=== PATIENT | female | born 1960 | race African-American/Black ===

== ENCOUNTER 2023-09-22 09:56 | Outpatient (OUT) | payer OTHER, SELFPAY ==
--- NOTE | 2023-09-22 09:58 | US_ITS ---
The [address] [address] Patient Name: AMOR TIMMONS MRN: [id number] date: 1960 Sex: F Assigned Patient Location: [facility] Current Patient Location: [facility] Accession/Order Number: [id number] Exam Date: 09/22/2023 09:59 Report Date: 09/22/2023 13:30 At the request of: ANTHONY ROCHE Procedure: US pelvis w/ transvaginal EXAMINATION: US pelvis w/ transvaginal HISTORY: POST MENOPAUSAL BLEEDING COMPARISON: No relevant comparison available. FINDINGS: Transabdominal and transvaginal images The uterus measures 9.7 x 4.2 x 5.4 cm, retroverted, retroflexed. Identified in the uterine fundus is a 3.6 x 2.9 x 2.8 cm area of heterogeneous hypoechogenicity with some likely acoustic shadowing and vascularity. The endometrium measures 12 mm, heterogeneous. The right ovary measures 2.3 x 1 0.5 to 2.0 cm. Normal color flow. The left ovary measures 2.9 x 1.9 x 1.8 cm. Normal color flow. No free fluid US/US pelvis w/ transvaginal IMPRESSION: 3.6 cm myometrial mass. A fibroid is statistically favored Thickened endometrium, in light of patient's postmenopausal bleeding, histopathologic diagnosis is recommended Electronically authenticated by: PRISCILLA ANDINO Date: 09/22/2023 13:30
== END 2023-09-22 09:57 | disposition home or self-care (01) ==
LOC: NOMS 09:56
PROVIDERS: Visit Provider Obstetrics & Gynecology
DX: N95.0 Postmenopausal bleeding (principal); N85.8 Other specified noninflammatory disorders of uterus
CPT/HCPCS: 76830; 76856

== ENCOUNTER 2023-11-05 12:35 | Outpatient (OUT) | payer OTHER, SELFPAY ==
--- NOTE | 2023-11-05 12:46 | ECG_ITS ---
The [facility] Test Date: 2023-11-05 Pat Name: AMOR TIMMONS Department: Room: - Gender: Female [employer]: : 1960 Requested By: ANTHONY ROCHE Order Number: [id number] Reading MD: DAVIDE HODGES Measurements Intervals [place] Rate: 68 P: 56 KS: 158 QRS: 33 QRSD: 148 T: 35 QT: 415 QTc: 443 Interpretive Statements SINUS RHYTHM INDETERMINATE AXIS RIGHT BUNDLE BRANCH BLOCK [120+ ms QRS DURATION, UPRIGHT V1, 40+ ms S IN I/aVL/V4/V5/V6] No previous ECG available for comparison Electronically Signed On 11-06-2023 14:23:52 EDT by DAVIDE HODGES
[2023-11-05 14:56] LABS: Anion Gap 13.9; BUN Creatinine Ratio 14.6; Calcium 9.3 mg/dL (8.5-10.1); Carbon Dioxide 27.7 mmol/L (21.0-32.0); Chloride 102 mmol/L (98-107); Estimated GFR (African America >60 (>=60); Estimated GFR (Non-African Ame 54 (>=60); Glucose 180 mg/dL (74-106); Potassium 3.6 mmol/L (3.5-5.1); Sodium 140 mmol/L (136-145)
== END 2023-11-05 12:36 | disposition home or self-care (01) ==
PROVIDERS: Visit Provider Obstetrics & Gynecology
DX: Z01.810 Encounter for preprocedural cardiovascular examination (principal); Z01.812 Encounter for preprocedural laboratory examination; N95.0 Postmenopausal bleeding; R93.89 Abnormal findings on diagnostic imaging of other specified body structures
CPT/HCPCS: 80048; 93005

== ENCOUNTER 2023-11-14 07:50 | Day surgery (SDC) | payer OTHER, SELFPAY ==
[2023-11-05 13:14] VITALS: BP 132/86; PULSE 76; TEMP 36.3; O2SAT 95; BMI 37.4
[2023-11-14] VITALS (11 sets, daily range): BP systolic 122–150; BP diastolic 68–88; PULSE 66–102; TEMP 36.2–36.5; O2SAT 95–98; BMI 37.4
--- OUTSIDE RECORDS SUMMARY | 2023-11-14 07:52 | XMS_ITS | CCD ---
Author Organization [facility] Care Team Providers Care Escrow Manager Name Role Phone Ligia Broderick MD Primary Care Provider LIGIA SINGH Attending Unavailable ANTHONY ROCHE Attending Unavailable MIKAEL, LIGIA Rice Attending Unavailable ANTHONY ROCHE Attending Unavailable ANTHONY ROCHE Attending Unavailable MIKAEL, LIGIA Rice Attending Unavailable LIGIA SINGH Attending Unavailable LIGIA SINGH Attending Unavailable LIGIA BRODERICK Referring Unavailable LIGIA BRODERICK Primary Care Unavailable LIGIA BRODERICK Referring Unavailable LIGIA BRODERICK Primary Care Unavailable LIGIA BRODERICK Referring Unavailable LIGIA BRODERICK Primary Care Unavailable LIGIA BRODERICK Referring Unavailable LIGIA BRODERICK Primary Care Unavailable LIGIA BRODERICK Referring Unavailable LIGIA BRODERICK Primary Care Unavailable LIGIA BRODERICK Referring Unavailable LIGIA BRODERICK Primary Care Unavailable Medications Current Medications Medication Drug Class(es) Dates Sig (Normalized) Sig (Original) hydroCHLOROthiazide 12.5 mg / lisinopril 10 mg oral tablet (1 source) Thiazide Diuretic, Angiotensin Converting Enzyme Inhibitor take 1 tablet by mouth in the morning lisinopril-hydro CHLOROthiazide 10-12.5 MG tablet Take 1 tablet by mouth in the morning. 0 Active metFORMIN hydrochloride 500 mg oral tablet (1 source) Biguanide metFORMIN (Glucophage) 500 MG tablet every 12 (twelve) hours. 0 Active Problems Problem Classification Problem Date Documented Da te Episodic/Chronic Other connective tissue disease (1 source) Adhesive capsulitis of left shoulder; Translations: [Adhesive capsulitis of left shoulder] 08-07-2023 Episodic Other connective tissue disease (1 source) Non-traumatic partial tear of left rotator cuff; Translations: [Incomplete rotator cuff tear or rupture of left shoulder, not specified as traumatic] 08-07-2023 Episodic Other connective tissue disease (1 source) Other shoulder lesions, unspecified shoulder; Translations: [Other shoulder lesions, unspecified shoulder] Onset: 09-05-2023 Episodic Other non-traumatic joint disorders (1 source) Chronic pain of right upper limb; Translations: [Pain in right shoulder] 08-07-2023 Episodic Encounters Encounter Date Encounter Type Care Provider Facility Start: 11-05-2023 ambulatory LIGIA BRODERICK [facility] Start: 10-23-2023 End: 10-23-2023 ambulatory LIGIA SINGH Not Available Start: 10-21-2023 End: 10-21-2023 ambulatory ANTHONY COUCHZIO Not Available Start: 10-13-2023 End: 11-05-2023 ambulatory LIGIA Silver [facility] Start: 09-22-2023 End: 09-22-2023 ambulatory ANTHONY COUCHZIO Not Available Start: 09-08-2023 End: 09-08-2023 ambulatory ANTHONY KALEY Not Available Start: 09-05-2023 End: 10-06-2023 ambulatory LIGIA BRODERICK [facility] Start: 08-07-2023 End: 09-05-2023 ambulatory LIGIA SINGH Not Available Start: 08-07-2023 End: 08-07-2023 Office outpatient visit 10 minutes Ligia Singh DO Work Phone: [facility] Comment on above: Adhesive capsulitis of left shoulder (Primary Dx); Partial nontraumatic tear of rotator cuff, left; Chronic right shoulder pain Start: 07-29-2023 End: 08-07-2023 ambulatory LIGIA BRODERICK [facility] Start: 06-16-2023 End: 07-07-2023 ambulatory LIGIA Silver [facility] Start: 06-12-2023 End: 06-12-2023 ambulatory LIGIA SINGH Not Available Start: 05-27-2023 End: 05-27-2023 ambulatory LIGIA SINGH Not Available Start: 05-20-2023 End: 05-20-2023 ambulatory LIGIA SINGH Not Available Procedures Date Procedure Procedure Detail Performing Clinician Start: 08-09-2022 Mammography Ligia lal DO Work Phone: Plan of Treatment Date Care Activity Detail Author Start: 10-02-2023 End: 10-02-2023 Patient encounter procedure 10/02/2023 9:00 AM EDT Office Visit [facility] [address] [place] [address] Ligia Singh, DO [address] [facility] [address] [place] [address] [facility] Start: 08-09-2023 Screening for malign ant neoplasm of breast Mammogram [facility] Start: 03-07-2023 Influenza vaccination Influenza Vacc ine (#1) [facility] Start: 1991 Screening for malign ant neoplasm of cervix [facility] Start: 1982 Screening for malign ant neoplasm of cervix Pap Smear [facility] Start: 1960 Screening for malign ant neoplasm of colon [facility] Healthcare Payers Date Payer Category Payer Medicaid [id number] 2016 Medicaid [employer] [place] [id number] 2016-Present [address] [place] [address] [id number] 2016 Medicaid [id number] 1960 Unknown [id number] 1960 Unknown [id number] [id number]58 1960 Unknown [id number] 2.16.840.1.174288.3.579.2.1258 1960 Unknown [id number] 2.16.840.1.131938.3.579.2.9 1960 Unknown [id number] 2.16.840.1.640386.3.579.2.9 1960 Unknown [id number] 2.16.840.1.490756.3.579.2.1258 1960 Unknown [id number] 2.16.840.1.025594.3.579.2.1259 1960 Unknown [id number] 2.16.840.1.800765.3.579.2.1259 1960 Unknown [id number] 2.16.840.1.678243.3.579.2.1286 1960 Unknown [id number] 2.16.840.1.704897.3.579.2.1286 1960 Unknown [id number] 2.16.840.1.424737.3.579.2.1286 1960 Unknown [id number] 2.16.840.1.090928.3.579.2.1286 1960 Unknown [id number] 2.16.840.1.012645.3.579.2.1286 1960 Unknown [id number] 2.16.840.1.337695.3.579.2.1286 Social History Date Type Detail Facility Start: 05-20-2023 Tobacco smoking stat [facility] Never smoked tobacco [facility] Start: 05-20-2023 Tobacco use and exposure Smokeless t obacco non-user [facility] Start: 05-20-2023 Alcohol intake Ex-drinker (finding) [facility] Start: 05-20-2023 History of Social function [facility] Start: 05-20-2023 Tobacco use panel [facility] Start: 1960 Sex Assigned At Not on file [facility] History of Present illness Narrative 08-07-2023 Ligia Singh DO - 08/07/2023 9:15 AM EST Note Date & Type Note Facility 08-07-2023 History of Presen t illness Narrative Images from the original note were not included. HISTORY OF PRESENT ILLNESS: Agnes Timmons is an 63 y.o. @ female. Chief complaint RT shoulder pain LT shoulder s/p PT at [facility] with 3 visits with 10% improvement. 2 1/2 months s/p subacromial depo injx 05/27/23, she still notes some relief. LT shoulder pain x Feb 2023 and has gradually worsened, denies injury. Saw Dr Broderick, went to PT, had MRI at [facility]. Pain is much improved, no longer waking at HS. Admits weakness but is improving. ROM is improving but still trouble with IR/ER rotation. Some discomfort in the upper arm. 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 Prior treatment: PCP, PT 6-7 visits, MRI [facility] 04/18/23, massage, ice, tried naproxen, taking TYL and motrin, Depo injx subacromial 05/27/23, PT MEDICATION: Current Outpatient Medications on File Prior to Visit Medication Sig Dispense Refill lisinopril-hydroCHLOROthiazide 10-12.5 MG tablet Take 1 tablet by mouth in the morning. metFORMIN (Glucophage) 500 MG tablet every 12 (twelve) hours. No current facility-administered medications on file prior to visit. MEDICAL HISTORY: Past Medical History: Diagnosis Date Arthritis Diabetes mellitus ([facility]) Heart murmur Hypertension ([facility]) Obesity ALLERGIES: No Known Allergies VITALS: Visit Vitals Smoking Status Never PHYSICAL EXAM: Ortho Exam LT shoulder ROM 150/150/20 IR 0 Exam consistent with adhesive capsulitis IMAGING: ASSESSMENT: ICD-10-CM 1. Adhesive capsulitis of left shoulder M75.02 2. Partial nontraumatic tear of rotator cuff, left M75.112 3. Chronic right shoulder pain M25.511 G89.29 PLAN: I explained the diagnosis and reviewed treatment options. I answered all of the patient's questions. I recommend she continue with HEP and PT. I will see her back in [address] Singh obtained history and examined the patient, I am acting as scribe for Dr. Singh/, RN Tara Singh D.O. documented in this encounter [facility] Evaluation note Note Date & Type Note Facility Evaluation note Diagnosis Adhesive capsulitis of left shoulder- Primary Partial nontraumatic tear of rotator cuff, left Chronic right shoulder pain Pain in joint, shoulder region documented in this encounter [facility] Summary Purpose Family History No Family History Records FoundNo Family History Records Found Advance Directives No Advanced Directives Records FoundNo Advanced Directives Records Found Additional Source Comments Reason for Visit (unrecogniz ed section and content) Reason Comments Follow-up Care Teams (unrecognized sec tion and content) Escrow Manager Relationship Specialty Start Date End Date Ligia Broderick MD [address] [place] [address] PCP - General Family Medicine 05/20/23 INFORMATION SOURCE (unrecogn ized section and content) DATE CREATED AUTHOR 10/24/2023 [facility] EPIC DATE CREATED AUTHOR AUTHOR'S ORGANIZ ATION 11/12/2023 [facility] FOR RECORDS PERTAINING TO PATIENTS WHO ARE OR HAVE BEEN ENROLLED IN A CHEMICAL DEPENDENCY/SUBSTANCEABUSE PROGRAM, SOME INFORMATION MAY BE OMITTED. This clinical summary was aggregated from multiple sources. Caution should be exercised in using it in the provision of clinical care. This summary normalizes information from multiple sources, and as a consequence, information in this document may materially change the coding, format and clinical context of patient data. In addition, data may be omitted in some cases. CLINICAL DECISIONS SHOULD BE BASED ON THE PRIMARY CLINICAL RECORDS. [facility]. provides no warranty or guarantee of the accuracy or completeness of information in this document.
[2023-11-14 07:57] LABS: Basophils Percent Auto 0.4 % (0.2-2.0); Eosinophils Absolute Auto 0.1 10^3/uL (0.0-0.7); Eosinophils Percent Auto 1.9 % (0.9-7.0); Hematocrit 37.2 % (36.0-48.0); Hemoglobin 11.8 g/dL (12.0-16.0); Immature Granulocytes Abs Auto 0.01 10^3/uL (0.00-0.03); Immature Granulocytes Pct Auto 0.1 % (0.0-0.5); Lymphocytes Absolute Auto 2.5 10^3/uL (1.2-3.8); Lymphocytes Percent Auto 36.4 % (20.5-60.0); Mean Corpuscular HGB Conc 31.7 g/dL (29.9-35.2); Mean Corpuscular Hemoglobin 26.5 pg (26.7-34.0); Mean Corpuscular Volume 83.6 fL (81.0-99.0); Mean Platelet Volume 8.9 fL (9.5-13.5); Monocytes Absolute Auto 0.7 10^3/uL (0.3-0.8); Monocytes Percent Auto 9.7 % (1.7-12.0); Neutrophils Absolute Auto 3.5 10^3/uL (1.4-6.5); Neutrophils Percent Auto 51.5 % (43.0-75.0); Platelet Count 262 10^3/uL (150-450); Red Blood Count 4.45 10^6/uL (4.20-5.40); Red Cell Distribution Width 12.9 % (11.0-15.0); White Blood Count 6.9 10^3/uL (4.0-11.0)
[2023-11-14] MEDS: LACTATED RINGER'S SOLUTION 1,000 ML 50 ML IV (08:31)
[2023-11-14 08:44] LABS: Glucometer 143 mg/dL (74-106)
--- NOTE | 2023-11-14 12:05 | PC.NURSE ---
1150: pt voids without difficulty.
--- NOTE | 2023-11-20 00:22 | P.ON_ITS ---
Brief Operative Note Date of procedure: 11/14/23 Pre-op diagnosis general: pmb, thickend endometrial lining Post-op diagnosis: same as pre-op Procedure: NAME OF PROCEDURE: [ D&c hysteroscopy with myosure with polypectomy] PROCEDURE: The patient was taken back to the Operating Room where she was prepped and draped in normal sterile fashion after being placed under general anesthesia without difficulty. She was also placed in the dorsal lithotomy position. A weighted speculum was placed in the patient?s vagina. The anterior lip of the cervix was identified and grasped with a single tooth tenaculum. The patient?s uterus was then sounded roughly to [? 8] cm. The patient was then gently dilated using Hegar dilators. The hysteroscope was passed through the patient?s cervix into the uterus. Both ostia were identified. fluffy appearing endometrium. No gross evidence of malignancy, no gross evidence of polyps or fibroids. The myosure apparatus was placed through the scope, The myosure was engaged and endometrial curretting were removed along with endometrial polyp, The hysteroscope was then removed from the uterus. The endometrial curettings were sent out to pathology. The single tooth te naculum was then removed from the patient's anterior lip of the cervix where excellent hemostasis was noted. All instruments were removed from the patient?s vagina. The patient tolerated the procedure well. Sponge, lap and needle counts were correct times two. The patient was taken to the Recovery Room in stable condition.Room in stable condition. Anesthesia: MAC Surgeon: Lamont Rao Estimated blood loss (mL): 5 Pathology: other (endometrial polyp and currettings) Condition: stable Disposition: PACU Urinary Catheter Management Urinary Catheter Management Straight: Cath placed during this visit: no
== END 2023-11-14 12:00 | disposition home or self-care (01) ==
PROVIDERS: Visit Provider Obstetrics & Gynecology
PROC: (CPT 952; principal; 2023-11-14 09:15)
DX: N95.0 Postmenopausal bleeding (principal); R93.89 Abnormal findings on diagnostic imaging of other specified body structures; E11.9 Type 2 diabetes mellitus without complications; N84.0 Polyp of corpus uteri; Z79.84 Long term (current) use of oral hypoglycemic drugs; I10 Essential (primary) hypertension; E66.9 Obesity, unspecified; M19.90 Unspecified osteoarthritis, unspecified site; Z86.010 Personal history of colon polyps; Z68.37 Body mass index [BMI] 37.0-37.9, adult
CPT/HCPCS: 58558; 36415; 82948; 85025; 88305; J1094; J2704

== ENCOUNTER 2024-03-02 19:24 | Outpatient (REF) | payer OTHER, SELFPAY ==
--- OUTSIDE RECORDS SUMMARY | 2024-03-02 19:46 | XMS_ITS | CCD ---
Author Organization [facility] Care Team Providers Care Engineering Patternmaker Name Role Phone Winston FIORE, Ligia Silver Primary Care Provider Anthony Rao Attending Provider Anthony Rao Attending Unavailable Anthony Rao Admitting Unavailable WINSTON, LIGIA Silver Referring Unavailable WINSTON, LIGIA Silver Primary Care Unavailable WINSTON, LIGIA Silver Referring Unavailable WINSTON, LIGIA Silver Primary Care Unavailable WINSTON, LIGIA Silver Referring Unavailable WINSTON, LIGIA Silver Primary Care Unavailable WINSTON, LIGIA Silver Referring Unavailable WINSTON, LIGIA Silver Primary Care Unavailable WINSTON, LIGIA Silver Referring Unavailable WINSTON, LIGIA Silver Primary Care Unavailable WINSTON, LIGIA Silver Referring Unavailable WINSTON, LIGIA Silver Primary Care Unavailable MIKAEL, LIGIA Rice Attending Unavailable ANTHONY RAO Attending Unavailable MIKAEL, LIGIA Rice Attending Unavailable MAIRA, ANTHONY Attending Unavailable ANTHONY RAO Attending Unavailable MIKAEL, LIGIA Rice Attending Unavailable REJISAURAV Attending Unavailable MIKAEL, LIGIA Rice Attending Unavailable MIKAEL, LIGIA Rice Attending Unavailable MIKAEL, LIGIA Rice Attending Unavailable MIKAEL, LIGIA Rice Referring Unavailable MIKAEL, LIGIA Rice Attending Unavailable Medications Current Medications Medication Drug Class(es) [...] every 12 (twelve) hours. 0 Active Problems Active Problems Problem Classification Problem Date Documented Da te Episodic/Chronic Other connective tissue disease (1 source) Adhesive capsulitis of left shoulder; Translations: [Adhesive capsulitis of left shoulder] 08-07-2023 Episodic Other connective tissue disease (1 source) Non-traumatic partial tear of left rotator cuff; Translations: [Incomplete rotator cuff tear or rupture of left shoulder, not specified as traumatic] 08-07-2023 Episodic Other non-traumatic joint disorders (1 source) Chronic pain of right upper limb; Translations: [Pain in right shoulder] 08-07-2023 Episodic Past or Other Problems Problem Classification Problem Date Documented Da te Episodic/Chronic Other connective tissue disease (1 source) Other shoulder lesions, unspecified shoulder; Translations: [Other shoulder lesions, unspecified shoulder] Onset: 09-05-2023 Episodic Results Test Name Value Interpretation Reference Range Facil ity Pancho 11-14-2023 L Specimen: [id number] Received: 11/14/23 Status: STEFANI Walker Num: [id number] Spec Type: Surgical Subm Dr: Anthony Rao Tissues: A Endometrium - Curettings (ENDOMETRIAL CUURETTINGS) Procedures: HE/4, Gross/Micro L4 Age/ Patient Sex Location Account Attending Physician Agnes Thapa 63/F LABELL [id number] Anthony Rao SPEC NUM: [id number] RECD: 11/14/23 STATUS: STEFANI WALKER NUM: [id number] [place]: 11/14/[address]: Anthony Rao ENTERED: 11/14/23 [facility] DR: Kalyn,Rene SPEC TYPE: Surgical DEPT: OSITO CHO ORDERED: HE/4, Gross/Micro L4 ORDERED: HE/4, Gross/Micro L4 Pathological Diagnosis Endometrial curettings: -Multiple strips of inactive to weakly proliferative type endometrial mucosa, including occasional small biopsy fragments of benign endometrial polyps with occasional minor associated simple and/or cystic hyperplasia, and the occasional cystic glandular atrophy also noted, without atypia identified Gross Description Received in formalin, labeled with the patient's name, date of and endometrial curettings are multiple horne-pink tissue fragments admixed with clotted blood measuring in aggregate 2.6 x 2.2 x 0.5 cm. Submitted entirely in A1?A2. Clinical history postmenopausal bleeding, thickened endometrium. CPT Codes 10912 Specimen: [id number] Received: 11/14/23 Status: STEFANI Walker Num: [id number] Spec Type: Surgical Subm Dr: Anthony Rao Tissues: A Endometrium - Curettings (ENDOMETRIAL CUURETTINGS) Procedures: Fred BECKWITH/Archie L4 Patient: Agnes Thapa [id number] (Continued) Signed (signature on file) Grabiel Torrez MD 11/18/231916 [place] [facility] Encounters Encounter Date Encounter Type Care Provider Facility Start: 02-05-2024 End: 02-05-2024 ambulatory LIGIA SINGH Not Available Start: 01-22-2024 End: 01-22-2024 ambulatory LIGIA SINGH Not Available Start: 11-27-2023 End: 11-27-2023 ambulatory SAURAV MENDOZA Not Available Start: 11-14-2023 End: 11-14-2023 ambulatory Anthony Maira Facility:[facility] Start: 11-14-2023 End: 11-14-2023 ambulatory Anthony Maira Work Phone: [facility] Work Phone: Start: 11-14-2023 End: 11-14-2023 Departed Referred Anthony Maira Work Phone: [facility] Start: 11-05-2023 End: 12-06-2023 ambulatory [facility] Start: 10-23-2023 End: 10-23-2023 ambulatory LIGIA SINGH Not Available Start: 10-21-2023 End: 10-21-2023 ambulatory ANTHONY MAIRA Not Available Start: 10-13-2023 End: 11-05-2023 ambulatory [facility] Start: 09-22-2023 End: 09-22-2023 ambulatory ANTHONY MAIRA Not Available Start: 09-08-2023 End: 09-08-2023 ambulatory ANTHONY MAIRA Not Available Start: 09-05-2023 End: 10-06-2023 ambulatory [facility] Start: 08-07-2023 End: 09-05-2023 ambulatory [facility] Start: 08-07-2023 End: 08-07-2023 Office outpatient visit 10 minutes Ligia Singh DO Work Phone: [facility] Comment on above: Adhesive capsulitis of left shoulder (Primary Dx); Partial nontraumatic tear of rotator cuff, left; Chronic right shoulder pain Start: 07-29-2023 End: 08-07-2023 ambulatory [facility] Start: 06-16-2023 End: 07-07-2023 ambulatory [facility] Start: 06-12-2023 End: 06-12-2023 ambulatory LIGIA SINGH [...] Office Visit [facility] [address] [place] [address] Ligia Singh, DO [address] [facility] [address] [place] [address] [facility] Start: 08-09-2023 Screening for malign ant neoplasm of breast Mammogram [facility] Start: 03-07-2023 Influenza vaccination Influenza Vacc ine (#1) [facility] Start: 1991 Screening for malign ant neoplasm of cervix [facility] Start: 1982 Screening for malign ant neoplasm of cervix Pap Smear [facility] Start: 1961 Screening for malign ant neoplasm of colon [facility] Payers Date Payer Category Payer Self-pay [id number] 2023 Medicaid [id number] 2016 Medicaid [facility] [employer] MEDICA[employer] [place] [id number] 2016-Present [address] [place] [address] [id number] 2016 Medicaid [id number] 1961 Unknown [id number] 2.16.840.1.201436.3.579.2.1286 1961 Unknown [id number] .16.840.1.287260.3.579.2.1286 1961 Unknown [id number] 2.16.840.1.052591.3.579.2.1286 1961 Unknown [id number] 2.16.840.1.935777.3.579.2.1286 1961 Unknown [id number] 2.16.840.1.476369.3.579.2.1286 1961 Unknown [id number] 2.16.840.1.551687.3.579.2.1286 1961 Unknown [id number] 2.16.840.1.243828.3.579.2.125 1961 Unknown [id number] 2.16.840.1.485435.3.579.2.1258 1961 Unknown [id number] 2.16.840.1.066300.3.579.2.125 1961 Unknown [id number] 2.16.840.1.398670.3.579.2.125 1961 Unknown [id number] 2.16.840.1.059876.3.579.2.125 1961 Unknown [id number] 2.16.840.1.381666.3.579.2.125 1961 Unknown [id number] 2.16.840.1.670574.3.579.2.125 1961 Unknown [id number] 2.16.840.1.844322.3.579.2.125 1961 Unknown [id number] 2.16.840.1.758041.3.579.2.125 1961 Unknown [id number] 2.16.840.1.721820.3.579.2.125 1961 Unknown [id number] 2.16.840.1.455649.3.579.2.125 1961 Unknown [id number] 2.16.840.1.642761.3.579.2.1259 Unknown [id number] 2.16.840.1.954262.3.579.2.531 Social History Date Type Detail Facility Start: [facility]20-[facility]23 [facility] Start: 05-20-2023 Tobacco use and exposure Smokeless tobacco non-user [facility] Start: 05-20-2023 Alcohol intake Ex-drinker (finding) [facility] Start: 05-20-2023 History of Social function [facility] Start: 05-20-2023 Tobacco use panel [facility] Start: 1960 Sex Assigned At Not on file [facility] Start: 1960 Sex Assigned At Female F [facility] History of Present illness Narrative 08-07-2023 Ligia Singh, DO - 08/07/2023 9:15 AM EST Note Date & Type Note Facility 08-07-2023 History of Presen t illness Narrative Images from the original note were not included. HISTORY OF PRESENT ILLNESS: Agnes Thapa is an 63 y.o. @ female. Chief complaint RT shoulder pain LT shoulder s/p PT at [facility] with 3 visits with 10% improvement. 2 1/2 months s/p subacromial depo injx 05/27/23, she still notes some relief. LT shoulder pain x Feb 2023 and has gradually worsened, denies injury. Saw Dr Montero, went to PT, had MRI at [facility]. Pain is much improved, no longer waking at HS. Admits weakness but is improving. ROM is improving but still trouble with IR/ER rotation. Some discomfort in the upper arm. 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 Prior treatment: PCP, PT 6-7 visits, MRI [facility] 04/18/23, massage, ice, tried naproxen, taking TYL [...] Medical History: Diagnosis Date Arthritis Diabetes mellitus (CMS/HCC) Heart murmur Hypertension (CMS/[facility]) Obesity ALLERGIES: No Known Allergies VITALS: [...] I am acting as scribe for Dr. Singh/JACKSON KOCH D.O. documented in this encounter [facility] Evaluation note Note Date & Type Note Facility Evaluation note Diagnosis Adhesive capsulitis of left shoulder- Primary Partial nontraumatic tear of rotator cuff, left Chronic right shoulder pain Pain in joint, shoulder region documented in this encounter [facility] Evaluation note Note Date & Type Note Facility Evaluation note No assessment information availa [facility] Work Phone: Summary Purpose Family History No Family History Records FoundNo Family History Records FoundNo Family History Records Found Advance Directives No Advanced Directives Records FoundNo Advanced Directives Records FoundNo Advanced Directives Records Found Additional Source Comments Reason for Visit (unrecogniz ed section and content) Reason Comments Follow-up Care Teams (unrecognized sec tion and content) Engineering Patternmaker Relationship Specialty Start Date End Date Ligia Montero MD [address] [place] [address] PCP - General Family Medicine 05/20/23 Team Status: Inactive Member Role Status Dates Anthony Rao Attending Provider Active Start: Francoise meza 2023 End: November 14, 2023 Goals (unrecognized section and content) Goals may be documented in a n alternate section INFORMATION SOURCE (unrecogn ized section and content) DATE CREATED AUTHOR 11/20/2023 [facility] DATE CREATED AUTHOR AUTHOR'S KARINA ATION 12/07/2023 [facility] DATE CREATED AUTHOR AUTHOR'S ORGANIZ ATION 02/10/2024 [facility] dical Specialists [facility] FOR RECORDS PERTAINING TO PATIENTS WHO ARE [...] BE BASED ON THE PRIMARY CLINICAL RECORDS. [facility] M[facility]. provides no warranty or guarantee of the accuracy or completeness of information in this document.
== END 2024-03-02 19:25 | disposition home or self-care (01) ==
LOC: LAB 19:24
PROVIDERS: Visit Provider Physician Assistant
DX: Z01.419 Encounter for gynecological examination (general) (routine) without abnormal findings (principal)
CPT/HCPCS: 87624; 88175

== ENCOUNTER 2024-04-05 09:50 | Outpatient (OUT) | payer OTHER, SELFPAY ==
--- NOTE | 2024-04-05 09:57 | XR_ITS ---
The [address] [address] Patient Name: AMOR TIMMONS MRN: [id number] date: 1960 Sex: F Assigned Patient Location: [facility] Current Patient Location: [facility] Accession/Order Number: [id number] Exam Date: 04/05/2024 10:02 Report Date: 04/05/2024 13:10 At the request of: SAURAV MENDOZA Procedure: XR DEXA axial skeleton EXAMINATION: XR DEXA axial skeleton HISTORY: Postmenopausal State Z78.0 COMPARISON: No relevant comparison available. TECHNIQUE: Dual-energy X-ray absorptiometry (DXA) was performed. FINDINGS: SPINE ANALYSIS: Average bone mineral density is 1.247 g/cm2. T-score (standard deviation relative to young adult mean): 0.6 . HIP ANALYSIS: Lowest bone mineral density is within the left femoral neck, 0.854 g/cm2. T-score (standard deviation relative to young adult mean): -1.3 . XR/XR DEXA axial skeleton IMPRESSION: World Health Organization Classification: Osteopenia - Moderate Fracture Risk FRAX: Cannot calculate. Pharmacologic treatment recommendations * No uniform recommendation applies to all patients. Management plans must be individualized. * Consider initiating pharmacologic treatment in postmenopausal women and men >= 50 years of age who have the following: Primary fracture prevention: * T-score <= - 2.5 at the femoral neck, total hip, lumbar spine, 33% radius (some uncertainty with existing data) by DXA. * Low bone mass (osteopenia: T-score between - 1.0 and - 2.5) at the femoral neck or total hip by DXA with a 10-year hip fracture risk >= 3% or a 10-year major osteoporosis-related fracture risk >= 20% (i.e., clinical vertebral, hip, forearm, or proximal humerus) based on the US-adapted FRAXregistered model. Secondary fracture prevention: * Fracture of the hip or vertebra regardless of BMD [4, 5]. * Fracture of proximal humerus, pelvis, or distal forearm in persons with low bone mass (osteopenia: T-score between - 1.0 and - 2.5). The decision to treat should be individualized in persons with a fracture of the proximal humerus, pelvis, or distal forearm who do not have osteopenia or low BMD [12, 13]. Hetal MS, Jaime SL, Shaunna KL, Tristen EM, Ganesh KG, AJ, Geraldine ES. The clinician's guide to prevention and treatment of osteoporosis. Osteoporos Int. 2021;33(10):6954-1008. doi: 10.1007/s40028-804-18567-s. Epub 2021Nov 01. Erratum in: Osteoporos Int. 2021Jan 31;: PMID: 15100467; PMCID: [id number]. Electronically authenticated by: MORALES RAND Date: 04/05/2024 13:10
--- OUTSIDE RECORDS SUMMARY | 2024-04-05 09:58 | XMS_ITS | CCD ---
Author Organization [facility] Care Team Providers Care Shipping Point Inspector Name Role Phone Winston FIORE, Ligia Silver [...] Rice Attending Unavailable MAIRA, ANTHONY Attending Unavailable MAIRA, ANTHONY Attending Unavailable MIKAEL, LIGIA Rice Attending Unavailable SAURAV MENDOZA Attending Unavailable MIKAEL, LIGIA Rice Attending Unavailable MIKAEL, LIGIA Rice Attending Unavailable MIKAEL, LIGIA Rice Attending Unavailable MIKAEL, LIGIA Rice Referring Unavailable REJISAURAV HODGSON Attending Unavailable MIKAEL, LIGIA Rice Attending Unavailable Medications [...] Range Facil ity Pancho 11-14-2023 L Specimen: [id number] Received: 11/14/23 Status: STEFANI Walker Num: [id number] Spec Type: Surgical Subm Dr: Anthony Rao Tissues: A Endometrium - Curettings (ENDOMETRIAL CUURETTINGS) Procedures: HE/4, Gross/Micro L4 Age/ Patient Sex Location Account Attending Physician Agnes Thapa 63/F LABELL [id number] Anthony Rao SPEC NUM: [id number] RECD: 11/14/23 STATUS: STEFANI WALKER NUM: [id number] [place]: 11/14/[address]: Anthony Rao ENTERED: 11/14/23 [facility] DR: [facility],Lab SPEC TYPE: Surgical DEPT: OSITO CHO ORDERED: [...] history postmenopausal bleeding, thickened endometrium. CPT Codes 70982 Specimen: [id number] Received: 11/14/23 Status: STEFANI Walker Num: [id number] Spec Type: Surgical Subm Dr: Anthony Rao Tissues: A Endometrium - Curettings (ENDOMETRIAL CUURETTINGS) Procedures: Fred BECKWITH/Archie L4 Patient: Agnes Thapa [id number] (Continued) Signed (signature on file) Grabiel Torrez MD 11/18/231916 [facility] Encounters Encounter Date Encounter Type Care Provider Facility Start: 03-02-2024 End: 03-02-2024 ambulatory SAURAV MENDOZA Not Available Start: 02-05-2024 End: 02-05-2024 ambulatory LIGIA SINGH Not Available Start: 01-22-2024 End: 01-22-2024 ambulatory LIGIA SINGH Not Available Start: 11-27-2023 End: 11-27-2023 ambulatory SAURAV MENDOZA Not Available Start: 11-14-2023 End: 11-14-2023 ambulatory Anthony Maira Facility:[facility] Start: 11-14-2023 End: 11-14-2023 ambulatory Anthony Maira Work Phone: [facility] Work Phone: Start: 11-14-2023 End: 11-14-2023 Departed Referred Anthony Maira Work Phone: [facility] Path [facility] Start: 11-05-2023 End: 12-06-2023 ambulatory [facility] Start: 10-23-2023 End: 10-23-2023 ambulatory LIGIA SINGH Not Available Start: 10-21-2023 End: 10-21-2023 ambulatory ANTHONY MAIRA Not Available Start: 10-13-2023 End: 11-05-2023 ambulatory [facility] Start: 09-22-2023 End: 09-22-2023 ambulatory ANTHONY MAIRA Not Available Start: 09-08-2023 End: 09-08-2023 ambulatory ANTHONY MAIRA Not Available Start: 09-05-2023 End: 10-06-2023 ambulatory [facility] Start: 08-07-2023 End: 09-05-2023 ambulatory [facility] Start: 08-07-2023 End: 08-07-2023 Office outpatient visit 10 minutes Ligia Singh DO Work Phone: [facility] Comment on above: Adhesive capsulitis of left shoulder (Primary Dx); Partial nontraumatic tear of rotator cuff, left; Chronic right shoulder pain Start: 07-29-2023 End: 08-07-2023 ambulatory [facility] Start: 06-16-2023 End: 07-07-2023 ambulatory LIGIA Khaneugenie [facility] Start: 06-12-2023 End: 06-12-2023 ambulatory LIGIA SINGH Not Available Start: 05-27-2023 End: 05-27-2023 ambulatory LIGIA Krystal MIKAEL Not Available Start: 05-20-2023 End: 05-20-2023 ambulatory LIGIA SINGH Not Available Procedures Date Procedure Procedure Detail Performing Clinician Start: 08-09-2022 Mammography Ligia lal DO Work Phone: Plan of Treatment Date Care Activity Detail Author Start: 10-02-2023 End: 10-02-2023 Patient encounter procedure 10/02/2023 9:00 AM EDT Office Visit [facility] [address] [place] [id number] Ligia Singh DO [address] [address] [facility] Start: 08-09-2023 Screening for malign ant neoplasm of breast Mammogram [facility] Start: 03-07-2023 Influenza vaccination Influenza Vacc ine (#1) [facility] Start: 1991 Screening for malign ant neoplasm of cervix [facility] Start: 1982 Screening for malign ant neoplasm of cervix Pap Smear [facility] Start: 1961 Screening for malign ant neoplasm of colon [facility] Payers Date Payer Category Payer Self-pay [id number] 2023 Medicaid [id number] 2016 Medicaid [employer]ICA[employer] [place] [id number] 2016-Present [address] [place] [address] [id number] 2016 Medicaid [id number] 1961 Unknown [id number] 2.16.840.1.119595.3.579.2.1286 1961 Unknown [id number] 2.16.840.1.128391.3.579.2.1286 1961 Unknown [id number] 2.16.840.1.506788.3.579.2.1286 1961 Unknown [id number] 2.16.840.1.984458.3.579.2.1286 1961 Unknown [id number] 2.16.840.1.062326.3.579.2.1286 1961 Unknown [id number] 2.16.840.1.648859.3.579.2.1286 1961 Unknown [id number] 2.16.840.1.584012.3.579.2.1259 1961 Unknown [id number] 2.16.840.1.722494.3.579.2.1258 1961 Unknown [id number] 2.16.840.1.783036.3.579.2.1259 1961 Unknown [id number] 2.16.840.1.210645.3.579.2.1259 1961 Unknown [id number] 2.16.840.1.438387.3.579.2.1259 1961 Unknown [id number] 2.16.840.1.352052.3.579.2.1259 1961 Unknown [id number] 2.16.840.1.799503.3.579.2.1259 1961 Unknown [id number] 2.16.840.1.121224.3.579.2.1259 1961 Unknown [id number] 2.16.840.1.692946.3.579.2.1259 1961 Unknown [id number] 2.16.840.1.188709.3.579.2.1259 1961 Unknown [id number] 2.16.840.1.657185.3.579.2.1259 1961 Unknown [id number] 2.16.840.1.634642.3.579.2.1259 1961 Unknown [id number] 2.16.840.1.624819.3.579.2.1259 Unknown [id number] 2.16.840.1.267148.3.579.2.531 Social History Date Type Detail Facility Start: 05-20-2023 Tobacco smoking stat [facility] Never smoked tobacco [facility] Start: 05-20-2023 Tobacco use and exposure Smokeless tobacco non-user [facility] Start: 05-20-2023 Alcohol intake Ex-drinker (finding) [facility] Start: 05-20-2023 History of Social function [facility] Start: 05-20-2023 Tobacco use panel [facility] Start: 1960 Sex Assigned At Not on file [facility] Start: 1960 Sex Assigned At Female F [facility] History of Present illness Narrative 08-07-2023 Ligia Singh, DO - 08/07/2023 9:15 AM EST Note Date & Type Note Facility 08-07-2023 History of Presen t illness Narrative Images from the original note were not included. HISTORY OF PRESENT ILLNESS: Agnes Thapa is an 63 y.o. @ female. Chief complaint RT shoulder pain LT shoulder s/p PT at [facility] with 3 visits with 10% improvement. 2 1/2 months s/p subacromial depo injx 05/27/23, she still notes some relief. LT shoulder pain x Feb 2023 and has gradually worsened, denies injury. Saw Dr Montero, went to PT, had MRI at [facility]. Pain is much improved, no longer waking at HS. Admits weakness but is improving. ROM is improving but still trouble with IR/ER rotation. Some discomfort in the upper arm. 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 Prior treatment: PCP, PT 6-7 visits, MRI [facility] 04/18/23, massage, ice, tried naproxen, taking [...] Medical History: Diagnosis Date Arthritis Diabetes mellitus ([facility]) Heart murmur Hypertension ([facility]) Obesity ALLERGIES: No Known Allergies VITALS: Visit [...] Tara Singh D.O. documented in this encounter [facility] Evaluation note Note Date & Type Note Facility Evaluation note Diagnosis Adhesive capsulitis of left shoulder- Primary Partial nontraumatic tear of rotator cuff, left Chronic right shoulder pain Pain in joint, shoulder region documented in this encounter [facility] Evaluation note Note Date & Type Note Facility Evaluation note No assessment information availa [facility] Work Phone: Summary Purpose Family History No Family History Records FoundNo Family History Records FoundNo Family History Records Found Advance Directives No Advanced Directives Records FoundNo Advanced Directives Records FoundNo Advanced Directives Records Found Additional Source Comments Reason for Visit (unrecogniz ed section and content) Reason Comments Follow-up Care Teams (unrecognized sec tion and content) Shipping Point Inspector Relationship Specialty Start Date End Date Ligia Montero MD [address] [place] [address] PCP - General Family Medicine 05/20/23 Team Status: Inactive Member Role Status Dates Anthony Rao Attending Provider Active Start: Francoise meza 2023 End: November 14, 2023 Goals (unrecognized section and content) Goals may be documented in a n alternate section INFORMATION SOURCE (unrecogn ized section and content) DATE CREATED AUTHOR 11/20/2023 [facility] DATE CREATED AUTHOR AUTHOR'S ORGANIZ ATION 12/07/2023 [facility] DATE CREATED AUTHOR AUTHOR'S ORGANIZ ATION 03/03/2024 [facility] dical Specialists [facility] FOR RECORDS PERTAINING TO PATIENTS WHO ARE [...] BE BASED ON THE PRIMARY CLINICAL RECORDS. [facility] [employer] [facility]. provides no warranty or guarantee of the accuracy or completeness of information in this document.
== END 2024-04-05 09:51 | disposition home or self-care (01) ==
LOC: RAD 09:50
PROVIDERS: Visit Provider Physician Assistant
DX: M85.80 Other specified disorders of bone density and structure, unspecified site (principal); Z78.0 Asymptomatic menopausal state
CPT/HCPCS: 77080

== ENCOUNTER 2024-05-11 18:27 | Outpatient (OUT) | payer OTHER, SELFPAY ==
--- NOTE | 2024-05-11 | MM_ITS ---
Patient Name: AMOR TIMMONS MR#: [id number] : 1960 Exam Date: 05/11/2024 Ordering Doctor: JARRED Coyle . RADIOLOGY REPORT PROCEDURE: MM TOMOSYNTHESIS SCREENING BI COMPARISON: MG MAMM SCREEN ELANA W CAD, 08/09/2022. MG MAMM SCREEN ELANA W CAD, 12/18/2018. INDICATIONS: Screening Mammogram Calculator Name NCI Breast Cancer Risk Assessment Tool 5 Year Breast Cancer Risk 1.60% Lifetime Breast Cancer Risk 6.30% Personal Breast Cancer No Personal Ovarian Cancer No Treatments None Family Cancers Mother with lung cancer at age 71; Father with prostate cancer at age 86. LOCATION: [facility] BREAST COMPOSITION: There are scattered areas of fibroglandular density. FINDINGS: DIAGNOSTIC CATEGORY 1--NEGATIVE. RIGHT BREAST: No significant suspicious finding. No significant change has occurred. LEFT BREAST: No significant suspicious finding. No significant change has occurred. RECOMMENDATIONS: ROUTINE MAMMOGRAM AND CLINICAL EVALUATION IN 12 MONTHS. PLEASE NOTE: A NORMAL MAMMOGRAM DOES NOT EXCLUDE THE POSSIBILITY OF BREAST CANCER. A CLINICALLY SUSPICIOUS PALPABLE LUMP SHOULD BE BIOPSIED. Dictated by: Jon Moss M.D. on 05/25/2024 at 09:26 Approved by: Jon Moss M.D. on 05/25/2024 at 09:32
--- OUTSIDE RECORDS SUMMARY | 2024-05-11 18:31 | XMS_ITS | CCD ---
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 Name Role Phone Ligia Montero MD Primary Care Provider Anthony Rao Attending Provider Anthony Rao Attending Unavailable Anthony Rao Admitting Unavailable MEGGAN, LIGIA Silver Referring Unavailable MEGGAN, LIGIA Silver Primary Care Unavailable MEGGAN, LIGIA Silver Referring Unavailable MEGGAN, LIGIA Silver Primary Care Unavailable MEGGAN, LIGIA Silver Referring Unavailable MEGGAN, LIGIA Silver Primary Care Unavailable MEGGAN, LIGIA Silver Referring Unavailable MEGGAN, LIGIA Silver Primary Care Unavailable MEGGAN, LIGIA Silver Referring Unavailable MEGGAN, LIGIA Silver Primary Care Unavailable MEGGAN, LIGIA Silver Referring Unavailable MEGGAN, LIGIA Silver Primary Care Unavailable MIKAEL, LIGIA Rice Attending Unavailable ANTHONY RAO Attending Unavailable MIKAEL, LIGIA Rice Attending Unavailable ANTHONY ARO Attending Unavailable ANTHONY RAO Attending Unavailable MIKAEL, LIGIA Rice Attending Unavailable JOHANNY MENDOZA Attending Unavailable MIKAEL, LIGIA Rice Attending Unavailable MIKAEL, LIGIA Rice Attending Unavailable MIKAEL, LIGIA Rice Attending Unavailable MIKAEL, LIGIA Rice Referring Unavailable JOHANNY MENDOZA Attending Unavailable MIKAEL, LIGIA Rice Attending Unavailable Medications Current Medications Medication Drug Class(es) Dates Sig (Normalized) Sig (Original) hydroCHLOROthiazide 12.5 mg / lisinopril 10 mg oral tablet (2 sources) Thiazide Diuretic, Angiotensin Converting Enzyme Inhibitor take 1 tablet by mouth in the morning lisinopril-hydro CHLOROthiazide 10-12.5 MG tablet Take 1 tablet by mouth in the morning. Active metFORMIN hydrochloride 500 mg oral tablet (2 sources) Biguanide metFORMIN (Glucophage) 500 MG tablet every 12 (twelve) hours. Active Problems Active Problems Problem Classification Problem Date Documented Date Episodic/Chronic Menopausal disorders (1 source) Postmenopausal bleeding; Translations: [Postmenopausal bleeding] Onset: 09-22-2023 4 Chronic Other connective tissue disease (1 source) Adhesive [...] Classification Problem Date Documented Da te Episodic/Chronic Administrative/social admission (1 source) Patient encounter status; Translations: [Person consulting for explanation of examination or test findings] Onset: 09-18-2023 09-18-2023 Episodic Other connective tissue disease (1 source) Other shoulder lesions, unspecified shoulder; Translations: [Other shoulder lesions, unspecified shoulder] Onset: 09-05-2023 Episodic Results Test Name Value Interpretation Reference Range Facil ity Pancho 11-14-2023 L Specimen: [id number] Received: 11/14/23 Status: STEFANI Walker Num: [id number] Spec Type: Surgical Subm Dr: Anthony Rao Tissues: A Endometrium - Curettings (ENDOMETRIAL CUURETTINGS) Procedures: HE/4, Gross/Micro L4 Age/ Patient Sex Location Account Attending Physician Agnes Thapa 63/F [place] [id number] Anthony Rao SPEC NUM: [id number] RECD: 11/14/23 STATUS: STEFANI WALKER NUM: [id number] [place]: 11/14/[address]: Anthony Rao ENTERED: 11/14/[address] [facility] [address]: Kalyn,Lab SPEC TYPE: Surgical DEPT: OSITO [...] history postmenopausal bleeding, thickened endometrium. CPT Codes 99606 Specimen: [id number] Received: 11/14/23 Status: STEFANI Walker Num: [id number] Spec Type: Surgical Subm Dr: Anthony Rao Tissues: A Endometrium - Curettings (ENDOMETRIAL CUURETTINGS) Procedures: Fred BECKWITH/Archie L4 Patient: Agnes Thapa [id number] (Continued) Signed (signature on file) Grabiel Torrez MD 11/18/231916 Normal [facility] Encounters Encounter Date Encounter Type Care Provider Facility Start: 04-12-2024 End: 04-12-2024 Telephone encounter Johanny STERN Work Phone: [facility] Start: 03-02-2024 End: 03-02-2024 ambulatory JOHANNY MENDOZA Not Available Start: 02-05-2024 End: 02-05-2024 ambulatory LIGIA SINGH Not Available Start: 01-22-2024 End: 01-22-2024 ambulatory LIGIA SINGH Not Available Start: 11-27-2023 End: 11-27-2023 ambulatory JOHANNY MENDOZA Not Available Start: 11-14-2023 End: 11-14-2023 ambulatory Anthony Maira Facility:[facility] Start: 11-14-2023 End: 11-14-2023 ambulatory Anthony Maira Work Phone: [facility] Work Phone: Start: 11-14-2023 End: 11-14-2023 Departed Referred Anthony Maira Work Phone: [facility] Start: 11-05-2023 End: 12-06-2023 ambulatory [facility] Start: 10-23-2023 End: 10-23-2023 ambulatory LIGIA SINGH Not Available Start: 10-21-2023 End: 10-21-2023 ambulatory ANTHONY MAIRA Not Available Start: 10-13-2023 End: 11-05-2023 ambulatory [facility] Start: 09-22-2023 End: 09-22-2023 ambulatory ANTHONY MAIRA Not Available Start: 09-08-2023 End: 09-08-2023 ambulatory ANTHONY MAIRA Not Available Start: 09-05-2023 End: 10-06-2023 ambulatory [facility] Start: 08-07-2023 End: 09-05-2023 ambulatory LIGIA Silver [facility] Start: 08-07-2023 End: 08-07-2023 Office outpatient visit 10 minutes Ligia Singh DO Work Phone: [facility] Comment on above: Adhesive capsulitis of left shoulder (Primary Dx); Partial nontraumatic tear of rotator cuff, left; Chronic right shoulder pain Start: 07-29-2023 End: 08-07-2023 ambulatory LIGIA MONTERO [facility] Start: 06-16-2023 End: 07-07-2023 ambulatory [facility] Start: 06-12-2023 End: 06-12-2023 ambulatory LIGIA SINGH Not Available Start: 05-27-2023 End: 05-27-2023 ambulatory LIGIA SINGH Not Available Start: 05-20-2023 End: 05-20-2023 ambulatory LIGIA SINGH Not Available Procedures Date Procedure Procedure Detail Performing Clinician Start: 03-02-2024 Microscopic observat ion [Identifier] in Cervix by Cyto stain Johanny STERN Work Phone: Start: 08-09-2022 Mammography Ligia lal DO Work Phone: Plan of Treatment Date Care Activity Detail Author Start: 11-29-2027 Screening for malign ant neoplasm of cervix [facility] Start: 03-02-2027 Screening for malign ant neoplasm of cervix Pap Smear [facility] Start: 03-07-2024 Influenza vaccination Influenza Vacc ine (#1) [facility] Start: 10-02-2023 End: 10-02-2023 Patient encounter procedure 10/02/2023 9:00 AM EDT Office Visit [facility] [address] [place] [address] Ligia Singh DO [address] [address] [facility] Start: 08-09-2023 Screening for malign ant neoplasm of breast Mammogram [facility] Start: 03-07-2023 Influenza vaccination Influenza Vacc ine (#1) [facility] Start: 1991 Screening for malign ant neoplasm of cervix [facility] Start: 1982 Screening for malign ant neoplasm of cervix Pap Smear [facility] Start: 1960 Screening for malign ant neoplasm of colon [facility] Payers Date Payer Category Payer Self-pay [id number] 2023 Medicaid [id number] 2016 Medicaid [employer] [place] [id number] 2016-Present [address] [place] [address] [id number] 2016 Medicaid [id number] 1960 Unknown [id number] 2.16.840.1.775232.3.579.2.1286 1960 Unknown [id number] 2.16.840.1.266632.3.579.2.1286 1960 Unknown [id number] 2.16.840.1.502571.3.579.2.1286 1960 Unknown [id number] 2.16.840.1.849561.3.579.2.1286 1960 Unknown [id number] 2.16.840.1.506572.3.579.2.1286 1961 Unknown [id number] 2.16.840.1.383487.3.579.2.1286 1960 Unknown [id number] 2.16.840.1.062078.3.579.2.1259 1960 Unknown [id number] 2.16.840.1.348478.3.579.2.1259 1961 Unknown [id number] 2.16.840.1.397181.3.579.2.1259 1960 Unknown [id number] 2.16.840.1.771787.3.579.2.1259 1960 Unknown [id number] 2.16.840.1.749844.3.579.2.1259 1961 Unknown [id number] 2.16.840.1.598659.3.579.2.1259 1961 Unknown [id number] 2.16.840.1.272753.3.579.2.1259 1961 Unknown [id number] 2.16.840.1.052334.3.579.2.1259 1961 Unknown [id number] 2.16.840.1.715434.3.579.2.1259 1960 Unknown [id number] 2.16.840.1.152029.3.579.2.1259 1961 Unknown [id number] 2.16.840.1.677945.3.579.2.1259 1960 Unknown [id number] 2.16.840.1.478016.3.579.2.1259 1960 Unknown [id number] 2.16.840.1.932608.3.579.2.1259 Unknown [id number] 2.16.840.1.833594.3.579.2.531 Social History Date Type Detail Facility Start: 05-20-2023 Tobacco smoking stat [facility] Never smoked tobacco [facility] Start: 05-20-2023 Tobacco use and exposure Smokeless tobacco non-user [facility] Start: 05-20-2023 End: 03-02-2024 Alcohol intake Ex-drinker (finding) [facility] Start: 05-20-2023 End: 02-05-2024 History of Social function [facility] Start: 05-20-2023 End: 02-05-2024 Tobacco use panel [facility] Start: 1960 Sex Assigned At Not on file [facility] Start: 1960 Sex Assigned At Female F [facility] Telephone encounter Note 04-12-2024 Telephone Encounter - JARRED Basurto - 04/12/2024 3:59 PM EDT Note Date & Type Note Facility 04-12-2024 Telephone encounter Note Spoke to pt in regards to Dexa results. Patient wishes to do more conservative treatment at this time including vitamin D3 of 800 international units and 1200mg of calcium daily. Patient did not wish to start fusomax. We will readdress in future [facility] Work Phone: Note 04-12-2024 Telephone Encounter - JARRED Basurto - 04/12/2024 3:59 PM EDT Note Date & Type Note Facility 04-12-2024 Miscellaneous Notes Formattin g of this note might be different from the original. Spoke to pt in regards to Dexa results. Patient wishes to do more conservative treatment at this time including vitamin D3 of 800 international units and 1200mg of calcium daily. Patient did not wish to start fusomax. We will readdress in future documented in this encounter [facility] History of Present illness Narrative 08-07-2023 Ligia Singh DO - 08/07/2023 9:15 AM EST Note Date & Type Note Facility 08-07-2023 History of Presen t illness Narrative Images from the original note were not included. HISTORY OF PRESENT ILLNESS: Agnes Thapa is an 63 y.o. @ female. Chief complaint RT shoulder pain LT shoulder s/p PT at [facility] with 3 visits with 10% improvement. 2 1/2 months s/p subacromial depo injx 05/27/23, she still notes some relief. LT shoulder pain x Feb 2023 and has gradually worsened, denies injury. Saw Dr Montero, went to PT, had MRI at [facility]. Pain is much improved, no longer waking at HS. Admits weakness but is improving. ROM is improving but still trouble with IR/ER rotation. Some discomfort in the upper arm. 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 Prior treatment: PCP, PT 6-7 visits, MRI [facility] 04/18/23, massage, ice, tried naproxen, taking TYL [...] Arthritis Diabetes mellitus (CMS/HCC) Heart murmur Hypertension (CMS/[facility]) Obesity ALLERGIES: No Known Allergies [...] Singh/JACKSON KOCH D.O. documented in this encounter [facility] Evaluation note Note Date & Type Note Facility Evaluation note Diagnosis Adhesive capsulitis of left shoulder- Primary Partial nontraumatic tear of rotator cuff, left Chronic right shoulder pain Pain in joint, shoulder region documented in this encounter [facility] Evaluation note Note Date & Type Note Facility Evaluation note No assessment information availa [facility] Work Phone: Summary Purpose Family History No Family History Records FoundNo Family History Records FoundNo Family History Records Found Advance Directives No Advanced Directives Records FoundNo Advanced Directives Records FoundNo Advanced Directives Records Found Additional Source Comments Reason for Visit (unrecogniz ed section and content) Reason Comments Follow-up Care Teams (unrecognized sec tion and content) [employer] Vehicle Driver Relationship Specialty Start Date End Date Ligia Montero MD [address] [place] [address] PCP - General Family Medicine 05/20/23 Team Status: Inactive Member Role Status Dates Anthony Hathawayo Attending Provider Active Start: Francoise meza 2023 End: November 14, 2023 [employer]connaissance Vehicle Driver Relationship Specialty Start Date End Date Ligia Montero MD [address] [place] [address] PCP - General Family Medicine 05/20/23 Goals (unrecognized section and content) Goals may be documented in a n alternate section INFORMATION SOURCE (unrecogn ized section and content) DATE CREATED AUTHOR 11/20/2023 [facility] DATE CREATED AUTHOR AUTHOR'S ORGANIZ ATION 12/07/2023 [facility] DATE CREATED AUTHOR AUTHOR'S ORGANIZ ATION 03/03/2024 [facility] FOR RECORDS PERTAINING TO PATIENTS WHO ARE [...] BE BASED ON THE PRIMARY CLINICAL RECORDS. [facility] [employer] provides no warranty or guarantee of the accuracy or completeness of information in this document.
== END 2024-05-11 18:28 | disposition home or self-care (01) ==
LOC: MAMMO 18:28
PROVIDERS: Visit Provider Physician Assistant
DX: Z12.31 Encounter for screening mammogram for malignant neoplasm of breast (principal); Z80.1 Family history of malignant neoplasm of trachea, bronchus and lung; Z80.42 Family history of malignant neoplasm of prostate
CPT/HCPCS: 77063; 77067

== ENCOUNTER 2024-08-04 15:48 | Outpatient (OUT) | payer OTHER, SELFPAY ==
--- OUTSIDE RECORDS SUMMARY | 2024-08-04 16:08 | XMS_ITS | CCD ---
Author Organization [facility] Care Team Providers Care Heel Stainer Name Role Phone Ligia Montero MD Primary [...] Rice Attending Unavailable ANTHONY RAO Attending Unavailable ANTHONY RAO Attending Unavailable MIKAEL, LIGIA Rice Attending Unavailable JOHANNY MNEDOZA Attending Unavailable MIKAEL, LIGIA Rice Attending Unavailable MIKAEL, LIGIA Rice Attending Unavailable MIKAEL, LIGIA Rice Attending Unavailable MIKAEL, LIGIA Rice Referring Unavailable JOHANNY MENDOZA Attending Unavailable MIKAEL, LIGIA Rice Attending Unavailable Medications Current Medications Medication Drug Class(es) Dates Sig (Normalized) Sig (Original) hydroCHLOROthiazide 12.5 mg / lisinopril 10 mg oral tablet (6 sources) Thiazide Diuretic, Angiotensin Converting Enzyme Inhibitor take 1 tablet by mouth in the morning lisinopril-hydro CHLOROthiazide 10-12.5 MG tablet Take 1 tablet by mouth in the morning. Active metFORMIN hydrochloride 500 mg oral tablet (6 sources) Biguanide metFORMIN (Glucophage) 500 MG tablet every 12 (twelve) hours. Active Problems Active Problems Problem Classification Problem Date Documented Date Episodic/Chronic Menopausal disorders (5 sources) Postmenopausal bleeding; Translations: [Postmenopausal bleeding] Onset: 09-22-2023 [...] Other Problems Problem Classification Problem Date Documented Date Episodic/Chronic Administrative/social admission (7 sources) Patient encounter status; Translations: [Person consulting for explanation of examination or test findings] Onset: 09-18-2023 09-18-2023 Episodic Other connective tissue disease (1 source) Other shoulder lesions, unspecified shoulder; Translations: [Other shoulder lesions, unspecified shoulder] Onset: 09-05-2023 Episodic Residual codes; unclassified (2 sources) Postmenopausal state; Translations: [Asymptomatic menopausal state] 03-02-2024 Episodic Results Test Name Value Interpretation Reference Range Facil ity IGP,APTIMA HPV,AGE GDLNon AGE GDLN ACOG TESTING Note . [facility] Comment on above: TESTS RESULT FLAG UNITS REF RANGE LAB Clinician Provided Cytology Information Source.............Cervix;Endocervix No. of containers..01 ThinPrep Vial Age Algo ACOG Amry... 30-65 01 FLAG LEGEND: L-Low Normal,H-High Normal,LL-Alert Low,HH-Alert High <-Panic Low,>-Panic High,A-Abnormal,AA-Critical Abnormal Performed at: 01 =G [address] [address] Megan Ariza MD, HPV APTIMA Negative Negative [facility] Comment on above: This nucleic acid amplification test det ects fourteen high- risk HPV types (16,18,31,33,35,39,45,51,52,56,58,59,66,68) without differentiation. Performed at: = - [facility] [id number] Heel Coverer Machine Operator: Megan Ariza MD, Phone: [phone] Performed at: [facility] [id number] [place] [id number] Heel Coverer Machine Operator: Les Lemos MD, Phone: [phone] IGP, APTIMA HPV, RFX 16/18,45 Note . [facility] Comment on above: TESTS RESULT FLAG UNITS REF RANGE LAB DIAGNOSIS: 02 NEGATIVE FOR INTRAEPITHELIAL LESION OR MALIGNANCY. CELLULAR CHANGES ASSOCIATED WITH ATROPHY ARE PRESENT. Specimen adequacy: 02 Satisfactory for evaluation. Endocervical component may not be distinguished in cases of atrophy. Performed by: 02 Nicolasa Linares, Laundry Technician (ASCP) . 02 Note: Note 03 The Pap smear is a screening test designed to aid in the detection of premalignant and malignant conditions of the uterine cervix. It is not a diagnostic procedure and should not be used as the sole means of detecting cervical cancer. Both false-positive and false-negative reports do occur. Test Methodology: Note 03 This liquid based ThinPrep(R) pap test was screened with the use of an image guided system. HPV Genotype Reflex Note 02 Criteria not met, HPV Genotype not performed. FLAG LEGEND: L-Low Normal,H-High Normal,LL-Alert Low,HH-Alert High <-Panic Low,>-Panic High,A-Abnormal,AA-Critical Abnormal Performed at: 02 [facility] [address] [place] [address] Les Lemos MD, 03 WB [facility] [address] [address] Megan Ariza MD, BRUSH-SPATULA CERVIX ENDOCERVIX [facility] 11-14-2023 L Specimen: [id number] Received: 11/14/23 Status: STEFANI Walker Num: [id number] Spec Type: Surgical Subm Dr: Anthony Rao Tissues: A Endometrium - Curettings (ENDOMETRIAL CUURETTINGS) Procedures: HE/4, Gross/Micro L4 Age/ Patient Sex Location Account Attending Physician Agnes Thapa 63/F [facility] [id number] Anthony Rao SPEC NUM: [id number] RECD: 11/14/23 STATUS: STEFANI WALKER NUM: [id number] [place]: 11/14/[address]: Anthony Rao ENTERED: 11/14/23 [facility] DR: Kalyn,Lab SPEC TYPE: Surgical DEPT: [...] history postmenopausal bleeding, thickened endometrium. CPT Codes 37137 Specimen: [id number] Received: 11/14/23 Status: STEFANI Walker Num: [id number] Spec Type: Surgical Subm Dr: Anthony Rao Tissues: A Endometrium - Curettings (ENDOMETRIAL CUURETTINGS) Procedures: Fred BECKWITH/Micro L4 Patient: Agnes Thapa [id number] (Continued) Signed (signature on file) Grabiel Torrez MD 11/18/23 1917 Normal [facility] Vital Signs Date Time Vital Sign Value Performing Clinician Madelyn smith 03-02-2024 09:19-0400 Body mass index (BMI) [Ratio] 37.51 kg/m2 Johanny STERN Work Phone: [facility] 03-02-2024 09:19-0400 Body weight 102.24 kg Johanny STERN Work Phone: [facility] 03-02-2024 09:19-0400 Diastolic blood pressure 84 mm[Hg] Johanny STERN Work Phone: [facility] 03-02-2024 09:19-0400 Systolic blood pressure 122 mm[Hg] Johanny STERN Work Phone: [facility] Healthcare Encounters Encounter Date Encounter Type Care Provider Facility Start: 04-12-2024 End: 04-12-2024 Telephone encounter Johanny STERN Work Phone: [facility] Start: 03-02-2024 End: 03-02-2024 Bamboo flowsheet Johanny STERN Work Phone: [facility] Start: 03-02-2024 End: 03-09-2024 Bamboo flowsheet Johanny STERN Work Phone: [facility] Start: 03-02-2024 End: 03-09-2024 Clinisync Result Encounter Johanny STERN Work Phone: [facility] External Department Unsolicited Start: 03-02-2024 End: 03-02-2024 Patient encounter procedure Johanny STERN Work Phone: [facility] Healthcare Work Phone: Start: 03-02-2024 End: 03-02-2024 Periodic preventive med est patient 40-64yrs Johanny [place] PA Work Phone: [facility] Comment on above: Well woman exam with routine gynecological exam; Breast cancer screening by mammogram; Postmenopausal state Start: 03-02-2024 End: 03-02-2024 ambulatory JOHANNY REJI Not Available Start: 02-05-2024 End: 02-05-2024 ambulatory LIGIA SINGH Not Available Start: 01-22-2024 End: 01-22-2024 ambulatory LIGIA SINGH Not Available Start: 11-27-2023 End: 11-27-2023 ambulatory JOHANNY REJI Not Available Start: 11-14-2023 End: 11-14-2023 ambulatory Anthony Maira Facility:[facility] Start: 11-14-2023 End: 11-14-2023 ambulatory Anthony Maira Work Phone: [facility] Work Phone: Start: 11-14-2023 End: 11-14-2023 Departed Referred Anthony Maira Work Phone: [facility] Path [facility] Start: 11-05-2023 End: 12-06-2023 ambulatory [facility] Start: 10-23-2023 End: 10-23-2023 ambulatory LIGIA SINGH Not Available Start: 10-21-2023 End: 10-21-2023 ambulatory ANTHONY MAIRA Not Available Start: 10-13-2023 End: 11-05-2023 ambulatory [facility] Start: 09-22-2023 End: 09-22-2023 ambulatory ANTHONY MAIRA Not Available Start: 09-08-2023 End: 09-08-2023 ambulatory ANTHONY MAIRA Not Available Start: 09-05-2023 End: 10-06-2023 ambulatory [facility] Start: 08-07-2023 End: 09-05-2023 ambulatory [facility] Start: 08-07-2023 End: 08-07-2023 Office outpatient visit 10 minutes Ligia Singh DO Work Phone: [facility] Comment on above: Adhesive capsulitis of left shoulder (Primary Dx); Partial nontraumatic tear of rotator cuff, left; Chronic right shoulder pain Start: 07-29-2023 End: 08-07-2023 ambulatory LIGIA MONTERO [facility] Start: 06-16-2023 End: 07-07-2023 ambulatory [facility] Adrianne [facility] Start: 06-12-2023 End: 06-12-2023 ambulatory LIGIA SINGH Not Available Start: 05-27-2023 End: 05-27-2023 ambulatory LIGIA SINGH Not Available Start: 05-20-2023 End: 05-20-2023 ambulatory LIGIA SINGH Not Available Procedures Date Procedure Procedure Detail Performing Clinician Start: 03-02-2024 IGP,APTIMA HPV,AGE GDLN Johanny STERN Work Phone: Start: 03-02-2024 Microscopic observat ion [Identifier] in Cervix by Cyto stain Johanny STERN Work Phone: Start: 08-09-2022 Mammography Ligia lal DO Work Phone: Plan of Treatment Date Care Activity Detail Author Start: 11-29-2027 Screening for malignant neoplasm of cervix [facility] Start: 03-02-2027 Screening for malignant neoplasm of cervix Pap Smear [facility] Start: 03-07-2024 Influenza vaccination Influenza Vacc ine (#1) [facility] Start: 03-02-2024 End: 03-02-2025 DXA Skeletal system Views for bone density DEXA bone density Imaging Routine Postmenopausal state Expected: 03/02/2024 (Approximate), Expires: 03/02/2025 [facility] Comment on above: Expected: 03/02/2024 (Approximate), Expires: 03/02/2025 Start: 03-02-2024 End: 05-02-2025 MG Breast - bilateral Screening Bilateral screening mammogram Imaging Routine Breast cancer screening by mammogram Expected: 03/02/2024, Expires: 05/02/2025 [facility] Work Phone: Comment on above: Expected: 03/02/2024 , Expires: 05/02/2025 Start: 03-02-2024 End: 03-02-2024 Patient encounter procedure 03/02/2024 9:00 AM EDT Office Visit [facility] [address] [id number] Johanny Mendoza PA [address] [place] [address] Arrived [facility] Comment on above: Arrived Start: 10-02-2023 End: 10-02-2023 Patient encounter procedure 10/02/2023 9:00 AM EDT Office Visit [facility] [address] [place] [address] Ligia Singh, [address] [address] [facility] Start: 08-09-2023 Screening for malignant neoplasm of breast Mammogram [facility] Start: 03-07-2023 Influenza vaccination Influenza Vacc ine (#1) [facility] Start: 1991 Screening for malignant neoplasm of cervix [facility] Start: 1982 Screening for malignant neoplasm of cervix Pap Smear [facility] Start: 1961 Screening for malignant neoplasm of colon [facility] THIN PREP TIS PAP AN D HR HPV DNA THIN PREP TIS PAP AND HR HPV DNA Pathology and Cytology Routine Well woman exam with routine gynecological exam Ordered: 03/02/2024 [facility] Comment on above: Ordered: 03/02/2024 Payers Date Payer Category Payer Self-pay [id number] 2023 Medicaid [id number] 2016 Medicaid [employer] [place] [id number] 2016-Present [address] [place] [address] [id number] 2016 Medicaid [id number] 1961 Unknown [id number] 2.16.840.1.488943.3.579.2.1286 1961 Unknown [id number] 2.16.840.1.887259.3.579.2.1286 1961 Unknown [id number] 2.16.840.1.675690.3.579.2.1286 1961 Unknown [id number] 2.16.840.1.294386.3.579.2.1286 1961 Unknown [id number] 2.16.840.1.599326.3.579.2.1286 1961 Unknown [id number] 2.16.840.1.514892.3.579.2.1286 1961 Unknown [id number] 2.16.840.1.376631.3.579.2.1258 1961 Unknown [id number] 2.16.840.1.930432.3.579.2.125 1961 Unknown [id number] 2.16.840.1.019337.3.579.2.125 1961 Unknown [id number] 2.16.840.1.705994.3.579.2.1259 1961 Unknown [id number] 2.16.840.1.526424.3.579.2.1259 1961 Unknown [id number] 2.16.840.1.609425.3.579.2.1259 1961 Unknown [id number] 2.16.840.1.490093.3.579.2.125 1961 Unknown [id number] 2.16.840.1.132206.3.579.2.1259 1961 Unknown [id number] 2.16.840.1.909394.3.579.2.125 1961 Unknown [id number] 2.16.840.1.277386.3.579.2.1259 1961 Unknown [id number] 2.16.840.1.228413.3.579.2.1259 1961 Unknown [id number] 2.16.840.1.167727.3.579.2.1259 1961 Unknown [id number] 2.16.840.1.005473.3.579.2.1259 Unknown [id number] 2.16.840.1.870527.3.579.2.531 Social History Date Type Detail Facility Start: 05-20-2023 Tobacco smoking stat [facility] Never smoked tobacco [facility] Start: [...] Sex Assigned At Female F [facility] Telephone encounter Note 04-12-2024 Telephone Encounter - [...] start fusomax. We will readdress in future [facility] Work Phone: Note 04-12-2024 Telephone Encounter [...] readdress in future documented in this encounter [facility] History of Present illness Narrative 03-02-2024 JARRED Basurto - 03/02/2024 9:00 AM EDT Note Date & Type Note Facility 03-02-2024 History of Presen t illness Narrative Reason for Appointment: Patient ID: Agnes Thapa is a 63 y.o. female who presents for Well Women Visit Patient presents today for Annual Exam. MEDICATIONS Current Outpatient Medications Medication Instructions lisinopril-hydroCHLOROthiazide 10-12.5 MG tablet 1 tablet, Oral, Daily metFORMIN (Glucophage) 500 MG tablet Every 12 hours ALLERGIES No Known Allergies PROBLEMS Active Ambulatory Problems Diagnosis Date Noted Encounter to discuss test results 09/18/2023 Post-menopausal bleeding 09/22/2023 Resolved Ambulatory Problems Diagnosis Date Noted No Resolved Ambulatory Problems Past Medical History: Diagnosis Date Arthritis Back pain Colon polyp 2013 Diabetes mellitus (CMS/HCC) Heart murmur Hypertension (CMS/HCC) Obesity HISTORY PAST MEDICAL HISTORY SOCIAL HISTORY Past Medical History: Diagnosis Date Arthritis Back pain Colon polyp 2013 Diabetes mellitus (CMS/HCC) Heart murmur Hypertension (CMS/HCC) Obesity Social History Tobacco Use Smoking status: Never Smokeless tobacco: Never Substance Use Topics Alcohol use: Not Currently Drug use: Not on file FAMILY HISTORY Family History Problem Relation Name Age of Onset Hypertension Mother Lung cancer Mother SURGICAL HISTORY Past Surgical History: Procedure Laterality Date COLONOSCOPY 2012 colon polyp DILATION AND CURETTAGE OF UTERUS 11/14/2023 OTHER SURGICAL HISTORY cone biopsy TONSILLECTOMY REVIEW OF SYSTEMS Review of Systems: Review of Systems Constitutional: Negative. HENT: Negative. Eyes: Negative. Respiratory: Negative. Cardiovascular: Negative. Gastrointestinal: Negative. Genitourinary: Negative. Musculoskeletal: Negative. Skin: Negative. Neurological: Negative. All other systems reviewed and are negative. Hematological: Negative. Endocrine: Negative. Allergic/Immunologic: Negative. OBJECTIVE Objective: Physical Exam Constitutional: Appearance: Normal appearance. Genitourinary: Right Adnexa: not tender and no mass present. Left Adnexa: not tender and no mass present. No cervical discharge. Breasts: Breasts are soft. Right: Normal. Left: Normal. HENT: Head: Normocephalic. Nose: Nose normal. Mouth/Throat: Mouth: Mucous membranes are moist. Cardiovascular: Rate and Rhythm: Normal rate. Pulmonary: Effort: Pulmonary effort is normal. Abdominal: General: Bowel sounds are normal. Palpations: Abdomen is soft. Musculoskeletal: General: Normal range of motion. Cervical back: Normal range of motion. Neurological: General: No focal deficit present. Mental Status: She is alert. Skin: General: Skin is warm and dry. Psychiatric: Mood and Affect: Mood normal. Vitals and nursing note reviewed. Exam conducted with a field artillery fire control man present. Vitals: Estimated body mass index is 37.51 kg/m as calculated from the following: Height as of 09/08/23: 5' 5 . Weight as of this encounter: 225 lb 6.4 oz. BP: 122/84 No LMP recorded (lmp unknown). Patient is postmenopausal. ASSESSMENT & PLAN ICD-10-CM 1. Well woman exam with routine gynecological exam Z01.419 THIN PREP TIS PAP AND HR HPV DNA 2. Breast cancer screening by mammogram Z12.31 Bilateral screening mammogram Bilateral screening mammogram 3. Postmenopausal state Z78.0 DEXA bone density Annual Exam: Patient presents today for an annual exam. Patient states she is doing well and has no complaints. Pap was obtained without difficulty. Orders Placed This Encounter Procedures Bilateral screening mammogram DEXA bone density Follow Up: Patient is to return in one year for annual unless needed otherwise. Documented by Lilly Pratt LPN on behalf of: JARRED Basurto documented in this encounter [facility] History of Present illness Narrative 08-07-2023 Ligia Singh DO - 08/07/2023 9:15 AM EST Note Date & Type Note Facility 08-07-2023 History of Presen t illness Narrative Images from the original note were not included. HISTORY OF PRESENT ILLNESS: Agnes Thapa is an 63 y.o. @ female. Chief complaint RT shoulder pain LT shoulder s/p PT at [facility] with 3 visits with 10% improvement. 2 1/2 months s/p subacromial depo injx 05/27/23, she still notes some relief. LT shoulder pain x Feb 2023 and has gradually worsened, denies injury. Saw Dr Montero, went to PT, had MRI at [facility]. Pain is much improved, no longer waking at HS. Admits weakness but is improving. ROM is improving but still trouble with IR/ER rotation. Some discomfort in the upper arm. 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 Prior treatment: PCP, PT 6-7 visits, MRI [facility] 04/18/23, massage, ice, tried naproxen, taking TYL [...] Medical History: Diagnosis Date Arthritis Diabetes mellitus ([facility]) Heart murmur Hypertension ([facility]) Obesity ALLERGIES: No Known Allergies VITALS: Visit [...] I am acting as scribe for Dr. Singh/BG RN Tara Singh D.O. documented in this encounter [facility] Evaluation note Note Date & Type Note Facility Evaluation note Diagnosis Adhesive capsulitis of left shoulder- Primary Partial nontraumatic tear of rotator cuff, left Chronic right shoulder pain Pain in joint, shoulder region documented in this encounter [facility] Evaluation note Note Date & Type Note Facility Evaluation note No assessment information [facility] Work Phone: Evaluation note Note Date & Type Note Facility Evaluation note Diagnosis Well woman exam with routine gynecological exam Routine gynecological examination Breast cancer screening by mammogram Postmenopausal state Asymptomatic postmenopausal status (age-related) (natural) documented in this encounter [facility] Summary Purpose Family History No Family History Records FoundNo Family History Records FoundNo Family History Records Found Advance Directives No Advanced Directives Records FoundNo Advanced Directives Records FoundNo Advanced Directives Records Found Additional Source Comments Reason for Visit (unrecogniz ed section and content) Reason Comments Follow-up Reason Comments Well Women Visit Care Teams (unrecognized sec tion and content) Heel Stainer Relationship Specialty Start Date End Date Ligia Montero MD [address] [place], [place] [id number] PCP - General Family Medicine 05/20/23 Team Status: Inactive Member Role Status Dates Anthony Rao Attending Provider Active Start: Francoise meza 2023 End: November 14, 2023 Heel Stainer Relationship Specialty Start Date End Date Ligia Montero MD [address] [place] [address] PCP - General Family Medicine 05/20/23 Heel Stainer Relationship Specialty Start Date End Date Ligia Montero MD [address] [place] [address] PCP - General Family Medicine 05/20/23 Heel Stainer Relationship Specialty Start Date End Date Ligia Montero MD [address] [place] [address] PCP - General Family Medicine 05/20/23 Goals (unrecognized section and content) Goals may be documented in a n alternate section INFORMATION SOURCE (unrecogn ized section and content) DATE CREATED AUTHOR 11/20/2023 [facility] DATE CREATED AUTHOR AUTHOR'S ORGANIZ ATION 12/07/2023 [facility] DATE CREATED AUTHOR AUTHOR'S ORGANIZ ATION 03/03/2024 [facility] d[facility] Specialists EPIC FOR RECORDS PERTAINING TO [...] BE BASED ON THE PRIMARY CLINICAL RECORDS. [facility] [employer] [facility]. provides no warranty or guarantee of the accuracy or completeness of information in this document.
[2024-08-04 16:16] LABS: Basophils Percent Auto 0.4 % (0.2-2.0); Eosinophils Absolute Auto 0.1 10^3/uL (0.0-0.7); Eosinophils Percent Auto 1.7 % (0.9-7.0); Hematocrit 38.2 % (36.0-48.0); Hemoglobin 12.4 g/dL (12.0-16.0); Immature Granulocytes Abs Auto 0.01 10^3/uL (0.00-0.03); Immature Granulocytes Pct Auto 0.1 % (0.0-0.5); Lymphocytes Absolute Auto 2.7 10^3/uL (1.2-3.8); Lymphocytes Percent Auto 37.7 % (20.5-60.0); Mean Corpuscular HGB Conc 32.5 g/dL (29.9-35.2); Mean Corpuscular Hemoglobin 27.1 pg (26.7-34.0); Mean Corpuscular Volume 83.4 fL (81.0-99.0); Mean Platelet Volume 9.6 fL (9.5-13.5); Monocytes Absolute Auto 0.5 10^3/uL (0.3-0.8); Monocytes Percent Auto 6.8 % (1.7-12.0); Neutrophils Absolute Auto 3.8 10^3/uL (1.4-6.5); Neutrophils Percent Auto 53.3 % (43.0-75.0); Platelet Count 267 10^3/uL (150-450); Red Blood Count 4.58 10^6/uL (4.20-5.40); White Blood Count 7.1 10^3/uL (4.0-11.0)
[2024-08-04 17:23] LABS: Free T4 0.96 ng/dL (0.76-1.46)
[2024-08-04 17:27] LABS: Alanine Aminotransferase 39 U/L (14-59); Albumin Globulin Ratio 0.9; Albumin Level 3.8 g/dL (3.4-5.0); Alkaline Phosphatase 72 U/L (46-116); Anion Gap 11.5; Aspartate Amino Transferase 20 U/L (15-37); BUN Creatinine Ratio 14.9; Bilirubin Total 0.2 mg/dL (0.2-1.0); Calcium 9.4 mg/dL (8.5-10.1); Carbon Dioxide 31.6 mmol/L (21.0-32.0); Chloride 102 mmol/L (98-107); Estimated GFR (African America 58 (>=60 mL/min/1.73m^2); Estimated GFR (Non-African Ame 48 (>=60 mL/min/1.73m^2); Globulin 4.3 g/dL; Glucose 152 mg/dL (74-106); Magnesium 1.7 mg/dL (1.8-2.4); Potassium 4.1 mmol/L (3.5-5.1); Sodium 141 mmol/L (136-145); Thyroid Stimulating Hormone 0.926 uIU/mL (0.358-3.740); Total Protein 8.1 g/dL (6.4-8.2)
== END 2024-08-04 15:49 | disposition home or self-care (01) ==
LOC: LAB 15:49
PROVIDERS: PCP Family Medicine; Visit Provider Family Medicine
DX: R25.2 Cramp and spasm (principal)
CPT/HCPCS: 36415; 80053; 83735; 84439; 84443; 85025

== ENCOUNTER 2025-04-06 17:15 | Outpatient (OUT) | payer OTHER, SELFPAY ==
--- OUTSIDE RECORDS SUMMARY | 2025-01-14 11:13 | XMS_ITS ---
Author Organization [facility] Care Team Providers Care Press Tender Incendiary Grenade Name Role Phone SUSYBENNETT Harvey Lolita Referring Unavailable LIGIA BRODERICK Primary Care Unavailable Purpose PROBLEMS DATE TYPE CONDITION / CODE [facility] Unknown Encounter for sc reening mammogram for malignant neoplasm of breast / Z12.31(ICD-10) NA Active [facility] PROCEDURES No Procedure Records Found VITAL SIGNS No Vital Signs Records Found RESULTS MAMM SCREENING BILATERAL W CAD Observed: 01/14/2025 11:14 AM Status: COMPLETED Source: [facility] MAMM SCREENING BILATERAL W C AD AMOR TIMMONS 1960 [id number] EXAM: MAMM SCREENING BILATERAL W CAD, 01/14/2025 11:14 AM CLINICAL INDICATIONS: Screening, Visit for screening mammogram COMPARISON: Multiple prior mammograms were viewed for comparison dating back to 03/07/2017 TECHNIQUE: Bilateral digital tomosynthesis MLO and CC views of the breasts were obtained, with creation of synthetic 2D views. Computer aided detection was utilized. FINDINGS: There are scattered areas of fibroglandular density. There are no suspicious masses, calcifications, or areas of architectural distortion. IMPRESSION: No mammographic evidence of malignancy. BI-RADS: BI-RADS 1 - Negative RECOMMENDATION: Routine screening mammogram in 1 year. RISK ASSESSMENT: TC Lifetime risk: 8.8%. The patient's reported personal and family medical history was used calculate their Tyrer-Cuzick lifetime risk of malignancy. Scores less than 20% are not considered high risk per ACR guidelines and patient should continue with the above recommendation. Finalized by Frida Swift MD on 01/17/2025 1:18 PM 1 b MAMM 1 YR ALLERGIES DATE TYPE / CODE NAME / CODE REACTION SEVERITY SOURCE Drug Class/[id number](SNO MED CT) NO KNOWN ALLERGIES [facility] ENCOUNTERS ADMIT/DISCHARGE ACCOUNT NUMBER ADMITTING ENCOUNTER CLASS LOC ATION SOURCE 01/14/2025/ [id number] Ambulatory Building:[facility] FUNCTIONAL STATUS No Functional Status Records Found EQUIPMENT No Equipment Records Found PAYERS ENCOUNTER GUARANTOR PAYER SUBSCRIBER SOURCE 01/14/2025 AMOR BRITT: [address] [place], [place] [address]Bdw: (HP) Primary Insurance:[facility] MEDICAID [facility] Number: [id number] alethea Date:2022-08-07 AMOR BRITT: [id number] [place], [place] [address]Iif: (HP) [facility] SOCIAL HISTORY No Social History Records Found FAMILY HISTORY No Family History Records Found ADVANCE DIRECTIVES No Advanced Directives Records Found INFORMATION SOURCE DATE CREATED AUTHOR AUTHOR'S ORGANIZ ATION 04/06/2025 [facility]
--- NOTE | 2025-04-06 | XR_ITS ---
The [place] [id number] Patient Name: AMOR TIMMONS MRN: [id number] date: 1960 Sex: F Assigned Patient Location: [facility] Current Patient Location: [facility] Accession/Order Number: [id number] Exam Date: 04/06/2025 17:39 Report Date: 04/06/2025 23:18 At the request of: BENNETT COLINDRES MD Procedure: XR knee LT 3V 3 views left knee plain film COMPARISON: None HISTORY: Left knee pain/cramping. ACUTE FINDINGS: No acute findings DEGENERATIVE CHANGE: Mild degeneration. Superior patellar enthesophyte. SOFT TISSUE FINDINGS: Unremarkable JOINT EFFUSION: None POSTOP CHANGES: None BONE MINERALIZATION: Adequate XR/XR knee LT 3V IMPRESSION: Mild degenerative changes Impression dictated by: Peter Lindsay M.D. 04/06/2025 11:18 PM Dictation Location: [place] [address] Electronically authenticated by: [id number] Y Date: 04/06/2025 23:18
--- NOTE | 2025-04-06 | XR_ITS ---
The [address] [address] Patient Name: AMOR TIMMONS MRN: [id number] date: 1960 Sex: F Assigned Patient Location: [facility] Current Patient Location: [facility] Accession/Order Number: [id number] Exam Date: 04/06/2025 17:39 Report Date: 04/06/2025 23:17 At the request of: BENNETT COLINDRES MD Procedure: XR hip LT 2V w/ pelvis Single view pelvis HISTORY: Low back pain and left leg pain. No injury Extensive left hip degeneration. Superior joint space narrowing. Subarticular sclerotic and cystic change. No acute displaced fracture. Adequate alignment. No protrusion of the left hip. Mild SI joint degeneration. No AVN. No articular collapse. 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 Impression dictated by: Peter Lindsay M.D. 04/06/2025 11:17 PM Dictation Location: [facility] Electronically authenticated by: [id number] Y Date: 04/06/2025 23:17
--- NOTE | 2025-04-06 | XR_ITS ---
[place] [id number] Patient Name: AMOR TIMMONS MRN: [id number] date: 1960 Sex: F Assigned Patient Location: [facility] Current Patient Location: [facility] Accession/Order Number: [id number] Exam Date: 04/06/2025 17:39 Report Date: 04/06/2025 23:19 At the request of: BENNETT COLINDRES MD Procedure: XR lumbar spine min 4V 4 views Lumbar Spine HISTORY: Leg cramping COMPARISON: None POSTSURGICAL CHANGES: None BONY ALIGNMENT: Adequate HYPERMOBILITY:No bending imaging. LISTHESIS:None FRACTURE: None DEGENERATIVE CHANGES: Mild spondylosis. Extensive lower lumbar facet degeneration. SOFT TISSUES: Unremarkable BONY MINERALIZATION:Adequate XR/XR lumbar spine min 4V IMPRESSION: Degenerative change greatest in the lower lumbar facets. Impression dictated by: Peter Lindsay M.D. 04/06/2025 11:19 PM Dictation Location: [facility] Electronically authenticated by: [id number] Y Date: 04/06/2025 23:19
== END 2025-04-06 17:16 | disposition home or self-care (01) ==
LOC: RAD 17:17
PROVIDERS: PCP Family Medicine; Visit Provider Family Medicine
DX: M17.2 Bilateral post-traumatic osteoarthritis of knee (principal); R25.2 Cramp and spasm
CPT/HCPCS: 72110; 73502; 73562

== ENCOUNTER 2025-05-02 10:22 | Outpatient (OUT) | payer OTHER, SELFPAY ==
--- OUTSIDE RECORDS SUMMARY | 2025-04-25 14:20 | XMS_ITS | Encounter Summary ---
Author Organization [facility] Address [address] [place] [address] Care Team Providers Care Coffee Brewer Name Role Phone Narayan Montero MD Primary Care Provider [phone] Reason for Visit * ReasonCommentspost menopausal bleeding Encounter Details DateTypeDepartmentCare Team (Latest Contact Info)Tkyvibllves02/20/2025 2:20 PM EDTOffice Visit [facility] [place] [facility] [address] [place] [phone] Johanny Coyle PA [address] [facility] [place] [address] Menorrhagia with regular cycle (Primary Dx); PMB (postmenopausal bleeding) Social History Tobacco UseTypesPacks/DayYears UsedDateSmoking Tobacco: NeverSmokeless Tobacco: NeverAlcohol UseStandard Drinks/WeekCommentsNot Currently0 (1 standard drink = 0.6 oz pure alcohol)CommentsNoSex and Gender InformationValueDate RecordedSex Assigned at BirthNot on fileLegal JzpBytsme31/15/2023 6:51 PM EDT Gender IdentityNot on fileSexual OrientationNot on filedocumented as of this encounter Last Filed Vital Signs Vital SignReadingTime TakenCommentsBlood Yjfmyjpu403/8010/ 2:42 PM EDT Pulse--Temperature--Respiratory Rate--Oxygen Saturation--Inhaled Oxygen Concentration--Ydqwgh02 kg (216 lb)04/25/2025 2:42 PM EDTHeight--Body Mass Index 35.9403/10/2023 2:07 PM ESTdocumented in this encounter Progress Notes * JARRED Basurto - 04/25/2025 2:20 PM EDT Reason for Appointment: Patient ID: Agnes Thapa is a 64 y.o. female who presents for post menopausal bleeding Patient presents today for Acute Visit. MEDICATIONS Current Outpatient Medications Medication Instructions lisinopril-hydroCHLOROthiazide 10-12.5 MG tablet 1 tablet, Daily meloxicam (MOBIC) 15 mg, Oral, Daily metFORMIN (Glucophage) 500 MG tablet Every 12 hours ALLERGIES Allergies[1] PROBLEMS Active Ambulatory Problems Diagnosis Date Noted Encounter to discuss test results 09/18/2023 Post-menopausal bleeding 09/22/2023 Resolved Ambulatory Problems Diagnosis Date Noted No Resolved Ambulatory Problems Past Medical History: Diagnosis Date Arthritis Back pain Colon polyp 2012 Diabetes mellitus (HCC) Heart murmur Hypertension Obesity HISTORY PAST MEDICAL HISTORY SOCIAL HISTORY Medical History[2] Social History Tobacco Use Smoking status: Never Smokeless tobacco: Never Substance Use Topics Alcohol use: Not Currently Drug use: Not on file FAMILY HISTORY Family History[3] SURGICAL HISTORY Surgical History[4] REVIEW OF SYSTEMS Review of Systems: Review of Systems Constitutional: Negative. HENT: Negative. Eyes: Negative. Respiratory: Negative. Cardiovascular: Negative. Gastrointestinal: Negative. Genitourinary: Negative. Musculoskeletal: Negative. Skin: Negative. Neurological: Negative. All other systems reviewed and are negative. Hematological: Negative. Endocrine: Negative. Allergic/Immunologic: Negative. OBJECTIVE Objective: Physical Exam Constitutional: Appearance: Normal appearance. She is well-developed. Cardiovascular: Rate and Rhythm: Normal rate and regular rhythm. Pulmonary: Effort: Pulmonary effort is normal. Breath sounds: Normal breath sounds. Abdominal: General: Bowel sounds are normal. There is no distension. Palpations: Abdomen is soft. Tenderness: There is no abdominal tenderness. There is no guarding or rebound. Musculoskeletal: General: No swelling. Normal range of motion. Right lower leg: No edema. Left lower leg: No edema. Neurological: Mental Status: She is alert and oriented to person, place, and time. Skin: General: Skin is warm and dry. Psychiatric: Mood and Affect: Mood normal. Behavior: Behavior normal. Vitals and nursing note reviewed. Exam conducted with a oncology rn present. Vitals: Estimated body mass index is 35.94 kg/m?? as calculated from the following: Height as of 09/08/23: 5' 5 . Weight as of this encounter: 216 lb. BP: 124/80 No LMP recorded (lmp unknown). Patient is postmenopausal. Assessment/Plan ICD-10-CM 1. PMB (postmenopausal bleeding) N95.0 Patient report postmenopausal bleeding on April 17 with heavy bright red bleeding noted with urination and wiping and abdominal cramping. Will schedule for ultrasound and schedule for dilation and curettage. Documented by Hortencia Ash NP on behalf of: JARRED Basurto [1] No Known Allergies [2] Past Medical History: Diagnosis Date Arthritis Back pain Colon polyp 2012 Diabetes mellitus (HCC) Heart murmur Hypertension Obesity [3] Family History Problem Relation Name Age of Onset Hypertension Mother Lung cancer Mother [4] Past Surgical History: Procedure Laterality Date COLONOSCOPY 2012 colon polyp DILATION AND CURETTAGE OF UTERUS 11/14/2023 OTHER SURGICAL HISTORY cone biopsy TONSILLECTOMY documented in this encounter Plan of Treatment DateTypeDepartmentCare Team (Latest Contact Info)Gkrbmfjstdn77/28/2025 1:00 PM EDTAncillary Procedure [facility] [place] [facility] [address] [facility] [place] [address] 05/30/2025 9:20 AM ESTProcedure Visit [facility] [place] [facility] [address] [facility] [place] [address] Lamont Rao, [address] [facility] [place] [address] NameTypePriorityAssociated DiagnosesOrder ScheduleUS Pelvis w/ TVImagingRoutine PMB (postmenopausal bleeding) Expected: 04/25/2025, Expires: 10/24/2025BC and differentialLabRoutine Menorrhagia with regular cycle Ordered: 04/25/2025TSHLabRoutine Menorrhagia with regular cycle Ordered: 04/25/2025hCG, quantitative, pregnancyLabRoutine Menorrhagia with regular cycle Ordered: 04/25/2025Protime-INRLabRoutine Menorrhagia with regular cycle Ordered: 04/25/2025T4, freeLabRoutine Menorrhagia with regular cycle Ordered: 04/25/2025PTTLabRoutine Menorrhagia with regular cycle Expected: 04/25/2025 (Approximate), Expires: 04/25/2026Hemoglobin V7oKxaAsgvdyn Menorrhagia with regular cycle Ordered: 04/25/2025documented as of this encounter Visit Diagnoses Diagnosis Menorrhagia with regular cycle- Primary PMB (postmenopausal bleeding) Postmenopausal bleeding documented in this encounter Care Teams Team MemberRelationshipSpecialtyStart DateEnd Date Narayan Montero MD [address] [place] [address] PCP - GeneralFamily Uvjfahgh71/14/23documented as of this encounter
--- NOTE | 2025-05-02 | XR_ITS ---
The [place] [id number] Patient Name: AMOR TIMMONS MRN: [id number] date: 1960 Sex: F Assigned Patient Location: [facility] Current Patient Location: [facility] Accession/Order Number: [id number] Exam Date: 05/02/2025 10:40 Report Date: 05/02/2025 11:08 At the request of: ZAKIYA RESTREPO DO Procedure: XR knee ELA[place] 3V BILATERAL KNEES - 3 views each COMPARISON: Left knee 04/06/2025 CLINICAL DATA: Chronic bilateral knee pain. No recent injury. Standing AP, lateral and tunnel views were obtained. No acute fractures or dislocation are visualized. There is moderate left and severe right medial tibiofemoral joint compartment narrowing. There is subchondral sclerosis at the medial tibial plateau on the right. Bilateral marginal spurring is seen, greatest medially on the right. Enthesophytes are present at the insertion of the quadriceps tendons bilaterally and at the origin of the patellar tendon on the right. There is no significant knee effusion or soft tissue swelling. XR/XR knee E[place] 3V IMPRESSION: DEGENERATIVE CHANGES, RIGHT SIDE WORSE THAN LEFT. Impression dictated by: Promise Funk M.D. 05/02/2025 11:08 AM Dictation Location: [place] [address] Electronically authenticated by: [id number] Y Date: 05/02/2025 11:08
--- OUTSIDE RECORDS SUMMARY | 2025-05-02 10:26 | XMS_ITS | Clinical Summary ---
Author Organization [facility] Address [address] [place] [address] Care Team Providers Care Bacteriology Technician Name Role Phone Narayan Montero MD Primary Care Provider [phone] Allergies No known active allergies Medications MedicationSigDispense QuantityRefillsLast FilledStart DateEnd DateStatus metFORMIN (Glucophage) 500 MG tablet every 12 (twelve) hours.Active lisinopril-hydroCHLOROthiazide 10-12.5 MG tablet Take 1 tablet by mouth in the morning.Active meloxicam (Mobic) 15 MG tablet Take 15 mg by mouth DailyActive Active Problems ProblemNoted DateDiagnosed DatePost-menopausal smnxucxf30/18/2024Encounter to discuss test pcxxgqt6509/18/2023 Encounters DateTypeDepartmentCare XwzlXfvuqgvrmck50/20/2025 2:20 PM EDTOffice Visit [facility] [place] [facility] [address] [place] [address] Johanny Coyle PA Menorrhagia with regular cycle (Primary Dx); PMB (postmenopausal bleeding)04/25/2025amboo flowsheet [facility] [place] [facility] [address] [place] [address] Johanny Coyle PA 04/25/2025Travelfrom Last 3 Months Family History Medical HistoryRelationNameCommentsHypertensionMotherLung cancerMotherRelation NameStatusCommentsFatherAliveMotherDeceased Social History Tobacco UseTypesPacks/DayYears UsedDateSmoking Tobacco: NeverSmokeless Tobacco: Never Tobacco Cessation:Counseling Given: Not Answered Alcohol UseStandard Drinks/WeekCommentsNot Currently0 (1 standard drink = 0.6 oz pure alcohol)CommentsNoSex and Gender InformationValueDate RecordedSex Assigned at BirthNot on fileLegal AevWinpia34/15/2023 6:51 PM EDTGender Identity Not on fileSexual OrientationNot on file Last Filed Vital Signs Vital SignReadingTime TakenCommentsBlood Tyhxhiii569/8010 2:42 PM EDT Pulse--Temperature--Respiratory Rate--Oxygen Saturation--Inhaled Oxygen Concentration--Ebcbmk24 kg (216 lb)04/25/2025 2:42 PM XIMYutujt484.1 cm (5' 5 ) 09/08/2023 2:07 PM ESTBody Mass Index35.9409/08/2023 2:07 PM EST Plan of Treatment DateTypeDepartmentCare Team (Latest Contact Info)Pzrhjkfypxu56/28/2025 1:00 PM EDTAncillary Procedure [facility] [place] [facility] [address] [place] [address] 05/30/2025 9:20 AM ESTProcedure Visit [facility] [address] [place] [address] [place] [address] Lamont Rao DO [address] [facility] [place] [address] Health MaintenanceDue DateLast DoneCommentsCT Nhplomkodagc1960Colonoscopy 1Colorectal Cancer Yxvlkrvfa1960FIT-DNA1960FIT1960 FOBT05/23/19611160Inrcgsabwiism1961Influenza Vaccine (#1)2025Mammogram 607, 05/25/2024, 08/09/2022, Additional history existsPap Smear 7003/02/2024, 11/28/2022ervical Cancer Ekbouhhnj63/25/2028HPV/Cotest 8011/28/2022 Procedures Procedure NamePriorityDate/TimeAssociated DiagnosisCommentsMM TOMOSYNTHESIS SCREENING BI05/25/2024 9:32 AM EST PAP QDJTXHhhmcbs62/27/2024 12:00 AM EDTfrom Last 3 Months or Most Recently Relevant to Health Maintenance Results * MM TOMOSYNTHESIS SCREENING BI (05/25/2024 9:32 AM EST)Anatomical Region LateralityModalityOtherSpecimen (Source)Anatomical Location / Laterality Collection Method / VolumeCollection TimeReceived Time05/25/2024 9:32 AM EST Narrative 05/25/2024 9:33 AM EST [facility] ?[address] ? [place] [address] ? Mammography Report ? Signed ? Patient: AGNES TIMMONS ?MR#: [id number] ?? : 1960 ?Acct:[id number] ?? Age/Sex: 63 / F ?ADM Date: 05/11/24 ?? Loc: MAMMO ? Attending Dr: Johanny Coyle ? Ordering Physician: Johnany Coyle ?Results: ? Date of Service: 05/11/24 ?Follow Up: ? Procedure(s): MM tomosynthesis screening BI ?? Accession Number(s): [id number] ? cc: Johanny Coyle; Physician,Non-Staff M.D. ? Patient Name: ? AGNES TIMMONS ? MR#: [id number] ? : 1960 ? Exam Date: 05/11/2024 ?? Ordering Doctor: JARRED Coyle . ? RADIOLOGY REPORT ? PROCEDURE: ? MM TOMOSYNTHESIS SCREENING BI ? COMPARISON: ? MG MAMM SCREEN ELANA W CAD, 08/09/2022. ??MG MAMM SCREEN ELANA W ?? CAD, 12/18/2018. ? INDICATIONS: ? Screening Mammogram ? Calculator Name ? NCI Breast Cancer Risk Assessment Tool ?? 5 Year Breast Cancer Risk ? 1.60% ?? Lifetime Breast Cancer Risk ? 6.30% ?? Personal Breast Cancer ?No ?? Personal Ovarian Cancer ? No ?? Treatments ? None ?? Family Cancers ? Mother with lung cancer at age 71; Father with prostate ?? cancer at age 86. ? LOCATION: ? [facility] ? BREAST COMPOSITION: ? There are scattered areas of fibroglandular density. ? FINDINGS: ? DIAGNOSTIC CATEGORY 1--NEGATIVE. ? RIGHT BREAST: ??No significant suspicious finding. ??No significant change has ?? occurred. ? LEFT BREAST: ??No significant suspicious finding. ??No significant change has ?? occurred. ? RECOMMENDATIONS: ? ROUTINE MAMMOGRAM AND CLINICAL EVALUATION IN 12 MONTHS. ? PLEASE NOTE: ??A NORMAL MAMMOGRAM DOES NOT EXCLUDE THE POSSIBILITY OF BREAST ?? CANCER. ??A CLINICALLY SUSPICIOUS PALPABLE LUMP SHOULD BE BIOPSIED. ? Dictated by: Jon Moss M.D. on 05/25/2024 at 09:26 ? Approved by: Jon Moss M.D. on 05/25/2024 at 09:32 ? Dictated By: ?Jon Moss M.D. ? Signed By: ?05/25/24 0933 ? DD/ 0932 ? TD/TT: ? Herbologist: Procedure Note Radiology, Radiologist, MD - 05/25/2024 [place] [address] Mammography Report Signed Patient: AGNES TIMMONS CMR#: [id number] : 1Acct:[id number] Age/Sex: 63 / FADM Date: 05/11/24 Loc: MAMMO Attending Dr: Johanny Coyle Ordering Physician: Johanny CoyleResults: Date of Service: 05/11/24Follow Up: Procedure(s): MM tomosynthesis screening BI Accession Number(s): [id number] cc: Johanny Coyle; Physician,Non-Staff MMateoDMateo Patient Name: AGNES TIMMONS MR#: [id number] : 1960 Exam Date: 05/11/2024 Ordering Doctor: JARRED Coyle . RADIOLOGY REPORT PROCEDURE: MM TOMOSYNTHESIS SCREENING BI COMPARISON: MG MAMM SCREEN ELANA W CAD, 08/09/2022. MG MAMM SCREEN ELANA W CAD, 12/18/2018. INDICATIONS: Screening Mammogram Calculator Name NCI Breast Cancer Risk Assessment Tool 5 Year Breast Cancer Risk 1.60% Lifetime Breast Cancer Risk 6.30% Personal Breast Cancer No Personal Ovarian Cancer No Treatments None Family Cancers Mother with lung cancer at age 71; Father with prostate cancer at age 86. LOCATION: [facility] BREAST COMPOSITION: There are scattered areas of fibroglandulardensity. FINDINGS: DIAGNOSTIC CATEGORY 1--NEGATIVE. RIGHT BREAST: No significant suspicious finding. No significant changehas occurred. LEFT BREAST: No significant suspicious finding. No significant changehas occurred. RECOMMENDATIONS: ROUTINE MAMMOGRAM AND CLINICAL EVALUATION IN 12 MONTHS. PLEASE NOTE: A NORMAL MAMMOGRAM DOES NOT EXCLUDE THE POSSIBILITY OFBREAST CANCER. A CLINICALLY SUSPICIOUS PALPABLE LUMP SHOULD BE BIOPSIED. Dictated by: Jon Moss M.D. on 05/25/2024 at 09:26 Approved by: Jon Moss M.D. on 05/25/2024 at 09:32 Dictated By: Jon Moss M.D. Signed By:05/25/2433 DD/ 1 TD/TT: Herbologist: Authorizing ProviderResult TypeResult StatusJohanny Coyle PACLCLINCH VALLEY [facility] IMAGINGFinal Result * Pap Smear (03/02/2024 12:00 AM EDT)Specimen (Source)Anatomical Location / LateralityCollection Method / VolumeCollection TimeReceived TimeSwabCervical swab / Unknown Narrative Authorizing ProviderResult TypeResult StatusFazio Nurse Noms [facility]cp ObLAB CYTOLOGY ORDERABLESFinal ResultPerforming OrganizationAddressCity/State/ZIP CodePhone Number EXTERNAL LAB from Last 3 Months or Most Recently Relevant to Health Maintenance Insurance Care Teams Team MemberRelationshipSpecialtyStart DateEnd Date Narayan Montero MD [address] [place] [phone] PCP - GeneralFamily Ensaymjg89/14/23
--- OUTSIDE RECORDS SUMMARY | 2025-05-02 10:26 | XMS_ITS | Encounter Summary ---
Author Organization [facility] Address [address] [place] [address] Care Team Providers Care Risk Investigator Name Role Phone Narayan Montero MD Primary Care Provider [phone] Encounter Details DateTypeDepartmentCare Team (Latest Contact Info)Irqwjycvhpw59/20/2025Travel Social History Tobacco UseTypesPacks/DayYears UsedDateSmoking Tobacco: NeverSmokeless Tobacco: NeverAlcohol UseStandard Drinks/WeekCommentsNot Currently0 (1 standard drink = 0.6 oz pure alcohol)CommentsNoSex and Gender InformationValueDate RecordedSex Assigned at BirthNot on fileLegal MvbYqtnuw33/15/2023 6:51 PM EDT Gender IdentityNot on fileSexual OrientationNot on filedocumented as of this encounter Plan of Treatment DateTypeDepartmentCare Team (Latest Contact Info)Riusvofncdf40/28/2025 1:00 PM EDTAncillary Procedure [facility] [place] [facility] [address] [place] [phone] 05/30/2025 9:20 AM ESTProcedure Visit [facility] [place] [facility] [address] [facility] [place] [address] Lamont Rao DO [address] [place] [place], [place] [phone] documented as of this encounter Visit Diagnoses Not on filedocumented in this encounter Care Teams Team MemberRelationshipSpecialtyStart DateEnd Date Winston, Narayan R, MD [facility] [place] [address] PCP - GeneralFamily Pnnzczcv09/14/23documented as of this encounter
--- OUTSIDE RECORDS SUMMARY | 2025-05-02 10:26 | XMS_ITS | Encounter Summary ---
Author Organization [facility] Address [address] [place] [address] Care Team Providers Care Credit Administrator Name Role Phone Narayan Montero MD Primary Care Provider [phone] Encounter Details DateTypeDepartmentCare Team (Latest Contact Info)Fakndaiuqse43/20/2025amboo flowsheet [facility] [address] [place] [address] [place] [address] Johanny Coyle PA [address] [facility] [address] [place], [facility] Social History Tobacco UseTypesPacks/DayYears UsedDateSmoking Tobacco: NeverSmokeless Tobacco: NeverAlcohol UseStandard Drinks/WeekCommentsNot Currently0 (1 standard drink = 0.6 oz pure alcohol)CommentsNoSex and Gender InformationValueDate RecordedSex Assigned at BirthNot on fileLegal QtkSsyjif66/15/2023 6:51 PM EDT Gender IdentityNot on fileSexual OrientationNot on filedocumented as of this encounter Plan of Treatment DateTypeDepartmentCare Team (Latest Contact Info)Tejthndksxi25/28/2025 1:00 PM EDTAncillary Procedure [facility] [address] [place] [address] [place] [address] 05/30/2025 9:20 AM ESTProcedure Visit [facility] [address] [place], [place] [address] [address] Lamont Rao DO [address] [place] [address] [place] [address] documented as of this encounter Visit Diagnoses Not on filedocumented in this encounter Care Teams Team MemberRelationshipSpecialtyStart DateEnd Date Narayan Montero MD [address] [place] [address] PCP - GeneralFamily Idfankhe91/14/23documented as of this encounter
--- OUTSIDE RECORDS SUMMARY | 2025-05-02 10:27 | XMS_ITS | Clinical Summary ---
Author Organization [facility] tem Address [id number] [address] [place] [address] Care Team Providers Care Laborer Cheesemaking Name Role Phone Narayan Montero MD Primary Care Provider [phone] Allergies No known active allergies Medications MedicationSigDispense QuantityRefillsLast FilledStart DateEnd DateStatus lisinopril-hydroCHLOROthiazide (PRINZIDE,ZESTORETIC) 10-12.5 mg per tablet Take 1 tablet by mouth daily.Active metFORMIN (GLUCOPHAGE) 500 mg tablet Take 1 tablet by mouth 2 (two) times a day.Active Family History Medical HistoryRelationNameCommentsProstate cancerFatherBreast cancerNeg Hx RelationNameStatusCommentsFather Social History Tobacco UseTypesPacks/DayYears UsedDateSmoking Tobacco: NeverSmokeless Tobacco: NeverChildcareAnswerDate KsspkoeiAguyakgujZxwumrz55/11/2019EmploymentAnswerDate EdhdreyjBnptrfpdqdAksqzta53/11/2019Purpose - LifeAnswerDate RecordedPurpose and direction in ycmwTygrpmv37/11/2021CommentsNoSex and Gender Information ValueDate RecordedSex Assigned at ZtjgbBjakfu50/15/2023 10:58 AM EDTLegal Sex Fdgrfi8302/09/2015 11:21 AM EDTGender DvzrknqvFhzyrt74/15/2023 10:58 AM EDTSexual OrientationDon't know02/18/2023 10:58 AM EDT Last Filed Vital Signs Vital SignReadingTime TakenCommentsBlood Ypgxpxta225/8906/20/2018 5:39 PM EST Fubzn98912/15/2018 5:39 PM OFFBpuuyqgocxb85.3 ??C (100.9 ??F)06/20/2018 5:39 PM ESTRespiratory Zfsg037708/21/2017 5:39 PM ESTOxygen Wybldnvcqr75%06/20/2018 5:39 PM ESTInhaled Oxygen Concentration--Aqsqki08.8 kg (220 lb)01/14/2025 11:19 AM FGPGruuoa085.1 cm (5' 5 )01/14/2025 11:19 AM EDTBody Mass Index36.6107 11:19 AM EDT Plan of Treatment Health MaintenanceDue DateLast DoneCommentsDepression Abzypustz91/17/1973Tobacco Rabdsxfpp63/17/1973Adult BMI Follow Up Plan1979Zoster (Shingles) Vaccine (1 of 2)2011COVID-19 Vaccine (3 - season)/, 03/20/2021Influenza Duhbqak2903/07/2025dult BMI Rxszvnzth88 DTaP,Tdap and Td Vaccines (2 - Td or Tdap)/Pap Smear , 11/28/2022, 11/28/2022 Medical Devices Not on file Procedures Procedure NamePriorityDate/TimeAssociated DiagnosisCommentsHIGH RISK HPV W/CONNOR Kogappo0411/28/2022 5:03 AM EDT Encounter for screening for human papillomavirus (HPV) Encounter for screening for malignant neoplasm of cervix from Last 3 Months or Most Recently Relevant to Health Maintenance Results * High risk HPV w/connor (11/28/2022 5:03 AM EDT)ComponentValueRef RangeTest MethodAnalysis TimePerformed AtPathologist SignatureHpv specimen typeThinPrep 11/29/2022 5:[address] [facility] 16NegativeNegative^Negative 11/30/2022 2:53 PM [facility] 18Negative Negative^Nyrxlzpv82/27/2023 2:53 PM [facility] LABOther high risk hpvNegativeNegative^Aiewtsbf73/27/2023 2:53 PM [facility] LABComment: HPV types 31,33,35,39,45,52,56,58,59,66 and 68 DNA were undetectable. Specimen (Source)Anatomical Location / LateralityCollection Method / Volume Collection TimeReceived LfayWVJUB53/25/2023 5:03 AM EDT11/29/2022 5:04 AM EDT Narrative Authorizing ProviderResult TypeResult StatusAmy Mercedez Jimenes [employer] DEVELOPER-CNPLAB BLOOD ORDERABLESFinal ResultPerforming OrganizationAddressCity/State/ZIP CodePhone Number [facility] [address] [place] [address], [place] [address] [facility] [address] [place] [address], [address] [place] [address] from Last 3 Months or Most Recently Relevant to Health Maintenance Insurance Care Teams Team MemberRelationshipSpecialtyStart DateEnd Narayan Montero MD PCP - GeneralFamily Uywejikv33/15/18
--- OUTSIDE RECORDS SUMMARY | 2025-05-02 10:41 | XMS_ITS | CCD ---
Author Organization [facility] Inform ion Partnership [facility] Care Team Providers Care Welcome Desk Agent Name Role Phone Ligia Montero MD Primary Care Provider Lamont Rao Attending Provider Lamont Rao Attending Unavailable Lamont Rao Admitting Unavailable BENNETT COLINDRES Referring Unavailable LIGIA MONTERO Primary Care Unavailable Ligia Montero MD Primary Care Provider JOHANNY MENDOZA Attending Unavailable Medications Current Medications MedicationDrug Class(es)DatesSig (Normalized)Sig (Original)hydroCHLOROthiazide 12.5 mg / lisinopril 10 mg oral tablet (9 sources)Thiazide Diuretic, Angiotensin Converting Enzyme Inhibitortake 1 tablet by mouth in the morninglisinopril-hydroCHLOROthiazide 10-12.5 MG tablet Take 1 tablet by mouth in the morning. Activemeloxicam 15 mg oral tablet (2 sources)Nonsteroidal Anti-inflammatory Drugtake 1 tablet by mouth once daily meloxicam (Mobic) 15 MG tablet Take 15 mg by mouth Daily ActivemetFORMIN hydrochloride 500 mg oral tablet (9 sources)BiguanidemetFORMIN (Glucophage) 500 MG tablet every 12 (twelve) hours. Active Problems Active Problems Problem ClassificationProblemDateDocumented DateEpisodic/ChronicMenopausal disorders (10 sources)Postmenopausal bleeding; Translations: [Postmenopausal bleeding] Onset: 530795-94-8935HkgbtlgHrnywgozl disorders (2 sources)Menorrhagia; Translations: [Excessive and frequent menstruation with regular cycle]96-96-6694TovnvaaZpdgj connective tissue disease (1 source)Adhesive capsulitis of left shoulder; Translations: [Adhesive capsulitis of left shoulder]41-33-4118MgvjbhcrRkroz connective tissue disease (1 source)Non-traumatic partial tear of left rotator cuff; Translations: [Incomplete rotator cuff tear or rupture of left shoulder, not specified as traumatic]49-55-2900OvymaovpJyvyy non-traumatic joint disorders (1 source)Chronic pain of right upper limb; Translations: [Pain in right shoulder]86-73-5715MdcamtjqOltud screening for suspected conditions (not mental disorders or infectious disease) (1 source)Encounter for screening mammogram for malignant neoplasm of breast; Translations: [Encounter for screening mammogram for malignant neoplasm of breast]Onset: 29-90-1060Ohlhnqgd Past or Other Problems Problem ClassificationProblemDateDocumented DateEpisodic/Chronic Administrative/social admission (10 sources)Patient encounter status; Translations: [Person consulting for explanation of examination or test findings]Onset: 517439-31-4528Yzyswssv Residual codes; unclassified (2 sources)Postmenopausal state; Translations: [Asymptomatic menopausal state] 58-35-5075Omkfztpj Results Test NameValueInterpretationReference RangeFacilityMAMM SCREENING BILATERAL W CADon 64-72-8480EZOT SCREENING BILATERAL W CADMAMM SCREENING BILATERAL W CAD AGNES FRANZCKER 1960 [id number] EXAM: MAMM SCREENING BILATERAL W CAD, 01/14/2025 [...] 01/17/2025 1:18 PM 1 b MAMM 1 YRNormalProMedica Emanate Health/Foothill Presbyterian HospitalIGP,APTIMA HPV,AGE GDLNon 43-98-0459UDN GDLN ACOG TESTINGNoteÁLVAROS HealthcareComment on above:TESTS RESULT FLAG UNITS REF RANGE LAB Clinician Provided Cytology Information Source.............Cervix;Endocervix No. of containers..01 ThinPrep Vial Age Algo ACOG Mary... 31 FLAG LEGEND: L-Low Normal,H-High Normal,LL-Alert Low,HH-Alert High <-Panic Low,>-Panic High,A-Abnormal,AA-Critical Abnormal Performed at: 01 =G [address] [place] [address] Megan Ariza MD, HPV APTIMANegativeNegativeNOMS HealthcareComment on above:This nucleic acid amplification test detects fourteen high- risk HPV types (16,18,31,33,35,39,45,51,52,56,58,59,66,68) without differentiation. Performed at: =[address], [place] [id number] Simonizer: Megan Ariza MD, Phone: [phone] Performed at: [facility] [address] [place] [id number] Simonizer: Les Lemos MD, Phone: [phone] IGP, APTIMA HPV, RFX 16/18,45Note.NOMS HealthcareComment on above:TESTS RESULT FLAG UNITS REF RANGE LAB DIAGNOSIS: 02 NEGATIVE FOR INTRAEPITHELIAL LESION OR MALIGNANCY. CELLULAR CHANGES ASSOCIATED WITH ATROPHY ARE PRESENT. Specimen adequacy: 02 Satisfactory for evaluation. Endocervical component may not be distinguished in cases of atrophy. Performed by: 02 Nicolasa Linares, Branch Associate ([facility]) . 02 Note: Note 03 The Pap [...] High,A-Abnormal,AA-Critical Abnormal Performed at: 02 K[facility] [address] [place] [address] Les Lemos MD, 03 WB [facility] [address] [address] Megan Ariza MD, BRUSH-SPATULA CERVIX ENDOCERVIX CLINISYNCNOMS [facility] 30-04-6122BUzuoluet: [id number] Received: 11/14/231354 Status: STEFANI Walker Num: [id number] Spec Type: Surgical Subm Dr: Lamont Rao Tissues: A Endometrium - Curettings (ENDOMETRIAL CUURETTINGS) Procedures: HE/4, Gross/Micro L4 Age/ Patient Sex Location Account Attending Physician Agnes Thapa 63/F [place] [id number] Lamont Rao SPEC NUM: [id number] RECD: 11/14/23 STATUS: STEFANI WALKER NUM: [id number] [place]: 11/14/[address]: Lamont Rao ENTERED: 11/14/[address] [facility] [address]: Kalyn,Rene SPEC TYPE: Surgical DEPT: [...] history postmenopausal bleeding, thickened endometrium. CPT Codes 61002 Specimen: [id number] Received: 11/14/23 Status: STEFANI Walker Num: [id number] Spec Type: Surgical Subm Dr: Lamont Rao Tissues: A Endometrium - Curettings (ENDOMETRIAL CUURETTINGS) Procedures: HE/Caro, Gross/Archie L4 Patient: Agnes Thapa [id number] (Continued) Signed (signature on file) Grabiel Torrez MD 11/18/[address] [place] [address] Physician Group Vital Signs Date TimeVital SignValuePerforming OhxchdvvsPgsaljxh43-84-4614 14:42-0400Body mass index (BMI) [Ratio]35.94 kg/m2Johanny STERN Work Phone: Vascular PathwaysEllis Fischel Cancer CenterRnnejgeefn61-21-8065 14:42-0400Body yqnfad05.98 kgJohanny STERN Work Phone: noEllis Fischel Cancer CenterWplozprmcf58-95-8470 14:42-0400Diastolic blood hrydqpjh42 mm[Hg]Johanny STERN Work Phone: noEllis Fischel Cancer CenterQtzodetmad45-76-6204 14:42-0400Systolic blood kvasrttw311 mm[Hg]Johanny SETRN Work Phone: NOEllis Fischel Cancer CenterYmbltvfect44-45-5831 09:19-0400Body mass index (BMI) [Ratio]37.51 kg/m2Johanny STERN Work Phone: NO Vlhukcqxah28-83-4263 09:19-0400Body .24 kgJohanny STERN Work Phone: NOEllis Fischel Cancer CenterJtknohwitj70-86-8684 09:19-0400Diastolic blood tdhajrqi21 mm[Hg]Johanny STERN Work Phone: NOEllis Fischel Cancer CenterCfyozjqcjs35-15-6179 09:19-0400Systolic blood mm[Hg]Johanny STERN Work Phone: [facility] Encounters Encounter DateEncounter TypeCare ProviderFacilityStart: 04-25-2025 End: 04-21-0239llkijtoxyzKCQ RAMEYNot AvailableStart: 04-25-2025 End: 43-95-6070Iisllb outpatient visit 15 minutesJohanny STERN Work Phone: [facility] [place] OBGYNComment on above:Menorrhagia with regular cycle (Primary Dx); PMB (postmenopausal bleeding)Start: 04-25-2025 End: 14-76-6334Finogq flowsYari STERN Work Phone: [facility] [place] OBGYNStart: 04-25-2025 End: 84-36-7686Dhampy flowsheetJohanny STERN Work Phone: [facility] [place] OBGYNStart: 01-14-2025 End: 61-35-3449pvpyyhzufpLZQLZYO M HOYProMedica Stoddard HospitalStart: 04-12-2024 End: 89-16-4194Fuwqkxutn encounterJohanny STERN Work Phone: [facility] OBStart: 03-02-2024 End: 44-49-0410Jfkrid flowsheetJohanny STERN Work Phone: [facility] OBStart: 03-02-2024 End: 78-69-3130Glcbal flowsheetJohanny STERN Work Phone: noms BCP OBStart: 03-02-2024 End: 86-60-4406Aprnyjrvw Result EncounterJohanny STERN Work Phone: noms External Department UnsolicitedStart: 03-02-2024 End: 88-87-5417Pbbucmw encounter procedureJohanny STERN Work Phone: [facility] Work Phone: Start: 03-02-2024 End: 51-65-0586Njwsrybx preventive med est patient 40-64yrsAmy Leonides STERN Work Phone: noms BCP OBComment on above:Well woman exam with routine gynecological exam; Breast cancer screening by mammogram; Postmenopausal stateStart: 11-14-2023 End: 72-68-3410tnavgfgsawTywgv FazioFacility:[facility] Start: 11-14-2023 End: 89-55-2553pdkciugitmAunya Maira Work Phone: [facility] Work Phone: Start: 11-14-2023 End: 37-15-6416Noczlzqx ReferredCorey Maira Work Phone: [facility]-LAB Path Spec Kalyn HospStart: 08-07-2023 End: 96-31-3075Jwzftw outpatient visit 10 minutesJames Krystal Singh DO Work Phone: noms FB ORTHOPAEDICSComment on above:Adhesive capsulitis of left shoulder (Primary Dx); Partial nontraumatic tear of rotator cuff, left; Chronic right shoulder pain Procedures DateProcedureProcedure DetailPerforming ClinicianStart: 59-72-6787SscebxcprmrCus Ramey PA Work Phone: Start: 38-68-6142YRC,APTIMA HPV,AGE GDLNJohanny STERN Work Phone: Start: 29-08-3208Qveovcklxxg observation [Identifier] in Cervix by Cyto stainJohanny STERN Work Phone: Start: 54-38-1717ZnrvhftbrzhMilzd Huddleston DO Work Phone: Plan of Treatment DateCare ActivityDetailAuthorStart: 42-68-9721Jphnyprfg for malignant neoplasm of cervixNOMS HealthcareStart: 61-33-4489Bptcqohhz for malignant neoplasm of cervixPap SmearNOMS HealthcareStart: 36-11-0629Wbksanlhh for malignant neoplasm of breastMammogramNOMS HealthcareStart: 05-30-2025 End: 66-99-7724Wwqoqme encounter owcwwskqn41/24/2025 9:20 AM EST Procedure Visit NOM[facility] WARNER [address] [place] [address] Lamont Rao DO [address] [place], [place] [address] NOMF[facility] [place] OBGYNStart: 05-03-2025 End: 09-00-8031Xoerumuifjjt / ancillary services nqkifpcxqw76/28/2025 1:00 PM EDT Ancillary Procedure [facility]OM[facility]ord WARNER [address] [place] [address] NOMS [facility] OBGYNStart: 04-25-2025 End: 31-66-7313uTTK in Blood by Coagulation assayAPTT Lab Routine Menorrhagia with regular cycle Expected: 04/25/2025 (Approximate), Expires: 04/25/2026NOSD HealthcareComment on above:Expected: 04/25/2025 (Approximate), Expires: 04/25/2026Start: 04-25-2025 End: 70-99-5100LL PelvisUS Pelvis w/ TV Imaging Routine PMB (postmenopausal bleeding) Expected: 04/25/2025, Expires: 10/24/2025[facility] Work Phone: comment on above:Expected: 04/25/2025, Expires: 10/24/2025Start: 02-06-6966Qrpmmbehz vaccinationInfluenza Vaccine (#1)[facility] HealthcareStart: 92-95-6541Gehwhsbpn vaccinationInfluenza Vaccine (#1)[facility] HealthcareStart: 03-02-2024 End: 56-86-7181YMA Skeletal system Views for bone densityDEXA bone density Imaging Routine Postmenopausal state Expected: 03/02/2024 (Approximate), Expires:03/02/2025NOMS HealthcareComment on above:Expected: 03/02/2024 (Approximate), Expires: 03/02/2025Start: 03-02-2024 End: 76-01-2587PE Breast - bilateral ScreeningBilateral screening mammogram Imaging Routine Breast cancer screening by mammogram Expected: 03/02/2024, Expires: 05/02/2025[facility] Work Phone: comment on above:Expected: 03/02/2024, Expires: 05/02/2025Start: 03-02-2024 End: 01-68-9848Mytsljz encounter xxaefljdz39/27/2024 9:00 AM EDT Office Visit [facility] [address] [place] [address] Johanny Mendoza PA [address] [place], [facility] ArrivedCACHE VALLEY [facility]ITAL BCP OBComment on above:ArrivedStart: 10-02-2023 End: 45-02-0253Rqcmhit encounter qgwpogzsi01/28/2024 9:00 AM EDT Office Visit [facility] [address] [place] [address] Ligia Singh, DO [address] [address] N[facility] FB ORTHOPAEDICSStart: 08-09-2023 Screening for malignant neoplasm of breastMammogramNOMS HealthcareStart: 74-16-5849Ybgtzrchb vaccinationInfluenza Vaccine (#1)[facility] HealthcareStart: 10-87-7126Cidmyemwm for malignant neoplasm of cervixNOMS HealthcareStart: 07-74-0825Jlaeoikif for malignant neoplasm of cervixPap SmearEllis Fischel Cancer Center Start: 59-40-7006Egnltwzha for malignant neoplasm of colonNOSD HealthcareCBC W Auto Differential panel - BloodCBC and differential Lab Routine Menorrhagia with regular cycle Ordered: 04/25/2025[facility] Work Phone: comment on above:Ordered: 04/25/2025hCG, quantitative, pregnancyhCG, quantitative, Lab Routine Menorrhagia with regular cycle Ordered: 04/25/2025[facility] HealthcareComment on above:Ordered: 04/25/2025 Hemoglobin A1c/Hemoglobin.total in BloodHemoglobin A1c Lab Routine Menorrhagia with regular cycle Ordered: 04/25/2025[facility] HealthcareComment on above:Ordered: 04/25/2025Prothrombin time (PT) in Blood by Coagulation assayProtime-INR Lab Routine Menorrhagia with regular cycle Ordered: 04/25/2025[facility] HealthcareComment on above:Ordered: 04/25/2025THIN PREP TIS PAP AND HR HPV DNATHIN PREP TIS PAP AND HR HPV DNA Pathology and Cytology Routine Well woman exam with routine gynecological exam Ordered: 03/02/2024[facility] HealthcareComment on above:Ordered: 03/02/2024Thyrotropin [Units/volume] in Serum or PlasmaTSH Lab Routine Menorrhagia with regular cycle Ordered: 04/25/2025[facility] HealthcareComment on above:Ordered: 04/25/2025Thyroxine (T4) free [Mass/volume] in Serum or PlasmaT4, free Lab Routine Menorrhagia with regular cycle Ordered: 04/25/2025[facility] HealthcareComment on above:Ordered: 04/25/2025 Payers DatePayer CategoryPayerPolicy [id number]-jfx [id number] 2017MedicaidCARESOURCE MEDICAID [employer] [place]ICAID [place] [id number] 2016-Present [address] [place], [place] [id number] Health InsuranceM[facility] Member Subscriber Plan / Payer (Effective 2016-Present) Name: Agnes Thapa Relation to Subscriber: Self Name: Agnes Thapa Payer ID: Not on file Group ID: [id number] Type: Not on file Address: [address] [id number] 2017Medicaid [id number] Social History DateTypeDetailFacilityStart: 38-02-2026Bzngdln smoking status NHISNever smoked tobaccoNOMS HealthcareStart: 47-82-7387Irylkup use and exposureSmokeless tobacco non-userNOMS HealthcareStart: 05-20-2023 End: 52-93-3397Gbxzcut intakeEx-drinker (finding)[facility] HealthcareStart: 05-20-2023 End: 03-73-5527Akyuezx of Social functionNOMS HealthcareStart: 05-20-2023 End: 27-76-6860Ygsjkpr use panelNOMS HealthcareStart: 77-96-4669Uvn Assigned At BirthNot on fileNOMS HealthcareStart: 04-78-2556Zas Assigned At BirthKindred Hospital Daytontart: 17-41-5606NmnTdoabpCTFZ Healthcare History of Present illness Narrative 04-25-2025 Note Date & PlxdOdpcTlelkfmz45-78-5985 History of Present illness Narrative* JARRED Basurto - 04/25/2025 2:20 PM EDT [...] nursing note reviewed. Exam conducted with a associate store leader present. Vitals: Estimated body mass index is 35.94 kg/m as calculated from the following: Height [...] HISTORY cone biopsy TONSILLECTOMY documented in this encounterNOMS Healthcare Telephone encounter Note 04-12-2024 Note Date & CjzlHksrKqljfxun44-06-0813 Telephone encounter Note* Telephone Encounter - JARRED Basurto - 04/12/2024 3:59 PM EDT Spoke to pt in regards to Dexa results. Patient wishes to do more conservative treatment at this time including vitamin D3 of 800 international units and 1200mg of calcium daily. Patient did not wishto start fusomax. We will readdress in future [facility] Healthcare Work Phone: Note 04-12-2024 Note Date & ZyhdHiuzRnqvrjxq67-91-5443 Miscellaneous Notes* Telephone Encounter - JARRED Basurto - 04/12/2024 3:59 PM EDT Spoke to pt in regards to Dexa results. Patient wishes to do more conservative treatment at this time including vitamin D3 of 800 international units and 1200mg of calcium daily. Patient did not wishto start fusomax. We will readdress in future documented in this encounterNOSD Healthcare History of Present illness Narrative 03-02-2024 Note Date & KgvyCgmmDbzthhww86-89-8352 History of Present illness Narrative* JARRED Basurto - 03/02/2024 9:00 AM EDT Reason for Appointment: Patient ID: Agnes [...] Back pain Colon polyp 2012 Diabetes mellitus (CMS/HCC) Heart murmur Hypertension (CMS/HCC) Obesity HISTORY PAST MEDICAL HISTORY SOCIAL HISTORY Past Medical History: Diagnosis Date Arthritis Back pain Colon polyp 2012 Diabetes mellitus (CMS/HCC) Heart murmur Hypertension (CMS/HCC) [...] nursing note reviewed. Exam conducted with a associate store leader present. Vitals: Estimated body mass index is [...] behalf of: JARRED Basurto documented in this encounterNOMS Healthcare History of Present illness Narrative 08-07-2023 Note Date & VrvrYykiNcuwijqb53-33-8340 History of Present illness Narrative* Ligia Singh, - 08/07/2023 9:15 AM EST Images from the original note were not included. HISTORY OF PRESENT ILLNESS: Agnes Thapa is an 63 y.o. @ female. Chief complaint RT shoulder pain LT shoulder s/p PT at [facility] with 3 visits with 10% improvement. 2 1/2 months s/p subacromial depo injx 05/27/23, she still notes some relief. LT shoulder pain x Feb 2023 and has gradually worsened, denies injury. Saw Dr Montero, went to PT, had MRI at [facility]. Pain is much improved, no longer waking at HS. Admits weakness but is improving. ROM is improving but still trouble with IR/ER rotation. Some discomfort in the upper arm. 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 Prior treatment: PCP, PT 6-7 visits, MRI [facility] 04/18/23, massage, ice, tried naproxen, taking TYL andmotrin, Depo injx subacromial 05/27/23, PT MEDICATION: Current Outpatient Medications on File Prior to Visit Medication Sig Dispense Refill lisinopril-hydroCHLOROthiazide 10-12.5 MG tablet Take 1 tablet by mouth in the morning. metFORMIN (Glucophage) 500 MG tablet every 12 (twelve) hours. No current facility-administered medications on file prior to visit. MEDICAL HISTORY: Past Medical History: Diagnosis Date Arthritis Diabetes mellitus ([facility]) Heart murmur Hypertension ([facility]) Obesity ALLERGIES: No Known Allergies VITALS: [...] her back in [address] Singh obtainedhistory and examined the patient, I am acting as scribe for Dr. Singh/, RN Tara Singh D.O. documented in this encounterCACHE VALLEY [facility] Evaluation note Note Date & TypeNoteFacilityEvaluation note* Diagnosis Adhesive capsulitis of left shoulder- Primary Partial nontraumatic tear of rotator cuff, left Chronic right shoulder pain Pain in joint, shoulder region documented in this encounter [facility] Evaluation note Note Date & TypeNoteFacilityEvaluation noteNo assessment information available [facility] Work Phone: Evaluation note Note Date & TypeNoteFacilityEvaluation note* Diagnosis Well woman exam with routine gynecological exam Routine gynecological examination Breast cancer screening by mammogram Postmenopausal state Asymptomatic postmenopausal status (age-related) (natural) documented in this encounter [facility] Evaluation note Note Date & TypeNoteFacilityEvaluation note* Diagnosis Menorrhagia with regular cycle- Primary PMB (postmenopausal bleeding) Postmenopausal bleeding documented in this encounter [facility] Summary Purpose Family History No Family History Records FoundNo Family History Records FoundNo Family History Records Found Advance Directives No Advanced Directives Records FoundNo Advanced Directives Records FoundNo Advanced Directives Records Found Additional Source Comments Reason for Visit (unrecogniz ed section and content) ReasonCommentsFollow-upReasonCommentsWell Women VisitReasonCommentspost menopausal bleeding Care Teams (unrecognized sec tion and content) Team MemberRelationshipSpecialtyStart DateEnd Date Ligia Montero MD [address] [place] [address] PCP - GeneralFamily Ezjqumfn32/14/23 Team Status: Inactive Member Role Status Dates Lamont Rao Attending Provider Active Start: Ma y 2023 End: November 14, 2023Team MemberRelationshipSpecialtyStart DateEnd Date Ligia Montero MD [address] [place] [address] PCP - GeneralFamily Bofofksc62/14/23Team MemberRelationshipSpecialtyStart Date End Date Ligia Montero MD [address] [place] [address] PCP - GeneralFamily Nokswqkx41/14/23Team MemberRelationshipSpecialtyStart Date End Date Ligia Montero MD [address] [place] [address] PCP - GeneralFamily Rmzjmaxn33/14/23Team MemberRelationshipSpecialtyStart Date End Date Ligia Montero MD [address] [place] [address] PCP - GeneralFamily Gvequill87/14/23 Goals (unrecognized section and content) Goals may be documented in a n alternate section INFORMATION SOURCE (unrecogn ized section and content) DATE CREATED AUTHOR 11/20/2023 [facility] DATE CREATED AUTHOR AUTHOR'S ORGANIZ ATION 01/19/2025 [facility] DATE CREATED AUTHOR AUTHOR'S ORGANIZ ATION 04/26/2025 [facility] FOR RECORDS PERTAINING TO PATIENTS WHO [...] BE BASED ON THE PRIMARY CLINICAL RECORDS. [employer] provides no warranty or guarantee of the accuracy or completeness of information in this document.
== END 2025-05-02 10:23 | disposition home or self-care (01) ==
LOC: RAD 10:22
PROVIDERS: PCP Family Medicine; Visit Provider Orthopaedic Surgery Orthopaedic Trauma
DX: M25.561 Pain in right knee (principal); M25.562 Pain in left knee; M16.12 Unilateral primary osteoarthritis, left hip
CPT/HCPCS: 73562

== ENCOUNTER 2025-05-30 20:28 | Outpatient (REF) | payer OTHER, SELFPAY ==
--- OUTSIDE RECORDS SUMMARY | 2025-05-30 09:20 | XMS_ITS | Encounter Summary ---
Author Organization [facility] Address [address] [place] [address] Care Team Providers Care Silver Designer Name Role Phone Narayan Montero MD Primary Care Provider [phone] Reason for Visit * ReasonCommentsWell Women VisitPre-op Visit Encounter Details DateTypeDepartmentCare Team (Latest Contact Info)Rcnoarvtexq09/24/2025 9:20 AM ESTProcedure Visit [facility] [place] [facility] [address] [place] [address] Lamont Rao DO [address] [place], [id number] Well woman exam with routine gynecological exam; Pre-op examination; PMB (postmenopausal bleeding); Uterine leiomyoma, unspecified location Social History Tobacco UseTypesPacks/DayYears UsedDateSmoking Tobacco: NeverSmokeless Tobacco: NeverAlcohol UseStandard Drinks/WeekCommentsNot Currently0 (1 standard drink = 0.6 oz pure alcohol)CommentsNoSex and Gender InformationValueDate RecordedSex Assigned at BirthNot on fileLegal HwmNjclnq54/15/2023 6:51 PM EDT Gender IdentityNot on fileSexual OrientationNot on filedocumented as of this encounter Last Filed Vital Signs Vital SignReadingTime TakenCommentsBlood Mtyirqye652/801/ 9:59 AM EST Pulse--Temperature--Respiratory Rate--Oxygen Saturation--Inhaled Oxygen Concentration--Nbiixl04.3 kg (219 lb)05/30/2025 9:59 AM ESTHeight--Body Mass Index36.4403 2:07 PM ESTdocumented in this encounter Plan of Treatment NameTypePriorityAssociated DiagnosesOrder ScheduleTHIN PREP TIS PAP AND HR HPV DNAPathology and CytologyRoutine Well woman exam with routine gynecological exam Ordered: 05/30/2025documented as of this encounter Visit Diagnoses Diagnosis Well woman exam with routine gynecological exam Routine gynecological examination Pre-op examination PMB (postmenopausal bleeding) Postmenopausal bleeding Uterine leiomyoma, unspecified location documented in this encounter Care Teams Team MemberRelationshipSpecialtyStart DateEnd Date Narayan Montero MD [address] [place] [address] PCP - GeneralFamily Fzkxswlf53/14/23documented as of this encounter
--- OUTSIDE RECORDS SUMMARY | 2025-05-30 20:32 | XMS_ITS | Clinical Summary ---
Author Organization [facility] Address [address] [place] [address], [address] [place] [address] Care Team Providers Care Director Business Systems Name Role Phone Unavailable Primary Care Provider Unavailabl e Social History Tobacco UseTypesPacks/DayYears UsedDateSmoking Tobacco: Never Assessed CommentsUnknownSex and Gender InformationValueDate RecordedSex Assigned at Not on fileLegal GwjQrmzyj69/10/2013 11:29 AM ESTGender IdentityNot on file Sexual OrientationNot on file Plan of Treatment Not on file
--- OUTSIDE RECORDS SUMMARY | 2025-05-30 20:32 | XMS_ITS | Clinical Summary ---
Author Organization [employer] Address [id number] [address] [place] [address] Care Team Providers Care Aluminum Boats Assembler Name Role Phone Narayan Montero MD Primary Care Provider [phone] Allergies No known active allergies Medications MedicationSigDispense QuantityRefillsLast FilledStart DateEnd DateStatus lisinopril-hydroCHLOROthiazide (PRINZIDE,ZESTORETIC) 10-12.5 mg per tablet Take 1 tablet by mouth daily.Active metFORMIN (GLUCOPHAGE) 500 mg tablet Take 1 tablet by mouth 2 (two) times a day.Active Family History Medical HistoryRelationNameCommentsProstate cancerFatherBreast cancerNeg Hx RelationNameStatusCommentsFather Social History Tobacco UseTypesPacks/DayYears UsedDateSmoking Tobacco: NeverSmokeless Tobacco: NeverChildcareAnswerDate OboinprgBtpsxpjddWstenkt42/11/2019EmploymentAnswerDate ZmpxqrjnIdovbgippfDybfuye47/11/2019Purpose - LifeAnswerDate RecordedPurpose and direction in xasuUhatyqf73/11/2021CommentsNoSex and Gender Information ValueDate RecordedSex Assigned at ZnirtCvuuow31/15/2023 10:58 AM EDTLegal Sex Ogqjrs8002/09/2015 11:21 AM EDTGender YjplcydaTjvxsh53/15/2023 10:58 AM EDTSexual OrientationDon't know02/18/2023 10:58 AM EDT Last Filed Vital Signs Vital SignReadingTime TakenCommentsBlood Zbutnaig952/8906/20/2018 5:39 PM EST Zyowy77081/15/2018 5:39 PM MHCJvlnpnnbknq33.3 ??C (100.9 ??F)06/20/2018 5:39 PM ESTRespiratory Ptlc826408/21/2017 5:39 PM ESTOxygen Tblzccjwyq73%06/20/2018 5:39 PM ESTInhaled Oxygen Concentration--Bmnksf22.8 kg (220 lb)01/14/2025 11:19 AM YMXGdpwpw458.1 cm (5' 5 )01/14/2025 11:19 AM EDTBody Mass Index36.6107 11:19 AM EDT Plan of Treatment Health MaintenanceDue DateLast DoneCommentsDepression Ykwbmlxmq96/17/1973Tobacco Gffkxccfl64/17/1973Adult BMI Follow Up Plan1979Zoster (Shingles) Vaccine (1 of 2)2011COVID-19 Vaccine (3 - season), 03/20/2021Influenza Ijvalnm2803/07/2025dult BMI Mbjrmlzec19 DTaP,Tdap and Td Vaccines (2 - Td or Tdap)/Pap Smear , 11/28/2022, 11/28/2022RSV ( or age 60+ yrs) (1 - 1-dose 75+ series)2036 Medical Devices Not on file Procedures Procedure NamePriorityDate/TimeAssociated DiagnosisCommentsHIGH RISK HPV W/CONNOR Leomqtd2411/28/2022 5:03 AM EDT Encounter for screening for human papillomavirus (HPV) Encounter for screening for malignant neoplasm of cervix from Last 3 Months or Most Recently Relevant to Health Maintenance Results * High risk HPV w/connor (11/28/2022 5:03 AM EDT)ComponentValueRef RangeTest MethodAnalysis TimePerformed AtPathologist SignatureHpv specimen typeThinPrep 11/29/2022 5:03 AM [facility] 16NegativeNegative^Negative 11/30/2022 2:53 PM [facility] 18Negative Negative^Magoouch21/27/2023 2:53 PM [facility] LABOther high risk hpvNegativeNegative^Ruydlhtk47/27/2023 2:53 PM [facility] LABComment: HPV types 31,33,35,39,45,52,56,58,59,66 and 68 DNA were undetectable. Specimen (Source)Anatomical Location / LateralityCollection Method / Volume Collection TimeReceived WpssQAPMU33/25/2023 5:03 AM EDT11/29/2022 5:04 AM EDT Narrative Authorizing ProviderResult TypeResult StatusAmy Mercedez Jimenes APRN-[facility] BLOOD ORDERABLESFinal ResultPerforming OrganizationAddressCity/State/ZIP CodePhone Number [facility] [address] [facility] [place] [address] [facility] [address] [place] [address], [address] [place] [address] from Last 3 Months or Most Recently Relevant to Health Maintenance Insurance Care Teams Team MemberRelationshipSpecialtyStart DateEnd Narayan Montero MD PCP - GeneralFamily Jmcwebmi67/15/18
--- OUTSIDE RECORDS SUMMARY | 2025-05-30 20:32 | XMS_ITS | Encounter Summary ---
Author Organization [facility] Address [address] [place] [address] Care Team Providers Care Assistant Case Manager Name Role Phone Narayan Montero MD Primary Care Provider [phone] Encounter Details DateTypeDepartmentCare Team (Latest Contact Info)Dgpqdmcttzx61/24/2025amboo flowsheet [facility] [place] [facility] [address] [place] [id number] Lamont Rao DO [address] [facility] [address] Pancho Mccain, [facility] Social History Tobacco UseTypesPacks/DayYears UsedDateSmoking Tobacco: NeverSmokeless Tobacco: NeverAlcohol UseStandard Drinks/WeekCommentsNot Currently0 (1 standard drink = 0.6 oz pure alcohol)CommentsNoSex and Gender InformationValueDate RecordedSex Assigned at BirthNot on fileLegal KsrKyclqs44/15/2023 6:51 PM EDT Gender IdentityNot on fileSexual OrientationNot on filedocumented as of this encounter Plan of Treatment Not on file documented as of this encounter Visit Diagnoses Not on filedocumented in this encounter Care Teams Team MemberRelationshipSpecialtyStart DateEnd Date Narayan Montero MD [address] [place] [address] PCP - GeneralFamily Rcxuefsi81/14/23documented as of this encounter
--- OUTSIDE RECORDS SUMMARY | 2025-05-30 20:32 | XMS_ITS | Clinical Summary ---
Author Organization [facility] Address [address] [place] [address] Care Team Providers Care Drying Machine Operator Name Role Phone Narayan Montero MD Primary Care Provider [phone] Allergies No known active allergies Medications MedicationSigDispense QuantityRefillsLast FilledStart DateEnd DateStatus metFORMIN (Glucophage) 500 MG tablet every 12 (twelve) hours.Active lisinopril-hydroCHLOROthiazide 10-12.5 MG tablet Take 1 tablet by mouth in the morning.Active meloxicam (Mobic) 15 MG tablet Take 15 mg by mouth DailyActive Active Problems ProblemNoted DateDiagnosed DatePost-menopausal /18/2024Encounter to discuss test oxqwuos3409/18/2023 Encounters DateTypeDepartmentCare NjsrHogddmegdym25/24/2025 9:20 AM ESTPro[place] [address] Lamont Rao, Well woman exam with routine gynecological exam; Pre-op examination; PMB (postmenopausal bleeding); Uterine leiomyoma, unspecified /24/2025[place] [address] Lamont Rao DO 05/09/2025 2:40 [place] [address] Lamont Rao, DO PMB (postmenopausal bleeding); Uterine leiomyoma, unspecified unyriqmo93/03/2025amboo flowsheet [facility] [place] [facility] [address] [place] [phone] Lamont Rao DO 05/03/2025 1:00 PM EDTAncillary Procedure [facility] [place] [facility] [address] [place] [address] PMB (postmenopausal bleeding)04/25/2025 2:20 PM EDTOffice Visit [facility] [place] [address] [place] [address] Johanny Coyle PA Menorrhagia with regular cycle (Primary Dx); PMB (postmenopausal bleeding)04/25/2025amboo flowsheet [facility] [place] [facility] [address] [place] [address] Johanny Coyle PA 04/25/2025Travelfrom Last 3 Months Family History Medical HistoryRelationNameCommentsHypertensionMotherLung cancerMotherRelation NameStatusCommentsFatherAliveMotherDeceased Social History Tobacco UseTypesPacks/DayYears UsedDateSmoking Tobacco: NeverSmokeless Tobacco: Never Tobacco Cessation:Counseling Given: Not Answered Alcohol UseStandard Drinks/WeekCommentsNot Currently0 (1 standard drink = 0.6 oz pure alcohol)CommentsNoSex and Gender InformationValueDate RecordedSex Assigned at BirthNot on fileLegal YlsXiesxf24/15/2023 6:51 PM EDTGender Identity Not on fileSexual OrientationNot on file Last Filed Vital Signs Vital SignReadingTime TakenCommentsBlood Aetpopwq552/80107/30/2024 9:59 AM EST Pulse--Temperature--Respiratory Rate--Oxygen Saturation--Inhaled Oxygen Concentration--Opnbuq22.3 kg (219 lb)05/30/2025 9:59 AM GKBGpzpny556.1 cm (5' 5 )09/08/2023 2:07 PM ESTBody Mass Index36.44009/08/2023 2:07 PM EST Plan of Treatment Health MaintenanceDue DateLast DoneCommentsCT Aziwmdsitzih1961olonoscopy 1961olorectal Cancer Efeniimpe1961FIT-DNA1961FIT1960 FOBT05/23/19618165Kdxohlvrpaizy1961OVID-19 Vaccine ( season) /, 03/20/2021Influenza Vaccine (#1)2025Mammogram /05/2025, 05/25/2024, 08/09/2022, Additional history existsPap Smear /, 11/28/2022ervical Cancer Gguxqzljh33/25/2028HPV/Cotest neumococcal Vaccine: Pediatrics (0 to 5 Years) and At-Risk Patients (6 to 64 Years)Aged OutNo longer eligible based on patient's age to complete this topic Procedures Procedure NamePriorityDate/TimeAssociated DiagnosisCommentsUS PELVIC COMPLETE W/ LWJxipucp14/28/2025 1:40 PM EDT PMB (postmenopausal bleeding) MM TOMOSYNTHESIS SCREENING BI05/25/2024 9:32 AM EST PAP RTOIEHtfxohd97/27/2024 12:00 AM EDTfrom Last 3 Months or Most Recently Relevant to Health Maintenance Results * US Pelvis w/ TV (05/03/2025 1:40 PM EDT)Anatomical RegionLateralityModality PelvisUltrasoundSpecimen (Source)Anatomical Location / LateralityCollection Method / VolumeCollection TimeReceived Time05/03/2025 2:17 PM EDT Impressions 05/03/2025 2:32 PM EDT Uterine findings consistent with an anterior intramural fibroid extrinsically displacing, not invading the otherwise normal appearing endometrium, 6 mm diameter upper limits of normal given this history. TRANSCRIBED BY: ? ELECTRONICALLY SIGNED BY: Santi Irwin MD Narrative 05/03/2025 2:32 PM EDT FINDINGS: Uterus ?8.6 x 5.1 x 5.3 cm Endometrium ? 6 mm Right ovary ?2.6 x 1.4 x 1.3 cm Left ovary ? 2.7 x 1.6 x 2.0 cm Mild retroflexion/retroversion of the uterine upper body and fundus. Anterior uterine body 4.0 x 3.3 x 3.2 cm heterogeneous, hyperechogenic, nonshadowing mass results in posterior displacement without encroachment into the otherwise normal appearing endometrium. No endometrial cystic changes or focal mass. No pelvic fluid. Normal ovaries. Procedure Note Santi Irwin MD - 05/03/2025 FINDINGS: Uterus 8.6 x 5.1 x 5.3 cm Endometrium 6 mm Right ovary 2.6 x 1.4 x 1.3 cm Left ovary 2.7 x 1.6 x 2.0 cm Mild retroflexion/retroversion of the uterine upper body and fundus.Anterior uterine body 4.0 x 3.3 x 3.2 cm heterogeneous, hyperechogenic,nonshadowing mass results in posterior displacement without encroachmentinto the otherwise normal appearing endometrium. No endometrial cysticchanges or focal mass. No pelvic fluid. Normal ovaries. IMPRESSION: Uterine findings consistent with an anterior intramural fibroidextrinsically displacing, not invading the otherwise normal appearingendometrium, 6 mm diameter upper limits of normal given this history. TRANSCRIBED BY: ELECTRONICALLY SIGNED BY: Santi Irwin MD Authorizing ProviderResult TypeResult StatusHortencia [facility] US PROCEDURES Final Result * MM TOMOSYNTHESIS SCREENING BI (05/25/2024 9:32 AM EST)Anatomical Region LateralityModalityOtherSpecimen (Source)Anatomical Location / Laterality Collection Method / VolumeCollection TimeReceived Time05/25/2024 9:32 AM EST Narrative 05/25/2024 9:33 AM EST [facility] ?[address] ? [place] [address] ? Mammography Report ? Signed ? Patient: IAIN,AGNES C ?MR#: [id number] ?? : 1960 ?Acct:[id number] ?? Age/Sex: 63 / F ?ADM Date: 11/05/24 ?? Loc: MAMMO ? Attending Dr: Johanny Coyle ? Ordering Physician: Johanny Coyle ?Results: ? Date of Service: 05/11/24 ?Follow Up: ? Procedure(s): MM tomosynthesis screening BI ?? Accession Number(s): [id number] ? cc: Johanny Coyle; Physician,Non-Staff M.D. ? Patient Name: ? AGNES IAIN ? MR#: [id number] ? : 1960 ? Exam Date: 05/11/2024 [...] at age 87. ? LOCATION: ? [facility] ? BREAST COMPOSITION: ? There are [...] 0933 ? DD/ 0932 ? TD/TT: ? Managed Services Sales Consultant: Procedure Note Radiology, Radiologist, MD - 05/25/2024 [place] [address] Mammography Report Signed Patient: AGNES TIMMONS CMR#: [id number] : 1960cct:[id number] Age/Sex: 63 / FADM Date: 05/11/24 Loc: MAMMO Attending Dr: Johanny Coyle Ordering Physician: Johanny Acostaults: Date of Service: 05/11/24Follow Up: Procedure(s): MM tomosynthesis screening BI Accession Number(s): [id number] cc: Johanny Coyle; Physician,Non-Staff M.D. Patient Name: AGNES TIMMONS MR#: [id number] : 1960 Exam Date: 05/11/2024 Ordering Doctor: [...] prostate cancer at age 87. LOCATION: [facility] BREAST COMPOSITION: There are scattered areas [...] 09:32 Dictated By: Jon Moss M.D. Signed By:05/25/24932 DD/ 1 TD/TT: Managed Services Sales Consultant: Authorizing ProviderResult TypeResult StatusAmy [facility] IMAGINGFinal Result * Pap Smear (03/02/2024 12:00 AM EDT)Specimen (Source)Anatomical Location / LateralityCollection Method / VolumeCollection TimeReceived TimeSwabCervical swab / Unknown Narrative Authorizing ProviderResult TypeResult StatusFazio Nurse [facility] CYTOLOGY ORDERABLESFinal ResultPerforming OrganizationAddressCity/State/ZIP CodePhone Number EXTERNAL LAB from Last 3 Months or Most Recently Relevant to Health Maintenance Insurance Care Teams Team MemberRelationshipSpecialtyStart DateEnd Date Narayan Montero MD [address] [place] [address] PCP - GeneralFamily Ksfdbiih76/14/23
--- OUTSIDE RECORDS SUMMARY | 2025-05-30 20:32 | XMS_ITS | CCD ---
Author Organization [facility] Inform ion Partnership [facility] Care Team Providers Care Aqueduct And Reservoir Keeper Name Role Phone Ligia Montero MD Primary Care Provider Anthony Rao Attending Provider [phone] Anthony Rao Attending Unavailable Anthony Rao Admitting Unavailable BENNETT GAMEZ Referring Unavailable LIGIA MONTERO Primary Care Unavailable Ligia Montero MD Primary Care Provider Mauri Gasca DO Attending Provider Bennett Gamez MD Primary Care Provider [phone] JOHANNY MENDOZA Attending Unavailable HORTENCIA ASH Referring Unavailable ANTHONY RAO Attending Unavailable Medications Current Medications MedicationDrug Class(es)DatesSig (Normalized)Sig (Original)cholecalciferol 0.325 mg oral capsule (1 source)Vitamin DStart: 54-84-3865yjex 1 capsule by mouth every week Cholecalciferol (Vitamin D3) 325 mcg (13,000 unit) capsule Active 325 MCG PO every week April 29, 2025 12:00am Complies with drug therapy hydroCHLOROthiazide 12.5 mg / lisinopril 10 mg oral tablet (17 sources)Thiazide Diuretic, Angiotensin Converting Enzyme InhibitorStart: 68-97-7326dlcd 1 tablet by mouth once dailyLisinopril-Hydrochlorothiazide 10- 12.5 mg tablet Active 1 TAB PO Daily April 29, 2025 12:00am Complies with drug therapytake 1 tablet by mouth in the morninglisinopril-hydroCHLOROthiazide 10-12.5 MG tablet Take 1 tablet by mouth in the morning. Activemeloxicam 15 mg oral tablet (6 sources)Nonsteroidal Anti-inflammatory DrugStart: 52-07-6097Embrpnohu 15 mg tablet Active MG PO April 29, 2025 12:00am Complies with drug therapy metFORMIN hydrochloride 500 mg oral tablet (17 sources)BiguanideStart: 76-55-0189hrko 1 tablet by mouth twice daily at mealtimeMetformin 500 mg tablet Active 500 MG PO Twice daily with meals April 29, 2025 12:00am Complieswith drug therapymetFORMIN (Glucophage) 500 MG tablet every 12 (twelve) hours. Active Completed/Discontinued Medications MedicationDrug Class(es)DatesSig (Normalized)Sig (Original)levoFLOXacin 750 mg oral tablet (1 source)Quinolone AntimicrobialStart: 04-29-2025 End: 96-31-2265qqls 1 tablet by mouth once dailyLevofloxacin 750 mg tablet Discontinued 750 MG PO Daily April 29, 2025 12:00am May 02, 2025 10:10am Problems Active Problems Problem ClassificationProblemDateDocumented DateEpisodic/ChronicBenign neoplasm of uterus (2 sources)Uterine leiomyoma; Translations: [Leiomyoma of uterus, unspecified] 30-29-9218SpuzyxpiZlyzhvie mellitus without complication (1 source)Diabetes mellitus; Translations: [Type 2 diabetes mellitus without complications]56-04-2978JvhejwzZqukynjjs hypertension (1 source)Hypertensive disorder; Translations: [Essential (primary) hypertension]14-83-8120VriqppsZyotopkmar disorders (19 sources)Postmenopausal bleeding; Translations: [Postmenopausal bleeding] Onset: 594495-13-9648XtwsysbXvcxynyli disorders (2 sources)Menorrhagia; Translations: [Excessive and frequent menstruation with regular cycle]66-45-6330LyshlfxQfwpssfopuovlb (4 sources)Osteoarthritis of left hip joint; Translations: [Unilateral primary osteoarthritis, left hip]34-49-1903NprfcukMpaev connective tissue disease (1 source)Adhesive capsulitis of left shoulder; Translations: [Adhesive capsulitis of left shoulder]59-12-4729NpzpmguxDmutq connective tissue disease (1 source)Non-traumatic partial tear of left rotator cuff; Translations: [Incomplete rotator cuff tear or rupture of left shoulder, not specified as traumatic]68-92-7669CplifyowZomyx non-traumatic joint disorders (1 source)Chronic pain of right upper limb; Translations: [Pain in right shoulder]94-74-7128WaufgowaEztka non-traumatic joint disorders (1 source)Pain in right knee; Translations: [Pain in both knees]05-02-2025 EpisodicOther screening for suspected conditions (not mental disorders or infectious disease) (1 source)Encounter for screening mammogram for malignant neoplasm of breast; Translations: [Encounter for screening mammogram for malignant neoplasm of breast]Onset: 82-42-0784Fqhojjhc Past or Other Problems Problem ClassificationProblemDateDocumented DateEpisodic/Chronic Administrative/social admission (17 sources)Patient encounter status; Translations: [Person consulting for explanation of examination or test findings]Onset: 760210-62-7563Byqlxogs Residual codes; unclassified (2 sources)Postmenopausal state; Translations: [Asymptomatic menopausal state] 09-98-0064Ypihzojh Results Test NameValueInterpretationReference RangeFacilityUS PELVIC COMPLETE W/ TVon 98-22-4239YR PELVIC COMPLETE W/ TVFINDINGS: Uterus 8.6 x 5.1 x 5.3 cm [...] TRANSCRIBED BY: ELECTRONICALLY SIGNED BY: Santi Irwin MDNojuanchoalNot AvailableComment on above:Order Comment: US PELVIS-TRANSVAG IF INDICATED No LMP recorded (lmp unknown). Patient is postmenopausal.MAMM SCREENING BILATERAL W CADon 00-78-4996HTDQ SCREENING BILATERAL W CADMAMM SCREENING BILATERAL W CAD AGNES Maria ELIER 1960 [id number] EXAM: MAMM SCREENING BILATERAL W CAD, 01/14/2025 [...] family medical history was used calculate their [facility] lifetime risk of malignancy. Scores less than 20% are not considered high risk per ACR guidelines and patient should continue with the above recommendation. Finalized by Frida Swift MD on 01/17/2025 1:18 PM 1 b MAMM 1 [facility] TOMOSYNTHESIS SCREENING BIon 67-69-3507[place], [place] [address] Mammography Report Signed Patient: AGNES THAPA MR#: [id number] : 1960 Acct:[id number] Age/Sex: 63 / F ADM Date: 05/11/24 Loc: MAMMO Attending Dr: Johanny Mendoza Ordering Physician: Johanny Mendoza Results: Date of Service: 05/11/24 Follow Up: Procedure(s): MM tomosynthesis screening BI Accession Number(s): [id number] cc: Johanny Mendoza; Physician,Non-Staff M.D. Patient Name: AGNES THAPA MR#: [id number] : 1960 Exam Date: 05/11/2024 Ordering Doctor: JARRED Mendoza . RADIOLOGY REPORT PROCEDURE: MM TOMOSYNTHESIS SCREENING [...] age 87. LOCATION: [facility] BREAST COMPOSITION: There are scattered areas of fibroglandular density. FINDINGS: DIAGNOSTIC CATEGORY 1--NEGATIVE. RIGHT BREAST: No significant suspicious finding. No significant change has occurred. LEFT BREAST: No significant suspicious finding. No significant change has occurred. RECOMMENDATIONS: ROUTINE MAMMOGRAM AND CLINICAL EVALUATION IN 12 MONTHS. PLEASE NOTE: A NORMAL MAMMOGRAM DOES NOT EXCLUDE THE POSSIBILITY OF BREAST CANCER. A CLINICALLY SUSPICIOUS PALPABLE LUMP SHOULD BE BIOPSIED. Dictated by: Jon Moss M.D. on 05/25/2024 at 09:26 Approved by: Jon Moss M.D. on 05/25/2024 at 09:32 Dictated By: Jon Moss M.D. Signed By: 05/25/24932 DD/ 1 TD/TT: Plant Buyer:TBHRadiology, Radiologist, - 05/25/2024 [place] [address] Mammography Report Signed Patient: AGNES THAPA MR#: [id number] : 1960 Acct:[id number] Age/Sex: 63 / F ADM Date: 05/11/24 Loc: MAMMO Attending Dr: Johanny Mendoza Ordering Physician: Johanny Mendoza Results: Date of Service: 05/11/24 Follow Up: Procedure(s): MM tomosynthesis screening BI Accession Number(s): [id number] cc: Johanny Mendoza; Physician,Non-Staff M.Ketan Patient Name: AGNES THAPA MR#: [id number] : 1960 Exam Date: 05/11/2024 Ordering Doctor: JARRED Mendoza . RADIOLOGY REPORT PROCEDURE: MM TOMOSYNTHESIS SCREENING [...] age 87. LOCATION: [facility] BREAST COMPOSITION: There are scattered areas of fibroglandular density. FINDINGS: DIAGNOSTIC CATEGORY 1--NEGATIVE. RIGHT BREAST: No significant suspicious finding. No significant change has occurred. LEFT BREAST: No significant suspicious finding. No significant change has occurred. RECOMMENDATIONS: ROUTINE MAMMOGRAM AND CLINICAL EVALUATION IN 12 MONTHS. PLEASE NOTE: A NORMAL MAMMOGRAM DOES NOT EXCLUDE THE POSSIBILITY OF BREAST CANCER. A CLINICALLY SUSPICIOUS PALPABLE LUMP SHOULD BE BIOPSIED. Dictated by: Jon Moss M.D. on 05/25/2024 at 09:26 Approved by: Jon Moss M.D. on 05/25/2024 at 09:32 Dictated By: Jon Moss M.D. Signed By: 05/25/24932 DD/ 1 TD/TT: Plant Buyer: [facility] HealthRadiology Study observation (narrative)[facility] TOMOSYNTHESIS SCREENING BIOrdered By: Radiologist Radiology on 60-41-7155WXYJ Kerecis Work Phone: XR DEXA AXIAL SKELETONon [phone] [address] XRay Report Signed Patient: AGNES THAPA MR#: [id number] : 1960 Acct:[id number] Age/Sex: 63 / F ADM Date: 04/05/24 Loc: RAD Attending Dr: Johanny Mendoza Ordering Physician: Johanny Mendoza Date of Service: 04/05/24 Procedure(s): XR DEXA axial skeleton Accession Number(s): [id number] cc: Johanny Mendoza; Physician,Non-Staff M.Ketan The [address] [address] Patient Name: AGNES THAPA MRN: [id number] date: 1960 Sex: F Assigned Patient Location: [facility] Current Patient Location: RAD Accession/Order Number: [id number] Exam Date: 04/05/2024 10:02 Report Date: 04/05/2024 13:10 At the request of: JOHANNY MENDOZA Procedure: XR DEXA axial skeleton EXAMINATION: XR DEXA axial skeleton HISTORY: Postmenopausal State Z78.0 COMPARISON: No relevant comparison available. TECHNIQUE: Dual-energy X-ray absorptiometry (DXA) was performed. FINDINGS: SPINE ANALYSIS: Average bone mineral density is 1.247 g/cm2. T-score (standard deviation relative to young adult mean): 0.6 . HIP ANALYSIS: Lowest bone mineral density is within the left femoral neck, 0.854 g/cm2. T-score (standard deviation relative to young adult mean): -1.3 . XR/XR DEXA axial skeleton IMPRESSION: World Health Organization Classification: Osteopenia - Moderate Fracture Risk FRAX: Cannot calculate. Pharmacologic treatment recommendations * No uniform recommendation applies to all patients. Management plans must be individualized. * Consider initiating pharmacologic treatment in postmenopausal women and men >= 50 years of age who have the following: Primary fracture prevention: * T-score <= - 2.5 at the femoral neck, total hip, lumbar spine, 33% radius (some uncertainty with existing data) by DXA. * Low bone mass (osteopenia: T-score between - 1.0 and - 2.5) at the femoral neck or total hip by DXA with a 10-year hip fracture risk >= 3% or a 10-year major osteoporosis-related fracture risk >= 20% (i.e., clinical vertebral, hip, forearm, or proximal humerus) based on the US-adapted FRAXregistered model. Secondary fracture prevention: * Fracture of the hip or vertebra regardless of BMD [4, 5]. * Fracture of proximal humerus, pelvis, or distal forearm in persons with low bone mass (osteopenia: T-score between - 1.0 and - 2.5). The decision to treat should be individualized in persons with a fracture of the proximal humerus, pelvis, or distal forearm who do not have osteopenia or low BMD [12, 13]. Hetal MS, Jaime SL, Shaunna KL, Tristen EM, Ganesh KG, AJ, Geraldine ES. The clinician's guide to prevention and treatment of osteoporosis. Osteoporos Int. 2021;33(10):1676-7404. doi: 10.1007/w65264-417-38699-s. Epub 2021Nov 01. Erratum in: Osteoporos Int. 2021Jan 31;: PMID: 10158477; PMCID: [id number]. Electronically authenticated by: JON MOSS Date: 04/05/2024 13:10 Dictated By: Jon Moss M.D. Signed By: 04/05/24 1312 DD/ 1310 TD/TT: Plant Buyer:CHARHRadiology, Radiologist, - 04/05/2024 [place] [address] XRay Report Signed Patient: AGNES THAPA MR#: [id number] : 1960 Acct:[id number] Age/Sex: 63 / F ADM Date: 04/05/24 Loc: AYE Attending Dr: Johanny Mendoza Ordering Physician: Johanny Mendoza Date of Service: 04/05/24 Procedure(s): XR DEXA axial skeleton Accession Number(s): [id number] cc: Johanny Mendoza; Physician,Non-Staff M.Ketan The [place] [address] Patient Name: AGNES THAPA MRN: [id number] date: 1960 Sex: F Assigned Patient Location: [facility] Current Patient Location: [facility] Accession/Order Number: [id number] Exam Date: 04/05/2024 10:02 Report Date: 04/05/2024 13:10 At the request of: JOHANNY MENDOZA Procedure: XR DEXA axial skeleton EXAMINATION: XR DEXA axial skeleton HISTORY: Postmenopausal State Z78.0 COMPARISON: No relevant comparison available. TECHNIQUE: Dual-energy X-ray absorptiometry (DXA) was performed. FINDINGS: SPINE ANALYSIS: Average bone mineral density is 1.247 g/cm2. T-score (standard deviation relative to young adult mean): 0.6 . HIP ANALYSIS: Lowest bone mineral density is within the left femoral neck, 0.854 g/cm2. T-score (standard deviation relative to young adult mean): -1.3 . XR/XR DEXA axial skeleton IMPRESSION: World Health Organization Classification: Osteopenia - Moderate Fracture Risk FRAX: Cannot calculate. Pharmacologic treatment recommendations * No uniform recommendation applies to all patients. Management plans must be individualized. * Consider initiating pharmacologic treatment in postmenopausal women and men >= 50 years of age who have the following: Primary fracture prevention: * T-score <= - 2.5 at the femoral neck, total hip, lumbar spine, 33% radius (some uncertainty with existing data) by DXA. * Low bone mass (osteopenia: T-score between - 1.0 and - 2.5) at the femoral neck or total hip by DXA with a 10-year hip fracture risk >= 3% or a 10-year major osteoporosis-related fracture risk >= 20% (i.e., clinical vertebral, hip, forearm, or proximal humerus) based on the US-adapted FRAXregistered model. Secondary fracture prevention: * Fracture of the hip or vertebra regardless of BMD [4, 5]. * Fracture of proximal humerus, pelvis, or distal forearm in persons with low bone mass (osteopenia: T-score between - 1.0 and - 2.5). The decision to treat should be individualized in persons with a fracture of the proximal humerus, pelvis, or distal forearm who do not have osteopenia or low BMD [12, 13]. Hetal MS, Jaime SL, Shaunna KL, Tristen EM, Ganesh KG, AJ, Geraldine ES. The clinician's guide to prevention and treatment of osteoporosis. Osteoporos Int. 2021;33(10):2987-7024. doi: 10.1007/v92317-521-69661-i. Epub 2021Nov 01. Erratum in: Osteoporos Int. 2021Jan 31;: PMID: 42226492; PMCID: [id number]. Electronically authenticated by: JON MOSS Date: 04/05/2024 13:10 Dictated By: Jon Moss M.D. Signed By: 04/05/24 131 DD/ 131 TD/TT: Plant Buyer: NAA HealthcareRadiology Study observation (narrative)[facility] HealthcareXR DEXA AXIAL SKELETONOrdered By: Radiologist Radiology on 76-50-6826[facility] Work Phone: IGP,APTIMA HPV,AGE GDLNon 84-97-1367JZZ GDLN ACOG TESTINGNote.[facility] HealthcareComment on above:TESTS RESULT FLAG UNITS REF RANGE LAB Clinician Provided Cytology Information Source.............Cervix;Endocervix No. of containers..01 ThinPrep Vial Age Algo ACOG Mary... 31 FLAG LEGEND: L-Low Normal,H-High Normal,LL-Alert Low,HH-Alert High <-Panic Low,>-Panic High,A-Abnormal,AA-Critical Abnormal Performed at: 01 =[address] [address] Megan Ariza MD, HPV APTIMANegativeNegativeNOMS HealthcareComment on above:This nucleic acid amplification test detects fourteen high- risk HPV types (16,18,31,33,35,39,45,51,52,56,58,59,66,68) without differentiation. Performed at: =[address] [id number] Tentmaker: Megan Ariza MD, Phone: [phone] Performed at: [facility] [address] [address] [place], [place] [address] Tentmaker: Les Lemos MD, Phone: [phone] IGP, APTIMA HPV, RFX 16/18,45Note.NOMS HealthcareComment on above:TESTS RESULT FLAG UNITS REF RANGE LAB DIAGNOSIS: 02 NEGATIVE FOR INTRAEPITHELIAL LESION OR MALIGNANCY. CELLULAR CHANGES ASSOCIATED WITH ATROPHY ARE PRESENT. Specimen adequacy: 02 Satisfactory for evaluation. Endocervical component may not be distinguished in cases of atrophy. Performed by: 02 Nicolasa Linares Rollout Manager (ASCP) . 02 Note: Note 03 The [...] High,A-Abnormal,AA-Critical Abnormal Performed at: 02 KWCYT [facility] [address] [address] [place] [address] Les Lemos MD, 03 WB [facility] [address] [address] Megan Ariza MD, BRUSH-SPATULA CERVIX ENDOCERVIX CLINISYNCNOMercy [facility] 91-66-2795EQlaosjdu: [id number] Received: 11/14/231354 Status: STEFANI Walker Num: [id number] Spec Type: Surgical Subm Dr: Anthony Rao Tissues: A Endometrium - Curettings (ENDOMETRIAL CUURETTINGS) Procedures: HE/4, Gross/Micro L4 Age/ Patient Sex Location Account Attending Physician ElierAgnes Crow 63/F LABELL [id number] Anthony Rao SPEC NUM: [id number] RECD: 11/14/23 STATUS: STEFANI WALKER NUM: [id number] [place]: 11/14/[address]: Anthony Rao ENTERED: 11/14/[address]: Kalyn,Lab SPEC TYPE: Surgical DEPT: OSITO [...] history postmenopausal bleeding, thickened endometrium. CPT Codes 36898 Specimen: [id number] Received: 11/14/23 Status: STEFANI Walker Num: [id number] Spec Type: Surgical Subm Dr: Anthony Rao Tissues: A Endometrium - Curettings (ENDOMETRIAL CUURETTINGS) Procedures: /Caro, Gross/Micro L4 Patient: Agnes Thapa [id number] (Continued) Signed (signature on file) Grabiel Torrez MD 11/18/[address] [place] [address] Physician GroupECG 12-LEADon 31-23-[place], [place] [address] Electrocardiograph Report Signed Patient: AGNES THAPA MR#: [id number] : 1960 Acct:[id number] Age/Sex: 63 / F ADM Date: 11/05/23 Loc: [facility] Attending Dr: Anthony Rao D.O. Ordering Physician: Anthony Rao D.O. Date of Service: 11/05/23 Procedure(s): ECG 12 lead Accession Number(s): [id number] cc: [facility] Test Date: 2023-11-05 Pat Name: AGNES THAPA Department: Room: - Gender: Female Medical Center Director: : 1960 Requested By: ANTHONY RAO Order Number: [id number] Reading MD: TORIBIO DOWLING Measurements Intervals [place] Rate: 68 P: 56 GA: 158 QRS: 33 QRSD: 148 T: 35 QT: 415 QTc: 443 Interpretive Statements SINUS RHYTHM INDETERMINATE AXIS RIGHT BUNDLE BRANCH BLOCK [120+ ms QRS DURATION, UPRIGHT V1, 40+ ms S IN I/aVL/V4/V5/V6] No previous ECG available for comparison Electronically Signed On 11-06-2023 14:23:52 EDT by TORIBIO DOWLING Dictated By: Toribio Dowling D.O. Signed By: 11/06/23 1424 DD/ 1316 TD/TT: Plant Buyer:TBHRadiology, Radiologist, - 11/06/2023 [place] [address] Electrocardiograph Report Signed Patient: AGNES THAPA MR#: [id number] : 1960 Acct:[id number] Age/Sex: 63 / F ADM Date: 11/05/23 Loc: [facility] Attending Dr: Anthony Rao D.O. Ordering Physician: Anthony Rao D.O. Date of Service: 11/05/23 Procedure(s): ECG 12 lead Accession Number(s): [id number] cc: [facility] Test Date: 2023-11-05 Pat Name: AGNES THAPA Department: Room: - Gender: Female Medical Center Director: : 1960 Requested By: ANTHONY RAO Order Number: [id number] Reading MD: TORIBIO DOWLING Measurements Intervals [place] Rate: 68 P: 56 GA: 158 QRS: 33 QRSD: 148 T: 35 QT: 415 QTc: 443 Interpretive Statements SINUS RHYTHM INDETERMINATE AXIS RIGHT BUNDLE BRANCH BLOCK [120+ ms QRS DURATION, UPRIGHT V1, 40+ ms S IN I/aVL/V4/V5/V6] No previous ECG available for comparison Electronically Signed On 11-06-2023 14:23:52 EDT by TORIBIO DOWLING Dictated By: Toribio Dowling D.O. Signed By: 11/06/23 1424 DD/ 1316 TD/TT: Plant Buyer: NAA Banks 12-LEADOrdered By: Radiologist Radiology on 10-28-7195RGZR Kerecis Work Phone: ECG 12-LEADon 36-61-7808Nssybznmr Study observation (narrative)NAA MurilloUS PELVIS W/ TRANSVAGINALon 52-27-9848V[place]Amb[place], [place] [address] Ultrasound Report Signed Patient: AGNES THAPA MR#: [id number] : 1960 Acct:[id number] Age/Sex: 63 / F ADM Date: 09/22/23 [facility] Anthony R[facility] D.O. Ordering Physician: Anthony Rao D.O. Date of Service: 09/22/23 Procedure(s): US pelvis w/ transvaginal Accession Number(s): [id number] cc: Anthony Rao D.O.; Physician,Non-Staff M.Ketan [place] [id number] Patient Name: AGNES THAPA MRN: [id number] date: 1960 Sex: F Assigned Patient Location: [facility] Current Patient Location: [facility] Accession/Order Number: [id number] Exam Date: 09/22/2023 09:59 Report Date: 09/22/2023 13:30 At the request of: ANTHONY RAO Procedure: US pelvis w/ transvaginal EXAMINATION: US pelvis w/ transvaginal HISTORY: POST MENOPAUSAL BLEEDING COMPARISON: No relevant comparison available. FINDINGS: Transabdominal and transvaginal images The uterus measures 9.7 x 4.2 x 5.4 cm, retroverted, retroflexed. Identified in the uterine fundus is a 3.6 x 2.9 x 2.8 cm area of heterogeneous hypoechogenicity with some likely acoustic shadowing and vascularity. The endometrium measures 12 mm, heterogeneous. The right ovary measures 2.3 x 1 0.5 to 2.0 cm. Normal color flow. The left ovary measures 2.9 x 1.9 x 1.8 cm. Normal color flow. No free fluid US/US pelvis w/ transvaginal IMPRESSION: 3.6 cm myometrial mass. A fibroid is statistically favored Thickened endometrium, in light of patient's postmenopausal bleeding, histopathologic diagnosis is recommended Electronically authenticated by: PRISCILLA ANDINO Date: 09/22/2023 13:30 Dictated By: Priscilla Andino M.D. Signed By: 09/22/23 1333 DD/ 1330 TD/TT: Plant Buyer:TBHRadiology, Radiologist, MD - 09/23/2023 [place] [address] Ultrasound Report Signed Patient: AGNES THAPA MR#: [id number] : 1960 Acct:[id number] Age/Sex: 63 / F ADM Date: 09/22/23 Loc: [facility] Attending Dr: Anthony Rao D.O. Ordering Physician: Anthony Rao D.O. Date of Service: 09/22/23 Procedure(s): US pelvis w/ transvaginal Accession Number(s): [id number] cc: Anthony Rao D.O.; Physician,Non-Staff Georgie The [place] [id number] Patient Name: AGNES THAPA MRN: [facility]:[id number] date: 1960 Sex: F Assigned Patient Location: [facility] Current Patient Location: [facility] Accession/Order Number: [id number] Exam Date: 09/22/2023 09:59 Report Date: 09/22/2023 13:30 At the request of: ANTHONY RAO Procedure: US pelvis w/ transvaginal EXAMINATION: US pelvis w/ transvaginal HISTORY: POST MENOPAUSAL BLEEDING COMPARISON: No relevant comparison available. FINDINGS: Transabdominal and transvaginal images The uterus measures 9.7 x 4.2 x 5.4 cm, retroverted, retroflexed. Identified in the uterine fundus is a 3.6 x 2.9 x 2.8 cm area of heterogeneous hypoechogenicity with some likely acoustic shadowing and vascularity. The endometrium measures 12 mm, heterogeneous. The right ovary measures 2.3 x 1 0.5 to 2.0 cm. Normal color flow. The left ovary measures 2.9 x 1.9 x 1.8 cm. Normal color flow. No free fluid US/US pelvis w/ transvaginal IMPRESSION: 3.6 cm myometrial mass. A fibroid is statistically favored Thickened endometrium, in light of patient's postmenopausal bleeding, histopathologic diagnosis is recommended Electronically authenticated by: PRISCILLA ANDINO Date: 09/22/2023 13:30 Dictated By: Priscilla Andino M.D. Signed By: 09/22/23 1330 DD/ 1330 TD/TT: Plant Buyer: NAA [facility] DaytonRadiology Study observation (narrative)[facility] HealthcareUS PELVIS W/ TRANSVAGINALOrdered By: Radiologist Radiology on 36-44-5904KJUR Kerecis Work Phone: Vital Signs Date TimeVital SignValuePerforming VckizolcrCdboljbl22-43-1257 14:45-0500Body mass index (BMI) [Ratio]35.24 kg/y2Phbqm [employer] Work Phone: [facility] HealthJiqgrmwewm27-20-5647 14:45-0500Body qszkky85.05 kgCorey [employer] Work Phone: [facility] HealthWqqhpcelxg20-20-2970 14:45-0500Diastolic blood mm[Hg]Anthony Maira [employer] Work Phone: [phone] HealthMgwhhlflqg89-30-4323 14:45-0500Systolic blood oyscoghj997 mm[Hg]Anthony [employer] Work Phone: [phone] HealthXdboezaznt69-05-0984 10:09-0400Body urcsxp243.1 cmBennett Gamez MD Work Phone: [facility]10-27-2025 10:09-0400 Body mass index (BMI) [Ratio]35.9 kg/r7JvvipaeBennett Gamez MD Work Phone: [facility]10-27-2025 10:09-0400 Body lnzdfi08.97 kgBennett Gamez MD Work Phone: [facility]10-20-2025 14:42-0400 Body mass index (BMI) [Ratio]35.94 kg/m2Amy Leonides STERN Work Phone: [phone] [place], [place] [address]Blvzvmcuwd32-08-2241 14:42-0400Body .98 kgJohanny STERN Work Phone: [phone] [place], [place] [address]Hlryfddgph35-76-4793 14:42-0400Diastolic blood rybvetzy87 mm[Hg]Johanny STERN Work Phone: [phone] [place], [place] [address]Pbcoxjjnuc59-79-5499 14:42-0400Systolic blood okkfnwmo330 mm[Hg]Johanny STERN Work Phone: [phone] [place], [place] [address]Wpamsyvjrs60-16-6307 09:19-0400Body mass index (BMI) [Ratio]37.51 kg/m2Amy Leonides STERN Work Phone: [phone] [place], [place] [address]Vnbaifnjpo21-32-3671 09:19-0400Body gsftvi387.24 kgAmy Leonides STERN Work Phone: [phone]08-27-2024 09:19-0400Diastolic blood wmzljpie20 mm[Hg]Johanny STERN Work Phone: [phone] [place], [place] [address]Wpnpxsdpyy41-00-0794 09:19-0400Systolic blood mm[Hg]Johanny STERN Work Phone: [facility] Healthcare Encounters Encounter DateEncounter TypeCare ProviderFacilityStart: 05-09-2025 End: 42-86-5997sdzefaieswFSGEF FAZIONot AvailableStart: 05-09-2025 End: 51-74-1117Uasmcl outpatient visit 15 minutesCorey Maira DO Work Phone: [facility] Kalyn OBGYNComment on above:PMB (postmenopausal bleeding); Uterine leiomyoma, unspecified locationStart: 05-09-2025 End: 92-78-0444Lahrgd flowsheetCorey Maira DO Work Phone: noMS [facility] OBGYNStart: 05-09-2025 End: 10-51-4255Ikzugo flowsheetAnthony Rao DO Work Phone: [facility] OBGYNStart: 05-03-2025 End: 27-88-3448xmmvrbbmpiNPXASTHJ EBERLYNot AvailableStart: 05-02-2025 End: 77-71-7544eizcznxrifMveuatv M Hoy MD Work Phone: -[facility] BellevueStart: 05-02-2025 End: 74-56-4514Pacmfsj encounter procedureReannayari Gasca DO-[facility] Work Phone: Start: 04-25-2025 End: 80-81-1187rhfidkiusvLMY RAMEYNot AvailableStart: 04-25-2025 End: 36-59-1681Xnwfzn outpatient visit 15 minutesJohanny STERN Work Phone: [facility] OBGYNComment on above:Menorrhagia with regular cycle (Primary Dx); PMB (postmenopausal bleeding)Start: 04-25-2025 End: 94-36-6914Olchba flowsYari STERN Work Phone: noMS [facility] OBGYNStart: 04-25-2025 End: 77-87-7866Cehpmv flowsheetJohanny STERN Work Phone: [facility] OBGYNStart: 01-14-2025 End: 81-12-1340buojupdmeoLKIMBZGDayanara Estes Thornton HospitalStart: 05-25-2024 End: 59-75-8982Iqfsswqhy Result EncounterJohanny STERN Work Phone: noMS External Department UnsolicitedStart: 05-25-2024 End: 65-81-3839Fjyobmmlo Result EncounterJohanny STERN Work Phone: noms External Department UnsolicitedStart: 04-12-2024 End: 54-42-1680Njnmyymfx encounterAmy Leonides STERN Work Phone: [facility] OBStart: 04-05-2024 End: 13-32-8791Rubpamiqm Result EncounterJohanny STERN Work Phone: noMS External Department UnsolicitedStart: 04-05-2024 End: 75-62-8812Vokdgotwh Result EncounterJohanny STERN Work Phone: noMS External Department UnsolicitedStart: 03-02-2024 End: 75-23-2156Hmwehz flowsheetJohanny STERN Work Phone: [facility] OBStart: 03-02-2024 End: 32-20-5050Huiukl flowsheetJohanny STERN Work Phone: [facility] OBStart: 03-02-2024 End: 34-37-8670Gabqgipif Result EncounterJohanny STERN Work Phone: noMS External Department UnsolicitedStart: 03-02-2024 End: 98-03-7127Achvqng encounter procedureJohanny Leonides STERN Work Phone: [facility] Work Phone: Start: 03-02-2024 End: 64-60-9455Ogfjpsbm preventive med est patient 40-64yrsAmy Leonides STERN Work Phone: [facility] OBComment on above:Well woman exam with routine gynecological exam; Breast cancer screening by mammogram; Postmenopausal stateStart: 11-14-2023 End: 26-81-9297ryibbvftztPwxmp FazioFacility:[facility] Start: 11-14-2023 End: 60-09-1029fixvwwtvhqBveue Maira Work Phone: [facility] Work Phone: Start: 11-14-2023 End: 60-15-1783Jgeurrzg ReferredCorey Maira Work Phone: [facility]-LAB Path Spec [facility] HospStart: 11-05-2023 End: 12-36-8514Uviclkajx Result EncounterCorey Maira DO Work Phone: noms External Department UnsolicitedStart: 11-05-2023 End: 86-27-3953Spxnfawuy Result EncounterCorey Maira DO Work Phone: noms External Department UnsolicitedStart: 09-22-2023 End: 75-37-0938Vabibtuxm Result EncounterCorey Maira DO Work Phone: noms External Department UnsolicitedStart: 09-22-2023 End: 58-37-0076Pzzuevple Result EncounterCorey Maira DO Work Phone: [facility] External Department UnsolicitedStart: 08-07-2023 End: 76-45-4810Irluvh outpatient visit 10 minutesJavinh Kangston DO Work Phone: [facility] FB ORTHOPAEDICSComment on above:Adhesive capsulitis of left shoulder (Primary Dx); Partial nontraumatic tear of rotator cuff, left; Chronic right shoulder pain Procedures DateProcedureProcedure DetailPerforming ClinicianStart: 36-62-9190BncykigpmajEmt Ramey PA Work Phone: Start: 19-09-0464DU TOMOSYNTHESIS SCREENING BIJohanny STERN Work Phone: Start: 38-72-0872FS DEXA AXIAL SKELETONJohanny STERN Work Phone: Start: 75-38-1381EBE,APTIMA HPV,AGE GDLNJohanny STERN Work Phone: Start: 68-66-5418Qrrjszvmryz observation [Identifier] in Cervix by Cyto stainJohanny STERN Work Phone: Start: 18-22-2414AXE 12-LEADCorey Maira DO Work Phone: Start: 38-54-1253RP PELVIS W/ TRANSVAGINALCorey Maira DO Work Phone: Start: 33-29-1139XadlkujbrlcWkvvc Huddleston DO Work Phone: History of tonsillectomyHistory of tonsillectomy Bennett Gamez MD Work Phone: Plan of Treatment DateCare ActivityDetailAuthorStart: 25-06-2637Ycsrinrgv for malignant neoplasm of cervixNOMS HealthcareStart: 76-54-5620Jfippamfq for malignant neoplasm of cervixPap SmearNOMS HealthcareStart: 75-88-7963Mibvmwogc for malignant neoplasm of breastMammogramNOMS HealthcareStart: 05-30-2025 End: 17-84-3972Ydnwhfj encounter /24/2025 9:20 AM EST Procedure Visit NOMFord WARNER [address] [place] [phone] Anthony Rao, DO [address] [place] [address] NOMFord [place] OBGYNStart: 05-09-2025 End: 18-57-6428Lhfzrme encounter tutyqpcul12/03/2025 2:40 PM EST Office Visit [facility] [address] [facility] [place] [phone] Anthony Rao, DO [address] [place] [address] NOMFord [place] OBGYNStart: 05-03-2025 End: 82-67-6275Aqsixwmzvgul / ancillary services uarnqsnhwf24/28/2025 1:00 PM EDT Ancillary Procedure [facility] [address] [place] [phone] [facility] OBGYNStart: 04-25-2025 End: 11-92-7028kCHF in Blood by Coagulation assayAPTT Lab Routine Menorrhagia with regular cycle Expected: 04/25/2025 (Approximate), Expires: 04/25/2026N[facility]S HealthcareComment on above:Expected: 04/25/2025 (Approximate), Expires: 04/25/2026Start: 04-25-2025 End: 39-77-1640CD PelvisUS Pelvis w/ TV Imaging Routine PMB (postmenopausal bleeding) Expected: 04/25/2025, Expires: 10/24/2025[facility] Work Phone: comment on above:Expected: 04/25/2025, Expires: 10/24/2025Start: 51-11-7482FPVQU-19 Vaccine ()COVID-19 Vaccine ()[facility]OM[facility] HealthcareStart: 24-44-9391Ocsjgdcro vaccination Influenza Vaccine (#1)[facility] HealthcareStart: 71-32-5832Cqoklyelb vaccination Influenza Vaccine (#1)[facility] HealthcareStart: 03-02-2024 End: 82-66-9666FMN Skeletal system Views for bone densityDEXA bone density Imaging Routine Postmenopausal state Expected: 03/02/2024 (Approximate), Expires:03/02/2025[facility] HealthcareComment on above:Expected: 03/02/2024 (Approximate), Expires: 03/02/2025Start: 03-02-2024 End: 99-38-0382ZD Breast - bilateral ScreeningBilateral screening mammogram Imaging Routine Breast cancer screening by mammogram Expected: 03/02/2024, Expires: 05/02/2025[facility] Work Phone: comment on above:Expected: 03/02/2024, Expires: 05/02/2025Start: 03-02-2024 End: 90-18-0173Atvxhez encounter upolpolvu62/27/2024 9:00 AM EDT Office Visit [facility] [address] [place] [address] Johanny Mendoza PA [address] [place], [place] [id number] ArrivedNOOH BCP OBComment on above:ArrivedStart: 10-02-2023 End: 04-67-1307Iqmtrsd encounter /28/2024 9:00 AM EDT Office Visit [facility] [address] [place] [phone] Ligia Singh, DO [address] [facility] [address] [place] [address] NOMS ORTHOPAEDICSStart: 08-09-2023 Screening for malignant neoplasm of breastMammogramNOMS HealthcareStart: 42-83-5296Prgitpgyb vaccinationInfluenza Vaccine (#1)NOM HealthcareStart: 40-35-8004Rqfxuxahi for malignant neoplasm of cervixNOMS HealthcareStart: 84-66-9739Quwphldbn for malignant neoplasm of cervixPap SmearNOMS Healthcare Start: 85-99-3421KWzZ/Tdap/Td Vaccines (1 - Tdap)DTaP/Tdap/Td Vaccines (1 - Tdap)[facility] HealthcareStart: 07-86-2749DHN Vaccines (1 of 1 - Standard series)MMR Vaccines (1 of 1 - Standard series)[facility] HealthcareStart: 04-22-7079Zqyfjqnmc for malignant neoplasm of colonNOMS HealthcareCB W Auto Differential panel - Blood CBC and differential Lab Routine Menorrhagia with regular cycle Ordered: 04/25/2025[facility] Work Phone: comment on above:Ordered: 04/25/2025hCG, quantitative, pregnancyhCG, quantitative, Lab Routine Menorrhagia with regular cycle Ordered: 04/25/2025[facility] HealthcareComment on above:Ordered: 04/25/2025 Hemoglobin A1c/Hemoglobin.total in BloodHemoglobin A1c Lab Routine Menorrhagia with regular cycle Ordered: 04/25/2025[facility] HealthcareComment on above:Ordered: 04/25/2025Prothrombin time (PT) in Blood by Coagulation assayProtime-INR Lab Routine Menorrhagia with regular cycle Ordered: 04/25/2025[facility] HealthcareComment on above:Ordered: 04/25/2025THIN PREP TIS PAP AND HR HPV DNATHIN PREP TIS PAP AND HR HPV DNA Pathology and Cytology Routine Well woman exam with routine gynecological exam Ordered: 03/02/2024[facility] HealthcareComment on above:Ordered: 03/02/2024Thyrotropin [Units/volume] in Serum or PlasmaTSH Lab Routine Menorrhagia with regular cycle Ordered: 04/25/2025[facility] HealthcareComment on above:Ordered: 04/25/2025Thyroxine (T4) free [Mass/volume] in Serum or PlasmaT4, free Lab Routine Menorrhagia with regular cycle Ordered: 04/25/2025[facility] HealthcareComment on above:Ordered: 04/25/2025XR Knee - bilateral 3 Views [facility] Payers DatePayer CategoryPayerPolicy [id number] 2017MedicaidCARESOURCE MEDICAID [employer] MEDICAID [place] [id number] 2016-Present [address] [place] [address] [id number] Health InsuranceCARESOURCE MEDICAID [id number] 2017Medicaid [id number] [id number] [id number] 2..[id number] Social History DateTypeDetailFacilityStart: 01-35-3497Snlegvr smoking status NHISNever smoked tobaccoNOMS HealthcareStart: 05-37-0721Quaqjtd use and exposureSmokeless tobacco non-userNOMS HealthcareStart: 05-20-2023 End: 27-33-3422Gqiezcl intakeEx-drinker (finding)[facility] HealthcareStart: 05-20-2023 End: 60-05-1249Bnkohri of Social functionNOMS HealthcareStart: 05-20-2023 End: 45-56-1367Hqqaugk use panelNOMS HealthcareStart: 65-88-6408Xak Assigned At BirthNot on fileMCKAY-DEE HOSPITAL CENTER HealthcareStart: 48-05-1149Mkp Assigned At BirthBrown Memorial Hospitaltart: 85-95-4076IhlVuoabyEUOY Healthcare Tobacco smoking status NHISUnknown if ever smokedMercy Health St. [facility] Work Phone: SexFeupstate university hospitale (finding)[facility] Clinical Notes 08-07-2023 to 05-09-2025 Note Date & BtvqScmmLuywqjhv83-87-1982 History of Present illness Narrative* Erika Blunt, QUALITY ASSURANCE NURSE - 05/09/2025 2:40 PM EST Reason for Appointment: Patient ID: Agnes Thapa is a 64 y.o. female who presents for Follow-up Patient presents today for Consult appointment. MEDICATIONS Current Outpatient Medications Medication Instructions lisinopril-hydroCHLOROthiazide [...] Diabetes mellitus (HCC) Heart murmur Hypertension Obesity Social History Tobacco Use Smoking status: [...] Respiratory: Negative. Cardiovascular: Negative. Gastrointestinal: Negative. Genitourinary: Positive for vaginal bleeding. Musculoskeletal: Negative. Skin: Negative. Neurological: Negative. All [...] nursing note reviewed. Exam conducted with a nutrition aide present. Vitals: Estimated body mass index is 35.24 kg/m as calculated from the following: Height as of 09/08/23: 5' 5 . Weight as of this encounter: 211 lb 12 oz. BP: 126/72 No LMP recorded (lmp unknown). Patient is postmenopausal. Assessment/Plan ICD-10-CM 1. PMB (postmenopausal bleeding) N95.0 2. Uterine leiomyoma, unspecified location D25.9 Patient presents to discuss upcoming procedure to D&C. Patient is scheduled for 06/24/25. Patient to return for annual/ pre-op appointment. Patient will return to clinic on 05/30/25. Documented by Erika Blunt LPN on behalf of: Anthony Rao DO documented in this encounterCrittenton Behavioral HealthPqqunznxpq38-57-2358 History of Present illness Narrative* JARRED Basurto [...] nursing note reviewed. Exam conducted with a nutrition aide present. Vitals: Estimated body mass index is [...] HISTORY cone biopsy TONSILLECTOMY documented in this encounterCrittenton Behavioral HealthUasqmphblt56-30-0497 Telephone encounter Note* Telephone Encounter - JARRED Basurto - 04/12/2024 3:59 PM EDT Spoke to pt in regards to Dexa results. Patient wishes to do more conservative treatment at this time including vitamin D3 of 800 international units and 1200mg of calcium daily. Patient did not wishto start fusomax. We will readdress in future [facility] Work Phone: [phone] 861-791610-07-2024 Miscellaneous Notes* Telephone Encounter - JARRED Basurto - 04/12/2024 3:59 PM EDT Spoke to pt in regards to Dexa results. Patient wishes to do more conservative treatment at this time including vitamin D3 of 800 international units and 1200mg of calcium daily. Patient did not wishto start fusomax. We will readdress in future documented in this encounterCrittenton Behavioral HealthQaujxizswm01-35-8981 History of Present illness Narrative* JARRED Basurto - 03/02/2024 9:00 AM EDT Reason for Appointment: Patient ID: Agnes Thapa is a 63 y.o. female who presents for [facility] Women Visit Patient presents today for Annual [...] nursing note reviewed. Exam conducted with a nutrition aide present. Vitals: Estimated body mass index is [...] behalf of: JARRED Basurto documented in this encounterCrittenton Behavioral HealthEzqicslhbc94-43-2515 History of Present illness Narrative* Ligia Singh, - 08/07/2023 9:15 AM EST Images from the original note were not included. HISTORY OF PRESENT ILLNESS: Agnes Thapa is an 63 y.o. @ female. Chief complaint RT shoulder pain LT shoulder s/p PT at [facility] with 3 visits with 10% improvement. 2 1/2 months s/p subacromial depo injx 05/27/23, she still notes some relief. LT shoulder pain x Feb 2023 and has gradually worsened, denies injury. Saw Dr Montero, went to PT, had MRI at [facility]. Pain is much improved, no longer waking at HS. Admits weakness but is improving. ROM is improving but still trouble with IR/ER rotation. Some discomfort in the upper arm. 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 Prior treatment: PCP, PT 6-7 visits, MRI [facility] 04/18/23, massage, ice, tried naproxen, [...] Medical History: Diagnosis Date Arthritis Diabetes mellitus ([facility]) Heart murmur Hypertension ([facility]) Obesity ALLERGIES: No Known Allergies VITALS: Visit [...] Dr. Singh/JACKSON KOCH D.O. documented in this encounterMCKAY[facility] HealthcareEvaluation note* Diagnosis Adhesive capsulitis of left shoulder- Primary Partial nontraumatic tear of rotator cuff, left Chronic right shoulder pain Pain in joint, shoulder region documented in this encounter [facility] HealthcareEvaluation noteNo assessment information availableTrinity Health System Work Phone: Evaluation note* Diagnosis Well woman exam with routine gynecological exam Routine gynecological examination Breast cancer screening by mammogram Postmenopausal state Asymptomatic postmenopausal status (age-related) (natural) documented in this encounter [facility] HealthcareEvaluation note* Diagnosis Menorrhagia with regular cycle- Primary PMB (postmenopausal bleeding) Postmenopausal bleeding documented in this encounter [facility] HealthcareEvaluation note* Diagnosis Onset Date Resolution Status Admit Date Degenerative joint disease of knee acuteOctober 2024 10:07amPrimary osteoarthritis of left hipacuteOctober 2024 10:07am [facility] Work Phone: Evaluation note* Diagnosis PMB (postmenopausal bleeding) Postmenopausal bleeding Uterine leiomyoma, unspecified location documented in this encounter [facility] HealthcareReason for referral (narrative)No reason for referral information availableMercy Health St. [facility]'S [facility] Work Phone: Summary Purpose Family History No Family History Records FoundNo Family History Records FoundNo Family History Records Found Advance Directives Advance Directive Response Recorded Date/ Time Advance Directives No April 11, 2025 8:48am Chief Complaint and Reason for Visit Chief Complaint Admit Date [facility] CONSULT DR GAMEZ LT HIP PAIN WX [facility] Oc tober 2024 10:07am Reason for Visit Admit Date Degenerative joint disease of knee Octob er 2024 10:07am Primary osteoarthritis of left hip Octob er 2024 10:07am Additional Source Comments Reason for Visit (unrecogniz ed section and content) ReasonCommentsFollow-upReasonCommentsWell Women VisitReasonCommentspost menopausal bleeding Care Teams (unrecognized sec tion and content) Team MemberRelationshipSpecialtyStart DateEnd Date Ligia Montero MD [address] [place] [address] PCP - GeneralFamily Ynthupnp50/14/23 Team Status: Inactive Member Role Status Dates Anthony Rao Attending Provider Active Start: Francoise meza 2023 End: November 14, 2023Team MemberRelationshipSpecialtyStart DateEnd Date Ligia Montero MD [address] [place] [address] PCP - GeneralFamily Yznunogg76/14/23Team MemberRelationshipSpecialtyStart Date End Date Ligia Montero MD [address] [place] [address] PCP - GeneralFamily Lemgtjon54/14/23Team MemberRelationshipSpecialtyStart Date End Date Ligia Montero MD [address] [place] [address] PCP - Generalmily Vgftnzeo62/14/23Team MemberRelationshipSpecialtyStart Date End Date Ligia Montero MD [address] [place] [address] [facility] Jjtlqsha75/14/23 Team Status: Active Member Role/Relationship Status Dates Bennett Gamez MD Primary Care Provider Active Team Status: Inactive Member Role/Relationship Status Dates Mauri Gasca DO Attending Provider Active S tart: May 02, 2025 End: May 02, 2025DoJEFFREY [facility] Care ProviderActiveStart: May 02, 2025 End: May 02, 2025Team MemberRelationshipSpecialtyStart DateEnd Date Ligia Montero MD [address] [place] [address] PCP - Generalmily Mvgkpddp07/14/23Te MemberRelationshipSpecialtyStart Date End Date Ligia Montero MD [address] [place] [address] PCP - GeneralFamily Zgdeycmi89/14/23 Goals (unrecognized section and content) Goals may be documented in a n alternate sectionGoals may be documented in an alternate section INFORMATION SOURCE (unrecogn ized section and content) DATE CREATED AUTHOR 11/20/2023 [facility] DATE CREATED AUTHOR AUTHOR'S ORGANIZ ATION 01/19/2025 [facility] DATE CREATED AUTHOR AUTHOR'S ORGANIZ ATION 05/10/2025 [facility] FOR RECORDS PERTAINING TO PATIENTS WHO [...] BE BASED ON THE PRIMARY CLINICAL RECORDS. [facility] [employer] provides no warranty or guarantee of the accuracy or completeness of information in this document.
[2025-06-01 20:09] LABS: Age Gdln ACOG Testing Note (.); IGP, Aptima HPV, rfx 16/18,45 Note (.)
== END 2025-05-30 20:29 | disposition home or self-care (01) ==
LOC: LAB 20:28
PROVIDERS: PCP Family Medicine; Visit Provider Obstetrics & Gynecology
DX: Z01.419 Encounter for gynecological examination (general) (routine) without abnormal findings (principal)
CPT/HCPCS: 88175

== ENCOUNTER 2025-06-10 10:59 | Outpatient (OUT) | payer OTHER, SELFPAY ==
--- OUTSIDE RECORDS SUMMARY | 2025-06-10 11:03 | XMS_ITS | CCD ---
Author Organization [facility] Inform ion Partnership [facility] Care Team Providers Care Service Establishment Attendant Name Role Phone Ligia Montero MD Primary Care Provider Anthony Rao Attending Provider Anthony Rao Attending Unavailable Anthony Rao Admitting Unavailable BENNETT GAMEZ Referring Unavailable LIGIA MONTERO Primary Care Unavailable Ligia Montero MD Primary Care Provider Mauri Gasca DO Attending Provider [phone] Bennett Gamez MD Primary Care Provider [phone] JOHANNY MENDOZA Attending Unavailable HORTENCIA ASH Referring Unavailable ANTHONY RAO Attending Unavailable Medications Current Medications MedicationDrug Class(es)DatesSig (Normalized)Sig (Original)cholecalciferol 0.325 mg oral capsule (1 source)Vitamin DStart: 76-17-4394pxlh 1 capsule by mouth every week Cholecalciferol (Vitamin D3) 325 mcg (13,000 unit) capsule Active 325 MCG PO every week April 29, 2025 12:00am Complies with drug therapy hydroCHLOROthiazide 12.5 mg / lisinopril 10 mg oral tablet (17 sources)Thiazide Diuretic, Angiotensin Converting Enzyme InhibitorStart: 46-69-5191vctv 1 tablet by mouth once dailyLisinopril-Hydrochlorothiazide 10- 12.5 mg tablet Active 1 TAB PO Daily April 29, 2025 12:00am Complies with drug therapytake 1 tablet by mouth in the morninglisinopril-hydroCHLOROthiazide 10-12.5 MG tablet Take 1 tablet by mouth in the morning. Activemeloxicam 15 mg oral tablet (6 sources)Nonsteroidal Anti-inflammatory DrugStart: 87-69-1316Rdbxstrai 15 mg tablet Active MG PO April 29, 2025 12:00am Complies with drug therapy metFORMIN hydrochloride 500 mg oral tablet (17 sources)BiguanideStart: 37-71-7840izgt 1 tablet by mouth twice daily at mealtimeMetformin 500 mg tablet Active 500 MG PO Twice daily with meals April 29, 2025 12:00am Complieswith drug therapymetFORMIN (Glucophage) 500 MG tablet every 12 (twelve) hours. Active Completed/Discontinued Medications MedicationDrug Class(es)DatesSig (Normalized)Sig (Original)levoFLOXacin 750 mg oral tablet (1 source)Quinolone AntimicrobialStart: 04-29-2025 End: 17-02-7138kamy 1 tablet by mouth once dailyLevofloxacin 750 mg tablet Discontinued 750 MG PO Daily April 29, 2025 12:00am May 02, 2025 10:10am Problems Active Problems Problem ClassificationProblemDateDocumented DateEpisodic/ChronicBenign neoplasm of uterus (2 sources)Uterine leiomyoma; Translations: [Leiomyoma of uterus, unspecified] 47-72-4388IfrkfuwzFeyeacru mellitus without complication (1 source)Diabetes mellitus; Translations: [Type 2 diabetes mellitus without complications]42-47-4290AapmjmqRkyxstuto hypertension (1 source)Hypertensive disorder; Translations: [Essential (primary) hypertension]22-06-1964FqftbgiEpzewwlqkh disorders (19 sources)Postmenopausal bleeding; Translations: [Postmenopausal bleeding] Onset: 491240-62-0754AghjkzhYymdrjdmm disorders (2 sources)Menorrhagia; Translations: [Excessive and frequent menstruation with regular cycle]24-63-7926ErwxxhcSncxisdaaphngg (4 sources)Osteoarthritis of left hip joint; Translations: [Unilateral primary osteoarthritis, left hip]22-21-4016XwbaeryHsorq connective tissue disease (1 source)Adhesive capsulitis of left shoulder; Translations: [Adhesive capsulitis of left shoulder]00-50-7415CcnwtsrkKgbgc connective tissue disease (1 source)Non-traumatic partial tear of left rotator cuff; Translations: [Incomplete rotator cuff tear or rupture of left shoulder, not specified as traumatic]71-34-5292GpmzcngmNrwkr non-traumatic joint disorders (1 source)Chronic pain of right upper limb; Translations: [Pain in right shoulder]79-28-5380GrppsvayDruzp non-traumatic joint disorders (1 source)Pain in right knee; Translations: [Pain in both knees]05-02-2025 EpisodicOther screening for suspected conditions (not mental disorders or infectious disease) (1 source)Encounter for screening mammogram for malignant neoplasm of breast; Translations: [Encounter for screening mammogram for malignant neoplasm of breast]Onset: 38-11-2484Rglgqokr Past or Other Problems Problem ClassificationProblemDateDocumented DateEpisodic/Chronic Administrative/social admission (17 sources)Patient encounter status; Translations: [Person consulting for explanation of examination or test findings]Onset: 581991-89-4830Lactrbxb Residual codes; unclassified (2 sources)Postmenopausal state; Translations: [Asymptomatic menopausal state] 73-92-7182Kkeofdox Results Test NameValueInterpretationReference RangeFacilityUS PELVIC COMPLETE W/ TVon 00-84-9254MT PELVIC COMPLETE W/ TVFINDINGS: Uterus 8.6 x [...] Patient is postmenopausal.MAMM SCREENING BILATERAL W CADon 98-56-3768QKEN SCREENING BILATERAL W CADMAMM SCREENING BILATERAL W CAD AGNES Maria ELIER 1960 [id number] EXAM: MAMM SCREENING BILATERAL W CAD, 01/14/2025 [...] family medical history was used calculate [facility] of malignancy. Scores less than 20% are not considered high risk per ACR guidelines and patient should continue with the above recommendation. Finalized by Frida Swift MD on 01/17/2025 1:18 PM 1 b MAMM 1 [facility] TOMOSYNTHESIS SCREENING BIon 85-17-5238[place]ma[place] [address] Mammography Report Signed Patient: AGNES THAPA MR#: [id number] : 1960 Acct:[id number] Age/Sex: 63 / F ADM Date: 05/11/24 Loc: MAMMO Attending Dr: Johanny Mendoza Ordering Physician: Johanny Mendoza Results: Date of Service: 05/11/24 Follow Up: Procedure(s): MM tomosynthesis screening BI Accession Number(s): [id number] cc: Johanny Mendoza; Physician,Non-Staff M.D. Patient Name: AGNES THAPA MR#: [id number] : 1960 Exam Date: 05/11/2024 Ordering Doctor: [...] prostate cancer at age 87. LOCATION: [facility] BREAST COMPOSITION: There are scattered areas [...] M.D. Signed By: 05/25/24932 DD/ 1 TD/TT: Community Service Organization Director:TBHRadiology, Radiologist, - 05/25/2024 [place] [address] Mammography Report Signed Patient: AGNES THAPA MR#: [id number] : 1960 Acct:[id number] Age/Sex: 63 / F ADM Date: 05/11/24 Loc: MAMMO Attending Dr: Johanny Mendoza Ordering Physician: Johanny Mendoza Results: Date of Service: 05/11/24 Follow Up: Procedure(s): MM tomosynthesis screening BI Accession Number(s): [id number] cc: Johanny Mendoza; Physician,Non-Staff M.Ketan Patient Name: AGNES THAPA MR#: [id number] : 1960 Exam Date: 05/11/2024 Ordering Doctor: [...] prostate cancer at age 87. LOCATION: [facility] BREAST COMPOSITION: There are scattered areas [...] M.D. Signed By: 05/25/24932 DD/ 1 TD/TT: Community Service Organization Director: [facility] RoadRadiology Study observation (narrative)[facility] TOMOSYNTHESIS SCREENING BIOrdered By: Radiologist Radiology on 81-41-8286FRDU [employer] Work Phone: XR DEXA AXIAL SKELETONon 61-58-3953[address] [address] XRay Report Signed Patient: AGNES THAPA MR#: [id number] : 1960 Acct:[id number] Age/Sex: 63 / F ADM Date: 04/05/24 Loc: RAD Attending Dr: Johanny Mendoza Ordering Physician: Johanny Mendoza Date of Service: 04/05/24 Procedure(s): XR DEXA axial skeleton Accession Number(s): [id number] cc: Johanny Mendoza; Physician,Non-Staff M.Ketan The [address] [address] Patient Name: AGNES THAPA MRN: [id number] date: 1960 Sex: F Assigned Patient Location: [facility] Current Patient Location: RAD Accession/Order Number: [id number] Exam Date: 04/05/2024 10:02 Report Date: 04/05/2024 [...] prevention and treatment of osteoporosis. Osteoporos Int. 2021;33(10):4972-7821. doi: 10.1007/y02667-933-59796-t. Epub 2021Nov 01. Erratum in: Osteoporos Int. 2021Jan 31;: PMID: 81642775; PMCID: [id number]. Electronically authenticated by: JON MOSS Date: 04/05/2024 13:10 Dictated By: Jon Moss M.D. Signed By: 04/05/24 1312 DD/ 1310 TD/TT: Community Service Organization Director:CHARHRadiology, Radiologist, - 04/05/2024 [place] [address] XRay Report Signed Patient: AGNES THAPA MR#: [id number] : 1960 Acct:[id number] Age/Sex: 63 / F ADM Date: 04/05/24 Loc: AYE Attending Dr: Johanny Mendoza Ordering Physician: Johanny Mendoza Date of Service: 04/05/24 Procedure(s): XR DEXA axial skeleton Accession Number(s): [id number] cc: Johanny Mendoza; Physician,Non-Staff M.Ketan The [place] [address] Patient Name: AGNES THAPA MRN: [id number] date: 1960 Sex: F Assigned Patient Location: [facility] Current Patient Location: [facility] Accession/Order Number: [id number] Exam Date: 04/05/2024 10:02 Report Date: 04/05/2024 [...] prevention and treatment of osteoporosis. Osteoporos Int. 2021;33(10):9501-3568. doi: 10.1007/q88420-165-47443-o. Epub 2021Nov 01. Erratum in: Osteoporos Int. 2021Jan 31;: PMID: 94537213; PMCID: [id number]. Electronically authenticated by: JON MOSS Date: 04/05/2024 13:10 Dictated By: Jon oMss M.D. Signed By: 04/05/24 131 DD/ 131 TD/TT: Community Service Organization Director: [facility] HealthcareRadiology Study observation (narrative)[facility] HealthcareXR DEXA AXIAL SKELETONOrdered By: Radiologist Radiology on 93-81-7387FKQG Healthcare Work Phone: IGP,APTIMA HPV,AGE GDLNon 96-12-6428NNJ GDLN ACOG TESTINGNote.[facility] HealthcareComment on above:TESTS RESULT FLAG UNITS REF RANGE LAB Clinician Provided Cytology Information Source.............Cervix;Endocervix No. of containers..01 ThinPrep Vial Age Algo ACOG Mary... 30 FLAG LEGEND: L-Low Normal,H-High Normal,LL-Alert Low,HH-Alert High <-Panic Low,>-Panic High,A-Abnormal,AA-Critical Abnormal Performed at: 01 =[address] [address] Megan Ariza MD, HPV APTIMANegativeNegativeNOMS HealthcareComment on above:This nucleic acid amplification test detects fourteen high- risk HPV types (16,18,31,33,35,39,45,51,52,56,58,59,66,68) without differentiation. Performed at: =[address] [id number] Photograph Retoucher: Megan Ariza MD, Phone: [phone] Performed at: [facility] Cyto Histo [address] [place], [place] [id number] Photograph Retoucher: Les Lemos MD, Phone: [phone] IGP, APTIMA HPV, RFX 16/18,45Note.NOMS HealthcareComment on above:TESTS RESULT FLAG UNITS REF RANGE LAB DIAGNOSIS: 02 NEGATIVE FOR INTRAEPITHELIAL LESION OR MALIGNANCY. CELLULAR CHANGES ASSOCIATED WITH ATROPHY ARE PRESENT. Specimen adequacy: 02 Satisfactory for evaluation. Endocervical component may not be distinguished in cases of atrophy. Performed by: 02 Nicolasa Linares Glass Cleaning Machine Tender (ASCP) . 02 Note: Note 03 The [...] High,A-Abnormal,AA-Critical Abnormal Performed at: 02 KWCYT [facility] Cyto Hist[address] [address] [place] [address] Les Lemos MD, 03 WB [facility] [address] [address] Megan Ariza MD, BRUSH-SPATULA CERVIX ENDOCERVIX CLINISYNCNOChildren's Mercy Hospital 62-15-0658GJoaexlsw: [id number] Received: 11/14/231354 Status: STEFANI Walker Num: [id number] Spec Type: Surgical Subm Dr: Anthony Rao Tissues: A Endometrium - Curettings (ENDOMETRIAL CUURETTINGS) Procedures: HE/4, Gross/Micro L4 Age/ Patient Sex Location Account Attending Physician ElierAgnes Crow 63/F LABELL [id number] Anthony Rao SPEC NUM: [id number] RECD: 11/14/23 STATUS: STEFANI WALKER NUM: [id number] [place]: 11/14/[address]: Anthony Rao ENTERED: [...] history postmenopausal bleeding, thickened endometrium. CPT Codes 76801 Specimen: [id number] Received: 11/14/23 Status: STEFANI Walker Num: [id number] Spec Type: Surgical Subm Dr: Anthony Rao Tissues: A Endometrium - Curettings (ENDOMETRIAL CUURETTINGS) Procedures: /Caro, Gross/Micro L4 Patient: Agnes Thapa [id number] (Continued) Signed (signature on file) Grabiel Torrez MD 11/18/[address] [place] [address] Physician GroupECG 12-LEADon 15-91-5836[place]og[place] [address] Electrocardiograph Report Signed Patient: AGNES THAPA MR#: [id number] : 1960 Acct:[id number] Age/Sex: 63 / F ADM Date: 11/05/23 Loc: [facility] Attending Dr: Anthony Rao D.O. Ordering Physician: Anthony Rao D.O. Date of Service: 11/05/23 Procedure(s): ECG 12 lead Accession Number(s): [id number] cc: [facility] Test Date: 2023-11-05 Pat Name: AGNES THAPA Department: Room: - Gender: Female Student Assistant: : 1960 Requested By: ANTHONY RAO Order Number: [id number] Reading MD: TORIBIO DOWLING Measurements Intervals [place] Rate: 68 P: 56 NC: 158 QRS: 33 QRSD: 148 T: 35 QT: 415 QTc: 443 Interpretive Statements SINUS RHYTHM INDETERMINATE AXIS RIGHT BUNDLE BRANCH BLOCK [120+ ms QRS DURATION, UPRIGHT V1, 40+ ms S IN I/aVL/V4/V5/V6] No previous ECG available for comparison Electronically Signed On 11-06-2023 14:23:52 EDT by TORIBIO DOWLING Dictated By: Toribio Dowling D.O. Signed By: 11/06/23 1424 DD/ 1316 TD/TT: Community Service Organization Director:TBHRadiology, Radiologist, - 11/06/2023 [place] [address] Electrocardiograph Report Signed Patient: AGNES THAPA MR#: [id number] : 1960 Acct:[id number] Age/Sex: 63 / F ADM Date: 11/05/23 Loc: [facility] Attending Dr: Anthony Rao D.O. Ordering Physician: Anthony Rao D.O. Date of Service: 11/05/23 Procedure(s): ECG 12 lead Accession Number(s): [id number] cc: [facility] Test Date: 2023-11-05 Pat Name: AGNES THAPA Department: Room: - Gender: Female Student Assistant: : 1960 Requested By: ANTHONY RAO Order Number: [id number] Reading MD: TORIBIO DWOLING Measurements Intervals [place] Rate: 68 P: 56 NC: 158 QRS: 33 QRSD: 148 T: 35 QT: 415 QTc: 443 Interpretive Statements SINUS RHYTHM INDETERMINATE AXIS RIGHT BUNDLE BRANCH BLOCK [120+ ms QRS DURATION, UPRIGHT V1, 40+ ms S IN I/aVL/V4/V5/V6] No previous ECG available for comparison Electronically Signed On 11-06-2023 14:23:52 EDT by TORIBIO DOWLING Dictated By: Toribio Dowling D.O. Signed By: 11/06/23 1424 DD/ 1316 TD/TT: Community Service Organization Director: [facility] 12-LEADOrdered By: Radiologist Radiology on 11-36-5339VEVV [employer] Work Phone: ECG 12-LEADon 59-40-7392Ukjezrkwj Study observation (narrative)NAA MurilloUS PELVIS W/ TRANSVAGINALon 87-41-3733Vic[place] [address] Ultrasound Report Signed Patient: AGNES THAPA MR#: [id number] : 1960 Acct:[id number] Age/Sex: 63 / F ADM Date: 09/22/23 [facility]: Anthony Rao D.O. Ordering Physician: Anthony Rao D.O. Date of Service: 09/22/23 Procedure(s): US pelvis w/ transvaginal Accession Number(s): [id number] cc: Anthony Rao D.O.; Physician,Non-Staff M.Ketan [place] [id number] Patient Name: AGNES THAPA MRN: [id number] date: 1960 Sex: F Assigned Patient Location: [facility] Current Patient Location: [facility] Accession/Order Number: [id number] Exam Date: 09/22/2023 09:59 Report Date: 09/22/2023 [...] Signed By: 09/22/23 1333 DD/ 1330 TD/TT: Community Service Organization Director:TBHRadiology, Radiologist, MD - 09/23/2023 [place] [address] Ultrasound Report Signed Patient: AGNES THAPA MR#: [id number] : 1960 Acct:[id number] Age/Sex: 63 / F ADM Date: 09/22/23 Loc: [facility] Attending Dr: Anthony Rao D.O. Ordering Physician: Anthony Rao D.O. Date of Service: 09/22/23 Procedure(s): US pelvis w/ transvaginal Accession Number(s): [id number] cc: Anthony Rao D.O.; Physician,Non-Staff Georgie The [place] [id number] Patient Name: AGNES THAPA MRN: [facility]:[id number] date: 1960 Sex: F Assigned Patient Location: [facility] Current Patient Location: [facility] Accession/Order Number: [id number] Exam Date: 09/22/2023 09:59 Report Date: 09/22/2023 [...] By: Priscilla Andino M.D. Signed By: 09/22/23 1339 DD/ 1330 TD/TT: Community Service Organization Director: [facility] HospitalRadiology Study observation (narrative)[facility] HealthcareUS PELVIS W/ TRANSVAGINALOrdered By: Radiologist Radiology on 64-02-8052IAPJ [employer] Work Phone: Vital Signs Date TimeVital SignValuePerforming LsjapaquaSdpqsmgo16-52-6117 14:45-0500Body mass index (BMI) [Ratio]35.24 kg/b8Zpswf [employer] Work Phone: [facility] RoadWlcykowewq34-53-8210 14:45-0500Body vinozf32.05 kgCorey [employer] Work Phone: [facility] RoadJfrmacgnxt05-45-6057 14:45-0500Diastolic blood tlxxmcox44 mm[Hg]Anthony Maira [employer] Work Phone: [phone]ry RoadPmygsamazt80-67-5853 14:45-0500Systolic blood wouzbsdx616 mm[Hg]Anthony [employer] Work Phone: [phone]Barry RoadUpomfruykg41-78-5215 10:09-0400Body jfbona261.1 cmBennett Gamez MD Work Phone: [facility]10-27-2025 10:09-0400 Body mass index (BMI) [Ratio]35.9 kg/o7NgjhmgkBennett Gamez MD Work Phone: [facility]10-27-2025 10:09-0400 Body lmeahl66.97 kgBennett Gamez MD Work Phone: [facility]10-20-2025 14:42-0400 Body mass index (BMI) [Ratio]35.94 kg/m2Amy Leonides STERN Work Phone: [phone] [place], [place] [address]Yxnfhcvywm59-67-2914 14:42-0400Body zodafn54.98 kgJohanny STERN Work Phone: [phone] [place], [place] [address]Ybiwhdoqyi76-39-4169 14:42-0400Diastolic blood zmyohvbc07 mm[Hg]Johanny STERN Work Phone: [phone] [place], [place] [address]Vqqyxksroy37-16-6801 14:42-0400Systolic blood nasjjtkb842 mm[Hg]Johanny STERN Work Phone: [phone] [place], [place] [address]Zouvdbyvkl38-45-3203 09:19-0400Body mass index (BMI) [Ratio]37.51 kg/m2Amy Leonides STERN Work Phone: [phone] [place], [place] [address]Gbetcuksxq42-73-2938 09:19-0400Body wvrwbu377.24 kgAmy Leonides STERN Work Phone: [phone]08-27-2024 09:19-0400Diastolic blood qkbdkyem36 mm[Hg]Johanny STERN Work Phone: [phone] [place], [place] [address]Frzlxpuhjc83-73-7015 09:19-0400Systolic blood ulcjegat705 mm[Hg]Johanny STERN Work Phone: [facility] Healthcare Encounters Encounter DateEncounter TypeCare ProviderFacilityStart: 05-09-2025 End: 60-43-4372hicgbjqdkiQOHKD FAZIONot AvailableStart: 05-09-2025 End: 36-13-1810Vjkiqj outpatient visit 15 minutesCorey Maira DO Work Phone: [facility] Kalyn OBGYNComment on above:PMB (postmenopausal bleeding); Uterine leiomyoma, unspecified locationStart: 05-09-2025 End: 31-81-4365Ihvhhh flowsheetCorey Maira DO Work Phone: noMS Kalyn OBGYNStart: 05-09-2025 End: 95-49-7066Faopnd flowsheetAnthony Rao DO Work Phone: [facility] [place] OBGYNStart: 05-03-2025 End: 21-14-3142mmybribeqoDZKYNIBF EBERLYNot AvailableStart: 05-02-2025 End: 78-61-0659fyyypsnajcSwfwoyc M Hoy MD Work Phone: -[facility] BellevueStart: 05-02-2025 End: 02-34-8849Siqytad encounter procedureReannayari Gasca DO-[facility] Work Phone: Start: 04-25-2025 End: 05-94-2253jeniezadrhJDJ RAMEYNot AvailableStart: 04-25-2025 End: 25-37-6270Ebrjlv outpatient visit 15 minutesJohanny STERN Work Phone: [facility] [place] OBGYNComment on above:Menorrhagia with regular cycle (Primary Dx); PMB (postmenopausal bleeding)Start: 04-25-2025 End: 20-48-6488Vkoivx flowsYari STERN Work Phone: [facility] [place] OBGYNStart: 04-25-2025 End: 81-28-8891Lxeglc flowsheetJohanny STERN Work Phone: [facility] OBGYNStart: 01-14-2025 End: 09-52-0075tycsvlobfdBMYMKJEDayanara Estes Harvey HospitalStart: 05-25-2024 End: 96-34-4201Mogvssewh Result EncounterJohanny STERN Work Phone: noMS External Department UnsolicitedStart: 05-25-2024 End: 52-14-6847Wlufamdqt Result EncounterJohanny STERN Work Phone: [facility] External Department UnsolicitedStart: 04-12-2024 End: 53-49-1261Mmrmmcjwm encounterAmy Leonides TSERN Work Phone: [facility] OBStart: 04-05-2024 End: 46-72-4974Hxeltvwfo Result EncounterJohanny STERN Work Phone: noMS External Department UnsolicitedStart: 04-05-2024 End: 35-03-6082Kdlhwybxi Result EncounterJohanny STERN Work Phone: noMS External Department UnsolicitedStart: 03-02-2024 End: 33-46-8544Oqguvo flowsheetJohanny STERN Work Phone: [facility] OBStart: 03-02-2024 End: 81-56-9888Bnspiw flowsheetJohanny STERN Work Phone: [facility] OBStart: 03-02-2024 End: 06-63-4666Otpfrmggj Result EncounterJohanny STERN Work Phone: noMS External Department UnsolicitedStart: 03-02-2024 End: 61-34-7144Pbrclzy encounter procedureJohanny Leonides STERN Work Phone: [facility] Work Phone: Start: 03-02-2024 End: 20-83-4084Kznyygdb preventive med est patient 40-64yrsAmy Leonides STERN Work Phone: [facility] OBComment on above:Well woman exam with routine gynecological exam; Breast cancer screening by mammogram; Postmenopausal stateStart: 11-14-2023 End: 85-79-7599ptllscrytzZdysb FazioFacility:[facility] Start: 11-14-2023 End: 06-02-6831wukwrkmahgCktov Maira Work Phone: [facility] Work Phone: Start: 11-14-2023 End: 23-00-8195Qyfxmqak ReferredCorey Maira Work Phone: [facility]-LAB Path Spec [place] HospStart: 11-05-2023 End: 99-06-1272Mucdxewdf Result EncounterCorey Maira DO Work Phone: noms External Department UnsolicitedStart: 11-05-2023 End: 01-29-3502Asuyoobiv Result EncounterCorey Maira DO Work Phone: noms External Department UnsolicitedStart: 09-22-2023 End: 54-06-4999Lmceuwofo Result EncounterCorey Maira DO Work Phone: noms External Department UnsolicitedStart: 09-22-2023 End: 18-18-0484Aqmrqfpaq Result EncounterCorey Maira DO Work Phone: noms External Department UnsolicitedStart: 08-07-2023 End: 23-82-9383Vtabdg outpatient visit 10 minutesJavinh Kangston DO Work Phone: [facility]oms FB ORTHOPAEDICSComment on above:Adhesive capsulitis of left shoulder (Primary Dx); Partial nontraumatic tear of rotator cuff, left; Chronic right shoulder pain Procedures DateProcedureProcedure DetailPerforming ClinicianStart: 02-57-1450MspstsztytaYvg Ramey PA Work Phone: Start: 07-37-2376EN TOMOSYNTHESIS SCREENING BIJohanny STERN Work Phone: Start: 01-49-4321XH DEXA AXIAL SKELETONJohanny STERN Work Phone: Start: 09-98-7996QKM,APTIMA HPV,AGE GDLNJohanny STERN Work Phone: Start: 34-74-1071Furbrppwsli observation [Identifier] in Cervix by Cyto stainJohanny STERN Work Phone: Start: 82-24-5435ZDQ 12-LEADCorey Maira DO Work Phone: Start: 13-21-9511GH PELVIS W/ TRANSVAGINALCorey Maira DO Work Phone: Start: 18-21-4823RfgpoqxkclgSqxjb Huddleston DO Work Phone: History of tonsillectomyHistory of tonsillectomy Bennett Gamez MD Work Phone: Plan of Treatment DateCare ActivityDetailAuthorStart: 93-31-4488Wtzvwfiql for malignant neoplasm of cervixNOMS HealthcareStart: 32-10-9312Lbmkbcpar for malignant neoplasm of cervixPap SmearNOMS HealthcareStart: 83-08-8850Gotniqbzq for malignant neoplasm of breastMammogramNOMS HealthcareStart: 05-30-2025 End: 33-83-3078Rlbpnxq encounter kjhibyydw47/24/2025 9:20 AM EST Procedure Visit NOMFord [facility]ER [address] [place] [phone] Anthony Rao, DO [address] [place] [address] NOMFord [place] OBGYNStart: 05-09-2025 End: 85-41-8645Wyszvsv encounter kdcrilklr21/03/2025 2:40 PM EST Office Visit [facility] [address] [place] [phone] Anthony Rao, DO [address] [place] [address] NOMFord [place] OBGYNStart: 05-03-2025 End: 97-48-7229Upofjtewjoxp / ancillary services cfefzpqoqc92/28/2025 1:00 PM EDT Ancillary Procedure [facility] [address] [place] [phone] [facility] OBGYNStart: 04-25-2025 End: 41-70-1423hUES in Blood by Coagulation assayAPTT Lab Routine Menorrhagia with regular cycle Expected: 04/25/2025 (Approximate), Expires: 04/25/2026N[facility] HealthcareComment on above:Expected: 04/25/2025 (Approximate), Expires: 04/25/2026Start: 04-25-2025 End: 37-67-8223VF PelvisUS Pelvis w/ TV Imaging Routine PMB (postmenopausal bleeding) Expected: 04/25/2025, Expires: 10/24/2025[facility] Work Phone: comment on above:Expected: 04/25/2025, Expires: 10/24/2025Start: 48-73-3260AIAXZ-19 Vaccine ()COVID-19 Vaccine ()[facility] HealthcareStart: 91-18-0332Esnpgbzzo vaccination Influenza Vaccine (#1)[facility] HealthcareStart: 49-79-1235Wpmohrmil vaccination Influenza Vaccine (#1)[facility] HealthcareStart: 03-02-2024 End: 68-97-8823DLC Skeletal system Views for bone densityDEXA bone density Imaging Routine Postmenopausal state Expected: 03/02/2024 (Approximate), Expires:03/02/2025[facility] HealthcareComment on above:Expected: 03/02/2024 (Approximate), Expires: 03/02/2025Start: 03-02-2024 End: 41-64-5895BC Breast - bilateral ScreeningBilateral screening mammogram Imaging Routine Breast cancer screening by mammogram Expected: 03/02/2024, Expires: 05/02/2025[facility] Work Phone: comment on above:Expected: 03/02/2024, Expires: 05/02/2025Start: 03-02-2024 End: 50-82-5790Ytgdqur encounter wwmizitmm29/27/2024 9:00 AM EDT Office Visit [facility] [address] [place] [place] [address] Johanny Mendoza PA [address] [place], [place] [id number] ArrivedNOND BCP OBComment on above:ArrivedStart: 10-02-2023 End: 09-99-7117Khbdmip encounter qkkffnbuo38/28/2024 9:00 AM EDT Office Visit [facility] [address] [place] [id number] Ligia Singh, DO [address] [facility] [address] [place] [address] [facility] ORTHOPAEDICSStart: 08-09-2023 Screening for malignant neoplasm of breastMammogramNOMS HealthcareStart: 90-53-6446Qumfdhzrx vaccinationInfluenza Vaccine (#1)NOM HealthcareStart: 58-90-1212Lqijocswv for malignant neoplasm of cervixNOMS HealthcareStart: 61-42-3381Zqgdqetxz for malignant neoplasm of cervixPap SmearNOMS Healthcare Start: 74-28-4935FYlI/Tdap/Td Vaccines (1 - Tdap)DTaP/Tdap/Td Vaccines (1 - Tdap)[facility] HealthcareStart: 60-19-3471HAJ Vaccines (1 of 1 - Standard series)MMR Vaccines (1 of 1 - Standard series)[facility] HealthcareStart: 34-22-0674Rzndgepqx for malignant neoplasm of colonNOMS HealthcareCB W Auto Differential panel - Blood CBC and differential Lab Routine Menorrhagia with regular cycle Ordered: 04/25/2025[facility] Work Phone: comment on above:Ordered: 04/25/2025hCG, quantitative, pregnancyhCG, quantitative, Lab Routine Menorrhagia with regular cycle Ordered: 04/25/2025[facility] HealthcareComment on above:Ordered: 04/25/2025 Hemoglobin A1c/Hemoglobin.total in BloodHemoglobin A1c Lab Routine Menorrhagia with regular cycle Ordered: 04/25/2025[facility] HealthcareComment on above:Ordered: 04/25/2025Prothrombin time (PT) in Blood by Coagulation assayProtime-INR Lab Routine Menorrhagia with regular cycle Ordered: 04/25/2025[facility] HealthcareComment on above:Ordered: 04/25/2025THIN PREP TIS PAP AND HR HPV DNATHIN PREP TIS PAP AND HR HPV DNA Pathology and Cytology Routine Well woman exam with routine gynecological exam Ordered: 03/02/2024[facility] HealthcareComment on above:Ordered: 03/02/2024Thyrotropin [Units/volume] in Serum or PlasmaTSH Lab Routine Menorrhagia with regular cycle Ordered: 04/25/2025[facility] HealthcareComment on above:Ordered: 04/25/2025Thyroxine (T4) free [Mass/volume] in Serum or PlasmaT4, free Lab Routine Menorrhagia with regular cycle Ordered: 04/25/2025[facility] HealthcareComment on above:Ordered: 04/25/2025XR Knee - bilateral 3 Views [facility] Payers DatePayer CategoryPayerPolicy [id number] 2017MedicaidCARESOURCE MEDICAID [employer] MEDICAID [place] [id number] 2016-Present [address] [place] [address] [id number] Health InsuranceCARESOURCE MEDICAID [id number] 2017Medicaid [id number] [id number] [id number] 2..[id number] [id number] Social History DateTypeDetailFacilityStart: 37-42-0005Egsbspa smoking status NHISNever smoked tobaccoNOMS HealthcareStart: 02-10-6638Jlmziaw use and exposureSmokeless tobacco non-userNOMS HealthcareStart: 05-20-2023 End: 19-78-1833Mjibplg intakeEx-drinker (finding)[facility] HealthcareStart: 05-20-2023 End: 24-39-9045Scrqeop of Social functionNOMS HealthcareStart: 05-20-2023 End: 80-58-7687Rpotapj use panelNOMS HealthcareStart: 11-29-9089Aud Assigned At BirthNot on fileAMERICAN FORK HOSPITAL HealthcareStart: 13-31-0614Ybg Assigned At BirthLakeHealth TriPoint Medical Centertart: 63-12-5586ZovFqnguuZDIN Healthcare Tobacco smoking status NHISUnknown if ever smokedBrown Memorial Hospital Work Phone: SexF[facility] (finding)[facility] Clinical Notes 08-07-2023 to 05-09-2025 Note Date & VhtgQpylGaoqmeol22-86-2301 History of Present illness Narrative* Erika Blunt, CAMPAIGN MANAGEMENT SENIOR MANAGER - 05/09/2025 2:40 PM EST Reason for [...] nursing note reviewed. Exam conducted with a academy education director present. Vitals: Estimated body mass index is [...] of: Anthony Rao DO documented in this encounterSaint [facility] Hospital[facility] RoadGxfbrkrwru85-82-4383 History of Present illness Narrative* JARRED Basurto [...] nursing note reviewed. Exam conducted with a academy education director present. Vitals: Estimated body mass index is [...] HISTORY cone biopsy TONSILLECTOMY documented in this encounterSaint Luke's North Hospital–Barry RoadNmftfgmcjs18-91-1905 Telephone encounter Note* Telephone Encounter - JARRED Basurto - 04/12/2024 3:59 PM EDT Spoke to pt in regards to Dexa results. Patient wishes to do more conservative treatment at this time including vitamin D3 of 800 international units and 1200mg of calcium daily. Patient did not wishto start fusomax. We will readdress in future [facility] Work Phone: [phone] 133-166110-07-2024 Miscellaneous Notes* Telephone Encounter - JARRED Basurto - 04/12/2024 3:59 PM EDT Spoke to pt in regards to Dexa results. Patient wishes to do more conservative treatment at this time including vitamin D3 of 800 international units and 1200mg of calcium daily. Patient did not wishto start fusomax. We will readdress in future documented in this encounterSaint Luke's North Hospital–Barry RoadAeocbiwwsr35-44-4766 History of Present illness Narrative* JARRED Basurto - 03/02/2024 9:00 AM EDT Reason for Appointment: Patient ID: Agnes Thapa is a 63 y.o. female who presents for [facility] Women Visit Patient presents today for Annual [...] nursing note reviewed. Exam conducted with a academy education director present. Vitals: Estimated body mass index is [...] behalf of: JARRED Basurto documented in this encounterSaint Luke's North Hospital–Barry RoadYaytvdarqo41-49-3017 History of Present illness Narrative* Ligia Singh, - 08/07/2023 9:15 AM EST Images from the original note were not included. HISTORY OF PRESENT ILLNESS: Agnes Thapa is an 63 y.o. @ female. Chief complaint RT shoulder pain LT shoulder s/p PT at [facility] with 3 visits with 10% improvement. 2 1/2 months s/p subacromial depo injx 05/27/23, she still notes some relief. LT shoulder pain x Feb 2023 and has gradually worsened, denies injury. Saw Dr Montero, went to PT, had MRI at [facility]. Pain is much improved, no longer waking at HS. Admits weakness but is improving. ROM is improving but still trouble with IR/ER rotation. Some discomfort in the upper arm. 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 Prior treatment: PCP, PT 6-7 visits, MRI [facility] 04/18/23, massage, ice, tried naproxen, taking [...] Medical History: Diagnosis Date Arthritis Diabetes mellitus ([facility]) Heart murmur Hypertension ([facility]) Obesity ALLERGIES: No Known Allergies [...] Dr. Singh/JACKSON KOCH D.O. documented in this encounterAMERICAN FORK HOSPITAL HealthcareEvaluation note* Diagnosis Adhesive capsulitis of left shoulder- Primary Partial nontraumatic tear of rotator cuff, left Chronic right shoulder pain Pain in joint, shoulder region documented in this encounter [facility] HealthcareEvaluation noteNo assessment information availableFirelands Regional Medical Center [facility] Work Phone: Evaluation note* Diagnosis Well woman exam with routine gynecological exam Routine gynecological examination Breast cancer screening by mammogram Postmenopausal state Asymptomatic postmenopausal status (age-related) (natural) documented in this encounter [facility] HealthcareEvaluation note* Diagnosis Menorrhagia with regular cycle- Primary PMB (postmenopausal bleeding) Postmenopausal bleeding documented in this encounter [facility] HealthcareEvaluation note* Diagnosis Onset Date Resolution Status Admit Date Degenerative joint disease of knee acuteOctober 2024 10:07amPrimary osteoarthritis of left hipacuteOctober 2024 10:07am [facility] Work Phone: Evaluation note* Diagnosis PMB (postmenopausal bleeding) Postmenopausal bleeding Uterine leiomyoma, unspecified location documented in this encounter [facility] HealthcareReason for referral (narrative)No reason for referral information availableBrown Memorial Hospital Work Phone: Summary Purpose Family History [...] MemberRelationshipSpecialtyStart DateEnd Date Ligia Montero MD [address] [place] [address] PCP - GeneralFamily Iqsneybe77/14/23 Team Status: Inactive Member Role Status Dates Anthony Rao Attending Provider Active Start: Francoise meza 2023 End: November 14, 2023Team MemberRelationshipSpecialtyStart DateEnd Date Ligia Montero MD [address] [place] [address] PCP - GeneralFamily Mdsshqxj05/14/23Team MemberRelationshipSpecialtyStart Date End Date Ligia Montero MD [address] [place] [address] PCP - GeneralFamily Wxgsvzjc30/14/23Team MemberRelationshipSpecialtyStart Date End Date Ligia Montero MD [address] [place] [address] PCP - Generalmily Qsfnruli03/14/23Team MemberRelationshipSpecialtyStart Date End Date Ligia Montero MD [address] [place] [address] [facility] Zcafiffx41/14/23 Team Status: Active Member Role/Relationship Status Dates Bennett Gamez MD Primary Care Provider Active Team Status: Inactive Member Role/Relationship Status Dates Mauri Gasca DO Attending Provider Active S tart: May 02, 2025 End: May 02, 2025DoJEFFREY [facility] Care ProviderActiveStart: May 02, 2025 End: May 02, 2025Team MemberRelationshipSpecialtyStart DateEnd Date Ligia Montero MD [address] [place] [address] PCP - Generalmily Rfvpvuvd91/14/23Te MemberRelationshipSpecialtyStart Date End Date Ligia Montero MD [address] [place] [address] PCP - GeneralFamily Koyzzety62/14/23 Goals (unrecognized section and content) Goals may be documented in a n alternate sectionGoals may be documented in an alternate section INFORMATION SOURCE (unrecogn ized section and content) DATE CREATED AUTHOR 11/20/2023 [facility] DATE CREATED AUTHOR AUTHOR'S ORGANIZ ATION 01/19/2025 [facility] DATE CREATED AUTHOR AUTHOR'S ORGANIZ ATION 05/10/2025 [facility] FOR RECORDS PERTAINING TO PATIENTS WHO [...] BE BASED ON THE PRIMARY CLINICAL RECORDS. [facility] [employer] provides no warranty or guarantee of the accuracy or completeness of information in this document.
--- NOTE | 2025-06-10 11:04 | ECG_ITS ---
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 Measurements Intervals [place] Rate: 70 P: 52 TN: 146 QRS: -4 QRSD: 146 T: 29 QT: 399 QTc: 431 Interpretive Statements SINUS RHYTHM RIGHT BUNDLE BRANCH BLOCK [120+ ms QRS DURATION, UPRIGHT V1, 40+ ms S IN I/aVL/V4/V5/V6] Abnormal ECG Compared to ECG 11/05/2023 13:16:05 Indeterminate axis no longer present Electronically Signed On 06-10-2025 21:54:32 EST by DHRUV LANDERS M.D.
[2025-06-10 12:14] LABS: Anion Gap 11.7; Blood Urea Nitrogen 20.0 mg/dL (7.0-18.0); Calcium 9.4 mg/dL (8.5-10.1); Carbon Dioxide 29.0 mmol/L (21.0-32.0); Chloride 103 mmol/L (98-107); Estimated GFR (African America 56 (>=60 mL/min/1.73m^2); Estimated GFR (Non-African Ame 46 (>=60 mL/min/1.73m^2); Glucose 130 mg/dL (74-106); Potassium 3.7 mmol/L (3.5-5.1); Sodium 140 mmol/L (136-145)
== END 2025-06-10 11:00 | disposition home or self-care (01) ==
PROVIDERS: PCP Family Medicine; Visit Provider Obstetrics & Gynecology
DX: Z01.810 Encounter for preprocedural cardiovascular examination (principal); Z01.812 Encounter for preprocedural laboratory examination; N95.0 Postmenopausal bleeding; D25.9 Leiomyoma of uterus, unspecified; R94.31 Abnormal electrocardiogram [ECG] [EKG]
CPT/HCPCS: 36415; 80048; 93005

== ENCOUNTER 2025-06-24 06:51 | Day surgery (SDC) | payer OTHER, SELFPAY ==
[2025-06-10 11:23] VITALS: BP 148/87; PULSE 84; TEMP 36.2; O2SAT 98; BMI 36.2
--- OUTSIDE RECORDS SUMMARY | 2025-06-20 10:00 | XMS_ITS | Encounter Summary ---
Author Organization [facility] tem Address [id number] [place] [address] Care Team Providers Care Case Making Machine Operator Name Role Phone Js Gamez MD Primary Care Provider [phone] Reason for Referral * Medication Prior Authorization - ClosedSpecialtyDiagnoses / ProceduresReferred By ContactReferred To Contact Diagnoses Encounter for screening colonoscopy Ama Nieves APRN-CNP [address] [place] [address] Phone: tel: fax: Referral IDStatusReasonStart DateExpiration DateVisits RequestedVisits [id number] Reason for Visit * ReasonCommentsColon Cancer Screening Encounter Details DateTypeDepartmentCare Team (Latest Contact Info)Apttsoelqvf19/15/2025 10:00 AM ESTOffice Visit [facility] [address] [place] [id number] Ama Nieves APRN-CNP [address] [place], [place] [id number] Encounter for screening colonoscopy (Primary Dx) Social History Tobacco UseTypesPacks/DayYears UsedDateSmoking Tobacco: NeverSmokeless Tobacco: NeverAUDIT-CAnswerDate RecordedFrequency of Alcohol ConsumptionNot on file 06/20/2025Q2: How many drinks containing alcohol do you have on a typical day when you are drinking?Patient does not drink06/20/2025Frequency of Binge DrinkingNot on file5ChildcareAnswerDate RecordedChildcareUnknown 12/15/2018EmploymentAnswerDate YndtnrzbTqlsfgnjuyVjsleiv76/11/2019Purpose - Life AnswerDate RecordedPurpose and direction in pvmiAlmwjoc17/11/2021 CommentsNoSex and Gender InformationValueDate RecordedSex Assigned at Uiwape4502/18/2023 10:58 AM EDTLegal QkbWgqgtq22/06/2015 11:21 AM EDTGender ZwbthogdXrzjpu99/15/2023 10:58 AM EDTSexual OrientationDon't know02/18/2023 10:58 AM EDTdocumented as of this encounter Last Filed Vital Signs Vital SignReadingTime TakenCommentsBlood Znqvehwf998/7906/20/2025 10:04 AM EST Zwkuh616506/20/2025 10:04 AM ESTTemperature--Respiratory Rate--Oxygen Saturation-- Inhaled Oxygen Concentration--Aznngp09.7 kg (219 lb 12.8 oz)06/20/2025 10:04 AM ESTHeight--Body Mass Index36.5807 11:19 AM EDTdocumented in this encounter Functional Status * BPAnswerDate of MedrrktnlgEzvdpz462/7906/20/2025 10:04 AM Ama Sommer APRN-CNP * PulseAnswerDate of LapfqbtgghEwfdng9101/15/2025 10:04 AM Ama Sommer APRN-CNP * WeightAnswerDate of YoahpnfqrdOqlzej2598.8108/21/2024 10:04 AM Ama Sommer APRN-CNP * Alcohol UseQuestionAnswerDate of AssessmentAuthorQ2: How many drinks containing alcohol do you have on a typical day when you are drinking?Patient does not drink06/20/2025 10:06 AM ESTAma Nieves APRN-CNP * BPAnswerDate of EjyuxwqphkSvnarn355/7906/20/2025 10:04 AM Ama Sommer APRN-CNP * PulseAnswerDate of QtmdnxtklgKqrxnu9333/15/2025 10:04 AM ESTAma Nieves APRN-CNP * WeightAnswerDate of RjvsbgcwfqGskeot2589.8108/21/2024 10:04 AM Ama Sommer APRN-CNP documented as of this encounter Mental Status * BPAnswerEntry PgjqNaizcp768/7906/20/2025 10:04 AM ESTAma Nieves APRN-CNP * PulseAnswerEntry DwhbTbcpas5995/15/2025 10:04 AM Ama Sommer APRN-CNP documented in [...] confusion. Past Medical History: Diagnosis Date Diabetes ([facility]) Hypertension Past Surgical History: Procedure Laterality Date [...] Sour Sop, Disp: , Rfl: peg 3350-sod sulf,ipxn-rpy-qvm 178.7-7.3-0.5 gram recon soln, Take 1 kit [...] patient/family/caregiver Referring and communicating with other health manager managed care Encounter for screening colonoscopy [Z12.11] JANA MARSHALL [facility] General Surgery [place] This note was created with the assistance [...] Plan of Treatment DateTypeDepartmentCare Team (Latest Contact Info)Ututnsekliy19/05/2026 3:30 PM ESTSupport Visit [facility] - Pre [facility] [address] [place] [address] 07/18/2025 8:00 AM ESTHospital Encounter [facility] - Surgery [address] [place] [address] Nicolas Carreon, DO [address] [place] [address] 07/18/2025 8:00 AM EST - 07/18/2025 8:30 AM ESTSurgery [facility] [address] [place] [address] Nicolas Carreon, DO [address] [place] [address] COLONOSCOPY DIAGNOSTIC / SCREENING [G0121 +1 more]NameTypePriorityAssociated [...] Additional Health Concerns Active ProblemsNoted DateDiagnosed DateAutogenerated Rljrirh1206/20/2025documented as of this encounter Care Teams Team MemberRelationshipSpecialtyStart DateEnd Date Js Gamez MD [address] [place] [address] PCP - GeneralFamily Ntbnvecx12/1/25documented as of this encounter
--- OUTSIDE RECORDS SUMMARY | 2025-06-22 03:45 | XMS_ITS ---
Author Organization The [facility] in [place] Address [address] [place] [address] Care Team Providers Care Digital Asset Manager Name Role Phone Collins Gamez Primary Care [...] End Date Status Oregano ActivePumpkin Seed OilActiveVitamin P5WdeqabBrzeypf KActivemetFORMIN HCl 500 MG1 tablet with a meal Orally BID; Duration: 90 daysActiveLisinopril- hydroCHLOROthiazide 10-12.5 MG1 tablet Orally Once a day; Duration: 30 days ActiveMeloxicam 15 MG1 tablet Orally Once a day; Duration: 30 qumdFNF6401/19/2025 ActiveGlucagonActive Social History Tobacco Use: Social History Observation Description Date Details (start date - stop date) Never Smoker NA - NA Tobacco Control (Standard) Question Answer Notes Tobacco use: Nonsmoker Problems Problem Type SNOMED Code ICD Code Onset Dates Problem Status W/U Status Risk Notes Problem Vaginal bleeding (134119567) Vaginal blee ding (N93.9) Activeconfirmed Vital Signs Weight 220.8 lbs 06/22/2025 Height 65 in 06/22/2025 Blood pressure systolic 132 mm Hg 06/22/20 25 Blood pressure diastolic 80 mm Hg 025 BMI 36.74 kg/m2 06/22/2025 Procedures Procedure Date Ordered Date Performed Result Body Sit e LEVI Segmental Pressure Study of Lower Extremity 06/22/2025 N/A Encounters Encounter Location Date Provider Diagnosis [facility] [address] [place] [address] 06/22/2025 Collins Gamez Leg cramp R25.2 and [...] Notes * Agnes TIMMONSDOB:1960 (65 yo F)Acc No.[id number]:06/22/2025 Progress Note Patient: Agnes MCCARTHY :?Js Gamez ([facility]), MDDOB:1960???Age: 65 Y???Sex:FemaleDate:06/22/2025Phone:[phone]:[address], [place], [place]Ldaxr In:08:54 AM ESTCheck Out:09:28 AM EST Subjective: [...] Active Problem List I10 Hypertension Modified On:12/11/2023 Status:uenqvkeewO60.9Diabetes Modified On:12/11/2023 Status:kqsryftqnQ10.90Unspecified osteoarthritis, unspecified site Modified On:12/11/2023 Status:zbyjnejjtQ69.9Knee osteoarthritis Modified On:04/14/2024 Status:xluqcqlozJ63.2Leg cramp Modified On:08/04/2024U Status:bbdrdhgvtT14.81Nasal congestion Modified On:12/10/2024 Status:mcyrvyawpK97.00Well adult Modified On:12/10/2024 Status:cfobdrmqdL75.90Acute non-recurrent sinusitis, unspecified location Modified On:12/10/2024 Status:tntcwosjdQ54.9Vaginal bleeding Modified On:06/22/2025 Status:confirmed * Medical History: [...] (Check Out) true * Provider: Laz Gamez ([facility])MD Date: 1 08/23/2024 Generated for Printing/Faxing/eTransmitting on:?06/24/2025 06:55 AM EST History and Physical Notes * HPI (History of Present Illness) CategorySub-CategoryDetailNotesCategory NotesGeneralDisucsed Creatinien elevatd - not bad - 1.14 - Cleared for OR _ no cad -n o strokes Examination CategorySub-CategoryDetailNotesCategory NotesGeneral ExaminationGENERAL APPEARANCE:in no acute distress, well developed, well nourishedCARDIO:regular rate and rhythm, S1, S2 normal, no murmursLUNGS:clear to auscultation bilaterally
--- OUTSIDE RECORDS SUMMARY | 2025-06-22 04:24 | XMS_ITS ---
Author Organization The [facility] in [place] Address [address] [place] [address] Care Team Providers Care High School Coordinator Name Role Phone Vera Collins Primary Care Provider [phone] Reason For Referral Diagnosis 1 Left hip pain (M25.5 52) Referral Organization [facility] Referring Provider First Name Collins Referring Provider Last Name Vera Referring Provider Speciality Family Med icine Referred Provider [facility], Physical Therap y Referred Provider Specialty Physical The rapist Referral Priority Routine REASON FOR VISIT pt Encounters Encounter Location Date Provider Diagnosis [facility] [address] [place] [address] 06/22/2025 Collins Gamez Left hip pain M25.55 2 Assessments Encounter Date Diagnosis (ICD Code) Assessment Notes Treatment Notes Treatment Clinical Notes Section Notes 06/22/2025 Left hip pain (ICD-10 - M25.552) Plan Of Treatment Referrals Referral Date Details 06/22/2025 06/22/2025, Physical Therapy [facility] Progress Notes * IAINAgnes AMEZCUADOB:1960 (65 yo F)Acc No.[id number]:06/22/2025 Patient:?Agnes TIMMONS :1960???Age:65 Y???Sex:FemalePhone:[phone] Address:[address] [place], [address] Subjective: * Chief Complaints: * P t * Medical History: * Surgical History: * Hospitalization/Major Diagno stic Procedure: * Medications: Objective: * Vitals: * Physical Examination: ??? Assessment: * Assessment: 1.?Left hip pain - M25.552 (Primary)??? Plan: * Treatment: ? Referral To:Physical Therapy TB??Physical Therapist ?Reason: * Procedure Codes: * true * Date:?Generated for Printing/Faxing/eTransmitting on:?06/24/2025 06:54 AM EST Consultation Request Notes Referral Date Referring Provider Referred Provider Not es 06/22/2025 Collins Gamez, Physical Therapy
--- OUTSIDE RECORDS SUMMARY | 2025-06-24 06:54 | XMS_ITS | Clinical Summary ---
Author Organization [facility] Address [address] [place] [address] Care Team Providers Care Airbrush Artist Technical Name Role Phone Narayan Montero MD Primary Care Provider Allergies No known active allergies Medications MedicationSigDispense QuantityRefillsLast FilledStart DateEnd DateStatus metFORMIN (Glucophage) 500 MG tablet every 12 (twelve) hours.Active lisinopril-hydroCHLOROthiazide 10-12.5 MG tablet Take 1 tablet by mouth in the morning.Active meloxicam (Mobic) 15 MG tablet Take 15 mg by mouth DailyActive Active Problems ProblemNoted DateDiagnosed DatePost-menopausal /18/2024Encounter to discuss test qbfjypz8109/18/2023 Encounters DateTypeDepartmentCare EvhaHlhjecmmcdv98/11/2025Orders Only [facility] [place] [address] [place] [address] Jen Mello MA 06/13/2025bstract [facility] [address] [place] [address] Anthony Rao, DO 5Clinisync Result Encounter [facility] External Department Unsolicited Anthony Rao, DO 5Clinisync Result Encounter [facility] External Department Unsolicited Anthony Rao, DO 05/30/2025 9:20 AM ESTProcedure Visit [facility] [address] [place] [address] Anthony Rao, DO Well woman exam with routine gynecological exam; Pre-op examination; PMB (postmenopausal bleeding); Uterine leiomyoma, unspecified wfgwpysf22/24/2025linisync Result Encounter [facility] External Department Unsolicited Anthony Rao, 05/30/2025amboo flowsheet [facility] [address] [place] [address] Anthony Rao, 05/09/2025 2:40 PM ESTOffice Visit [facility] [address] [facility] [address] Anthony Rao, PMB (postmenopausal bleeding); Uterine leiomyoma, unspecified xcqcwheh12/03/2025amboo flowsheet [facility] [address] [place] [address] Anthony Rao, 05/03/2025 1:00 PM EDTAncillary Procedure [facility] [address] [place] [address] PMB (postmenopausal bleeding)04/25/2025 2:20 PM EDTOffice Visit [facility] [address] [facility] [address] Johanny Coyle PA Menorrhagia with regular cycle (Primary Dx); PMB (postmenopausal bleeding)04/25/2025amboo flowsheet [facility] [place] [facility] [address] [place] [address] Johanny Coyle PA 04/25/2025Travelfrom Last 3 Months Family History Medical HistoryRelationNameCommentsHypertensionMotherLung cancerMotherRelation NameStatusCommentsFatherAliveMotherDeceased Social History Tobacco UseTypesPacks/DayYears UsedDateSmoking Tobacco: NeverSmokeless Tobacco: Never Tobacco Cessation:Counseling Given: Not Answered Alcohol UseStandard Drinks/WeekCommentsNot Currently0 (1 standard drink = 0.6 oz pure alcohol)CommentsNoSex and Gender InformationValueDate RecordedSex Assigned at BirthNot on fileLegal BesSudvem88/15/2023 6:51 PM EDTGender Identity Not on fileSexual OrientationNot on file Last Filed Vital Signs Vital SignReadingTime TakenCommentsBlood Mdnmszqr022/80107/30/2024 9:59 AM EST Pulse--Temperature--Respiratory Rate--Oxygen Saturation--Inhaled Oxygen Concentration--Yuealf65.3 kg (219 lb)05/30/2025 9:59 AM TGKBejvhi969.1 cm (5' 5 )09/08/2023 2:07 PM ESTBody Mass Index36.44009/08/2023 2:07 PM EST Plan of Treatment Health MaintenanceDue DateLast DoneCommentsCT Wllrakshomri1961olonoscopy 1960olorectal Cancer Jqpdkhcdf1960FIT-DNA1960FIT1960 FOBT05/23/19615524Ioltqdeanvvpg1961OVID-19 Vaccine ( season) /, 03/20/2021Influenza Vaccine (#1)2025Mammogram /05/2025, 05/25/2024, 08/09/2022, Additional history existsPap Smear /, 11/28/2022ervical Cancer Fhocverzv24/25/2028HPV/Cotest neumococcal Vaccine: Pediatrics (0 to 5 Years) and At-Risk Patients (6 to 64 Years)Aged OutNo longer eligible based on patient's age to complete this topic Procedures Procedure NamePriorityDate/TimeAssociated DiagnosisCommentsALL BASIC METABOLIC GRLFNOeodfkr58/05/2025 11:26 AM EST ECG 12-LEAD06/10/2025 10:23 AM EST IGP,APTIMA HPV,AGE DFVFVpdcghr34/24/2025 9:43 AM EST HPV/PAP COTEST, AJWNLCCYYdwvrqe14/24/2025 12:00 AM ESTUS PELVIC COMPLETE W/ TV Zmfexwv4305/03/2025 1:40 PM EDT PMB (postmenopausal bleeding) MM TOMOSYNTHESIS SCREENING BI05/25/2024 9:32 AM EST PAP PBHNOIvblwjf34/27/2024 12:00 AM EDTfrom Last 3 Months or Most Recently Relevant to Health Maintenance Results * (ABNORMAL) ALL BASIC METABOLIC PANEL (06/10/2025 11:26 AM EST)ComponentValue Ref RangeTest MethodAnalysis TimePerformed AtPathologist LswtvbioqDVTSXB209290 - 145 mmol/LTBHPOTASSIUM3.73.5 - 5.1 mmol/POOSMPIACKXD67872 - 107 mmol/LTBH CARBON YHPGNYF40.021.0 - 32.0 mmol/LTBHANION GAP11.9DAJPFYEQMS269(H)74 - 106 mg/dLTBHBLOOD UREA JTFXRHKL49.0(H)7.0 - 18.0 mg/dLTBHCREATININE1.18(H)0.55 - 1.02 mg/dLTBHTBH EGFR-AF AOXFCDZI74(L)>=60 mL/min/1.73m 2TBHTBH EGFR-NON AF HBFCNZAS62(L)>=60 mL/min/1.73m 2TBHBUN CREATININE RATIO16.9BGIHGCLELM4.48.5 - 10.1 mg/dLTBHSpecimen (Source)Anatomical Location / LateralityCollection Method / VolumeCollection TimeReceived Time06/10/2025 11:26 AM EST06/10/2025 11:28 AM EST Narrative [facility] - 06/10/2025 12:18 PM EST Authorizing ProviderResult TypeResult StatusCorey Maira DOCLINISYNCFinal Result Performing OrganizationAddressCity/State/ZIP CodePhone Number [facility] * ECG 12-LEAD (06/10/2025 10:23 AM EST)Anatomical RegionLateralityModalityOther Specimen (Source)Anatomical Location / LateralityCollection Method / Volume Collection TimeReceived Time06/10/2025 10:23 AM EST Narrative 06/10/2025 9:54 PM EST [facility] ?[address] ? [place], [facility] ? Electrocardiograph Report ? Signed ? Patient: AGNES THAPA ?MR#: [id number] ?? : 1960 ?Acct:[id number] ?? Age/Sex: 65 / F ?ADM Date: 06/10/25 ?? Loc: PST ? Attending Dr: Anthony Rao D.O. ? Ordering Physician: Anthony Rao D.O. ?? Date of Service: 06/10/25 ?? Procedure(s): ECG 12 lead ?? Accession Number(s): [id number] ? cc: ?[facility] ? Test Date: ?2025-06-10 ?? Pat Name: ? AGNES THAPA ? Department: ? Room: ? - ?? Gender: ? Female ? Director Of Distribution: ? : ?1960 ? Requested By: ANTHONY RAO ?? Order Number: [id number] ?Reading MD: ?? DHRUV ??Georgie LANDERS ? Measurements ?? Intervals ?[place] ? Rate: ? 70 ? P: ?52 ?? OR: ? 146 ?QRS: ?-4 ?? QRSD: ? 146 ?T: ?29 ?? QT: ? 399 ? QTc: ?431 ? Interpretive Statements ?? SINUS RHYTHM ?? RIGHT BUNDLE BRANCH BLOCK [120+ ms QRS DURATION, UPRIGHT V1, 40+ ms S IN ?? I/aVL/V4/V5/V6] ?? Abnormal ECG ?? Compared to ECG 11/05/2023 13:16:05 ?? Indeterminate axis no longer present ?? Electronically Signed On 06-10-2025 21:54:32 EST by DHRUV ??Georgie LANDERS ? Dictated By: ?DHRUV LANDERS ? Signed By: ?06/10/25 2154 ? DD/ 1023 ? TD/TT: ? Sander Wooden Pencils: Procedure Note Radiology, Radiologist, - 06/10/2025 [place] [address] Electrocardiograph Report Signed Patient: AGNES THAPA CMR#: [id number] : 1960cct:[id number] Age/Sex: 65 / FADM Date: 06/10/25 Loc: PST Attending Dr: Anthony Rao D.O. Ordering Physician: Anthony Rao D.O. Date of Service: 06/10/25 Procedure(s): ECG 12 lead Accession Number(s): [id number] cc: [facility] Test Date: 2025-06-10 Pat Name: AGNES THAPA Department: Room: - Gender: Female Director Of Distribution: : 1960 Requested By: ANTHONY RAO Order Number: [id number] Teodora MD: DHRUV LANDERS M.D. Measurements Intervals [place] Rate: 70 P: 52 OR: 146 QRS: -4 QRSD: 146 T: 29 QT: 399 QTc: 431 Interpretive Statements SINUS RHYTHM RIGHT BUNDLE BRANCH BLOCK [120+ ms QRS DURATION, UPRIGHT V1, 40+ ms S IN I/aVL/V4/V5/V6] Abnormal ECG Compared to ECG 11/05/2023 13:16:05 Indeterminate axis no longer present Electronically Signed On 06-10-2025 21:54:32 EST by DHRUV LANDERS M.D. Dictated By: DHRUV LANDERS Signed By:06/10/252 DD/ 1023 TD/TT: Sander Wooden Pencils: Authorizing ProviderResult TypeResult StatusCorey Maira DOCLINISYNC IMAGINGFinal Result * IGP,APTIMA HPV,AGE GDLN (05/30/2025 9:43 AM EST)ComponentValueRef RangeTest MethodAnalysis TimePerformed AtPathologist SignatureAGE GDLN ACOG TESTINGNote. TBHComment: ?? TESTS ? RESULT ??FLAG ??UNITS ?REF RANGE ??LAB ?? Clinician Provided Cytology Information ?? Source.............Cervix;Endocervix ?? No. of containers..01 ThinPrep Vial Age Algo ACOG Mary... ??30-65 ? 01 ?FLAG LEGEND: ?L-Low Normal,H-High Normal,LL-Alert Low,HH-Alert High <-Panic Low,>-Panic High,A-Abnormal,AA-Critical Abnormal Performed at: 01 =G ?[facility] ?? [address] [place] ??[phone] ?? Megan Ariza MD, IGP, APTIMA HPV, RFX 16/18,45Note.TBHComment: ?? TESTS ? RESULT ??FLAG ??UNITS ?REF RANGE ??LAB DIAGNOSIS: ?02 ?? NEGATIVE FOR INTRAEPITHELIAL LESION OR MALIGNANCY. Specimen adequacy: ?02 ?? Satisfactory for evaluation. ??Endocervical and/or squamous metaplastic ?? cells (endocervical component) are present. Performed by: ? 02 ?? Jazz Triplett, Frame Feeder (ASCP) . ? 02 Note: ? Note ?02 ?? The Pap smear is a screening test designed to aid in the ?? detection of premalignant and malignant conditions of the ?? uterine cervix. ??It is not a diagnostic procedure and ?? should not be used as the sole means of detecting cervical ?? cancer. ??Both false-positive and false-negative reports do ?? occur. Test Methodology: ? Note ?02 ?? This liquid based ThinPrep(R) pap test was interpreted ?? using the Kommerstate.ru(R) Genius(TM) Cervical Algorithm whole ?? slide imaging system. HPV Genotype Reflex ?? Note ?02 ?? Criteria not met, HPV Genotype not performed. ?FLAG LEGEND: ?L-Low Normal,H-High Normal,LL-Alert Low,HH-Alert High <-Panic Low,>-Panic High,A-Abnormal,AA-Critical Abnormal Performed at: 02 WB ?[facility] ?? [address] [facility], [place] ??[address] ?? Megan Ariza MD, HPV APTIMANegativeNegativeTBHComment: This nucleic acid amplification test detects fourteen high- risk HPV types (16,18,31,33,35,39,45,51,52,56,58,59,66,68) without differentiation. Performed at: ??=G - [facility] [address] [facility], [place] ??[id number] Survey Research Professor: Megan Ariza MD, Phone: ??[phone] Performed at: ??WB - [facility] ??[id number] Survey Research Professor: Megan Ariza MD, Phone: ??[phone] Specimen (Source)Anatomical Location / LateralityCollection Method / Volume Collection TimeReceived Time05/30/2025 9:43 AM EST05/30/2025 9:05 PM EST Narrative [facility] - 06/01/2025 8:09 PM EST BRUSH-SPATULA CERVIX ENDOCERVIX Authorizing ProviderResult TypeResult StatusCorey Maira DOLAB BLOOD ORDERABLES Final ResultPerforming OrganizationAddressCity/State/ZIP CodePhone Number [facility] * HPV/PAP COTEST, EXTERNAL (05/30/2025 12:00 AM EST) Narrative Authorizing ProviderResult TypeResult StatusCorey Maira DOLAB CYTOLOGY ORDERABLESFinal ResultPerforming OrganizationAddressCity/State/ZIP CodePhone Number EXTERNAL LAB * US Pelvis w/ TV (05/03/2025 1:40 [...] Irwin MD Authorizing ProviderResult TypeResult StatusHortencia Ash [facility] US PROCEDURES Final Result * MM TOMOSYNTHESIS SCREENING BI (05/25/2024 9:32 AM EST)Anatomical Region LateralityModalityOtherSpecimen (Source)Anatomical Location / Laterality Collection Method / VolumeCollection TimeReceived Time05/25/2024 9:32 AM EST Narrative 05/25/2024 9:33 AM EST [facility] ?[address] ? [place] [address] ? Mammography Report ? Signed ? Patient: IAIN,AGNES C ?MR#: [id number] ?? : 1960 ?Acct:[id number] ?? Age/Sex: 63 / F ?ADM Date: 11/05/24 ?? Loc: MAMMO ? Attending Dr: Johanny Coyle ? Ordering Physician: Johanny Coyle ?Results: ? Date of Service: 05/11/24 ?Follow Up: ? Procedure(s): MM tomosynthesis screening BI ?? Accession Number(s): [id number] ? cc: Johanny Coyle; Physician,Non-Staff M.D. ? Patient Name: ? AGNES THAPA ? MR#: [id number] ? : 1960 ? Exam Date: 05/11/2024 [...] at age 87. ? LOCATION: ? [facility] ? BREAST COMPOSITION: ? There are [...] 0933 ? DD/ 0932 ? TD/TT: ? Sander Wooden Pencils: Procedure Note Radiology, Radiologist, MD - 05/25/2024 [place] [address] Mammography Report Signed Patient: AGNES THAPA CMR#: [id number] : 1960cct:[id number] Age/Sex: 63 / FADM Date: 05/11/24 Loc: MAMMO Attending Dr: Johanny Coyle Ordering Physician: Johanny Acostaults: Date of Service: 05/11/24Follow Up: Procedure(s): MM tomosynthesis screening BI Accession Number(s): [id number] cc: Johanny Coyle; Physician,Non-Staff M.D. Patient Name: AGNES THAPA MR#: [id number] : 1960 Exam Date: 05/11/2024 Ordering Doctor: [...] prostate cancer at age 87. LOCATION: [facility] BREAST COMPOSITION: There are scattered areas [...] Moss M.D. Signed By:05/25/2433 DD/ 1 TD/TT: Sander Wooden Pencils: Authorizing ProviderResult TypeResult StatusA[facility] IMAGINGFinal Result * Pap Smear (03/02/2024 12:00 AM EDT)Specimen (Source)Anatomical Location / LateralityCollection Method / VolumeCollection TimeReceived TimeSwabCervical swab / Unknown Narrative Authorizing ProviderResult TypeResult StatusFazio Nurse [facility] Ob[facility] CYTOLOGY ORDERABLESFinal ResultPerforming OrganizationAddressCity/State/ZIP CodePhone Number EXTERNAL LAB from Last 3 Months or Most Recently Relevant to Health Maintenance Insurance Care Teams Team MemberRelationshipSpecialtyStart DateEnd Date Narayan Montero MD [address] [place] [address] PCP - GeneralFamily Tgdkbqtn07/14/23
--- OUTSIDE RECORDS SUMMARY | 2025-06-24 06:54 | XMS_ITS | Encounter Summary ---
Author Organization [facility] Address [address] [place] [address] Care Team Providers Care Accessories Repairer Name Role Phone Narayan Montero MD Primary Care Provider [phone] Encounter Details DateTypeDepartmentCare Team (Latest Contact Info)Pbrmvjixvid32/08/2025bstract [facility] [address] [place] [address] Lamont Rao DO [address] [facility] [place] [address] Social History Tobacco UseTypesPacks/DayYears UsedDateSmoking Tobacco: NeverSmokeless Tobacco: NeverAlcohol UseStandard Drinks/WeekCommentsNot Currently0 (1 standard drink = 0.6 oz pure alcohol)CommentsNoSex and Gender InformationValueDate RecordedSex Assigned at BirthNot on fileLegal PabNjtnso96/15/2023 6:51 PM EDT Gender IdentityNot on fileSexual OrientationNot on filedocumented as of this encounter Plan of Treatment Not on file documented as of this encounter Visit Diagnoses Not on filedocumented in this encounter Care Teams Team MemberRelationshipSpecialtyStart DateEnd Date Narayan Montero MD [address] [place] [address] PCP - GeneralFamily Fpsczoyy31/14/23documented as of this encounter
--- OUTSIDE RECORDS SUMMARY | 2025-06-24 06:54 | XMS_ITS | Encounter Summary ---
Author Organization [facility] Address [address] [place] [address] Care Team Providers Care Microeconomics Professor Name Role Phone Narayan Montero MD Primary Care Provider [phone] Encounter Details DateTypeDepartmentCare Team (Latest Contact Info)Zkdpogewasa20/05/2025Clinisync Result Encounter [facility] External Department Unsolicited Lamont Rao, DO [address] [place], [place] [id number] Social History Tobacco UseTypesPacks/DayYears UsedDateSmoking Tobacco: NeverSmokeless Tobacco: NeverAlcohol UseStandard Drinks/WeekCommentsNot Currently0 (1 standard drink = 0.6 oz pure alcohol)CommentsNoSex and Gender InformationValueDate RecordedSex Assigned at BirthNot on fileLegal MkqUbqxze67/15/2023 6:51 PM EDT Gender IdentityNot on fileSexual OrientationNot on filedocumented as of this encounter Plan of Treatment Not on file documented as of this encounter Procedures Procedure NamePriorityDate/TimeAssociated DiagnosisCommentsALL BASIC METABOLIC OCXOEEeqafnk18/05/2025 11:26 AM EST documented in this encounter Results * (ABNORMAL) ALL BASIC METABOLIC PANEL (06/10/2025 11:26 AM EST)ComponentValue Ref RangeTest MethodAnalysis TimePerformed AtPathologist BfwbyqmlsTWVNIY460314 - 145 mmol/LTBHPOTASSIUM3.73.5 - 5.1 mmol/TSHTNMJDHIJS80733 - 107 mmol/LTBH CARBON TLDCMRO11.021.0 - 32.0 mmol/LTBHANION GAP11.0DXDBUIKSHG391(H)74 - 106 mg/dLTBHBLOOD UREA GOQEATUT35.0(H)7.0 - 18.0 mg/dLTBHCREATININE1.18(H)0.55 - 1.02 mg/dLTBHTBH EGFR-AF WIUQTCGH40(L)>=60 mL/min/1.73m 2TBHTBH EGFR-NON AF TJFGVOQZ45(L)>=60 mL/min/1.73m 2TBHBUN CREATININE RATIO16.3NMKPKPNBMA2.48.5 - 10.1 mg/dLTBHSpecimen (Source)Anatomical Location / LateralityCollection Method / VolumeCollection TimeReceived Time06/10/2025 11:26 AM EST06/10/2025 11:28 AM EST Narrative [facility] - 06/10/2025 12:18 PM EST Authorizing ProviderResult TypeResult StatusCorey Maira DOCLINISYNCFinal Result Performing OrganizationAddressCity/State/ZIP CodePhone Number [facility] documented in this encounter Visit Diagnoses Not on filedocumented in this encounter Care Teams Team MemberRelationshipSpecialtyStart DateEnd Narayan Montero MD [address] [place] [address] PCP - GeneralFamily Pgnevvax52/14/23documented as of this encounter
--- OUTSIDE RECORDS SUMMARY | 2025-06-24 06:54 | XMS_ITS | Encounter Summary ---
Author Organization [facility] Address [address] [place] [address] Care Team Providers Care Softball Player Name Role Phone Narayan Montero MD Primary Care Provider [phone] Encounter Details DateTypeDepartmentCare Team (Latest Contact Info)Zenagoreiyj66/05/2025linisync Result Encounter [facility] External Department Unsolicited Lamont Rao, DO [address] [place], [place] [address] Social History Tobacco UseTypesPacks/DayYears UsedDateSmoking Tobacco: NeverSmokeless Tobacco: NeverAlcohol UseStandard Drinks/WeekCommentsNot Currently0 (1 standard drink = 0.6 oz pure alcohol)CommentsNoSex and Gender InformationValueDate RecordedSex Assigned at BirthNot on fileLegal UxbNjyzom35/15/2023 6:51 PM EDT Gender IdentityNot on fileSexual OrientationNot on filedocumented as of this encounter Plan of Treatment Not on file documented as of this encounter Procedures Procedure NamePriorityDate/TimeAssociated DiagnosisCommentsECG 12-LEAD06/10/2025 10:23 AM EST documented in this encounter Results * ECG 12-LEAD (06/10/2025 10:23 AM EST)Anatomical RegionLateralityModalityOther Specimen (Source)Anatomical Location / LateralityCollection Method / Volume Collection TimeReceived Time06/10/2025 10:23 AM EST Narrative 06/10/2025 9:54 PM EST [facility] ?[address] ? [place] [address] ? Electrocardiograph Report ? Signed ? Patient: IAIN,AGNES C ?MR#: [id number] ?? : 1960 ?Acct:[id number] ?? Age/Sex: 65 / F ?ADM Date: 12/05/25 ?? Loc: PST ? Attending Dr: Lamont Rao D.O. ? Ordering Physician: Lamont Rao D.O. ?? Date of Service: 06/10/25 ?? Procedure(s): ECG 12 lead ?? Accession Number(s): [id number] ? cc: ?[facility] ? Test Date: ?2025-06-10 ?? Pat Name: ? AGNES TIMMONS ? Department: ? Room: ? - ?? Gender: ? Female ? Measuring Machine Tender: ? : ?1960 ? Requested By: LAMONT RAO ?? Order Number: [id number] ?Reading MD: ?? DHRUV ??Georgie LANDERS ? Measurements ?? Intervals ?[place] ? Rate: ? 70 ? P: ?52 ?? MT: ? 146 ?QRS: ?-4 ?? QRSD: ? [...] Dictated By: ?DHRUV LANDERS ? Signed By: ?06/10/254 ? DD/ 1023 ? TD/TT: ? Deckhand Tuna Boat: Procedure Note Radiology, Radiologist, MD - 06/10/2025 [place] [address] Electrocardiograph Report Signed Patient: AGNES TIMMONS CMR#: [id number] : 1Acct:[id number] Age/Sex: 65 / FADM Date: 06/10/25 Loc: [facility] Attending Dr: Lamont Rao D.O. Ordering Physician: Lamont Rao D.O. Date of Service: 06/10/25 Procedure(s): ECG 12 lead Accession Number(s): [id number] cc: [facility] Test Date: 2025-06-10 Pat Name: AGNES TIMMONS Department: Room: - Gender: Female Measuring Machine Tender: : 1960 Requested By: LAMONT RAO Order Number: [id number] Reading MD: DHRUV LANDERS M.D. Measurements Intervals [place] Rate: 70 P: 52 MT: 146 QRS: -4 QRSD: 146 T: 29 QT: 399 QTc: 431 Interpretive Statements SINUS RHYTHM RIGHT BUNDLE BRANCH BLOCK [120+ ms QRS DURATION, UPRIGHT V1, 40+ ms S IN I/aVL/V4/V5/V6] Abnormal ECG Compared to ECG 11/05/2023 13:16:05 Indeterminate axis no longer present Electronically Signed On 06-10-2025 21:54:32 EST by DHRUV LANDERS M.D. Dictated By: DHRUV LANDERS Signed By:06/10/254 DD/ 1023 TD/TT: Deckhand Tuna Boat: Authorizing ProviderResult TypeResult StatusCorey Maira DOCLINISYNC IMAGINGFinal Result documented in this encounter Visit Diagnoses Not on filedocumented in this encounter Care Teams Team MemberRelationshipSpecialtyStart DateEnd Date Narayan Montero MD [address] [place] [address] PCP - GeneralFamily Gkypwysm89/14/23documented as of this encounter
--- OUTSIDE RECORDS SUMMARY | 2025-06-24 06:54 | XMS_ITS | Patient Health Record ---
Author Organization [facility] vices Address [address] [place], [place] [id number] Care Team Providers Care Electrical Tester Battery Name Role Phone Stephenie Pierre Unavailable [phone] Allergies No Known Allergies Reason For Referral No Information Medications Medication SIG (Take, Route, Frequency, Duration) Notes Start Date End Date Status Amoxicillin-Pot Clavulanate 875-125 MG T ablet 1 tablet Orally every 12 hrs; Duration: 7 days 07/08/2023Not-Taking/PRNVitamin L4TghdvuDxrdwrozwd-gknziLKHIVGuimtkqgj 10-12.5 MG Tablet1 tablet Orally Once a day; Duration: 90 days09/18/2021ctivemetFORMIN HCl 500 MG TabletTAKE 1 TABLET BY MOUTH TWICE DAILY WITH MEALS Orally twice a day; Duration: 90 daysActive Social History Tobacco Use: Social History Observation Description Date Details (start date - stop date) Never Smoker NA - NA Sex Assigned At : Social History Observation Description Sex Assigned At Female Social History Social DeterminantsSocial InfoQuestionAnswerNotesPRAPAREDate Completed/Updated: 08/15/2023patient entered dataWhat is your current housing situation?I have housingpatient entered dataAre you worried about losing your housing?No patient entered dataWhat is the highest level of school that you have finished?More than high schoolpatient entered dataWhat 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 Check all that applyI do not have problems meeting my needsHas lack of transportation kept you from medical appointments, meetings, work or from getting things needed for daily living?NoHow often do you see or talk to people that you care about and feel close to? (For example: talkingto friends on the phone, visiting friends or family, going to buddhism or club meetings)More than 5 times a weekpatient entered dataHow stressed are you? Stress is when someone feels tense, nervous, anxious, or can't sleep at nightbecause their mind is troubledQuite a bitpatient entered dataIn the past year have you spent more than 2 nights in a row in a longterm, chcf, mcfp center, orjuvenile correctional facility?Nopatient entered dataAre you a refugee?Nopatient entered dataWhat country are you from?[place]patient entered dataDo you feel physically and emotionally safe where you currently live?Yespatient entered dataIn the past year, have you been afraid of your partner or ex-partner?I have not had a partner in the past yearpatient entered data PRAPARE Score:5Limited Patient AuthorizationSocial InfoQuestionAnswerNotes Limited Patient AuthorizationI authorize [facility] to disclose or provide protected health information about me.Yespatient entered data? I authorize the following person to receive messages and/or paperwork for me to make inquiries concerning my healthcare. (Enter Name)Andrew Thapapatient entered data? Enter the phone number of the individual to whom the doctor and staff have permission to release information.[phone] entered data ? Select the Patient's relationship to the individual to whom the doctor and staff have permission to release information.Childpatient entered dataPCMH and UDS DemographicsSocial InfoQuestionAnswerNotesPrimary Care Medical Home QuestionsDo you have any barriers to learning?Visually impairedpatient entered dataHow often do you need to have someone help you read instructions? Neverpatient entered dataHousehold:Social InfoQuestionAnswerNotesHousehold Number of adults in household:1Number of children in household:0 Drugs/Alcohol/Caffeine:Social InfoQuestionAnswerNotesDrugsHave you used drugs other than those for medical reasons in the past 12 months?NoCAGE-AID Questionnaire (2018 Edition)Have you ever felt that you ought to cut down on your drinking or drug use?Nopatient entered dataHave people annoyed you by criticizing your drinking or drug use?Nopatient entered dataHave you ever felt bad or guilty about your drinking or drug use?Nopatient entered dataHave you ever had a drink or used drugs first thing in the morning to steady your nerves or to get rid of a hangover?Nopatient entered dataCAGE-AID Score0 InterpretationNegativeCaffeineIntake:noneTobacco Use:Social InfoQuestionAnswer NotesTobacco Use/SmokingTobacco use:nonsmokerpatient entered dataAdditional DetailsCategorySocial InfoOptionsDetailsMiscellaneous:Occupation:works full-time Culture/Language BarrierNoEducation LevelCollegeBarriers to LearningNoneLearning PreferenceDoing or practicingHow often do you need to have someone help you read instructionsNeverSafetyPatient feels safe in relationshipsYes Drugs/Alcohol/Caffeine:Do you drink alcohol?NoSection Notes: Nutrition counseling focusin g on a low sodium and low sugar diet discussed with the patient, as well as appropriate weekly exercise and increased activity as tolerated to work towards a more optimal body mass index for improved overall health. Problems Problem Type SNOMED Code ICD Code Onset Dates Problem Status W/U Status Risk Notes Problem Postmenopausal bleeding (29335106) Postme nopausal bleeding (N95.0) ActiveconfirmedREFER to SERVICE STATION ATTENDANT for endometrial sampling and workup as appropriate. ProblemOsteoarthritis of knee (713801846)Knee arthropathy (M17.10)Active confirmedRECOMMEND QUAD SETTING EXERCISES, 20 REPS X 5, 3 TIMES A DAY, AND KNEE BRACE.ProblemAsthma without status asthmaticus (94721416)Acute asthmatic bronchitis (J45.909)Activeconfirmedkpred for 5 days, and amox for 10 daysProblem Rotator cuff tear arthropathy (962241549)Rotator cuff tear arthropathy (M12.819) Activeconfirmedfer to orthodr tuttle. INCREASE tylenol to 1300mg BID and 650 mid day.ProblemEssential hypertension (46530285)HTN (hypertension), benign (I10)Activeconfirmedgood controlProblemObese class II (591801399959455)BMI 37.0- 37.9, adult (Z68.37)ActiveconfirmedProblemType II diabetes mellitus without complication (353529105)Controlled diabetes mellitus (E11.9)Activeconfirmed ProblemType II diabetes mellitus without complication (908332389)Controlled type 2 diabetes mellitus without complication, without long-term current use of insulin (E11.9)Activeconfirmedcode 52632 applies POCT A1C TODAY = 6.9, CONTINUE CURRENT DOSE. EYE EXAM RECOMMENDED.ProblemStatin declined (situation) (899992999)Refusal of statin medication by patient (Z53.20)ActiveconfirmedLDL is good, 100; she'd prefer NOT to take a statin.ProblemCOVID-19 (579957925)COVID-19 (U07.1)ActiveconfirmedComment:with an irritant cough, doesn't really sound like bronchospasm, so NO inhaler for now, and will go with tessalon perles.,Problem Acute sinusitis (95041424)Sinusitis, acute (J01.90)Activeconfirmed Comment:-pt having sinus sx -only been going on for 3-4 days, but will treat as bacterial as the pt seems miserable -Augmentin BID for 10 days -also given Claritin and cough suppressant - Can also take vitamin C, Claritin, Mucinex, cough drops, and honey as needed for sx relief -f/u in 2 weeks if not feeling better, ProblemHordeolum (771064854)Hordeolum (H00.019)ActiveconfirmedComment:Left lower eyelid. Will refer to Ophtamology for further evaluation and tx.,Problem Depression screening (734132367)Screening for depression (Z13.31)Activeconfirmed Description:Depression screeningProblemConjunctivitis (8278235)Conjunctivitis (H10.9)ActiveconfirmedComment:RTO if sxs. persist or worsen.,ProblemStatin declined (situation) (361171862)Refusal of statin medication by patient (Z53.29) ActiveconfirmedComment:i ENCOURAGED HER TO START ONE, SHE DOESNT WANT TO AT THE PRESENT TIME. (LDL = 100, BUT WITHD.M.),ProblemDepressed mood (908891915) Depressed mood (R45.89)Activeconfirmed Comment:SITUATIONAL, CIRCUMSTANTIAL, WITHOUT DIAGNOSIS OF ANXIETY/DEPRESSION. DECLINES OFFER FOR BEHAVIOURAL HEALTH COUNSELING, DOESN'T NEED MEDICATON., ProblemGynecological examination normal (029143084960985)Well woman exam with routine gynecological exam (Z01.419)Activeconfirmed Comment:did have recent blood work done. definitive hemoglobin A1c of 6.4. We'll make a followup appointment to address this specifically. Otherwise preventative screening tests ordered. Followup as needed., ProblemObesity (215820661)Obesity (E66.9)Activeconfirmed Comment:has lost 11lb since last visit 6w back noted to have elevated glucose on lab, hold off on further labs as of now as she is self pay, ProblemBump (R22.9)Activeconfirmed Comment:self resolving likely bruise enc ice prn monitor, ProblemOtitis media (62703656)Otitis, left (H66.92)Activeconfirmed Comment:Increase fluids and rest as able If no better in a week, call office for further evaluation Can use Tylenol or Motrin as needed for pain and fever, ProblemBreast cancer screening (876766394)Encounter for screening mammogram for breast cancer (Z12.31)ActiveconfirmedProblemHyperglycemia (19445568)Elevated glucose (R73.09)ActiveconfirmedProblemArthropathy (672374252)Arthropathia (M12.9)10/29/2006ctiveconfirmedDescription:ArthropathyProblemHeart murmur (53829735)Heart murmur (R01.1)Activeconfirmed Comment:asymptomatic ECHO reviewed- did not show any significant abnormalities rec if she develops chest pain/ SOB/ dizziness/ any other cocnerns, then call back, ProblemAcute bronchitis (65364723)Acute bronchitis (J20.9)Activeconfirmed Comment:abx as prescribed maintain adeq hydration rec honey/ cough drops for cough, ProblemHyperglycemia (63778068)Hyperglycemia (R73.9)Activeconfirmed Comment:noted on labs done back in sept was not able to have repeat labs at the time, ProblemScreening for malignant neoplasm of breast (937795365)Encounter for mammogram to establish baseline mammogram (Z12.31)ActiveconfirmedComment:ROUTINE SCREENING MAMMOGRAM, NO SYMPTOMS.,ProblemSty (6302139)Sty (H00.019)Active confirmedComment:Left upper eyelid. Recommend warm compress application to affected eye bid. Rec. cleansiingbilateral eyelids with q-tips and baby shampoo in water q week. Will refer to Opthamology for possible I and D of sty. RTO in 3 months or sooner if needed.,ProblemPharyngitis (675107947)Pharyngitis (J02.9) Activeconfirmed Comment:-Sore throat for a good week -Red, swollen and painful -Strep swab checked -Has fever, symptoms for a week, ProblemSinusitis (38393779)Sinusitis (J32.9)Activeconfirmed Comment:-Congested sinuses -Fever for two days, not going below 100 F -Blowing out bloody, thick, purulent mucous -Has had severe symptoms the last three days; general sinusitis for at least week prior, ProblemSpasm (68651673)Spasm, muscle (728.85) (728.85)04/14/2007Problem resolved confirmedProblemJoint pain (87274130)Pain in joint, unspecified site (719.40) (719.40)10/29/2006Problem resolvedconfirmed Vital Signs Heart Rate 87 /min 09/22/2024 Blood pressure okhgfubhs06 mm Hg09/22/2024Height-cm163.83 cm09/22/2024Weight-kg 99.79 kg09/22/20242446Byacag72.5 in09/22/2024lood pressure zfwlogeh359 mm Hg 09/22/20245811Oqsqcu733 lbs09/22/2024BMI37.18 kg/m209/22/2024 Encounters Encounter Location Date Provider Diagnosis [facility] [address] [place] [phone] 09/22/2024 Stephenie Pierre Encounter for dent al examination and cleaning with abnormal findings Z01.21 ; Dental caries into dentine K02.62 ; Necrosis of pulp K04.1 ; Partial loss of teeth, unspecified cause, class I K08.401 ; Dental baptist status Z98.811 ; 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 and Encounter for screening for dental disorders Z13.84 Assessments Encounter Date Diagnosis (ICD Code) Assessment Notes Treatment Notes Treatment Clinical Notes Section Notes 09/22/2024 Encounter for dental examination and cleaning with abnormal findings (ICD-10 - Z01.21) 09/22/2024Dental caries into dentine (ICD-10 - K02.62)09/22/2024Necrosis of pulp (ICD-10 - K04.1)09/22/2024Partial loss of teeth, unspecified cause, class I (ICD-10 - K08.401)09/22/2024Dental baptist status (ICD-10 - Z98.811) 09/22/2024Irreversible pulpitis (ICD-10 - K04.02)09/22/2024Encounter for screening for dental disorders (ICD-10 - Z13.84) Plan Of Treatment No Information Insurance Providers Payer Name Payer Address Payer Phone Subscriber Number Group Number Insured Name Patient Relationship to Insured Coverage Start Date [place]age End Date [facility] [facility] [place] [facility] [address] [place], [place] [id number] Agnes Epstein Self - patient is the insured 2 [employer] MCD[address] [place] [phone] [id number], TonjaSelf - patient is the [id number]/07/2021 Medicaid [facility] after [address] [place] [id number], TonjaSelf - patient is the /01/2022DMedicaid [facility] after CaresourceDentaquestPO [address] [place], [place] [id number], TonjaSelf - patient is the [id number]/07/2021 Medical (General) History Medical History History ICD Code Arthropathia, DESCRIPTION: Arthropathy CHILDHOOD DISEASES: Positive history for chicken poxCHILDHOOD DISEASES: Positive history for measlesCHILDHOOD DISEASES: Positive history for mumpsDiabetes type 2, controlledHeart murmurHypertensionObesityRefusal of statin medication by patientSurgical History Surgery Date(Month/Year) [facility] Biopsy 1985 Tonsillectomy D & C011/2023
--- OUTSIDE RECORDS SUMMARY | 2025-06-24 06:54 | XMS_ITS | Encounter Summary ---
Author Organization [facility] Address [address] [place] [address] Care Team Providers Care Relay Tester Helper Name Role Phone Narayan Montero MD Primary Care Provider [phone] Encounter Details DateTypeDepartmentCare Team (Latest Contact Info)Oehillomjae64/11/2025Orders Only [facility] [address] [place] [phone] Jen Mello MA Social History Tobacco UseTypesPacks/DayYears UsedDateSmoking Tobacco: NeverSmokeless Tobacco: NeverAlcohol UseStandard Drinks/WeekCommentsNot Currently0 (1 standard drink = 0.6 oz pure alcohol)CommentsNoSex and Gender InformationValueDate RecordedSex Assigned at BirthNot on fileLegal TgsBfuwnb42/15/2023 6:51 PM EDT Gender IdentityNot on fileSexual OrientationNot on filedocumented as of this encounter Plan of Treatment Not on file documented as of this encounter Procedures Procedure NamePriorityDate/TimeAssociated DiagnosisCommentsHPV/PAP COTEST, UGYDPYIILpfjgxd71/24/2025 12:00 AM ESTdocumented in this encounter Results * HPV/PAP COTEST, EXTERNAL (05/30/2025 12:00 AM EST) Narrative Authorizing ProviderResult TypeResult StatusCorey Maira DOLAB CYTOLOGY ORDERABLESFinal ResultPerforming OrganizationAddressCity/State/ZIP CodePhone Number EXTERNAL LAB documented in this encounter Visit Diagnoses Not on filedocumented in this encounter Care Teams Team MemberRelationshipSpecialtyStart DateEnd Date Narayan Montero MD [address] [place] [address] PCP - GeneralFamily Xnrdwkrt07/14/23documented as of this encounter
--- OUTSIDE RECORDS SUMMARY | 2025-06-24 06:55 | XMS_ITS | Patient Health Record ---
Author Organization [facility] in [place] Address [address] [place] [address] Care Team Providers Care Wallpaperer Helper Name Role Phone Collins Colindres Primary Care Provider Allergies No Known Allergies Results Component Value Reference Range Notes IGP,Aptima HPV,Age Gdln Reviewed date:06/03/2025 12:14:07 PM Interpretation: Performing Lab: Notes/Report: BRUSH-SPATULA CERVIX ENDOCERVIX [facility] , Age Gdln ACOG Testing Note . TESTS RESULT FLAG UNITS REF RANGE LAB Performed at: 01 =[facility].....Cervix;Endocer vix [address] [place] [address] FLAG LEGEND: <-Panic Low,>-Panic High,A-Abnormal,AA-Critical Abnormal No. of containers..01 ThinPrep Vial Age Algo ACOG Mary... 30-65 01 Clinician Provided Cytology Information Megan Ariza MD, L-Low Normal,H-High Normal,LL-Alert Low,HH-Alert High IGP, Aptima HPV, rfx 16/18,45 Note . L-Low Normal,H-High Normal,LL-Alert Low,HH-Alert High Specimen adequacy: 02 The Pap smear is a screening test designed to aid in the using the [employer](R) Genius(TM) Cervical Algorithm whole [address] [place] [address], [place] [address] Satisfactory for evaluation. Endocervical and/or squamous metaplastic FLAG LEGEND: Note: Note 02 detection of premalignant and malignant conditions of the cells (endocervical component) are present. uterine cervix. It is not a diagnostic procedure and Performed by: 02 This liquid based ThinPrep(R) pap test was interpreted <-Panic Low,>-Panic High,A-Abnormal,AA-Critical Abnormal . 02 slide imaging system. should not be used as the sole means of detecting cervical HPV Genotype Reflex Note [address] [facility] TESTS RESULT FLAG UNITS REF RANGE LAB Megan Ariza MD, cancer. Both false-positive and false-negative reports do Test Methodology: Note 02 Performed at: NEGATIVE FOR INTRAEPITHELIAL LESION OR MALIGNANCY. Criteria not met, HPV Genotype not performed. Jazz Triplett, Educational Guidance Counselor (ASCP) occur. DIAGNOSIS: 02 HPV Aptima Negative Negative Performed at: WB [facility] This nucleic acid amplification test detects fourteen high- Performed at: =G - [facility] without differentiation. [address] [place], [place] [id number] Him Assistant: Megan Ariza MD, Phone: [phone] [address] [facility] [place] [id number] risk HPV types (16,18,31,33,35,39,45,51,52,56,58 ,59,66,68) Him Assistant: Megan Ariza MD, Phone: [phone] Performing Lab: see note - [facility] LBPROF CHEM 8 (BAS METB) Reviewed date:06/10/2025 12:56:47 PM Interpretation: Performing Lab: Notes/Report: [facility] ,Bauplv349617-518 mmol/LPotassium3.73.5-5.1 mmol/TLbnnjntc91287-532 mmol/LCarbon Wcwhkzd51.021.0-32.0 mmol/LAnion Gap11.3Jpwizfw12186-213 mg/dLBlood Urea Qjzmqhlh49.07.0-18.0 mg/dLCreatinine1.180.55-1.02 mg/dLEstimated GFR ( Deceljr86>=60 mL/min/1.73m 2Estimated GFR (Non- Ame46>=60 mL/min/1.73m 2 BUN Creatinine Ratio16.1Jguabnt0.48.5-10.1 mg/dLPerforming Lab:see noteML - [facility] LBTSH Reviewed date:08/04/2024 09:03:24 PM Interpretation: Performing Lab: Notes/Report: [facility] ,Thyroid Stimulating Hormone0.9260.358-3.740 uIU/mLPerforming Lab:see noteML - [facility] LBFREE T4 Reviewed date:08/04/2024 09:03:24 PM Interpretation: Performing Lab: Notes/Report: [facility] ,Free T40.960.76-1.46 ng/dLPerforming Lab:see noteML - [facility] LB XR KNEE LT 3V Reviewed date:04/07/2025 01:28:18 PM Interpretation: Performing Lab: Notes/Report: Source Facility: [place] [address] [place] [address] XRay Report Signed Patient: AGNES TIMMONS MR#: [id number] : 1960 Acct:[id number] Age/Sex: 64 / F ADM Date: 04/06/25 Loc: RAD Attending Dr: Bennett Colindres M.D. Ordering Physician: Bennett Colindres M.D. Date of Service: 04/06/25 Procedure(s): XR knee LT 3V Accession Number(s): [id number] cc: Bennett Colindres M.D. [place] [address] Patient Name: AGNES TIMMONS MRN: [id number] date: 1960 Sex: F Assigned Patient Location: [facility] Current Patient Location: [facility] Accession/Order Number: [id number] Exam Date: 04/06/2025 17:39 Report Date: 04/06/2025 23:18 At the request of: BENNETT COLINDRES MD Procedure: XR knee LT 3V 3 views left knee plain film COMPARISON: None HISTORY: Left knee pain/cramping. ACUTE FINDINGS: No acute findings DEGENERATIVE CHANGE: Mild degeneration. Superior patellar enthesophyte. SOFT TISSUE FINDINGS: Unremarkable JOINT EFFUSION: None POSTOP CHANGES: None BONE MINERALIZATION: Adequate XR/XR knee LT 3V IMPRESSION: Mild degenerative changes Impression dictated by: Peter Lindsay M.D. 04/06/2025 11:18 PM Dictation Location: [place] [address] Electronically authenticated by: [id number] Date: 04/06/2025 23:18 Dictated By: Peter Lindsay D.O. Signed By: 04/06/252319 DD/ 17 TD/TT: Data Warehouse Administrator:PROF Alvarado(COMP METB) Reviewed date:08/04/2024 09:03:24 PM Interpretation: Performing Lab: Notes/Report: [facility] ,Gaurlk303462-907 mmol/LPotassium4.13.5-5.1 mmol/NUignmlej92045-372 mmol/LCarbon Ygyggyj05.621.0-32.0 mmol/LAnion Gap11.8Dfgezon02243-389 mg/dLBlood Urea Afeynuat52.07.0-18.0 mg/dLCreatinine1.140.55-1.02 mg/dLEstimated GFR ( Flltqlo31>=60 mL/min/1.73m 2Estimated GFR (Non- Ame48>=60 mL/min/1.73m 2 BUN Creatinine Ratio14.4Zujfmcs7.48.5-10.1 mg/dLBilirubin Total0.20.2-1.0 mg/dL Aspartate Amino Psuocaacxrs1699-05 U/LAlanine Aijgbspvuweczrpp8293-49 U/L Alkaline Cuounitkliy1014-347 U/LTotal Protein8.16.4-8.2 g/dLAlbumin Level3.83.4- 5.0 g/dLGlobulin4.3Albumin Globulin Ratio0.9Performing Lab:see noteML - [facility] LBMAGNESIUM Reviewed date:08/04/2024 09:03:24 PM Interpretation: Performing Lab: Notes/Report: [facility] ,Magnesium1.71.8-2.4 mg/dLPerforming Lab:see noteML - [facility] LB CBC AUTO DIFF Reviewed date:08/04/2024 09:03:24 PM Interpretation: Performing Lab: Notes/Report: [facility] ,White Blood Count7.14.0-11.0 10 3/uLRed Blood Count4.584.20-5.40 10 6/uL Sldjjgutta34.412.0-16.0 g/eZQdabvtvaji96.236.0-48.0 %Mean Corpuscular Xwczni08.4 81.0-99.0 fLMean Corpuscular Znlhogkqof62.126.7-34.0 pgMean Corpuscular HGB Conc 32.529.9-35.2 g/dLRed Cell Distribution Width13.011.0-15.0 %Platelet Zsrhp271 150-450 10 3/uLMean Platelet Volume9.69.5-13.5 fLNeutrophils Percent Auto53.3 43.0-75.0 %Lymphocytes Percent Auto37.720.5-60.0 %Monocytes Percent Auto6.81.7- 12.0 %Eosinophils Percent Auto1.70.9-7.0 %Basophils Percent Auto0.40.2-2.0 % Immature Granulocytes Pct Auto0.10.0-0.5 %Neutrophils Absolute Auto3.81.4-6.5 10 3/uLLymphocytes Absolute Auto2.71.2-3.8 10 3/uLMonocytes Absolute Auto0.50.3-0.8 10 3/uLEosinophils Absolute Auto0.10.0-0.7 10 3/uLBasophils Absolute Auto0.00.0- 0.1 10 3/uLImmature Granulocytes Abs Auto0.010.00-0.03 10 3/uLPerforming Lab:see noteML - [facility] LBXR knee ELANA 3V Reviewed date:05/02/2025 07:09:50 PM Interpretation: Performing Lab: Notes/Report: Source Facility: [place] [address] [place] [address] XRay Report Signed Patient: AGNES TIMMONS MR#: [id number] : 1960 Acct:[id number] Age/Sex: 64 / F ADM Date: 05/02/25 Loc: RAD Attending Dr: Zakiya Gasca D.O. Ordering Physician: Zakiya Gasca Date of Service: 05/02/25 Procedure(s): XR knee ELANA 3V Accession Number(s): [id number] cc: Bennett Colindres M.D.; Zakiya Gasca [place] [id number] Patient Name: AGNES TIMMONS MRN: [id number] date: 1960 Sex: F Assigned Patient Location: RAD Current Patient Location: RAD Accession/Order Number: [id number] Exam Date: 05/02/2025 10:40 Report Date: 05/02/2025 11:08 At the request of: ZAKIYA GASCA DO Procedure: XR knee ELANA 3V BILATERAL KNEES - 3 views each COMPARISON: Left knee 04/06/2025 CLINICAL DATA: Chronic bilateral knee pain. No recent injury. Standing AP, lateral and tunnel views were obtained. No acute fractures or dislocation are visualized. There is moderate left and severe right medial tibiofemoral joint compartment narrowing. There is subchondral sclerosis at the medial tibial plateau on the right. Bilateral marginal spurring is seen, greatest medially on the right. Enthesophytes are present at the insertion of the quadriceps tendons bilaterally and at the origin of the patellar tendon on the right. There is no significant knee effusion or soft tissue swelling. XR/XR knee ELANA 3V IMPRESSION: DEGENERATIVE CHANGES, RIGHT SIDE WORSE THAN LEFT. Impression dictated by: Promise Funk M.D. 05/02/2025 11:08 AM Dictation Location: [place] [address] Electronically authenticated by: [id number] Y Date: 05/02/2025 11:08 Dictated By: Promise Funk M.D. Signed By: 05/02/25 1111 DD/ 1108 TD/TT: Data Warehouse Administrator:ECG 12 lead Reviewed date:06/11/2025 10:38:40 AM Interpretation: Performing Lab: Notes/Report: Source Facility: [place] [address] Electrocardiograph Report Signed Patient: AGNES TIMMONS MR#: [id number] : 1960 Acct:[id number] Age/Sex: 65 / F ADM Date: 06/10/25 Loc: PST Attending Dr: Anthony Roche D.O. Ordering Physician: Anthony Roche D.O. Date of Service: 06/10/25 Procedure(s): ECG 12 lead Accession Number(s): [id number] cc: [facility] Test Date: 2025-06-10 Pat Name: AGNES TIMMONS Department: Room: - Gender: Female Computer Forensics Investigator: : 1960 Requested By: ANTHONY ROCHE Order Number: [id number] Reading MD: DHRUV LANDERS M.D. Measurements Intervals Eastman Rate: 70 P: 52 IL: 146 QRS: -4 QRSD: 146 T: 29 QT: 399 QTc: 431 Interpretive Statements SINUS RHYTHM RIGHT BUNDLE BRANCH BLOCK [120+ ms QRS DURATION, UPRIGHT V1, 40+ ms S IN I/aVL/V4/V5/V6] Abnormal ECG Compared to ECG 11/05/2023 13:16:05 Indeterminate axis no longer present Electronically Signed On 06-10-2025 21:54:32 EST by DHRUV LANDERS M.D. Dictated By: DHRUV LANDERS Signed By: 06/10/25 2151 DD/ 1023 TD/TT: Data Warehouse Administrator:XR lumbar spine min 4V Reviewed date:04/07/2025 01:28:18 PM Interpretation: Performing Lab: Notes/Report: Source Facility: [place] [address] XRay Report Signed Patient: AGNES TIMMONS MR#: [id number] : 1960 Acct:[id number] Age/Sex: 64 / F ADM Date: 04/06/25 Loc: [facility] Attending Dr: Bennett Colindres M.D. Ordering Physician: Bennett Colindres M.D. Date of Service: 04/06/25 Procedure(s): XR lumbar spine min 4V Accession Number(s): [id number] cc: Bennett Colindres M.D. [place] [address] Patient Name: AGNES TIMMONS MRN: [id number] date: 1960 Sex: F Assigned Patient Location: [facility] Current Patient Location: [facility] Accession/Order Number: [id number] Exam Date: 04/06/2025 17:39 Report Date: 04/06/2025 23:19 At the request of: BENNETT COLINDRES MD Procedure: XR lumbar spine min 4V 4 views Lumbar Spine HISTORY: Leg cramping COMPARISON: None POSTSURGICAL CHANGES: None BONY ALIGNMENT: Adequate HYPERMOBILITY:No bending imaging. LISTHESIS:None FRACTURE: None DEGENERATIVE CHANGES: Mild spondylosis. Extensive lower lumbar facet degeneration. SOFT TISSUES: Unremarkable BONY MINERALIZATION:Adequate XR/XR lumbar spine min 4V IMPRESSION: Degenerative change greatest in the lower lumbar facets. Impression dictated by: Peter Lindsay M.D. 04/06/2025 11:19 PM Dictation Location: [place] [address] Electronically authenticated by: [id number] Y Date: 04/06/2025 23:19 Dictated By: Peter Lindsay D.O. Signed By: 04/06/252321 DD/ 18 TD/TT: Data Warehouse Administrator:XR hip LT 2V w/ pelvis Reviewed date:04/07/2025 01:28:18 PM Interpretation: Performing Lab: Notes/Report: Source Facility: [place] [address] XRay Report Signed Patient: AGNES TIMMONS MR#: [id number] : 1960 Acct:[id number] Age/Sex: 64 / F ADM Date: 04/06/25 Loc: RAD Attending Dr: Bennett Colindres M.D. Ordering Physician: Bennett Colindres M.D. Date of Service: 04/06/25 Procedure(s): XR hip LT 2V w/ pelvis Accession Number(s): [id number] cc: Bennett Colindres M.D. [place] [address] Patient Name: AGNES TIMMONS MRN: [id number] date: 1960 Sex: F Assigned Patient Location: [facility] Current Patient Location: [facility] Accession/Order Number: [id number] Exam Date: 04/06/2025 17:39 Report Date: 04/06/2025 23:17 At the request of: BENNETT COLINDRES MD Procedure: XR hip LT 2V w/ pelvis Single view pelvis HISTORY: Low back pain and left leg pain. No injury Extensive left hip degeneration. Superior joint space narrowing. Subarticular sclerotic and cystic change. No acute displaced fracture. Adequate alignment. No protrusion of the left hip. Mild SI joint degeneration. No AVN. No articular collapse. 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 Impression dictated by: Peter Lindsay M.D. 04/06/2025 11:17 PM Dictation Location: [place] [address] Electronically authenticated by: [id number] Y Date: 04/06/2025 23:17 Dictated By: Peter Lindsay D.O. Signed By: 04/06/252318 DD/ 16 TD/TT: Data Warehouse Administrator:SWEETIE, Flu A+B IH Reviewed date:04/07/2025 01:28:18 PM Interpretation: Performing Lab: Notes/Report: COVIDNEGFLU ANEGFLU BNEGControlPOS Reason For Referral Diagnosis 1 Knee osteoarthritis (M17.9) Referral Organization [facility] Referring Provider First Name Collins Referring Provider Last Name [facility] Referring Provider [facility] Referred Provider Zakiya Gasca Referred Provider Specialty Orthopedic S urgery Referral Priority Routine Diagnosis 1 Left hip pain (M25.5 52) Referral Organization [facility] Referring Provider First Name Collins Referring Provider Last Name [facility] Referring Provider [facility] Referred Provider [facility], Physical Therap y Referred Provider Specialty Physical The rapist Referral Priority Routine Medications Medication SIG (Take, Route, Frequency, Duration) Notes Start Date End Date Status metFORMIN HCl 500 MG 1 tablet with a meal Orally BID; Duration: 90 days ActiveLisinopril-hydroCHLOROthiazide 10-12.5 MG1 tablet Orally Once a day; Duration: 30 daysActiveMeloxicam 15 MG1 tablet Orally Once a day; Duration: 30 lrxpNLO55/16/2025ActiveGlucagonActiveOreganoActivePumpkin Seed OilActiveVitamin X5MhdxgvCygarqe KActive Social History Tobacco Use: Social History Observation Description Date Details (start date - stop date) Never Smoker NA - NA Tobacco Control (Standard) Question Answer Notes Tobacco use: Nonsmoker AUDIT-C (Standard) Question Answer Notes Did you have a drink containing alcohol in the p ast year? No Hoylui6NqqjphsjjpfylqLqrirkgo Problems Problem Type SNOMED Code ICD Code Onset Dates Problem Status W/U Status Risk Notes Problem Osteoarthritis (248120475) Unspe cified osteoarthritis, unspecified site (M19.90) ActiveconfirmedProblemNasal congestion (44698864)Nasal congestion (R09.81)Active confirmedProblemHypertension (70990601)Hypertension (I10)ActiveconfirmedProblem Osteoarthritis of knee (899371808)Knee osteoarthritis (M17.9)Activeconfirmed ProblemWell adult (491883162)Well adult (Z00.00)ActiveconfirmedProblemVaginal bleeding (525532051)Vaginal bleeding (N93.9)ActiveconfirmedProblemCramp in lower limb (252079088)Leg cramp (R25.2)ActiveconfirmedProblemAcute sinusitis (87472728)Acute non-recurrent sinusitis, unspecified location (J01.90)Active confirmedProblemType II diabetes mellitus without complication (172385082) Diabetes (E11.9)Activeconfirmed Vital Signs Temperature 99.0 degrees Fahrenheit 08/26/2024 Blood pressure nepybtdjz57 mm Hg06/22/20252348Tsrvwk29 in06/22/2025lood pressure rpojgzbr775 mm Hg06/22/20252232Lanxwt746.8 lbs108/23/2024BMI36.74 kg/m206/22/2025 Procedures Procedure Date Ordered Date Performed Result Body Sit e LEVI Segmental Pressure Study of Lower Extremity 06/22/2025 N/A Encounters Encounter Location Date Provider Diagnosis [facility] [address] [place] [address] 07/12/2024 Collins susana [facility] [place] [address] [facility] [place] [address]/09/2024[facility] [place] [address]/[facility] [place] [address]/[facility] [place] [facility] [place] [address]/[facility] [place] [place] [address]/08/2024 Collins HoyKnee osteoarthritis M17.9B[facility] [place] [place] [address]/[facility] [address] [place] [place] [address]/[facility] [place] [place] [address]/Doug Hoy Left hip pain M25.552B[facility] [place] [facility] [place] [address]/[facility] [place] [place] [address]/oug HoyAcute non-recurrent sinusitis, unspecified location J01.90 and Nasal congestion R09.81[facility] [place] [place] [address]/ Collins HoyLeg cramp R25.2 and Vaginal bleeding N93.9B[facility] [place] [place] [address]/04/2025Doug Hoy Hypertension I10 ; Diabetes E11.9 and Knee osteoarthritis M17.9B[facility] [place] [place] [address]/Doug Hoy Acute sinus infection J01.90[facility] [place] [place] [address]/12/2024Doug HoyAcute non-recurrent sinusitis, unspecified location J01.90 ; Nasal congestion R09.81 and Well swzzjE62.00 [facility] [place] [place] [address] 04/06/2025Doug HoyKnee osteoarthritis M17.9 and Leg cramp R25.2B[facility] [place] [address]/29/2025Doug HoyLeg cramp R25.2 Assessments Encounter Date Diagnosis (ICD Code) Assessment Notes Treatment Notes Treatment Clinical Notes Section Notes 08/16/2024 Hypertension (ICD-10 - I10) 08/16/2024Diabetes (ICD-10 - E11.9)4Acute non-recurrent sinusitis, unspecified location (ICD-10 - J01.90)Rest and drink more liquids, especially water. You may use a humidifier or vaporizer to help keep the drainage moist. Knvg-cdp-dvlsjpg Nasal Saline may help the stuffy and runny nose. Use Ibuprofen and or Tylenol as needed for fever, chills, body aches or pain. Children 5 years old should not be given zenw-ytf-brsxrlh cough and cold medications such as guaifenesin and dextromethorphan. If you're over age 5, you may try ieby-fsr-ldoiror cold medications such as guaifenesin and dextromethorphan, or multi-symptom cold reliever such as Dayquil to help reduce the symptoms. Antibiotics have been prescribed. You should take these until completed and follow the directions. Antibiotics can sometimescause upset stomach, and in rare cases, serious allergic reactions or serious gastrointestinal problems. If you start having severe abdominal pain, severe vomiting, or bloody diarrhea, you should be reevaluated by your physician or urgent care immediately. Follow up with your Primary Care Provider or return to clinic if symptoms do not improve within 3-5 days08/04/2024Leg cramp (ICD-10 - R25.2)5Acute non-recurrent sinusitis, unspecified location (ICD-10 - J01.90)Rest and drink more liquids, especially water. You may use a humidifier or vaporizer to help keep the drainage moist. Cunp-sht-hwudupq Nasal Saline may help the stuffy and runny nose. Use Ibuprofen and or Tylenol as needed for fever, chills, body aches or pain. Children 5 years old should not be given ubjy-daa-jweqjvi cough and cold medications such as guaifenesin and dextromethorphan. If you're over age 5, you may try ugjz-ykc-ilskfuk cold medications such as guaifenesin and dextromethorphan, or multi-symptom cold reliever such as Dayquil to help reduce the symptoms. Antibiotics have been prescribed. You should take these until completed and follow the directions. Antibiotics can sometimescause upset stomach, and in rare cases, serious allergic reactions or serious gastrointestinal problems. If you start having severe abdominal pain, severe vomiting, or bloody diarrhea, you should be reevaluated by your physician or urgent care immediately. Follow up with your Primary Care Provider or return to clinic if symptoms do not improve within 3-5 days12/10/2024Nasal congestion (ICD-10 - R09.81)08/26/2024ute sinus infection (ICD-10 - J01.90)04/06/2025Knee osteoarthritis (ICD-10 - M17.9)04/06/2025Leg cramp (ICD-10 - R25.2)06/22/2025Leg cramp (ICD-10 - R25.2)06/22/2025Vaginal bleeding (ICD-10 - N93.9) NO CD< no stroke -kidney test stabel and just baelyelevated - related to DM nad htn -thos are well controlled Cleared for OR 04/07/2025Knee osteoarthritis (ICD-10 - M17.9)06/22/2025Left hip pain (ICD-10 - M25.552)12/10/2024Well adult (ICD-10 - Z00.00)07/06/2024Nasal congestion (ICD-10 - R09.81)08/16/2024Knee osteoarthritis (ICD-10 - M17.9)04/06/2025Other Recommended to rest and use a heating pad on the area. Take NSAIDs for pain as needed Plan Of Treatment Pending Test Test Name Order Date HEMOGLOBIN A1C (GLYCO) 12/10/2024 IRON, TOTAL 12/10/2024 LIPID PANEL (CHOL/TRIG/HDL/LDL) 12/11/19 25 RHEUMATOID PANEL 12/10/2024 Insulin Level 12/10/2024 THYROID PROFILE WITH TSH 08/04/2024 XR HIP LT 2 3V W PELVIS 04/06/2025 XR LSPINE MIN 4 VIEWS 04/06/2025 THYROID PANEL (T4/TSH/FREE T3) 5 MM screening mammo BI 12/10/2024 LEVI Segmental Pressure Study of Lower Ex tremity 06/22/2025 CMP (COMP MET [place]) w/eGFR CKD-EPI 2024 CBC WITH DIFF 12/10/2024 Insurance Providers Payer Name Payer Address Payer Phone Subscriber Number Group Number Insured Name Patient Relationship to Insured Coverage Start Date Coverage End Date [employer] [place] [employer] [address] [place] [address] [id number] Agnes Timmons Self - patient is the insured Medications Administered Medication Instructions Date of Administration Dosage Notes Ketorolac Tromethamine mgOrphenadrine Otnotcr23 mgTriamcinolone 40 mg/ml mg Medical (General) History Surgical History Surgery Date(Month/Year) D&C 11/27 Colonoscopy 1985 mammogram 01/14/25
--- OUTSIDE RECORDS SUMMARY | 2025-06-24 06:55 | XMS_ITS | Encounter Summary ---
Author Organization Modality[employer] tem Address [facility] [id number] [address] [place] [address] Care Team Providers Care Ballroom Dancer Name Role Phone Js Gamez MD Primary Care Provider [phone] Encounter Details DateTypeDepartmentCare Team (Latest Contact Info)Kddilhotzkp88/15/2025Travel Social History Tobacco UseTypesPacks/DayYears UsedDateSmoking Tobacco: NeverSmokeless Tobacco: NeverAUDIT-CAnswerDate RecordedFrequency of Alcohol ConsumptionNot on file 06/20/2025Q2: How many drinks containing alcohol do you have on a typical day when you are drinking?Patient does not drink06/20/2025Frequency of Binge DrinkingNot on file06/20/2025hildcareAnswerDate RecordedChildcareUnknown 12/15/2018EmploymentAnswerDate KxgkidihFvstpyiiwrEgxmmpw62/11/2019Purpose - Life AnswerDate RecordedPurpose and direction in sffcBblrdvv49/11/2021 CommentsNoSex and Gender InformationValueDate RecordedSex Assigned at Ndjygg0002/18/2023 10:58 AM EDTLegal AgdBonqvl76/06/2015 11:21 AM EDTGender EooqlbsfRqcbgy96/15/2023 10:58 AM EDTSexual OrientationDon't know02/18/2023 10:58 AM EDTdocumented as of this encounter Plan of Treatment DateTypeDepartmentCare Team (Latest Contact Info)Duogkyzvmvw45/11/2025 3:30 PM ESTSupport Visit [facility] - Pre Admit [address] [place] [address] 07/18/2025 8:00 AM ESTHospital Encounter [facility] - Surgery [address] [place] [address] Nicolas aCrreon, DO [address] [place], [place] [id number] 07/18/2025 8:00 AM EST - 07/18/2025 8:30 AM ESTSurgery [facility] - Surgery [address] [place] [address] Nicolas Carreon, DO [address] [place], [place] [id number] COLONOSCOPY DIAGNOSTIC / SCREENING [G0121 +1 more]NamePriorityAssociated DiagnosesDate/TimeCOLONOSCOPY DIAGNOSTIC / SCREENING screening 07/18/2025 8:00 AM ESTdocumented as of this encounter Goals GoalPatient Goal TypeAssociated ProblemsRecent ProgressPatient-Stated?Author Autogenerated Goal Care PlanAutogenerated ProblemNoPotts, Elizabethdocumented as of this encounter Visit Diagnoses Not on filedocumented in this encounter Additional Health Concerns Active ProblemsNoted DateDiagnosed DateAutogenerated Gikoovl4606/20/2025documented as of this encounter Care Teams Team MemberRelationshipSpecialtyStart DateEnd Date Js Gamez MD [address] [place] [address] PCP - GeneralFamily Prriesyu71/1/25documented as of this encounter
--- OUTSIDE RECORDS SUMMARY | 2025-06-24 06:55 | XMS_ITS | Clinical Summary ---
Author Organization [employer] [facility] tem Address [facility] [id number] [address] 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 TAKE 1 TABLET BY MOUTH ONCE DAILY FOR 30 DAYS.Active NON FORMULARY Med Name: Pumpkin Seed OilActive NON FORMULARY Med Name: ChlorphyllActive NON FORMULARY Med Name: Sour SopActive peg 3350-sod sulf,crch-ura-ejz 178.7-7.3-0.5 gram recon soln Indications:Encounter for screening colonoscopyTake 1 kit by mouth in the morning for 1 dose. Please see instructional sheet given by physicians office. 1 each 5108/22/2024Expired Active Problems No known active problems Encounters DateTypeDepartmentCare XhwkJiprpalzuom46/15/2025 10:00 AM ESTOffice Visit [facility] [address] [place] [phone] Ama Nieves, WINE MASTER-PRECISION DANCER Encounter for screening colonoscopy (Primary Dx)06/20/2025Travelfrom Last 3 Months Family History Medical HistoryRelationNameCommentsProstate cancerFatherRelationNameStatus CommentsFatherMotherDeceased Social History Tobacco UseTypesPacks/DayYears UsedDateSmoking Tobacco: NeverSmokeless Tobacco: NeverAUDIT-CAnswerDate RecordedFrequency of Alcohol ConsumptionNot on file 06/20/2025Q2: How many drinks containing alcohol do you have on a typical day when you are drinking?Patient does not drink06/20/2025Frequency of Binge DrinkingNot on file06/20/2025hildcareAnswerDate RecordedChildcareUnknown 12/15/2018EmploymentAnswerDate UgbmysqjXexwcjdxihJugicqp05/11/2019Purpose - Life AnswerDate RecordedPurpose and direction in gpstYywnzcu57/11/2021 CommentsNoSex and Gender InformationValueDate RecordedSex Assigned at Qgzoif2202/18/2023 10:58 AM EDTLegal ExfFyibvo84/06/2015 11:21 AM EDTGender KdozgrueSvszfw93/15/2023 10:58 AM EDTSexual OrientationDon't know02/18/2023 10:58 AM EDT Last Filed Vital Signs Vital SignReadingTime TakenCommentsBlood Imwxpfwj193/7906/20/2025 10:04 AM EST Btwmg826006/20/2025 10:04 AM JJMMeqoakhmyfk78.3 ??C (100.9 ??F)06/20/2018 5:39 PM ESTRespiratory Wbjg008708/21/2017 5:39 PM ESTOxygen Aqzaacrmkd36%06/20/2018 5:39 PM ESTInhaled Oxygen Concentration--Tjembr87.7 kg (219 lb 12.8 oz)06/20/2025 10:04 AM HYQStmbhs683.1 cm (5' 5 )01/14/2025 11:19 AM EDTBody Mass Index36.58 01/14/2025 11:19 AM EDT Plan of Treatment DateTypeDepartmentCare Team (Latest Contact Info)Lpihvjzmfkf81/05/2026 3:30 PM ESTSupport Visit [facility] - [facility] [address] [facility] [place] [address] 07/18/2025 8:00 AM ESTHospital Encounter [facility] - Surgery [address] [place] [address] Nicolas Carreon, DO [address] [place] [address] 07/18/2025 8:00 AM EST - 07/18/2025 8:30 AM ESTSurgery [facility] - Surgery [address] [facility] [place] [address] Nicolas Carreon, DO [address] [place] [address] COLONOSCOPY DIAGNOSTIC / SCREENING [G0121 +1 more]NamePriorityAssociated DiagnosesDate/TimeCOLONOSCOPY DIAGNOSTIC / SCREENING screening 07/18/2025 8:00 AM ESTHealth MaintenanceDue DateLast DoneCommentsDepression Hmkjodpcx69/17/1973Adult BMI Follow Up Plan1979Zoster (Shingles) Vaccine (1 of 2)2011COVID-19 Vaccine (3 - season), 03/20/2021Influenza Vxceotg3603/07/2025dult BMI Oaiebtdnr87 Tobacco Nfeowgdst59DTaP,Tdap and Td Vaccines (2 - Td or Tdap) /Pap Smear/, 11/28/2022, 11/28/2022RSV ( or age 60+ yrs) (1 - 1-dose 75+ series)2036 Goals GoalPatient Goal TypeAssociated ProblemsRecent ProgressPatient-Stated?Author Autogenerated Goal Care PlanAutogenerated ProblemNoPotts, [place] Not on file Procedures Procedure NamePriorityDate/TimeAssociated DiagnosisCommentsHIGH RISK HPV W/CONNOR Mxglris8011/28/2022 5:03 AM EDT Encounter for screening for human papillomavirus (HPV) Encounter for screening for malignant neoplasm of cervix from Last 3 Months or Most Recently Relevant to Health Maintenance Results * High risk HPV w/connor (11/28/2022 5:03 AM EDT)ComponentValueRef RangeTest MethodAnalysis TimePerformed AtPathologist SignatureHpv specimen typeThinPrep 11/29/2022 5:03 AM EDTFFRESNO HEART & SURGICAL HOSPITALHpv 16NegativeNegative^Negative 11/30/2022 2:53 PM [facility] LABHpv 18Negative Negative^Aimncnad64/27/2023 2:53 PM [facility] LABOther high risk hpvNegativeNegative^Vepnirhq09/27/2023 2:53 PM [facility] LABComment: HPV types 31,33,35,39,45,52,56,58,59,66 and 68 DNA were undetectable. Specimen (Source)Anatomical Location / LateralityCollection Method / Volume Collection TimeReceived QbrdRLYFZ45/25/2023 5:03 AM EDT11/29/2022 5:04 AM EDT Narrative Authorizing ProviderResult TypeResult StatusJohanny Jimenes WINE MASTER-CNPLAB BLOOD ORDERABLESFinal ResultPerforming OrganizationAddressCity/State/ZIP CodePhone Number [address], [place] [address] [facility] [address] [facility], [address] [place] [address] from Last 3 Months or Most Recently Relevant to Health Maintenance Additional Health Concerns Active ProblemsNoted DateDiagnosed DateAutogenerated Brhjccs0806/20/2025 Insurance Care Teams Team MemberRelationshipSpecialtyStart DateEnd Js Gamez MD [address] [place] [address] PCP - GeneralFamily Mcjnhwkw64/1/25
[2025-06-24 06:58] LABS: Hematocrit 36.8 % (36.0-48.0); Hemoglobin 11.8 g/dL (12.0-16.0); Immature Granulocytes Abs Auto 0.02 10^3/uL (0.00-0.03); Immature Granulocytes Pct Auto 0.2 % (0.0-0.5); Lymphocytes Absolute Auto 3.2 10^3/uL (1.2-3.8); Mean Corpuscular HGB Conc 32.1 g/dL (29.9-35.2); Mean Corpuscular Hemoglobin 27.3 pg (26.7-34.0); Mean Corpuscular Volume 85.2 fL (81.0-99.0); Platelet Count 296 10^3/uL (150-450); Red Blood Count 4.32 10^6/uL (4.20-5.40); White Blood Count 8.3 10^3/uL (4.0-11.0)
[2025-06-24 07:01] VITALS: BP 148/86; PULSE 82; TEMP 36.3; O2SAT 97; BMI 36.6
--- NOTE | 2025-06-24 09:40 | PM.ONB ---
Brief Operative Note Date of procedure: 06/24/25 Pre-op diagnosis general: pmb, thickened endometrium, uterine polyp Post-op diagnosis: same as pre-op Procedure: NAME OF PROCEDURE: [ D&c hysteroscopy with myosure] PROCEDURE: The patient was taken back to the Operating Room where she was prepped and draped in normal sterile fashion after being placed under general anesthesia without difficulty. She was also placed in the dorsal lithotomy position. A weighted speculum was placed in the patient?s vagina. The anterior lip of the cervix was identified and grasped with a single tooth tenaculum. The patient?s uterus was then sounded roughly to [? 8] cm. The patient was then gently dilated using Hegar dilators. The hysteroscope was passed through the patient?s cervix into the uterus. Both ostia were identified. fluffy appearing endometrium. No gross evidence of malignancy, no gross evidence of polyps or fibroids. The myosure apparatus was placed through the scope, The myosure was engaged and endometrial curretting were removed along with endometrial polyp, The hysteroscope was then removed from the uterus. The endometrial curettings were sent out to pathology. The single tooth tenaculum was then removed from the patient's anterior lip of the cervix where excellent hemostasis was noted. All instruments were removed from the patient?s vagina. The patient tolerated the procedure well. Sponge, lap and needle counts were correct times two. The patient was taken to the Recovery Room in stable condition.Room in stable condition. Anesthesia: SHANKAR Surgeon: Lamont Rao Estimated blood loss (mL): 5 Pathology: other (endometrial currettings and polyp) Condition: stable Disposition: PACU Urinary Catheter Management Urinary Catheter Management Straight: Cath placed during this visit: no
[2025-06-24 09:50] VITALS: BP 110/78; PULSE 105; TEMP 36.1; O2SAT 95
[2025-06-24] MEDS: 0.9 % SODIUM CHLORIDE 1,000 ML 75 ML IV (09:58)
--- NOTE | 2025-06-24 10:00 | PC.NURSE ---
Patient has discomfort to her lower back. She has sciatica
[2025-06-24 10:05] VITALS: BP 116/71; PULSE 90; O2SAT 99
[2025-06-24 10:20] VITALS: BP 105/69; PULSE 86; O2SAT 98
[2025-06-24 10:35] VITALS: BP 137/85; PULSE 72; O2SAT 99
[2025-06-24 10:50] VITALS: BP 126/67; PULSE 77; O2SAT 98
== END 2025-06-24 10:50 | disposition home or self-care (01) ==
LOC: SURGOUT 06:51
PROVIDERS: PCP Family Medicine; Visit Provider Obstetrics & Gynecology
PROC: (CPT 952; principal; 2025-06-24 08:15)
DX: N95.0 Postmenopausal bleeding (principal); D25.9 Leiomyoma of uterus, unspecified; R93.89 Abnormal findings on diagnostic imaging of other specified body structures; N84.0 Polyp of corpus uteri; I10 Essential (primary) hypertension; E11.9 Type 2 diabetes mellitus without complications; Z79.84 Long term (current) use of oral hypoglycemic drugs; M19.90 Unspecified osteoarthritis, unspecified site
CPT/HCPCS: 58558; 36415; 82948; 85025; J1885; J2250; J2405; J2704; J3010

== ENCOUNTER 2025-06-28 13:46 | Outpatient (OUT) | payer OTHER, SELFPAY ==
--- OUTSIDE RECORDS SUMMARY | 2025-06-20 10:00 | XMS_ITS | Encounter Summary ---
Author Organization [facility] tem Address [id number] [place] [address] Care Team Providers Care Case Folder Name Role Phone Js Gamez MD Primary Care Provider [phone] Reason for Referral * Medication Prior Authorization - ClosedSpecialtyDiagnoses / ProceduresReferred By ContactReferred To Contact Diagnoses Encounter for screening colonoscopy Ama Nieves APRN-CNP [address] [place] [address] Phone: tel: fax: Referral IDStatusReasonStart DateExpiration DateVisits RequestedVisits [id number] Reason for Visit * ReasonCommentsColon Cancer Screening Encounter Details DateTypeDepartmentCare Team (Latest Contact Info)Ckimeemjqtd18/15/2025 10:00 AM ESTOffice Visit [facility] [address] [place] [address] Ama Nieves APRN-CNP [address] [place], [place] [id number] Encounter for screening colonoscopy (Primary Dx) Social History Tobacco UseTypesPacks/DayYears UsedDateSmoking Tobacco: NeverSmokeless Tobacco: NeverAUDIT-CAnswerDate RecordedFrequency of Alcohol ConsumptionNot on file 06/20/2025Q2: How many drinks containing alcohol do you have on a typical day when you are drinking?Patient does not drink06/20/2025Frequency of Binge DrinkingNot on file5ChildcareAnswerDate RecordedChildcareUnknown 12/15/2018EmploymentAnswerDate VskoairgVhyruublvlChdjvig22/11/2019Purpose - Life AnswerDate RecordedPurpose and direction in unqxPyadzam55/11/2021 CommentsNoSex and Gender InformationValueDate RecordedSex Assigned at Scsgke3602/18/2023 10:58 AM EDTLegal ShwXgiszf30/06/2015 11:21 AM EDTGender UfghuukxAdrkrm33/15/2023 10:58 AM EDTSexual OrientationDon't know02/18/2023 10:58 AM EDTdocumented as of this encounter Last Filed Vital Signs Vital SignReadingTime TakenCommentsBlood Kicjodzl742/7906/20/2025 10:04 AM EST Uhsgu264306/20/2025 10:04 AM ESTTemperature--Respiratory Rate--Oxygen Saturation-- Inhaled Oxygen Concentration--Sapmhm93.7 kg (219 lb 12.8 oz)06/20/2025 10:04 AM ESTHeight--Body Mass Index36.5807 11:19 AM EDTdocumented in this encounter Functional Status * BPAnswerDate of PfujfkpujuPdcpfx775/7906/20/2025 10:04 AM Ama Sommer APRN-CNP * PulseAnswerDate of CnjmbgvwntPjpjub5505/15/2025 10:04 AM Ama Sommer APRN-CNP * WeightAnswerDate of JeliyuveqiAepqgm9211.8108/21/2024 10:04 AM Ama Sommer APRN-CNP * Alcohol UseQuestionAnswerDate of AssessmentAuthorQ2: How many drinks containing alcohol do you have on a typical day when you are drinking?Patient does not drink06/20/2025 10:06 AM ESTAma Nieves APRN-CNP * BPAnswerDate of BzckvqfdetHaokdh085/7906/20/2025 10:04 AM Ama Sommer APRN-CNP * PulseAnswerDate of LkzsfdlrmpGgnwhv2311/15/2025 10:04 AM ESTAma Nieves APRN-CNP * WeightAnswerDate of YczswlsfkzSxjfcm0755.8108/21/2024 10:04 AM Ama Sommer APRN-CNP documented as of this encounter Mental Status * BPAnswerEntry XgigEdqmqa148/7906/20/2025 10:04 AM ESTAma Nieves APRN-CNP * PulseAnswerEntry EggkSdsyin5288/15/2025 10:04 AM Ama Sommer APRN-CNP documented in this encounter Progress Notes * JANA Marshall - 06/20/2025 10:00 AM EST Images from the original note were not included. Chief Complaint: Screening colonoscopy History of Present Illness Agnes Thapa is a 65 y.o. female who presents to the office for colon cancer screening. Her last colonoscopy was in 2012. She denies any concerns or changes in her bowel habits including no abdominal pain, diarrhea, constipation or rectal bleeding. There is no family history of colon cancer. Review of Systems Constitutional: Negative for fever and unexpected weight change. HENT: Negative for trouble swallowing. Respiratory: Negative for shortness of breath. Cardiovascular: Negative for chest pain. Gastrointestinal: Negative for abdominal pain, diarrhea, constipation and blood in stool. Genitourinary: Negative for dysuria and difficulty urinating. Musculoskeletal: Negative for gait problem. Skin: Negative for rash and wound. Neurological: Negative for dizziness, weakness and light-headedness. Hematological: Does not bruise/bleed easily. Psychiatric/Behavioral: Negative for confusion. Past Medical History: Diagnosis Date Diabetes ([facility]) Hypertension Past Surgical History: Procedure Laterality Date TONSILLECTOMY No Known Allergies Current Outpatient Medications: lisinopril-hydroCHLOROthiazide (PRINZIDE,ZESTORETIC) 10-12.5 mg per tablet, Take 1 tablet by mouth daily., Disp: , Rfl: meloxicam (MOBIC) 15 mg tablet, Take 2 tablets (30 mg total) by mouth in the morning. TAKE 1 TABLETBY MOUTH ONCE DAILY FOR 30 DAYS., Disp: , Rfl: metFORMIN (GLUCOPHAGE) 500 mg tablet, Take 1 tablet by mouth 2 (two) times a day., Disp: , Rfl: NON FORMULARY, Med Name: Pumpkin Seed Oil, Disp: , Rfl: NON FORMULARY, Med Name: Chlorphyll, Disp: , Rfl: NON FORMULARY, Med Name: Sour Sop, Disp: , Rfl: peg 3350-sod sulf,pyli-rjq-eod 178.7-7.3-0.5 gram recon soln, Take 1 kit by mouth in the morning for 1 dose. Please see instructional sheet given by physicians office., Disp: 1 each, Rfl: 0 Social History Socioeconomic History Marital status: Spouse name: Not on file Number of children: Not on file Years of education: Not on file Highest education level: Not on file Occupational History Not on file Tobacco Use Smoking status: Never Smokeless tobacco: Never Vaping Use Vaping status: Never Used Substance and Sexual Activity Alcohol use: Not on file Drug use: Never Sexual activity: Defer Other Topics Concern Not on file Social History Narrative Not on file Social Drivers of Health Financial Resource Strain: Not on file Food Insecurity: Not on file Transportation Needs: Not on file Physical Activity: Not on file Stress: Not on file Social Connections: Not on file Interpersonal Safety: Not on file Housing Instability: Not on file Family History Problem Relation Age of Onset Prostate cancer Father Objective Physical Exam Constitutional: General: She is not in acute distress. Appearance: Normal appearance. She is not ill-appearing. HENT: Head: Normocephalic and atraumatic. Mouth/Throat: Mouth: Mucous membranes are moist. Eyes: Pupils: Pupils are equal, round, and reactive to light. Cardiovascular: Rate and Rhythm: Normal rate. Pulmonary: Effort: Pulmonary effort is normal. No respiratory distress. Abdominal: General: There is no distension. Musculoskeletal: General: Normal range of motion. Skin: General: Skin is warm and dry. Neurological: Mental Status: She is alert and oriented to person, place, and time. Mental status is at baseline. Vital Signs: Blood pressure 148/79, pulse 92, weight 99.7 kg (219 lb 12.8 oz), not currently . Respiratory Source: No data recorded Admission Weight: Weight: 99.7 kg (219 lb 12.8 oz) Labs No results found for: WBC , HGB , HCT , MCV , PLT Lab Results Component Value Date GLU 167 (H) 02/19/2017 CALCIUM 9.4 02/19/2017 K 3.5 02/19/2017 CO2 27 02/19/2017 CL 102 02/19/2017 BUN 18 02/19/2017 CREATININE 0.93 02/19/2017 No results found for: AMYLASE No results found for: LIPASE Lab Results Component Value Date ALT 25 02/19/2017 AST 20 02/19/2017 ALKPHOS 77 02/19/2017 No results found for: INR , PROTIME Assessment Agnes Thapa is a 65 y.o.female who presents for screening colonoscopy. Plan Colonoscopy with possible biopsy and/or polypectomy. Risks, benefits, and alternatives discussed with patient. Patient verbalizes understanding and wishes to proceed. Evaluation included: Preparing to see the patient (e.g., review of tests) Obtaining and/or reviewing separately obtained history Performing a medically appropriate examination and/or evaluation Counseling and educating the patient/family/caregiver Referring and communicating with other health day care director Encounter for screening colonoscopy [Z12.11] JANA MARSHALL [facility] General Surgery [place] This note was created with the assistance of a speech recognition program. While intending to generate a timely document that accurately reflects the content of the visit, no guarantee can be provided that every grammatical or spelling mistake has been or will be identified or corrected. Thank you for your understanding. JANA Marshall 06/20/25 1025 documented in this encounter Plan of Treatment DateTypeDepartmentCare Team (Latest Contact Info)Kqwxudagiju24/05/2026 3:30 PM ESTSupport Visit [facility] [address] [place] [address] 07/18/2025 8:00 AM ESTHospital Encounter [facility] - Surgery [address] [place] [address] Nicolas Carreon, DO [address] [place] [address] 07/18/2025 8:00 AM EST - 07/18/2025 8:30 AM ESTSurgery [facility] [address] [place] [address] Nicolas Carreon, DO [address] [place] [address] COLONOSCOPY DIAGNOSTIC / SCREENING [G0121 +1 more]NameTypePriorityAssociated DiagnosesOrder ScheduleColonoscopyGIRoutine Encounter for screening colonoscopy 1 Occurrences starting 06/20/2025 until 06/20/2026NamePriorityAssociated DiagnosesDate/TimeCOLONOSCOPY DIAGNOSTIC / SCREENING screening 07/18/2025 8:00 AM ESTdocumented as of this encounter Goals GoalPatient Goal TypeAssociated ProblemsRecent ProgressPatient-Stated?Author Autogenerated Goal Care PlanAutogenerated ProblemNoPotts, Elizabethdocumented as of this encounter Visit Diagnoses Diagnosis Encounter for screening colonoscopy- Primary documented in this encounter Additional Health Concerns Active ProblemsNoted DateDiagnosed DateAutogenerated Lolblwx9906/20/2025documented as of this encounter Care Teams Team MemberRelationshipSpecialtyStart DateEnd Date Js Gamez MD [address] [place] [address] PCP - GeneralFamily Htwvegjx33/1/25documented as of this encounter
--- OUTSIDE RECORDS SUMMARY | 2025-06-22 03:45 | XMS_ITS ---
Author Organization The [facility] in [place] Address [address] [place] [address] Care Team Providers Care Packaging Mechanic Name Role Phone Collins Gamez Primary Care Provider Allergies No Known Allergies REASON FOR VISIT Left hip pain, moving down into the knee, feels like it swollen- ongoing for a few months, Saw Dr Gasca for this, D&C with Dr Rao- waiting on surgery clearance from Dr Gamez for Kidneys- had labs done on 06/10/25 Medications Medication SIG (Take, Route, Frequency, Duration) Notes Start Date End Date Status Oregano ActivePumpkin Seed OilActiveVitamin E3KdktpeXkhkgdk KActivemetFORMIN HCl 500 MG1 tablet with a meal Orally BID; Duration: 90 daysActiveLisinopril- hydroCHLOROthiazide 10-12.5 MG1 tablet Orally Once a day; Duration: 30 days ActiveMeloxicam 15 MG1 tablet Orally Once a day; Duration: 30 zmaaLBX8001/19/2025 ActiveGlucagonActive Social History Tobacco Use: Social History Observation Description Date Details (start date - stop date) Never Smoker NA - NA Tobacco Control (Standard) Question Answer Notes Tobacco use: Nonsmoker Problems Problem Type SNOMED Code ICD Code Onset Dates Problem Status W/U Status Risk Notes Problem Vaginal bleeding (603011663) Vaginal blee ding (N93.9) Activeconfirmed Vital Signs Weight 220.8 lbs 06/22/2025 Height 65 in 06/22/2025 Blood pressure systolic 132 mm Hg 06/22/20 25 Blood pressure diastolic 80 mm Hg 025 BMI 36.74 kg/m2 06/22/2025 Procedures Procedure Date Ordered Date Performed Result Body Sit e LEVI Segmental Pressure Study of Lower Extremity 06/22/2025 N/A Encounters Encounter Location Date Provider Diagnosis [facility] [address] [place] [address] 06/22/2025 Collins Gamez Leg cramp R25.2 and Vaginal bleeding N93.9 Assessments Encounter Date Diagnosis (ICD Code) Assessment Notes Treatment Notes Treatment Clinical Notes Section Notes 06/22/2025 Leg cramp (ICD-10 - R25.2) 06/22/2025Vaginal bleeding (ICD-10 - N93.9) NO CD< no stroke -kidney test stabel and just baelyelevated - related to DM nad htn -thos are well controlled Cleared for OR Plan Of Treatment Treatment Notes Assessment Notes Vaginal bleeding NO CD< no stroke -kidney test stabel and just baelyelevated - related to DM nad htn -thos are well controlled Cleared for OR Pending Test Test Name Order Date LEVI Segmental Pressure Study of Lower Ex tremity 06/22/2025 Progress Notes * Agnes TIMMONSDOB:1960 (65 yo F)Acc No.[id number]:06/22/2025 Progress Note Patient: Agnes MCCARTHY :?Js Gamez ([facility]), MDDOB:1960???Age: 65 Y???Sex:FemaleDate:06/22/2025Phone:[phone]:[address], [place], [place]Jwyos In:08:54 AM ESTCheck Out:09:28 AM EST Subjective: * Chief Complaints: * L eft hip pain, moving down into the knee, feels like it swollen- ongoing for a few monthsSaw Dr Gasca for thisD&C with Dr Rao- waiting on surgery clearance from Dr Gamez for Kidneys- had labs done on 06/10/25 * HPI: ???General:? Disucsed Creatinien elevatd - not bad - 1.14 - Cleared for OR _ no cad -n o strokes. ???Interim History:? Patient presents for high blood pressure check. Doing well on medication. Denies chest pain, palpitations, lightheadedness, or vision changes. * ROS: ???General/Constitutional:?Lightheadedness?denies.?Fever?denies.?Headache?denies.?Cardiovascular:?Chest pain?denies.?Palpitations?denies.?Respiratory:?Cough?denies.?Shortness of breath?denies.? * Active Problem List I10 Hypertension Modified On:12/11/2023 Status:kxrernxgjE89.9Diabetes Modified On:12/11/2023 Status:izfntpeidK85.90Unspecified osteoarthritis, unspecified site Modified On:12/11/2023 Status:ljbxmcsfuP38.9Knee osteoarthritis Modified On:04/14/2024 Status:dcotbswtlY89.2Leg cramp Modified On:08/04/2024U Status:jrbpqecjuV04.81Nasal congestion Modified On:12/10/2024 Status:kqdyhxvceE26.00Well adult Modified On:12/10/2024 Status:nwvfnqngtC19.90Acute non-recurrent sinusitis, unspecified location Modified On:12/10/2024 Status:dzqekdevfV49.9Vaginal bleeding Modified On:06/22/2025 Status:confirmed * Medical History: * Surgical History: C olonoscopy &C 11/27mammogram 01/14/25 * Hospitalization/Major Diagno stic Procedure: D enies Past Hospitalization * Family History: F ather: alive, diagnosed with Prostate Cancer. M other: , lung cancer, diagnosed with Cancer, Hypertension. B rother(s): alive. S ister(s): alive. S on(s): alive. 5 brother(s) , 1 sister(s) . 1 son(s) . . * Social History: ???Tobacco Use:?Tobacco Control (Standard)?Tobacco use:?Nonsmoker * Medications: T akingGlucagon Lisinopril-hydroCHLOROthiazide 10-12.5 MG Tablet 1 tablet Orally Once a day Meloxicam 15 MG Tablet 1 tablet Orally Once a day , Notes to Pharmacist: PRNmetFORMIN HCl 500 MG Tablet 1 tablet with a meal Orally BID Oregano Pumpkin Seed Oil Vitamin D3 Vitamin K Taking Glucagon Taking Lisinopril-hydroCHLOROthiazide 10-12.5 MG Tablet 1 tablet Orally Once a day Taking Meloxicam 15 MG Tablet 1 tablet Orally Once a day , Notes to Pharmacist: PRNTaking metFORMIN HCl 500 MG Tablet 1 tablet with a meal Orally BID Taking Oregano Taking Pumpkin Seed Oil Taking Vitamin D3 Taking Vitamin K DiscontinuedlevoFLOXacin 750 MG Tablet 1 tablet Orally Once a day Medication List reviewed and reconciled with the patientDiscontinued levoFLOXacin 750 MG Tablet 1 tablet Orally Once a day Medication List reviewed and reconciled with the patient * Allergies: N .K.D.A.no[Allergies Verified] Objective: * Vitals: W t:220.8lbs, Ht: 65 in, BP:132/80mm Hg, BMI:36.74Index, Ht-cm: 165.1 cm, Wt-k.15 kg. * Examination: ???General Examination: ?GENERAL APPEARANCE:? in no acute distress, well developed,well nourished.?LUNGS:? clear to auscultation bilaterally.?CARDIO:? regular rate and rhythm, S1, S2 normal, no murmurs.? Assessment: * Assessment: 1.?Leg cramp - R25.2 (Primary)???2.?Vaginal bleeding - N93.9?? Plan: * Treatment: ?Procedure: LEVI Segmental Pressure Study of Lower Extremity2.?Vaginal bleeding? Notes: NO CD< no stroke -kidney test stabel and just baelyelevated - related to DM nad htn -thosare well controlled Cleared for OR?? * Procedure Codes: * Preventive Medicine: ??Screenings/Counseling:?BMI ACTION PLAN?Above Normal BMI Follow-up?Dietary management education, guidance, and counseling * * Sign off status: CompletedVisit Status:?CHK (Check Out) true * Provider: Laz Gamez ([facility])MD Date: 08/23/2024 Generated for Printing/Faxing/eTransmitting on:?06/28/2025 12:07 PM EST History and Physical Notes * HPI (History of Present Illness) CategorySub-CategoryDetailNotesCategory NotesGeneralDisucsed Creatinien elevatd - not bad - 1.14 - Cleared for OR _ no cad -n o strokes Examination CategorySub-CategoryDetailNotesCategory NotesGeneral ExaminationGENERAL APPEARANCE:in no acute distress, well developed, well nourishedCARDIO:regular rate and rhythm, S1, S2 normal, no murmursLUNGS:clear to auscultation bilaterally
--- OUTSIDE RECORDS SUMMARY | 2025-06-22 04:24 | XMS_ITS ---
Author Organization The [facility] in [place] Address [address] [place] [address] Care Team Providers Care Dance Hall Host/Hostess Name Role Phone Vera Collins Primary Care Provider Reason For Referral Diagnosis 1 Left hip pain (M25.5 52) Referral Organization [facility] Referring Provider First Name Collins Referring Provider Last Name Vera Referring Provider Speciality Family Med icine Referred Provider [facility], Physical Therap y Referred Provider Specialty Physical The rapist Referral Priority Routine REASON FOR VISIT pt Encounters Encounter Location Date Provider Diagnosis [facility] [address] [place] [address] 06/22/2025 Collins Gamez Left hip pain M25.55 2 Assessments Encounter Date Diagnosis (ICD Code) Assessment Notes Treatment Notes Treatment Clinical Notes Section Notes 06/22/2025 Left hip pain (ICD-10 - M25.552) Plan Of Treatment Referrals Referral Date Details 06/22/2025 06/22/2025, Physical Therapy [facility] Progress Notes * IAINAgnes AMEZCUADOB:1960 (65 yo F)Acc No.[id number]:06/22/2025 Patient:?Agnes TIMMONS :1960???Age:65 Y???Sex:FemalePhone:[phone] Address[address] [place], [address] Subjective: * Chief Complaints: * P t * Medical History: * Surgical History: * Hospitalization/Major Diagno stic Procedure: * Medications: Objective: * Vitals: * Physical Examination: ??? Assessment: * Assessment: 1.?Left hip pain - M25.552 (Primary)??? Plan: * Treatment: ? Referral To:Physical Therapy TB??Physical Therapist ?Reason: * Procedure Codes: * true * Date:?Generated for Printing/Faxing/eTransmitting on:?06/28/2025 12:07 PM EST Consultation Request Notes Referral Date Referring Provider Referred Provider Not 06/22/2025 Collins Gamez, Physical Therapy
--- OUTSIDE RECORDS SUMMARY | 2025-06-24 19:26 | XMS_ITS | Continuity of Care Document ---
Author Organization [facility] Address [address] [place] [address] Phone Care Team Providers Care Complex Care Nurse Name Role Phone Mauri Gasca DO Attending Provider [phone] Js Colindres MD Primary Care Provider [phone] Lamont Rao DO Attending Provider Care Teams Visit Care Team Team Status: Inactive Member Role/Relationship Status Dates Mauri Gasca DO Attending Provider Active S tart: May 02, 2025 End: May 02, 2025Steve Wiggins Care ProviderActiveStart: May 02, 2025 End: May 02, 2025 Patient Care Team Team Status: Inactive Member Role/Relationship Status Dates Lamont Rao DO Attending Provider Active Start : June 24, 2025 End: June 24, 2025 Chief Complaint and Reason for Visit Chief Complaint Admit Date TB CONSULT DR COLINDRES LT HIP PAIN WX [facility] tober 2024 10:07am Unknown June 24, 2025 9:54am Reason for Visit Admit Date Degenerative joint disease of knee Octob er 2024 10:07am Primary osteoarthritis of left hip Octob er 2024 10:07am Allergies, Adverse Reactions, Alerts Allergen Type Severity Reaction Last Updated Verified Status No Known Allergies Allergy Unknown May 02, 2025 9:09amYesActive Social History Smoking Status Unknown if ever smoked Observation Status Observation Response Date of Response Legal Sex Female (finding) Sex Assigned At BirthFemaleNovember 1959 Problems Active Problems Problem Diagnosis/Recorded Date Onset Date Stat us Primary osteoarthritis of left hip April 27, 2025 6:42am Unknown Active Diabetes April 29, 2025 11:10am Unknown A ctive Degenerative joint disease of knee May 02, 2025 9:50am Unknown Active History of tonsillectomy May 02, 2025 9:14am Unk nown Active Knee pain, bilateral May 02, 2025 9:15am Unknown Active HTN (hypertension) April 29, 2025 11:10am Unknown Active Medications Medication Status Dose Units Route Directions Qty Days Refills S tart Date Stop Date End Date Reason(s) Instructions Adherence Metformin 500 mg tablet Active 500 MG PO Twice da yoli with meals April 28, 2025 11:00pmUnknownMeloxicam 15 mg tabletActiveMGPOOctdeaconess hospital 2024 11:00pmUnknownLisinopril-Hydrochlorothiazide 10-12.5 mg xrdfcuJsvoxq6FHNNY DailyOctdeaconess hospital 2024 11:00pmUnknownLevofloxacin 750 mg lycvrrXxmwethozwcd884 MGPODailyHealthsource [facility] 2024 11:00pmOctdeaconess hospital 2024 9:10amCholecalciferol (Vitamin D3) 325 mcg (13,000 unit) aodzkhwJgfuac607YEHUWybyvy weekHealthsource [facility] 2024 11:00pmUnknown Vital Signs Vital Reading Result Reference Range Collection Date/Time Height 65 [in_i] May 02, 2025 9:97bbCigfev83.97 kgHealthsource [place] 2024 9:09amBMI (Body Mass Index)35.9 kg/j6Xqdpkax 2024 9:09am Advance Directives Advance Directive Response Recorded Date/ Time Advance Directives No April 11, 2025 7:48am Insurance Providers Guarantor Agnes Thapa Address [address] [place] [address]Xzlijds Info.Home Phone: Coverage Status Update:2025 Payer Group Member ID Coverage Type Subscriber Relationship to Subscriber Effective Date Expiration Date [employer] Id: [id number] C Tucker Id: [id number] [address] [place] [address] Home Phone: SelfSelf Pay nullSelfSelf Encounters Encounter Location(s) Arrival/Admit Date Discharge/Departure Date Discharge/Departure Disposition Provider(s) Departed Physician/ Provider Office Visit -[facility] May 02, 2025 10:07am May 02, 2025 11:18am Discharged to home care or self care (routine discharge) Mauri Gasca DO Departed Referred -[facility] June 24, 2025 9:54am June 24, 2025 9:55am Discharged to home care or self care (routine discharge) Lamont Maira Recent Diagnosis Onset Date Admit Date Degenerative joint disease of knee Unknown May 02, 2025 10:07am Primary osteoarthritis of left hip Unknown May 02, 2025 10:07am Assessments Diagnosis Onset Date Resolution Status Admit Date Degenerative joint disease of knee acuteOctober 2024 10:07amPrimary osteoarthritis of left hipacuteOctober 2024 10:07am Plan of Treatment Author Mauri Gasca [facility]AuthoredOctdeaconess hospital 2024 11:35amToday we have discussed degenerative joint disease of the hip and its treatment. Imaging was explained and discussed with the patient. We discussed recommended conservative therapies including physical therapy, anti-inflammatory medications, and weight loss strategies. We also discussed other treatment options including cortisone injections. I have laid out the course of hip DJD including the end-stage treatment of total joint arthroplasty. The patient recognizes and understands our options and goals and we will move forward with our treatment. Agnes presents with right worse than left knee DJD. At this juncture we have discussed the findings and diagnosis as well as personally reviewed appropriate imaging and performed interpretation of related testing and examination with the patient in office today. Prior medical notes from Dr. Colindres and history have been reviewed. Today we have discussed degenerative joint disease of the knee and its treatment. Imaging was discussed and explained to the patient. We discussed recommended conservative therapies including physical therapy, anti-inflammatory medications, and weight loss strategies. We also discussed other treatment options including cortisone injections, Visco supplementation injections which are options for treatment. I have laid out the course of knee DJD including the end- stage treatment of total joint arthroplasty. The patient recognizes and understands our options and goals and we will move forward with our treatment. Today we have initiated ongoing conservative measures. She will continue use anti-inflammatories as needed. Offered cortisone injection today which patient is electing to move forward with. Risks and benefit of injection were discussed and verbal consent was obtained. Under sterile technique the patient's right knee was injected via the inferolateral portal with 4 cc of Marcaine and 1 cc of Kenalog, this was tolerated well without any adverse reaction. Band-Aid was applied to the area. I will see them back as needed. Did discuss candidacy for partial knee The patient has been involved in our cooperative treatment plan and agrees to move forward with treatment at this time. Images and pain etiology were discussed with the patient. Many of the symptoms are coming from arthritis in the knee and hips. Treatment modalities were discussed including conservative treatment in the form of oral anti-inflammatories, corticosteroid injection, hyaluronic injection, or physical therapy. Surgical interventions were discussed in the form of partial knee arthroplasty. We will pursue conservative management at this time with cortisone injection to the right knee. We performed a 4/1cc Marcaine/Kenalog cortisone injection into the right knee joint under sterile technique. Patient tolerated the injection well without adverse reaction. Patient given AAOS handout for knee arthritis and information for partial knee arthroplasty, Patient can follow up as needed. Note scribed by VALARIE Franklin, reviewed and amended by myself Mauri Gasca D.O. Future Tests Future scheduled test information is unavailable Pending Tests Test Name Ordered Date Scheduled Date Miscellaneous Pathology Test June 24, 2025 9:54am XR knee BI 3V - NOT FOR ER USEHealthsource [facility] 2024 9:14am Future Visits Future appointment information is unavailable Future Procedures Procedure Name Ordered Date Scheduled Date Pathology Request for Lab Joel June 24 2:55pm June 24, 2025 9:54am Future Medications Future medication information is unavailable Patient Instructions Patient instructions are unavailable
--- NOTE | 2025-06-28 13:30 | CA_ITS ---
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 Interpretive Statements Summary of the findings: Right leg: LEVI= 1.18; TBI= 0.88. Doppler waveforms demonstrate biphasic flow at the posterior tibial and dorsalis pedis arteries. Left leg: LEVI= 1.16; TBI= 0.76. Doppler waveforms demonstrate biphasic flow at the posterior tibial and dorsalis pedis arteries. Segmental pressures: Segmental pressures suggest possible right femoropopliteal disease. Pulse volume recordings: PVRs at the high thigh, below knee, and ankle levels show normal waveforms. Conclusion: Right and left ankle-brachial indices are suggestive of normal overall arterial flow at rest. Toe-brachial indices are not suggestive of PAD. Segmental pressures suggest possible right femoropopliteal disease. Pulse volume recordings indicate good overall resting arterial flow. Overall grossly normal physiologic examination. Electronically Signed On 06-29-2025 11:58:08 EST by DHRUV LANDERS M.D.
--- OUTSIDE RECORDS SUMMARY | 2025-06-28 13:48 | XMS_ITS | Patient Health Record ---
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 Stress is when someone feels tense, nervous, anxious, or can't sleep at nightbecause their mind is troubledQuite a bitpatient entered dataIn the past year have you spent more than 2 nights in a row in a alf, halfway, prison center, orjuvenile correctional facility?Nopatient entered dataAre you [...] doctor and staff have permission to release information.[phone] entered data ? Select the Patient's relationship [...] W/U Status Risk Notes Problem Postmenopausal bleeding (26522097) Postme nopausal bleeding (N95.0) ActiveconfirmedREFER to SUPERVISOR OF COMMUNICATIONS for endometrial sampling and workup as appropriate. ProblemOsteoarthritis of knee (849575648)Knee arthropathy (M17.10)Active confirmedRECOMMEND QUAD SETTING EXERCISES, 20 REPS X 5, 3 TIMES A DAY, AND KNEE BRACE.ProblemAsthma without status asthmaticus (39332184)Acute asthmatic bronchitis (J45.909)Activeconfirmedkpred for 5 days, and amox for 10 daysProblem Rotator cuff tear arthropathy (448641112)Rotator cuff tear arthropathy (M12.819) Activeconfirmedfer to orthodr tuttle. INCREASE tylenol to 1300mg BID and 650 mid day.ProblemEssential hypertension (86008681)HTN (hypertension), benign (I10)Activeconfirmedgood controlProblemObese class II (851114347882610)BMI 37.0- 37.9, adult (Z68.37)ActiveconfirmedProblemType II diabetes mellitus without complication (161905407)Controlled diabetes mellitus (E11.9)Activeconfirmed ProblemType II diabetes mellitus without complication (943214963)Controlled type 2 diabetes mellitus without complication, without long-term current use of insulin (E11.9)Activeconfirmedcode 08766 applies POCT A1C TODAY = 6.9, CONTINUE CURRENT DOSE. EYE EXAM RECOMMENDED.ProblemStatin declined (situation) (242937332)Refusal of statin medication by patient (Z53.20)ActiveconfirmedLDL is good, 100; she'd prefer NOT to take a statin.ProblemCOVID-19 (972806560)COVID-19 (U07.1)ActiveconfirmedComment:with an irritant cough, doesn't really sound like bronchospasm, so NO inhaler for now, and will go with tessalon perles.,Problem Acute sinusitis (95766424)Sinusitis, acute (J01.90)Activeconfirmed Comment:-pt having sinus sx -only been going on for 3-4 days, but will treat as bacterial as the pt seems miserable -Augmentin BID for 10 days -also given Claritin and cough suppressant - Can also take vitamin C, Claritin, Mucinex, cough drops, and honey as needed for sx relief -f/u in 2 weeks if not feeling better, ProblemHordeolum (002353177)Hordeolum (H00.019)ActiveconfirmedComment:Left lower eyelid. Will refer to Ophtamology for further evaluation and tx.,Problem Depression screening (552723732)Screening for depression (Z13.31)Activeconfirmed Description:Depression screeningProblemConjunctivitis (6792400)Conjunctivitis (H10.9)ActiveconfirmedComment:RTO if sxs. persist or worsen.,ProblemStatin declined (situation) (747682395)Refusal of statin medication by patient (Z53.29) ActiveconfirmedComment:i ENCOURAGED HER TO START ONE, SHE DOESNT WANT TO AT THE PRESENT TIME. (LDL = 100, BUT WITHD.M.),ProblemDepressed mood (195946031) Depressed mood (R45.89)Activeconfirmed Comment:SITUATIONAL, CIRCUMSTANTIAL, WITHOUT DIAGNOSIS OF ANXIETY/DEPRESSION. DECLINES OFFER FOR BEHAVIOURAL HEALTH COUNSELING, DOESN'T NEED MEDICATON., ProblemGynecological examination normal (238796128005192)Well woman exam with routine gynecological exam (Z01.419)Activeconfirmed Comment:did have recent blood work done. definitive hemoglobin A1c of 6.4. We'll make a followup appointment to address this specifically. Otherwise preventative screening tests ordered. Followup as needed., ProblemObesity (236619377)Obesity (E66.9)Activeconfirmed Comment:has lost 11lb since last visit 6w back noted to have elevated glucose on lab, hold off on further labs as of now as she is self pay, ProblemBump (R22.9)Activeconfirmed Comment:self resolving likely bruise enc ice prn monitor, ProblemOtitis media (14704976)Otitis, left (H66.92)Activeconfirmed Comment:Increase fluids and rest as able If no better in a week, call office for further evaluation Can use Tylenol or Motrin as needed for pain and fever, ProblemBreast cancer screening (204571469)Encounter for screening mammogram for breast cancer (Z12.31)ActiveconfirmedProblemHyperglycemia (23034966)Elevated glucose (R73.09)ActiveconfirmedProblemArthropathy (915739261)Arthropathia (M12.9)10/29/2006ctiveconfirmedDescription:ArthropathyProblemHeart murmur (79369081)Heart murmur (R01.1)Activeconfirmed Comment:asymptomatic ECHO reviewed- did not show any significant abnormalities rec if she develops chest pain/ SOB/ dizziness/ any other cocnerns, then call back, ProblemAcute bronchitis (31535415)Acute bronchitis (J20.9)Activeconfirmed Comment:abx as prescribed maintain adeq hydration rec honey/ cough drops for cough, ProblemHyperglycemia (70803404)Hyperglycemia (R73.9)Activeconfirmed Comment:noted on labs done back in sept was not able to have repeat labs at the time, ProblemScreening for malignant neoplasm of breast (938208026)Encounter for mammogram to establish baseline mammogram (Z12.31)ActiveconfirmedComment:ROUTINE SCREENING MAMMOGRAM, NO SYMPTOMS.,ProblemSty (0062132)Sty (H00.019)Active confirmedComment:Left upper eyelid. Recommend warm compress application to affected eye bid. Rec. cleansiingbilateral eyelids with q-tips and baby shampoo in water q week. Will refer to Opthamology for possible I and D of sty. RTO in 3 months or sooner if needed.,ProblemPharyngitis (047478069)Pharyngitis (J02.9) Activeconfirmed Comment:-Sore throat for a good week -Red, swollen and painful -Strep swab checked -Has fever, symptoms for a week, ProblemSinusitis (61780313)Sinusitis (J32.9)Activeconfirmed Comment:-Congested sinuses -Fever for two days, not going below 100 F -Blowing out bloody, thick, purulent mucous -Has had severe symptoms the last three days; general sinusitis for at least week prior, ProblemSpasm (23445589)Spasm, muscle (728.85) (728.85)04/14/2007Problem resolved confirmedProblemJoint pain (90935926)Pain in joint, unspecified site (719.40) (719.40)10/29/2006Problem resolvedconfirmed Vital Signs Heart Rate 87 /min 09/22/2024 Blood pressure whcugduvw58 mm Hg09/22/2024Height-cm163.83 cm09/22/2024Weight-kg 99.79 kg09/22/20247239Yjzdbg16.5 in09/22/2024lood pressure wyblswsm743 mm Hg 09/22/20244991Rujovc449 lbs09/22/2024BMI37.18 kg/m209/22/2024 Encounters Encounter Location Date Provider Diagnosis [facility] [address] [place] [address] [id number] 09/22/2024 Stephenie Pierre Encounter for dent al examination and cleaning with abnormal findings Z01.21 ; Dental caries into dentine K02.62 ; Necrosis of pulp K04.1 ; Partial loss of teeth, unspecified cause, class I K08.401 ; Dental tenriism status Z98.811 ; 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 and [...] unspecified cause, class I (ICD-10 - K08.401)09/22/2024Dental tenriism status (ICD-10 - Z98.811) 09/22/2024Irreversible pulpitis (ICD-10 - K04.02)09/22/2024Encounter for screening for dental disorders (ICD-10 - Z13.84) Plan Of Treatment No Information Insurance Providers Payer Name Payer Address Payer Phone Subscriber Number Group Number Insured Name Patient Relationship to Insured Coverage Start Date Coverage End Date [facility] [address] [place], [place] [phone] [id number] Agnes Epstein Self - patient is the insured 2 [employer] MCD[address] [place] [phone] [id number], TonjaSelf - patient is the [id number] 2021 Medicaid [facility] after [address] [place], [place] [id number], TonjaSelf - patient is the [id number] [facility] after CaresourceDentaquest[address] [place], [place] [id number], TonjaSelf - patient is the [id number] 2021 Medical (General) History Medical History History ICD Code Arthropathia, DESCRIPTION: Arthropathy CHILDHOOD DISEASES: Positive history for chicken poxCHILDHOOD DISEASES: Positive history for measlesCHILDHOOD DISEASES: Positive history for mumpsDiabetes type 2, controlledHeart murmurHypertensionObesityRefusal of statin medication by patientSurgical History Surgery Date(Month/Year) [facility] 1985 Tonsillectomy D & C011/2023
--- OUTSIDE RECORDS SUMMARY | 2025-06-28 13:48 | XMS_ITS | Patient Health Record ---
Author Organization [facility] in [place] Address [address] [place] [address] Care Team Providers Care Designer And Patternmaker Name Role Phone Collins Gamez Primary Care Provider [phone] Allergies No Known Allergies Results Component Value Reference Range Notes CBC AUTO DIFF Reviewed date:08/04/2024 09:03:24 PM Interpretation: Performing Lab: Notes/Report: [facility] , White Blood Count 7.1 4.0-11.0 10 3/uL Red Blood Count4.584.20-5.40 10 6/jTVggzepdmln92.412.0-16.0 g/cXDlsvhyekmz63.2 36.0-48.0 %Mean Corpuscular Quxzbo59.481.0-99.0 fLMean Corpuscular Hemoglobin 27.126.7-34.0 pgMean Corpuscular HGB Conc32.529.9-35.2 g/dLRed Cell Distribution Width13.011.0-15.0 %Platelet Gkkzo288362-906 10 3/uLMean Platelet Volume9.69.5- 13.5 fLNeutrophils Percent Auto53.343.0-75.0 %Lymphocytes Percent Auto37.720.5- 60.0 %Monocytes Percent Auto6.81.7-12.0 %Eosinophils Percent Auto1.70.9-7.0 % Basophils Percent Auto0.40.2-2.0 %Immature Granulocytes Pct Auto0.10.0-0.5 % Neutrophils Absolute Auto3.81.4-6.5 10 3/uLLymphocytes Absolute Auto2.71.2-3.8 10 3/uLMonocytes Absolute Auto0.50.3-0.8 10 3/uLEosinophils Absolute Auto0.10.0- 0.7 10 3/uLBasophils Absolute Auto0.00.0-0.1 10 3/uLImmature Granulocytes Abs Auto0.010.00-0.03 10 3/uLPerforming Lab:see note - [facility] LB MAGNESIUM Reviewed date:08/04/2024 09:03:24 PM Interpretation: Performing Lab: Notes/Report: [facility] ,Magnesium1.71.8-2.4 mg/dLPerforming Lab:see noteUniversity Hospitals [facility] PROF 14(COMP METB) Reviewed date:08/04/2024 09:03:24 PM Interpretation: Performing Lab: Notes/Report: [facility] ,Nkmtcd140705-931 mmol/LPotassium4.13.5-5.1 mmol/BHaesfvuv34983-618 mmol/LCarbon Rxrxztz76.621.0-32.0 mmol/LAnion Gap11.0Nmhpsqc25709-963 mg/dLBlood Urea Qximpsli66.07.0-18.0 mg/dLCreatinine1.140.55-1.02 mg/dLEstimated GFR ( Pzilslg75>=60 mL/min/1.73m 2Estimated GFR (Non- Ame48>=60 mL/min/1.73m 2 BUN Creatinine Ratio14.3Btkaoct8.48.5-10.1 mg/dLBilirubin Total0.20.2-1.0 mg/dL Aspartate Amino Lxgblsbvjbu8827-42 U/LAlanine Ufdkdvyuygayjjfx2514-24 U/L Alkaline Awxfxgcmicy7281-152 U/LTotal Protein8.16.4-8.2 g/dLAlbumin Level3.83.4- 5.0 g/dLGlobulin4.3Albumin Globulin Ratio0.9Performing Lab:see note - [facility] LBCOVID-19, Flu A+B IH Reviewed date:04/07/2025 01:28:18 PM Interpretation: Performing Lab: Notes/Report: COVIDNEGFLU ANEGFLU BNEGControlPOSXR KNEE LT 3V Reviewed date:04/07/2025 01:28:18 PM Interpretation: Performing Lab: Notes/Report: Source Facility: [address] [address] XRay Report Signed Patient: AGNES TIMMONS MR#: [id number] : 1960 Acct:[id number] Age/Sex: 64 / F ADM Date: 04/06/25 Loc: RAD Attending Dr: Bennett Gamez M.D. Ordering Physician: Bennett Gamez M.D. Date of Service: 04/06/25 Procedure(s): XR knee LT 3V Accession Number(s): [id number] cc: Bennett Gamez M.D. [place] [address] Patient Name: AGNES TIMMONS MRN: [id number] date: 1960 Sex: F Assigned Patient Location: [facility] Current Patient Location: [facility] Accession/Order Number: [id number] Exam Date: 04/06/2025 17:39 Report Date: 04/06/2025 23:18 At the request of: BENNETT GAMEZ MD Procedure: XR knee LT 3V 3 views left knee plain film COMPARISON: None HISTORY: Left knee pain/cramping. ACUTE FINDINGS: No acute findings DEGENERATIVE CHANGE: Mild degeneration. Superior patellar enthesophyte. SOFT TISSUE FINDINGS: Unremarkable JOINT EFFUSION: None POSTOP CHANGES: None BONE MINERALIZATION: Adequate XR/XR knee LT 3V IMPRESSION: Mild degenerative changes Impression dictated by: Peter Lindsay M.D. 04/06/2025 11:18 PM Dictation Location: [place] [address] Electronically authenticated by: [id number] Date: 04/06/2025 23:18 Dictated By: Peter Lindsay D.O. Signed By: 04/06/252319 DD/ TD/TT: High Speed Printer Operator:PREETI T4 Reviewed date:08/04/2024 09:03:24 PM Interpretation: Performing Lab: Notes/Report: [facility] Preeti T40.960.76-1.46 ng/dLPerforming Lab:see noteML - [facility] LB XR knee ELANA 3V Reviewed date:05/02/2025 07:09:50 PM Interpretation: Performing Lab: Notes/Report: Source Facility: [facility]-[address] [place] [address] [place] [address] XRay Report Signed Patient: AGNES TIMMONS MR#: [id number] : 1960 Acct:[id number] Age/Sex: 64 / F ADM Date: 05/02/25 Loc: RAD Attending Dr: Zakiya Gasca D.O. Ordering Physician: Zakiya Gasca Date of Service: 05/02/25 Procedure(s): XR knee ELANA 3V Accession Number(s): [id number] cc: Bennett Gamez M.D.; Zakiya Gasca [place] [address] Patient Name: AGNES TIMMONS MRN: [id number] date: 1960 Sex: F Assigned Patient Location: [facility] Current Patient Location: [facility] Accession/Order Number: [id number] Exam Date: 05/02/2025 10:40 Report Date: 05/02/2025 [...] Funk M.D. 05/02/2025 11:08 AM Dictation Location: [place] [address] Electronically authenticated by: [id number] Y Date: 05/02/2025 11:08 Dictated By: Promise Funk M.D. Signed By: 05/02/25 1111 DD/ 1108 TD/TT: High Speed Printer Operator:CBC AUTO DIFF Reviewed date:06/24/2025 03:52:21 PM Interpretation: Performing Lab: Notes/Report: [facility] ,White Blood Count8.34.0-11.0 10 3/uLRed Blood Count4.324.20-5.40 10 6/uL Fshrtdnyxe50.812.0-16.0 g/uOAxcuoylzdv52.836.0-48.0 %Mean Corpuscular Vcpjdi84.2 81.0-99.0 fLMean Corpuscular Ocqirggzzz57.326.7-34.0 pgMean Corpuscular HGB Conc 32.129.9-35.2 g/dLRed Cell Distribution Width13.111.0-15.0 %Platelet Jecvk661 150-450 10 3/uLMean Platelet Volume9.29.5-13.5 fLNeutrophils Percent Auto50.6 43.0-75.0 %Lymphocytes Percent Auto38.620.5-60.0 %Monocytes Percent Auto8.51.7- 12.0 %Eosinophils Percent Auto1.60.9-7.0 %Basophils Percent Auto0.50.2-2.0 % Immature Granulocytes Pct Auto0.20.0-0.5 %Neutrophils Absolute Auto4.21.4-6.5 10 3/uLLymphocytes Absolute Auto3.21.2-3.8 10 3/uLMonocytes Absolute Auto0.70.3-0.8 10 3/uLEosinophils Absolute Auto0.10.0-0.7 10 3/uLBasophils Absolute Auto0.00.0- 0.1 10 3/uLImmature Granulocytes Abs Auto0.020.00-0.03 10 3/uLPerforming Lab:see noteML - [facility] LBECG 12 lead Reviewed date:06/11/2025 10:38:40 AM Interpretation: Performing Lab: Notes/Report: Source Facility: [place] [address] [place] [address] Electrocardiograph Report Signed Patient: AGNES TIMMONS MR#: [id number] : 1960 Acct:[id number] Age/Sex: 65 / F ADM Date: 06/10/25 Loc: PST Attending Dr: Anthony Roche D.O. Ordering Physician: Anthony Roche D.O. Date of Service: 06/10/25 Procedure(s): ECG 12 lead Accession Number(s): [id number] cc: [facility] Test Date: 2025-06-10 Pat Name: AGNES TIMMONS Department: Room: - Gender: Female Warp Hauler: : 1960 Requested By: ANTHONY ROCHE Order Number: [id number] Reading MD: DHRUV LANDERS M.D. Measurements Intervals [place] Rate: 70 P: 52 ID: 146 QRS: -4 QRSD: 146 T: 29 QT: 399 QTc: 431 Interpretive Statements SINUS RHYTHM RIGHT BUNDLE BRANCH BLOCK [120+ ms QRS DURATION, UPRIGHT V1, 40+ ms S IN I/aVL/V4/V5/V6] Abnormal ECG Compared to ECG 11/05/2023 13:16:05 Indeterminate axis no longer present Electronically Signed On 06-10-2025 21:54:32 EST by DHRUV LANDERS M.D. Dictated By: DHRUV LANDERS Signed By: 06/10/25 2154 DD/ 1023 TD/TT: High Speed Printer Operator:XR lumbar spine min 4V Reviewed date:04/07/2025 01:28:18 PM Interpretation: Performing Lab: Notes/Report: Source Facility: [place] [address] [place] [address] XRay Report Signed Patient: AGNES TIMMONS MR#: [id number] : 1960 Acct:[id number] Age/Sex: 64 / F ADM Date: 04/06/25 Loc: RAD Attending Dr: Bennett Gamez M.D. Ordering Physician: Bennett Gamez M.D. Date of Service: 04/06/25 Procedure(s): XR lumbar spine min 4V Accession Number(s): [id number] cc: Bennett Gamez M.D. [place] [address] Patient Name: AGNES TIMMONS MRN: [id number] date: 1960 Sex: F Assigned Patient Location: RAD Current Patient Location: RAD Accession/Order Number: [id number] Exam Date: 04/06/2025 17:39 Report Date: 04/06/2025 23:19 At the request of: BENNETT GAMEZ MD Procedure: XR lumbar spine min 4V [...] Lindsay M.D. 04/06/2025 11:19 PM Dictation Location: [place] [address] Electronically authenticated by: [id number] Y Date: 04/06/2025 23:19 Dictated By: Peter Lindsay D.O. Signed By: 04/06/252321 DD/ 18 TD/TT: High Speed Printer Operator:XR hip LT 2V w/ pelvis Reviewed date:04/07/2025 01:28:18 PM Interpretation: Performing Lab: Notes/Report: Source Facility: [place] [address] [place] [address] XRay Report Signed Patient: AGNES TIMMONS MR#: [id number] : 1960 Acct:[id number] Age/Sex: 64 / F ADM Date: 04/06/25 Loc: RAD Attending Dr: Bennett Gamez M.D. Ordering Physician: Bennett Gamez M.D. Date of Service: 04/06/25 Procedure(s): XR hip LT 2V w/ pelvis Accession Number(s): [id number] cc: Bennett Gamez M.D. [place] [address] Patient Name: AGNES TIMMONS MRN: [facility]:[id number] date: 1960 Sex: F Assigned Patient Location: [facility] Current Patient Location: RAD Accession/Order Number: [id number] Exam Date: 04/06/2025 17:39 Report Date: 04/06/2025 23:17 At the request of: BENNETT GAMEZ MD Procedure: XR hip LT 2V w/ [...] Lindsay M.D. 04/06/2025 11:17 PM Dictation Location: [place] [address] Electronically authenticated by: [id number] Y Date: 04/06/2025 23:17 Dictated By: Peter Lindsay D.O. Signed By: 04/06/252318 DD/ 16 TD/TT: High Speed Printer Operator:TSH Reviewed date:08/04/2024 09:03:24 PM Interpretation: Performing Lab: Notes/Report: [facility] ,Thyroid Stimulating Hormone0.9260.358-3.740 uIU/mLPerforming Lab:see noteML - [facility] LBIGP,Aptima HPV,Age Gdln Reviewed date:06/03/2025 12:14:07 PM Interpretation: Performing Lab: Notes/Report: BRUSH-SPATULA CERVIX ENDOCERVIX [facility] ,Age Gdln ACOG TestingNote. TESTS RESULT FLAG UNITS REF RANGE LAB Performed at: 01 =G [place] Source.............Cervix;Endocervix [address] [facility] [place] [address] FLAG LEGEND: <-Panic Low,>-Panic High,A-Abnormal,AA-Critical Abnormal No. of containers..01 ThinPrep Vial Age Algo ACOG Mary... 30-65 01 Clinician Provided Cytology Information Megan Ariza MD, L-Low Normal,H-High Normal,LL-Alert Low,HH-Alert High IGP, Aptima HPV, rfx 16/18,45Note. L-Low Normal,H-High Normal,LL-Alert Low,HH-Alert High Specimen adequacy: 02 The Pap smear is a screening test designed to aid in the using the [employer](RPageflakes Genius(TM) Cervical Algorithm whole [address] [facility] [place] [address] Satisfactory for evaluation. Endocervical and/or squamous metaplastic [...] cervical HPV Genotype Reflex Note 02 02 [facility] [place] TESTS RESULT FLAG UNITS REF RANGE LAB Megan Ariza MD, cancer. Both false-positive and false-negative reports do Test Methodology: Note 02 Performed at: NEGATIVE FOR INTRAEPITHELIAL LESION OR MALIGNANCY. Criteria not met, HPV Genotype not performed. Jazz Triplett, Electric Motor Analyst (ASCP) occur. DIAGNOSIS: 02 HPV AptimaNegativeNegative Performed at: [facility] This nucleic acid amplification test detects fourteen high- Performed at: =[facility] without differentiation. [address] [place], [place] [id number] Chemical Laboratory Tester: Megan Ariza MD, Phone: [phone] [address] [place], [place] [id number] risk HPV types (16,18,31,33,35,39,45,51,52,56,58,59,66,68) Chemical Laboratory Tester: Megan Ariza MD, Phone: [phone] Performing Lab:see noteLC - [facility] LBPROF CHEM 8 (BAS METB) Reviewed date:06/10/2025 12:56:47 PM Interpretation: Performing Lab: Notes/Report: [facility] ,Ipppcf070689-809 mmol/LPotassium3.73.5-5.1 mmol/YJvivbbqu90857-504 mmol/LCarbon Fphqenb88.021.0-32.0 mmol/LAnion Gap11.5Jmtmsta83276-602 mg/dLBlood Urea Wrdnjcng34.07.0-18.0 mg/dLCreatinine1.180.55-1.02 mg/dLEstimated GFR ( Cgoojrz76>=60 mL/min/1.73m 2Estimated GFR (Non- Ame46>=60 mL/min/1.73m 2 BUN Creatinine Ratio16.1Mlplhnp0.48.5-10.1 mg/dLPerforming Lab:see noteML - [facility] LB Reason For Referral Diagnosis 1 Knee osteoarthritis (M17.9) Referral Organization [facility] Referring Provider First Name Collins Referring Provider Last Name Vera [facility] Zakiya Gasca Referred Provider Specialty Orthopedic S urgery Referral Priority Routine Diagnosis 1 Left hip pain (M25.5 52) Referral Organization [facility] Referring Provider First Name Collins Referring Provider Last Name Vera Referring Provider [facility] Referred Provider [facility], Physical Therap y Referred Provider Specialty Physical The rapist Referral Priority Routine Medications Medication SIG (Take, Route, Frequency, Duration) Notes Start Date End Date Status metFORMIN HCl 500 MG 1 tablet with a meal Orally BID; Duration: 90 days ActiveLisinopril-hydroCHLOROthiazide 10-12.5 MG1 tablet Orally Once a day; Duration: 30 daysActiveMeloxicam 15 MG1 tablet Orally Once a day; Duration: 30 boveRUW63/16/2025ActiveGlucagonActiveOreganoActivePumpkin Seed OilActiveVitamin U2AhvhpcKsaxman KActive Social History Tobacco Use: Social History Observation Description Date Details (start date - stop date) Never Smoker NA - NA Tobacco Control (Standard) Question Answer Notes Tobacco use: Nonsmoker AUDIT-C (Standard) Question Answer Notes Did you have a drink containing alcohol in the p ast year? No Jprzmp1VkltkddmzawwesPcqifwuu Problems Problem Type SNOMED Code ICD Code Onset Dates Problem Status W/U Status Risk Notes Problem Osteoarthritis (478558437) Unspe cified osteoarthritis, unspecified site (M19.90) ActiveconfirmedProblemNasal congestion (12300236)Nasal congestion (R09.81)Active confirmedProblemHypertension (22970658)Hypertension (I10)ActiveconfirmedProblem Osteoarthritis of knee (925904262)Knee osteoarthritis (M17.9)Activeconfirmed ProblemWell adult (856656469)Well adult (Z00.00)ActiveconfirmedProblemVaginal bleeding (858555651)Vaginal bleeding (N93.9)ActiveconfirmedProblemCramp in lower limb (120922742)Leg cramp (R25.2)ActiveconfirmedProblemAcute sinusitis (87517049)Acute non-recurrent sinusitis, unspecified location (J01.90)Active confirmedProblemType II diabetes mellitus without complication (986296546) Diabetes (E11.9)Activeconfirmed Vital Signs Temperature 99.0 degrees Fahrenheit 08/26/2024 Blood pressure lirukkbgq23 mm Hg06/22/20251623Mjnpxj31 in06/22/2025lood pressure mm Hg06/22/20255859Zdtkto370.8 lbs108/23/2024BMI36.74 kg/m206/22/2025 Procedures Procedure Date Ordered Date Performed Result Body Sit e LEVI Segmental Pressure Study of Lower Extremity 06/22/2025 N/A Encounters Encounter Location Date Provider Diagnosis [address] [address] 07/06/2024 Collins Hoy Acute non-recurrent sinusitis, unspecified location J01.90 and Nasal congestion R09.[address] [address] 06/22/2025 Collins Hoy Leg cramp R25.2 and Vaginal bleeding N93.[address] [address] 08/16/2024 Collins Hoy Hypertension I10 ; Diabetes E11.9 and Knee osteoarthritis M17.[address] [address] 12/10/2024 Collins Hoy Acute non-recurrent sinusitis, unspecified location J01.90 ; Nasal congestion R09.81 and Well adult Z00.[address] [address] 08/26/2024 Collins Hoy Acute sinus infectio n J01.[address] [address] 04/06/2025 Collins Hoy Knee osteoarthritis M17.9 and Leg cramp R25.2 [facility] [address] [facility] [place] [address] 08/04/2024 Collins Hoy Leg cramp R25.2 [facility] [address] [facility] [place] [address] 07/12/2024 Collins Hoy [facility] [facility] [place] [address] 08/04[facility]24[facility] [facility] [place] [place] [address]/09/2024Doug [facility] [facility] [place] [address]/Doug [facility] [facility] [place] [place] [address]/Doug [facility] [facility] [place] [place] [address]/Doug [facility] [facility] [place] [address]/08/2024 Collins [facility]oyKnee osteoarthritis M17.9[facility] [facility] [place] [place] [address]/Doug [facility] [address] [facility] [place] [place] [address]/Doug [facility] [facility] [place] [address]/Doug Hoy Left hip pain M25.552[facility] [facility] [place] [address]/Doug Hoy Assessments Encounter Date Diagnosis (ICD Code) Assessment Notes Treatment Notes Treatment Clinical Notes Section Notes 08/16/2024 Hypertension (ICD-10 - I10) 08/16/2024Diabetes (ICD-10 - E11.9)5Acute non-recurrent sinusitis, unspecified location (ICD-10 - J01.90)Rest and drink more liquids, especially water. You may use a humidifier or vaporizer to help keep the drainage moist. Wqsx-jrd-kukacqz Nasal Saline may help the stuffy and runny nose. Use Ibuprofen and or Tylenol as needed for fever, chills, body aches or pain. Children 5 years old should not be given xkgk-aux-xzmrgbd cough and cold medications such as guaifenesin and dextromethorphan. If you're over age 5, you may try irbb-amt-eqcksqv cold medications such as guaifenesin and dextromethorphan, [...] if symptoms do not improve within 3-5 days5Acute sinus infection (ICD-10 - J01.90)04/06/2025Knee osteoarthritis (ICD-10 - M17.9)04/06/2025Leg cramp (ICD-10 - R25.2)06/22/2025 Vaginal bleeding (ICD-10 - N93.9) NO CD< no stroke -kidney test stabel and just baelyelevated - related to DM nad htn -thos are well controlled Cleared for OR 06/22/2025Leg cramp (ICD-10 - R25.2)04/07/2025Knee osteoarthritis (ICD-10 - M17.9)06/22/2025Left hip pain (ICD-10 - M25.552)4Acute non-recurrent sinusitis, unspecified location (ICD-10 - J01.90)Rest and drink more liquids, especially water. You may use a humidifier or vaporizer to help keep the drainage moist. Tkiw-uoo-mwzyrmj Nasal Saline may help the stuffy and runny nose. Use Ibuprofen and or Tylenol as needed for fever, chills, body aches or pain. Children 5 years old should not be given kmpg-bkg-wcxeaza cough and cold medications such as guaifenesin and dextromethorphan. If you're over age 5, you may try kvcu-ytg-ghxchea cold medications such as guaifenesin and dextromethorphan, [...] improve within 3-5 days08/04/2024Leg cramp (ICD-10 - R25.2)12/10/2024Nasal congestion (ICD-10 - R09.81)12/10/2024Well adult (ICD-10 - Z00.00)07/06/2024Nasal congestion (ICD-10 - R09.81)08/16/2024Knee osteoarthritis (ICD-10 - M17.9)04/06/2025OtherRecommended to rest and use a heating pad [...] End Date [employer] [place] [employer] [address] [place] [address] [id number] Agnes Timmons Self - patient is the insured Medications Administered Medication Instructions Date of Administration Dosage Notes Ketorolac Tromethamine mgOrphenadrine Qoeautg84 mgTriamcinolone 40 mg/ml mg Medical (General) History Surgical History Surgery Date(Month/Year) D&C Hysteroscopy with myosure- Dr Roche 06/24/25 mammogram 01/14/25 D&C 11/27 Colonoscopy [facility]
--- OUTSIDE RECORDS SUMMARY | 2025-06-28 13:48 | XMS_ITS | Encounter Summary ---
Author Organization [facility] Address [address] [place] [address] Care Team Providers Care Conduit Mechanic Name Role Phone Narayan Montero MD Primary Care Provider [phone] Encounter Details DateTypeDepartmentCare Team (Latest Contact Info)Lqiekapaqmi25/11/2025Orders Only [facility] [address] [place] [phone] Jen Mello MA Social History Tobacco UseTypesPacks/DayYears UsedDateSmoking Tobacco: NeverSmokeless Tobacco: NeverAlcohol UseStandard Drinks/WeekCommentsNot Currently0 (1 standard drink = 0.6 oz pure alcohol)CommentsNoSex and Gender InformationValueDate RecordedSex Assigned at BirthNot on fileLegal OyoKgixay73/15/2023 6:51 PM EDT Gender IdentityNot on fileSexual OrientationNot on filedocumented as of this encounter Plan of Treatment Not on file documented as of this encounter Procedures Procedure NamePriorityDate/TimeAssociated DiagnosisCommentsHPV/PAP COTEST, DZOIKAYCNeutvcc47/24/2025 12:00 AM ESTdocumented in this encounter Results * HPV/PAP COTEST, EXTERNAL (05/30/2025 12:00 AM EST) Narrative Authorizing ProviderResult TypeResult StatusCorey Maira DOLAB CYTOLOGY ORDERABLESFinal ResultPerforming OrganizationAddressCity/State/ZIP CodePhone Number EXTERNAL LAB documented in this encounter Visit Diagnoses Not on filedocumented in this encounter Care Teams Team MemberRelationshipSpecialtyStart DateEnd Date Narayan Montero MD [address] [place] [address] PCP - GeneralFamily Upcglgmo44/14/23documented as of this encounter
--- OUTSIDE RECORDS SUMMARY | 2025-06-28 13:48 | XMS_ITS | Clinical Summary ---
Author Organization [facility] Address [address] [place] [address], [address] [place] [address] Care Team Providers Care Loom Starter Name Role Phone Unavailable Primary Care Provider Unavailabl e Social History Tobacco UseTypesPacks/DayYears UsedDateSmoking Tobacco: Never Assessed CommentsUnknownSex and Gender InformationValueDate RecordedSex Assigned at Not on fileLegal SukYrlpdy18/10/2013 11:29 AM ESTGender IdentityNot on file Sexual OrientationNot on file Plan of Treatment Not on file
--- OUTSIDE RECORDS SUMMARY | 2025-06-28 13:48 | XMS_ITS | Encounter Summary ---
Author Organization [facility] Address [address] [place] [address] Care Team Providers Care Hand Brush Filler Name Role Phone Narayan Montero MD Primary Care Provider [phone] Encounter Details DateTypeDepartmentCare Team (Latest Contact Info)Cxoywizrkvw25/19/2025Clinisync Result Encounter [facility] External Department Unsolicited Lamont Rao, DO [address] [place], [place] [id number] Social History Tobacco UseTypesPacks/DayYears UsedDateSmoking Tobacco: NeverSmokeless Tobacco: NeverAlcohol UseStandard Drinks/WeekCommentsNot Currently0 (1 standard drink = 0.6 oz pure alcohol)CommentsNoSex and Gender InformationValueDate RecordedSex Assigned at BirthNot on fileLegal AzfCjwxdq23/15/2023 6:51 PM EDT Gender IdentityNot on fileSexual OrientationNot on filedocumented as of this encounter Plan of Treatment Not on file documented as of this encounter Procedures Procedure NamePriorityDate/TimeAssociated DiagnosisCommentsALL CBC WITH AUTO RCORMuznqin29/19/2025 6:55 AM EST documented in this encounter Results * (ABNORMAL) ALL CBC WITH AUTO DIFF (06/24/2025 6:55 AM EST)ComponentValueRef RangeTest MethodAnalysis TimePerformed AtPathologist SignatureTBH WBC8.34.0 - 11.0 10 3/uLTBHTBH RBC4.324.20 - 5.40 10 6/uLTBHTBH HGB11.8(L)12.0 - 16.0 g/dL TBHTBH HCT36.836.0 - 48.0 %TBHTBH MCV85.281.0 - 99.0 fLTBHTBH MCH27.326.7 - 34.0 pgTBHTBH MCHC32.129.9 - 35.2 g/dLTBHTBH RDW13.111.0 - 15.0 %TBHTBH CSE082 150 - 450 10 3/uLTBHTBH MPV9.2(L)9.5 - 13.5 fLTBHNEUTROPHILS PERCENT AUTO50.6 43.0 - 75.0 %TBHLYMPHOCYTES PERCENT AUTO38.620.5 - 60.0 %TBHMONOCYTES PERCENT AUTO8.51.7 - 12.0 %TBHTBH EO %1.60.9 - 7.0 %TBHBASOPHILS PERCENT AUTO0.50.2 - 2.0 %TBHIMMATURE GRANULOCYTES PCT AUTO0.20.0 - 0.5 %TBHNEUTROPHILS ABSOLUTE AUTO4.21.4 - 6.5 10 3/uLTBHLYMPHOCYTES ABSOLUTE AUTO3.21.2 - 3.8 10 3/uLTBH MONOCYTES ABSOLUTE AUTO0.70.3 - 0.8 10 3/uLTBHTBH EO #0.10.0 - 0.7 10 3/uLTBH BASOPHILS ABSOLUTE AUTO0.00.0 - 0.1 10 3/uLTBHIMMATURE GRANULOCYTES ABS AUTO 0.020.00 - 0.03 10 3/uLTBHSpecimen (Source)Anatomical Location / Laterality Collection Method / VolumeCollection TimeReceived Time06/24/2025 6:55 AM EST 06/24/2025 6:56 AM EST Narrative CLIN[facility]YNC - 06/24/2025 7:02 AM EST Authorizing ProviderResult TypeResult StatusCorey Maira DOCLINISYNCFinal Result Performing OrganizationAddressCity/State/ZIP CodePhone Number CLINISYNC TB documented in this encounter Visit Diagnoses Not on filedocumented in this encounter Care Teams Team MemberRelationshipSpecialtyStart DateEnd Date Narayan Montero MD [address] [place] [address] PCP - GeneralFamily Vhfdweig01/14/23documented as of this encounter
--- OUTSIDE RECORDS SUMMARY | 2025-06-28 13:48 | XMS_ITS | Clinical Summary ---
Author Organization [facility] tem Address [id number] [address] [place] [address] Care Team Providers Care Product Safety Tester Name Role Phone Js Gamez MD Primary Care Provider [phone] Allergies No known active allergies Medications MedicationSigDispense [...] FORMULARY Med Name: Sour SopActive peg 3350-sod sulf,jzwa-ase-fbk 178.7-7.3-0.5 gram recon soln Indications:Encounter for screening colonoscopyTake 1 kit by mouth in the morning for 1 dose. Please see instructional sheet given by physicians office. 1 each 5108/22/2024Expired Active Problems No known active problems Encounters DateTypeDepartmentCare LzysYdgxncbymva66/15/2025 10:00 AM ESTOffice Visit [facility] [address] [place] [id number] Ama Nieves, WELLHEAD PUMPER-WAX POURER Encounter for screening colonoscopy (Primary Dx)06/20/2025Travelfrom Last 3 Months Family History Medical HistoryRelationNameCommentsProstate cancerFatherRelationNameStatus CommentsFatherMotherDeceased Social History Tobacco UseTypesPacks/DayYears UsedDateSmoking Tobacco: NeverSmokeless Tobacco: NeverAUDIT-CAnswerDate RecordedFrequency of Alcohol ConsumptionNot on file 06/20/2025Q2: How many drinks containing alcohol do you have on a typical day when you are drinking?Patient does not drink06/20/2025Frequency of Binge DrinkingNot on file06/20/2025hildcareAnswerDate RecordedChildcareUnknown 12/15/2018EmploymentAnswerDate SthvntquRsezudtyrfCpdckzc46/11/2019Purpose - Life AnswerDate RecordedPurpose and direction in lnmoBakmkgk68/11/2021 CommentsNoSex and Gender InformationValueDate RecordedSex Assigned at Yafged3902/18/2023 10:58 AM EDTLegal SjoGrvgjj44/06/2015 11:21 AM EDTGender XprstvelEoatrj91/15/2023 10:58 AM EDTSexual OrientationDon't know02/18/2023 10:58 AM EDT Last Filed Vital Signs Vital SignReadingTime TakenCommentsBlood Bkkwkker537/7906/20/2025 10:04 AM EST Eguzn466806/20/2025 10:04 AM TJLLoundgyrnbi67.3 ??C (100.9 ??F)06/20/2018 5:39 PM ESTRespiratory Glav571308/21/2017 5:39 PM ESTOxygen Iemfluusox66%06/20/2018 5:39 PM ESTInhaled Oxygen Concentration--Svgimr30.7 kg (219 lb 12.8 oz)06/20/2025 10:04 AM XGNDkjvrs124.1 cm (5' 5 )01/14/2025 11:19 AM EDTBody Mass Index36.58 01/14/2025 11:19 AM EDT Plan of Treatment DateTypeDepartmentCare Team (Latest Contact Info)Gsqbfyvjjil18/05/2026 3:30 PM ESTSupport Visit [facility] - Pre Admit [address] [place] [address] 07/18/2025 8:00 AM ESTHospital Encounter [facility] - Surgery [address] [place] [address] Nicolas Carreon, DO [address] [place] [address] 07/18/2025 8:00 AM EST - 07/18/2025 8:30 AM ESTSurgery [facility] - Surgery [address] [place] [address] Nicolas Carreon, DO [address] [place] [address] COLONOSCOPY DIAGNOSTIC / SCREENING [G0121 +1 more]NamePriorityAssociated DiagnosesDate/TimeCOLONOSCOPY DIAGNOSTIC / SCREENING screening 07/18/2025 8:00 AM ESTHealth MaintenanceDue DateLast DoneCommentsDepression Cxutwtpbw74/17/1973Adult BMI Follow Up Plan1979Zoster (Shingles) Vaccine (1 of 2)2011COVID-19 Vaccine (3 - season), 03/20/2021Influenza Ctzeaoq4903/07/2025dult BMI Myfwbcppn44 Tobacco Qajhogvil53DTaP,Tdap and Td Vaccines (2 - Td or Tdap) /Pap Smear/, 11/28/2022, 11/28/2022RSV ( or age 60+ yrs) (1 - 1-dose 75+ series)2036 Goals GoalPatient Goal TypeAssociated ProblemsRecent ProgressPatient-Stated?Author Autogenerated Goal Care PlanAutogenerated ProblemNoPotts, [employer] Not on file Procedures Procedure NamePriorityDate/TimeAssociated DiagnosisCommentsHIGH RISK HPV W/CONNOR Bupcyjf1411/28/2022 5:03 AM EDT Encounter for screening for human papillomavirus (HPV) Encounter for screening for malignant neoplasm of cervix from Last 3 Months or Most Recently Relevant to Health Maintenance Results * High risk HPV w/connor (11/28/2022 5:03 AM EDT)ComponentValueRef RangeTest MethodAnalysis TimePerformed AtPathologist SignatureHpv specimen typeThinPrep 11/29/2022 5:03 AM EDTFKAISER PERMANENTE MEDICAL CENTERHpv 16NegativeNegative^Negative 11/30/2022 2:53 PM [facility] 18Negative Negative^Qfpyhwfb25/27/2023 2:53 PM [facility] LABOther high risk hpvNegativeNegative^Jrwrhgpu45/27/2023 2:53 PM [facility] LABComment: HPV types 31,33,35,39,45,52,56,58,59,66 and 68 DNA were undetectable. Specimen (Source)Anatomical Location / LateralityCollection Method / Volume Collection TimeReceived YeiqGZFKG18/25/2023 5:03 AM EDT11/29/2022 5:04 AM EDT Narrative Authorizing ProviderResult TypeResult StatusJohanny Jimenes WELLHEAD PUMPER-CNPLAB BLOOD ORDERABLESFinal ResultPerforming OrganizationAddressCity/State/ZIP CodePhone Number [address] [place] [address] [facility] [address] [facility], [address] [place] [address] from Last 3 Months or Most Recently Relevant to Health Maintenance Additional Health Concerns Active ProblemsNoted DateDiagnosed DateAutogenerated Bbzbizu3706/20/2025 Insurance Care Teams Team MemberRelationshipSpecialtyStart DateEnd Js Gamez MD [address] [place] [address] PCP - GeneralFamily Exxvpelf75/1/25
--- OUTSIDE RECORDS SUMMARY | 2025-06-28 13:48 | XMS_ITS | Encounter Summary ---
Author Organization [facility] tem Address [id number] [address] [place] [address] Care Team Providers Care Product Architect Name Role Phone Js Gamez MD Primary Care Provider [phone] Encounter Details DateTypeDepartmentCare Team (Latest Contact Info)Ohzlckjckpo44/15/2025Travel Social History Tobacco UseTypesPacks/DayYears UsedDateSmoking Tobacco: NeverSmokeless Tobacco: NeverAUDIT-CAnswerDate RecordedFrequency of Alcohol ConsumptionNot on file 06/20/2025Q2: How many drinks containing alcohol do you have on a typical day when you are drinking?Patient does not drink06/20/2025Frequency of Binge DrinkingNot on file06/20/2025hildcareAnswerDate RecordedChildcareUnknown 12/15/2018EmploymentAnswerDate HzzxyyefZjmbnhywlpKfiekfa70/11/2019Purpose - Life AnswerDate RecordedPurpose and direction in wjatXkgfdal46/11/2021 CommentsNoSex and Gender InformationValueDate RecordedSex Assigned at Oufszk5402/18/2023 10:58 AM EDTLegal JfvVldhxj73/06/2015 11:21 AM EDTGender IxyledfsMkxyjx80/15/2023 10:58 AM EDTSexual OrientationDon't know02/18/2023 10:58 AM EDTdocumented as of this encounter Plan of Treatment DateTypeDepartmentCare Team (Latest Contact Info)Rvhtdgwupkz48/11/2025 3:30 PM ESTSupport Visit [facility] - Pre Admit [address] [place] [address] 07/18/2025 8:00 AM ESTHospital Encounter [facility] - Surgery [address] [place] [address] Nicolas Carreon, DO [address] [place], [place] [address] 07/18/2025 8:00 AM EST - 07/18/2025 8:30 AM ESTSurgery [facility] - Surgery [address] [place] [address] Nicolas Carreon, DO [address] [place], [place] [address] COLONOSCOPY DIAGNOSTIC / SCREENING [G0121 +1 more]NamePriorityAssociated DiagnosesDate/TimeCOLONOSCOPY DIAGNOSTIC / SCREENING screening 07/18/2025 8:00 AM ESTdocumented as of this encounter Goals GoalPatient Goal TypeAssociated ProblemsRecent ProgressPatient-Stated?Author Autogenerated Goal Care PlanAutogenerated ProblemNoPotts, Elizabethdocumented as of this encounter Visit Diagnoses Not on filedocumented in this encounter Additional Health Concerns Active ProblemsNoted DateDiagnosed DateAutogenerated Mdqdtfm2706/20/2025documented as of this encounter Care Teams Team MemberRelationshipSpecialtyStart DateEnd Date Js Gamez MD [address] [place] [address] PCP - GeneralFamily Qtvqbiih84/1/25documented as of this encounter
--- OUTSIDE RECORDS SUMMARY | 2025-06-28 13:48 | XMS_ITS | Clinical Summary ---
Author Organization [facility] Address [address] [place] [address] Care Team Providers Care Colorer Machine Name Role Phone Narayan Montero MD Primary Care Provider [phone] Allergies No known active allergies Medications MedicationSigDispense QuantityRefillsLast FilledStart DateEnd DateStatus metFORMIN (Glucophage) 500 MG tablet every 12 (twelve) hours.Active lisinopril-hydroCHLOROthiazide 10-12.5 MG tablet Take 1 tablet by mouth in the morning.Active meloxicam (Mobic) 15 MG tablet Take 15 mg by mouth DailyActive Active Problems ProblemNoted DateDiagnosed DatePost-menopausal lvwzkjmo14/18/2024Encounter to discuss test ietxnoi7409/18/2023 Encounters DateTypeDepartmentCare AycbHmvvayfdqfr85/19/2025linisync Result Encounter [facility] Unsolicited Anthony Rao, DO 06/16/2025Orders Only [facility] [address] [place] [address] Jen Mello MA 06/13/2025bstract [facility] [address] [place] [address] Anthony Rao, DO 06/10/2025linisync Result Encounter [facility] External Department Unsolicited Anthony Rao, DO 06/10/2025linisync Result Encounter [facility] External Department Unsolicited Anthony Rao, DO 05/30/2025 9:20 AM ESTProcedure Visit [facility] [address] [address] [place] [address] Anthony Rao, Well woman exam with routine gynecological exam; Pre-op examination; PMB (postmenopausal bleeding); Uterine leiomyoma, unspecified fujlwsxb94/24/2025linisync Result Encounter [facility] External Department Unsolicited Anthony Rao, DO 05/30/2025ambmireille flowsheet [facility] [address] [address] [facility] [address] Anthony Rao, DO 05/09/2025 2:40 PM [place]Office [place] [address] Anthony Rao, PMB (postmenopausal bleeding); Uterine leiomyoma, unspecified tkpuicjm24/03/2025amboo flowsheet [facility] [address] [address] [place] [address] Anthony Rao, DO 05/03/2025 1:00 PM EDTAncillary Procedure [facility] [address] [address] [place] [address] PMB (postmenopausal bleeding)04/25/2025 2:20 PM EDTOff[place] [address] Johanny Coyle PA Menorrhagia with regular cycle (Primary Dx); PMB (postmenopausal bleeding)04/25/2025amboo flowsheet [facility] [address] [place] [address] Johanny Coyle PA 04/25/2025Travelfrom Last 3 Months Family History Medical HistoryRelationNameCommentsHypertensionMotherLung cancerMotherRelation NameStatusCommentsFatherAliveMotherDeceased Social History Tobacco UseTypesPacks/DayYears UsedDateSmoking Tobacco: NeverSmokeless Tobacco: Never Tobacco Cessation:Counseling Given: Not Answered Alcohol UseStandard Drinks/WeekCommentsNot Currently0 (1 standard drink = 0.6 oz pure alcohol)CommentsNoSex and Gender InformationValueDate RecordedSex Assigned at BirthNot on fileLegal HhzTwjydl70/15/2023 6:51 PM EDTGender Identity Not on fileSexual OrientationNot on file Last Filed Vital Signs Vital SignReadingTime TakenCommentsBlood Judotulx878/80107/30/2024 9:59 AM EST Pulse--Temperature--Respiratory Rate--Oxygen Saturation--Inhaled Oxygen Concentration--Sfqzcc07.3 kg (219 lb)05/30/2025 9:59 AM NFBIbksnl010.1 cm (5' 5 )09/08/2023 2:07 PM ESTBody Mass Index36.44009/08/2023 2:07 PM EST Plan of Treatment Health MaintenanceDue DateLast DoneCommentsCT Vrxzwgqoawtc1961Colonoscopy 1961olorectal Cancer Jmojatcgs1961FIT-DNA1961FIT1960 FOBT05/23/19619976Nqnbbxtgegfyl1961Influenza Vaccine (#1)2025Mammogram , 05/25/2024, 08/09/2022, Additional history existsPap Smear , 11/28/2022ervical Cancer Xdxuobuqf55/25/2028HPV/Cotest 3Pneumococcal Vaccine: Pediatrics (0 to 5 Years) and At-Risk Patients (6 to 64 Years)Aged OutNo longer eligible based on patient's age to complete this topic Procedures Procedure NamePriorityDate/TimeAssociated DiagnosisCommentsALL CBC WITH AUTO UMAFBcvmyat76/19/2025 6:55 AM EST ALL BASIC METABOLIC EHQYZCxibgov71/05/2025 11:26 AM EST ECG 12-LEAD06/10/2025 10:23 AM EST IGP,APTIMA HPV,AGE WFFPMqjopfd56/24/2025 9:43 AM EST HPV/PAP COTEST, KUIIYGDICluuwjl17/24/2025 12:00 AM ESTUS PELVIC COMPLETE W/ TV Qmfzgoe9705/03/2025 1:40 PM EDT PMB (postmenopausal bleeding) MM TOMOSYNTHESIS SCREENING BI05/25/2024 9:32 AM EST PAP ZHJXMQyfkxdh53/27/2024 12:00 AM EDTfrom Last 3 Months or Most Recently Relevant to Health Maintenance Results * (ABNORMAL) ALL CBC WITH AUTO DIFF (06/24/2025 6:55 AM EST)ComponentValueRef RangeTest MethodAnalysis TimePerformed AtPathologist SignatureTBH WBC8.34.0 - 11.0 10 3/uLTBHTBH RBC4.324.20 - 5.40 10 6/uLTBHTBH HGB11.8(L)12.0 - 16.0 g/dL TBHTBH HCT36.836.0 - 48.0 %TBHTBH MCV85.281.0 - 99.0 fLTBHTBH MCH27.326.7 - 34.0 pgTBHTBH MCHC32.129.9 - 35.2 g/dLTBHTBH RDW13.111.0 - 15.0 %TBHTBH BZU393 150 - 450 10 3/uLTBHTBH MPV9.2(L)9.5 - [...] Maira DOCLINISYNCFinal Result Performing OrganizationAddressCity/State/ZIP CodePhone Number [facility] * (ABNORMAL) ALL BASIC METABOLIC PANEL (06/10/2025 11:26 AM EST)ComponentValue Ref RangeTest MethodAnalysis TimePerformed AtPathologist MjzivwhycYLKTTD871139 - 145 mmol/LTBHPOTASSIUM3.73.5 - 5.1 mmol/WFBFQAYNDBDK70624 - 107 mmol/LTBH CARBON PHMOXEU83.021.0 - 32.0 mmol/LTBHANION GAP11.8GLUFDJVKDR556(H)74 - 106 mg/dLTBHBLOOD UREA UQLANSJK37.0(H)7.0 - 18.0 mg/dLTBHCREATININE1.18(H)0.55 - 1.02 mg/dLTBHTBH EGFR-AF KUNXKWWV75(L)>=60 mL/min/1.73m 2TBHTBH EGFR-NON AF YZGDNAKZ62(L)>=60 mL/min/1.73m 2TBHBUN CREATININE RATIO16.5VAWXSISPYD7.48.5 - 10.1 mg/dLTBHSpecimen (Source)Anatomical Location / LateralityCollection Method / VolumeCollection TimeReceived Time06/10/2025 11:26 AM EST06/10/2025 11:28 AM EST Narrative CLINISYNC - 06/10/2025 12:18 PM EST Authorizing ProviderResult TypeResult StatusCorey Maira DOCLINISYNCFinal Result Performing OrganizationAddressCity/State/ZIP CodePhone Number [facility] [facility] * ECG 12-LEAD (06/10/2025 10:23 AM EST)Anatomical RegionLateralityModalityOther Specimen (Source)Anatomical Location / LateralityCollection Method / Volume Collection TimeReceived Time06/10/2025 10:23 AM EST Narrative 06/10/2025 9:54 PM EST [facility] ?[address] ? [place], [place] [address] ? Electrocardiograph Report ? Signed ? Patient: IAINAGNES C ?MR#: [id number] ?? : 1960 ?Acct:[id number] ?? Age/Sex: 65 / F ?ADM Date: 06/10/25 ?? Loc: PST ? Attending Dr: Anthony Rao D.O. ? Ordering Physician: Anthony Rao D.O. ?? Date of Service: 06/10/25 ?? Procedure(s): ECG 12 lead ?? Accession Number(s): [id number] ? cc: ?[facility] ? Test Date: ?2025-06-10 ?? Pat Name: ? AGNES THAPA ? Department: ? Room: ? - ?? Gender: ? Female ? Wireline Field Operator: ? : ?1960 ? Requested By: ANTHONY RAO ?? Order Number: [id number] ?Reading MD: ?? DHRUV ??Georgie LANDERS ? Measurements ?? Intervals ?[place]side ? Rate: ? 70 ? P: ?52 ?? PA: ? 146 ?QRS: ?-4 ?? QRSD: ? [...] ?06/10/254 ? DD/ 1023 ? TD/TT: ? Feed Mill Manager: Procedure Note Radiology, Radiologist, MD - 06/10/2025 [place] [address] Electrocardiograph Report Signed Patient: AGNES THAPA CMR#: [id number] : 1Acct:[id number] Age/Sex: 65 / FADM Date: 06/10/25 Loc: PST Attending Dr: Anthony Rao D.O. Ordering Physician: Anthony Rao D.O. Date of Service: 06/10/25 Procedure(s): ECG 12 lead Accession Number(s): [id number] cc: [facility] Test Date: 2025-06-10 Pat Name: AGNES THAPA Department: Room: - Gender: Female Wireline Field Operator: : 1960 Requested By: ANTHONY RAO Order Number: [id number] Reading MD: DHRUV LANDERS M.D. Measurements Intervals [place]side Rate: 70 P: 52 PA: 146 QRS: -4 QRSD: 146 T: 29 QT: 399 QTc: 431 Interpretive Statements SINUS RHYTHM RIGHT BUNDLE BRANCH BLOCK [120+ ms QRS DURATION, UPRIGHT V1, 40+ ms S IN I/aVL/V4/V5/V6] Abnormal ECG Compared to ECG 11/05/2023 13:16:05 Indeterminate axis no longer present Electronically Signed On 06-10-2025 21:54:32 EST by DHRUV LANDERS M.D. Dictated By: DHRUV LANDERS Signed By:06/10/25 2154 DD/ 1023 TD/TT: Feed Mill Manager: Authorizing ProviderResult TypeResult StatusCorey Maira DOCLINISYNC IMAGINGFinal [...] at: 01 =G ?[facility] ?? [address] [place] ??[phone] ?? Megan Ariza MD, IGP, APTIMA HPV, RFX 16/18,45Note.TBHComment: ?? TESTS ? RESULT ??FLAG ??UNITS ?REF RANGE ??LAB DIAGNOSIS: ?02 ?? NEGATIVE FOR INTRAEPITHELIAL LESION OR MALIGNANCY. Specimen adequacy: ?02 ?? Satisfactory for evaluation. ??Endocervical and/or squamous metaplastic ?? cells (endocervical component) are present. Performed by: ? 02 ?? Jazz Triplett, Roll Up Helper (ASCP) . ? 02 Note: ? Note [...] pap test was interpreted ?? using the HiConversion(R) Genius(TM) Cervical Algorithm whole ?? slide imaging system. HPV Genotype Reflex ?? Note ?02 ?? Criteria not met, HPV Genotype not performed. ?FLAG LEGEND: ?L-Low Normal,H-High Normal,LL-Alert Low,HH-Alert High <-Panic Low,>-Panic High,A-Abnormal,AA-Critical Abnormal Performed at: 02 WB ?[facility] ?? [address] [facility], [place] ??[address] ?? Megan Ariza MD, HPV APTIMANegativeNegativeTBHComment: This nucleic acid amplification test detects fourteen high- risk HPV types (16,18,31,33,35,39,45,51,52,56,58,59,66,68) without differentiation. Performed at: ??=G - [facility] [address] [facility], [place] ??[id number] Nutritional Chemist: Megan Ariza MD, Phone: ??[phone] Performed at: ??WB - [facility] [address] ??[id number] Nutritional Chemist: Megan Ariza MD, Phone: ??[phone] Specimen (Source)Anatomical Location / LateralityCollection Method / [...] Irwin MD Authorizing ProviderResult TypeResult StatusHortencia Ash NPCANC[facility] US PROCEDURES Final Result * MM TOMOSYNTHESIS SCREENING BI (05/25/2024 9:32 AM EST)Anatomical Region LateralityModalityOtherSpecimen (Source)Anatomical Location / Laterality Collection Method / VolumeCollection TimeReceived Time05/25/2024 9:32 AM EST Narrative 05/25/2024 9:33 AM EST [facility] ?[address] ? [place] [address] ? Mammography Report ? Signed ? Patient: IAIN,AGNES C ?MR#: [id number] ?? : 1960 ?Acct:[id number] ?? Age/Sex: 63 / F ?ADM Date: 11/05/24 ?? Loc: MAMMO ? Attending Dr: Johanny Coyle ? Ordering Physician: Johanny Coyle ?Results: ? Date of Service: 05/11/24 ?Follow Up: ? Procedure(s): MM tomosynthesis screening BI ?? Accession Number(s): [id number] ? cc: Johanny Coyle; Physician,Non-Staff M.D. ? Patient Name: ? AGNES THAPA ? MR#: [id number] ? : 1960 ? Exam Date: 05/11/2024 [...] at age 87. ? LOCATION: ? [facility] ? BREAST COMPOSITION: ? There are scattered [...] 0933 ? DD/ 0932 ? TD/TT: ? Feed Mill Manager: Procedure Note Radiology, Radiologist, MD - 05/25/2024 [place] [address] Mammography Report Signed Patient: AGNES THAPA CMR#: [id number] : 1960cct:[id number] Age/Sex: 63 / FADM Date: 05/11/24 Loc: MAMMO Attending Dr: Johanny Coyle Ordering Physician: Johanny Acostaults: Date of Service: 05/11/24Follow Up: Procedure(s): MM tomosynthesis screening BI Accession Number(s): [id number] cc: Johanny Coyle; Physician,Non-Staff M.D. Patient Name: AGNES THAPA MR#: [id number] : 1960 Exam Date: 05/11/2024 Ordering Doctor: [...] prostate cancer at age 87. LOCATION: [facility] BREAST COMPOSITION: There are scattered areas of [...] on 05/25/2024 at 09:26 Approved by: Jon oMss M.D. on 05/25/2024 at 09:32 Dictated By: Jon Moss M.D. Signed By:05/25/2433 DD/ TD/TT: Feed Mill Manager: Authorizing ProviderResult TypeResult StatusAmy [place] PACLNOLAND HOS[facility]ITAL TUSCALOOSAYNC IMAGINGFinal Result * Pap Smear (03/02/2024 12:00 AM EDT)Specimen (Source)Anatomical Location / LateralityCollection Method / VolumeCollection TimeReceived TimeSwabCervical swab / Unknown Narrative Authorizing ProviderResult TypeResult StatusFazio Nurse [facility] ObLAB CYTOLOGY ORDERABLESFinal ResultPerforming OrganizationAddressCity/State/ZIP CodePhone Number EXTERNAL LAB from Last 3 Months or Most Recently Relevant to Health Maintenance Insurance Care Teams Team MemberRelationshipSpecialtyStart DateEnd Narayan Montero MD [address] [place] [address] PCP - GeneralFamily Teholdtx77/14/23
== END 2025-06-28 13:47 | disposition home or self-care (01) ==
LOC: CARD 13:46
PROVIDERS: PCP Family Medicine; Visit Provider Family Medicine
DX: R25.2 Cramp and spasm (principal)
CPT/HCPCS: 93923